=== PATIENT | female | born 1955 | race Caucasian/White ===

== ENCOUNTER → 2017-12-10 11:51 | Outpatient (CLI) | payer MEDICARE, MEDICAID, SELFPAY ==
--- NOTE | 2017-12-10 11:55 | DI.RAD.S_ITS ---
PROCEDURE: XR CHEST 2V INDICATIONS: COUGH TECHNIQUE: 2 views of the chest were acquired. COMPARISON: [facility], CHEST 2 VIEW, 08/28/2010, 9:58. [facility], CHEST 2 VIEW, 06/12/2008, 13:43. FINDINGS: Surgical changes and devices: Prior lower cervical spine fusion plate. Lungs and pleura: No pleural effusions or pneumothorax. Lungs are clear except for large lung volumes with flattening of the diaphragms on the lateral view. Mediastinum: Mediastinal contours are normal. Heart size is normal. Bones and chest wall: No suspicious bony abnormalities. Soft tissues appear unremarkable. IMPRESSION: Normal for age except for large lung volumes, source of cough is not seen. Dictated by: Aquiles Lopez M.D. on 12/10/2017 at 13:13 Approved by: Aquiles Lopez M.D. on 12/10/2017 at 13:14
== END ==
PROVIDERS: Visit Provider Physician Assistant
DX: R05 Cough (principal)
CPT/HCPCS: 71046

== ENCOUNTER → 2018-02-05 14:17 | Outpatient (CLI) | payer MEDICARE, MEDICAID, SELFPAY ==
--- NOTE | 2018-02-05 | DI.MG.S_ITS ---
BILATERAL DIGITAL SCREENING MAMMOGRAM 3D/2D WITH CAD: 02/05/2018 CLINICAL: Routine screening. Comparison is made to exams dated: 01/09/2017 mammogram, 11/09/2015 mammogram, 03/17/2014 mammogram, and 03/04/2013 mammogram - [facility]. There are scattered fibroglandular elements in both breasts. Current study was also evaluated with a Computer Aided Detection (CAD) system. No significant masses, calcifications, or other findings are seen in either breast. There has been no significant interval change. IMPRESSION: NEGATIVE There is no mammographic evidence of malignancy. A 1 year screening mammogram is recommended. This exam was interpreted at Station ID: [id number]. NOTE: For mammograms, a report in lay terms will be sent to the patient. Approximately 15% of breast malignancies will not be visualized mammographically. In the management of a palpable breast mass, a negative mammogram must not discourage biopsy of a clinically suspicious lesion. Electronically Signed By: Jhoana fall/brendan:02/05/2018 14:57:25 letter sent: Normal Exam ACR BI-RADS Category 1: Negative [id number]
== END ==
PROVIDERS: PCP Family Medicine; Visit Provider Family Medicine
DX: Z12.31 Encounter for screening mammogram for malignant neoplasm of breast (principal)
CPT/HCPCS: 77063; 77067

== ENCOUNTER → 2018-03-22 12:38 | Outpatient (CLI) | payer MEDICARE, MEDICAID, SELFPAY ==
--- NOTE | 2018-03-22 12:43 | DI.RAD.S_ITS ---
PROCEDURE: XR LUMBAR SPINE MIN 4V INDICATIONS: lower back pain TECHNIQUE: 5 views of the lumbar spine acquired. COMPARISON: [facility], , L-SPINE MINIMUM 4 VIEWS, 01/04/2015, 13:36. FINDINGS: Bones: Upon review of prior exams, there appears to be 13 ribs with the 13th set being vestigial. For purposes of this report and to keep continuity with prior exams, the vertebral body with the 13th rib is designated at L1. There is grade 1 anteriolisthesis of L4 on L5, measuring 9 mm.. There is moderate foraminal narrowing at L5-S1. Prominent disc space narrowing is present at L5-S1. Soft tissues: Overlying bowel gas pattern is normal. No suspicious soft tissue calcifications. Flexion/extension: There is normal range of motion, with preserved normal alignment. IMPRESSION: 1. Degenerative changes most prominent at L5-S1. 2. Transitional anatomy as above. 3. Grade 1 anteriolisthesis of L4 on L5, unchanged. Dictated by: Juli Chappell M.D. on 03/22/2018 at 15:41 Approved by: Juli Chappell M.D. on 03/22/2018 at 15:47
--- NOTE | 2018-03-22 12:43 | DI.MRI.S_ITS ---
PROCEDURE: MR LUMBAR SPINE WO CON INDICATIONS: low back pain TECHNIQUE: Noncontrast sagittal T1 spin echo and T2 fast echo, sagittal STIR, axial T1 and T2 fast spin echo through the lumbar spine. In cases with scoliosis, additional coronal T2 fast spin echo may be performed. COMPARISON: [facility], MR, L-SPINE W&WO CONTRAST, 12/13/2014, 12:47. [facility], CT, L-SPINE WITH CONTRAST, 09/29/2016, 14:36. [facility], CR, XR CHEST 2V, 12/10/2017, 11:30. [facility], CR, XR LUMBAR SPINE MIN 4V, 03/22/2018, 12:46. FINDINGS: Image quality: Excellent. Alignment and Curvature: There is grade 1 L4-L5 degenerative anterolisthesis. Bones: Transitional anatomy with 13 ribs and non-rudimentary S1-2 disc. For purposes of this dictation and continuity with prior examinations, the vertebral body with the 13th rib is designated L1. Reactive endplate changes noted adjacent to the L4-L5 and L5-S1 discs. No acute vertebral body compression fractures. Spinal Cord: Conus medullaris terminates at the L2 level. Visualized cord demonstrates normal signal and size. Paraspinous Soft Tissues: No paravertebral masses. L1-L2: Normal appearance. L2-L3: Loss of disc signal. Mild, diffuse disc bulge. Mild bilateral facet hypertrophy. Mild narrowing of the central canal. Mild bilateral neural foraminal narrowing. No neural impingement. L3-L4: Loss of disc signal. Mild bilateral facet hypertrophy. Mild to moderate facet and mild ligamentum flavum hypertrophy. Moderate narrowing of the central canal. Mild bilateral neural foraminal narrowing. No neural impingement. L4-L5: Loss of disc signal and slight loss of disc height. Mild, diffuse disc bulge. Severe facet and mild ligamentum flavum hypertrophy. Moderate to severe narrowing of the central canal. Moderate to severe bilateral neural foraminal narrowing with slight flattening deformity of the exiting L4 nerve roots. L5-S1: Loss of disc signal and height. Mild, diffuse disc bulge and mild bilateral facet hypertrophy. No central stenosis. Moderate bilateral neural foraminal narrowing. No neural impingement. IMPRESSION: 1. Transitional anatomy which be noted prior to any future surgical intervention. 2. Grade I L4-L5 degenerative spondylolisthesis. 3. Multilevel degenerative disease. 4. Multilevel facet arthropathy. 5. Moderate to severe L4-L5 central canal narrowing. Moderate L3-L4 central canal narrowing. Mild L2-L3 central canal narrowing. 6. Moderate to severe bilateral L4-L5 neural foraminal narrowing. Moderate bilateral L5-S1 and neural foraminal narrowing. Mild bilateral L2-L3 and L3-L4 neural foraminal narrowing. Dictated by: Deanna Conner MD, PhD on 03/22/2018 at 16:08 Approved by: Deanna Conner MD, PhD on 03/22/2018 at 16:28
== END ==
PROVIDERS: Family Provider Family Medicine; PCP Family Medicine; Visit Provider Physical Medicine & Rehabilitation
DX: M54.5 Low back pain (principal); M43.16 Spondylolisthesis, lumbar region; M96.1 Postlaminectomy syndrome, not elsewhere classified; M51.36 Other intervertebral disc degeneration, lumbar region; M51.37 Other intervertebral disc degeneration, lumbosacral region; M48.061 Spinal stenosis, lumbar region without neurogenic claudication; M48.07 Spinal stenosis, lumbosacral region; M47.816 Spondylosis without myelopathy or radiculopathy, lumbar region; M47.817 Spondylosis without myelopathy or radiculopathy, lumbosacral region
CPT/HCPCS: 72110; 72148

== ENCOUNTER 2018-04-28 13:47 | Outpatient (CLI) | payer MEDICARE, MEDICAID, SELFPAY ==
[2018-04-28] VITALS (8 sets, daily range): BP systolic 108–162; BP diastolic 78–99; PULSE 73–86; RESP 16–18; TEMP 36.3; O2SAT 95–100
--- NOTE | 2018-04-28 13:49 | DI.RAD.S_ITS ---
PROCEDURE: PAIN L INTERLAMINAR/CAUDAL INJ INDICATIONS: Spinal Stenosis FINDINGS: Fluoroscopic spot filming was performed to verify placement of spinal needles at the dorsal L4-L5 level, at the midline, as labeled on the films. Appropriate location(s) of the needle tip(s) was confirmed by injection of iodinated contrast. IMPRESSION: Successful L4-L5 translaminar dorsal midline needle tip localization for epidural steroid injection. Dictated by: Aquiles Lopez M.D. on 04/28/2018 at 15:10 Approved by: Aquiles Lopez M.D. on 04/28/2018 at 15:11
[2018-04-28] MEDS: fentaNYL 100 MCG/2 ML INJ 50 MCG IV (14:30)
[2018-04-28] MEDS: MIDAZOLAM 5 MG/5 ML VIAL IV (14:30)
--- NOTE | 2018-04-28 14:43 | PC.NURSE ---
pt tolerated procedure, she remained awake and alert through procedure. She was able to get off table with minimal assist. transferred pt to pre procedure room via wheelchair for resumed monitoring with Radha TAMEZ.
--- NOTE | 2018-04-28 14:53 | P.PCN_ITS ---
Procedures Date/Time Date of procedure: 04/28/18 Time of procedure: 14:52 General Procedure description: PROVIDER: Aman Ojeda DO Operative Note PREOP DIAGNOSIS 1. HNP WITH RADICULAR FEATURES, 2. MULTILEVEL CENTRAL STENOSIS, POST OP DIAGNOSIS 1. HNP WITH RADICULAR FEATURES, 2. MULTILEVEL CENTRAL STENOSIS PROCEDURES 1. FLUORSCOPICALLY GUIDED CONTRAST CONTROLLED INTERLAMINAR EPIDURAL STEROID INJECTION -L4/5 PHYSICIAN: Aman Ojeda DO INDICATIONs: Josey is referred by Dr. Espinoza for treatment of Bilateral Foraminal Stenosis R>L LE symptoms. FINDINGS Multilevel Central Spinal Stenosis with Nerve Root Compression DESCRIPTION OF PROCEDURE Fluoroscopically guided, contrast-controlled L4/5 translaminar epidural steroid injection. Following denial of allergy and review of potential side effects and complications, including, but not necessarily limited to, infection, allergic reaction, local tissue breakdown, temporary as well as permanent nerve injury, paralysis, stroke and possible , the patient indicated that the patient understood and agreed to proceed. An informed consent document was signed by the patient, witnessed by a nurse, and placed in the patient's chart. Additionally, other treatment options including modalities, medications, and physical therapy were reviewed with the patient. After review of previous anaesthesic history and IV conscious sedation the patient was deemed safe to proceed with todays procedure with IV conscious sedation as ASA class II designation. Safety time-out was performed to confirm patient ID, procedure to be performed and site of procedure. IV sedation was accomplished with a combination of 3mg of Versed and 50mcg of Fentanyl was administered by the RN after DO order, titrated to patient comfort during the course of the procedure while the patient remained responsive to all verbal commands In the prone position, following sterile prep and drape of the lumbar region, the L4/5 translaminar space was identified fluoroscopically. The skin was anesthetized via a 25-gauge, 1.5-inch needle with 1% lidocaine solution. At this point, a 22-gauge short bevel spinal needle was atraumatically introduced and advanced under fluoroscopic guidance into the region of the L4/5 translaminar space. Depth was confirmed on lateral view. Radiological data, including multiple fluoroscopic views of the lumbar spine, reveal a spinal needle at the L4/5 translaminar space. Lateral views then show placement of the needle in the epidural space. Subsequent views show contrast material flowing superiorly and inferiorly in the epidural space. No vascular or intrathecal uptake is observed. At this point, using loss of resistance technique with saline and air, the epidural space was entered. This was confirmed following negative aspiration with injection of approximately 1.5 cc of Isovue 200, showing excellent epidural flow without vascular or intrathecal uptake. At this point, 1 cc of 1% lidocaine solution combined with 2cc or 20mg of dexamethasone was injected without incident. The patient tolerated the procedure well without signs or symptoms of complications prior to transfer to the recovery area continued monitoring without incident. The patient was then transferred to the recovery area where they were observed for an appropriate period of time after the injection. The patient reported a VAS score of 6 prior to the procedure and a post- procedure VAS of 0. Total Fluoroscopy Time: 11.8 seconds, 8.99 mGy Total Conscious Sedation Time: 24min POST OP INSTRUCTIONS The patient was provided a Pain Log to continue to record their response to the target-specific procedure prior to follow-up visit with their referring physician. Additionally, specific post-injection care instructions and a contact number to our office were provided if concerns arise regarding possible complications associated with the procedure are suspected. Aman Ojeda, Complications: none
[2018-04-28] MEDS: IOPAMIDOL 15 ML VIAL 3 ML INJ (14:54)
[2018-04-28] MEDS: DEXAMETHASONE 10 MG/ML VIAL 20 MG INJ (14:54)
[2018-04-28] MEDS: BUPIVACAINE 0.25% (PF) VIAL 2 ML INJ (14:54)
== END 2018-04-28 15:26 | disposition home or self-care (01) ==
LOC: RAD 13:48
PROVIDERS: Family Provider Family Medicine; PCP Family Medicine; Visit Provider Physical Medicine & Rehabilitation
DX: M51.16 Intervertebral disc disorders with radiculopathy, lumbar region (principal); M48.061 Spinal stenosis, lumbar region without neurogenic claudication; M96.1 Postlaminectomy syndrome, not elsewhere classified
CPT/HCPCS: 62323; 99152; J1100; J2250; J3010

== ENCOUNTER → 2018-12-09 15:32 | Outpatient (CLI) | payer MEDICARE, MEDICAID, SELFPAY ==
[2018-12-09 16:00] LABS: Add Manual Diff / Slide Review NO; Basophils Absolute Auto 100 /uL (0-100); Eosinophils Absolute Auto 500 /uL (0-450); Eosinophils Percent Auto 5.4 % (2-4); Hematocrit 40.9 % (36-46); Hemoglobin 13.3 g/dL (12.0-16.0); Lymphocytes Absolute Auto 2000 /uL (1100-4500); Lymphocytes Percent Auto 22.9 % (25-40); Mean Corpuscular HGB Conc 32.6 % (30-36); Mean Corpuscular Hemoglobin 26.9 PG (26-34); Mean Corpuscular Volume 82.6 fL (80-100); Monocytes Absolute Auto 600 /uL (0-900); Monocytes Percent Auto 6.5 % (3-14); Neutrophils Absolute Auto 5600 /uL (1500-7000); Neutrophils Percent Auto 64.2 % (50-75); Platelet Count 328 X10^3/uL (150-400); Red Blood Cell Count 4.95 X10^6/uL (4.0-5.2); White Blood Cell Count 8.8 X10^3/uL (4.5-11.0)
[2018-12-09 16:51] LABS: BUN Creatinine Ratio 18.3 (6-22); Blood Urea Nitrogen 11 mg/dL (7-17); Calcium 9.6 mg/dL (8.4-10.2); Carbon Dioxide 28 mmol/L (22-32); Chloride 102 mmol/L (98-107); Estimated Glomerular Filt Rate > 60.0 mL/min (>60); Glucose 95 mg/dL (80-110); HEMOLYSIS < 15 (0-50); Potassium 4.2 mmol/L (3.4-5.1); Sodium 136 mmol/L (137-145)
== END ==
PROVIDERS: Family Provider Family Medicine; PCP Family Medicine; Visit Provider Physician Assistant Surgical
DX: Z01.818 Encounter for other preprocedural examination (principal); Z01.812 Encounter for preprocedural laboratory examination
CPT/HCPCS: 36415; 80048; 85025; 93005

== ENCOUNTER 2018-12-13 06:42 | Inpatient (IN) | payer MEDICARE, MEDICAID, SELFPAY ==
[2018-10-14 12:32] VITALS: BMI 25.9
[2018-12-13] VITALS (24 sets, daily range): BP systolic 109–152; BP diastolic 68–93; PULSE 76–97; RESP 8–16; TEMP 35.6–36.4; O2SAT 91–100; BMI 25.9
--- NOTE | 2018-12-13 | DI.RAD.S_ITS ---
PROCEDURE: XR LUMBAR SPINE 2-3V INDICATIONS: L4-5 L5-S1 TLIF TECHNIQUE: 2 views of the lumbar spine were acquired. COMPARISON: [facility], CR, XR LUMBAR SPINE MIN 4V, 03/22/2018, 12:46. [facility], MR, MR LUMBAR SPINE WO CON, 03/22/2018, 13:17. FINDINGS: Two intraoperative fluoroscopy images demonstrate discectomy, laminectomy and posterior fusion at L4-L5 and L5-S1. Pedicular screws and fusion rods are in the expected position. Intervertebral disc prostheses are noted. IMPRESSION: Discectomy and posterior fusion at L4-L5 and L5-S1. Dictated by: Umm Rocha M.D. on 12/13/2018 at 12:04 Approved by: Umm Rocha M.D. on 12/13/2018 at 12:07
[2018-12-13] MEDS: LACTATED RINGERS 1,000 ML 100 ML IV ×3 (07:28→10:26)
[2018-12-13] MEDS: CEFAZOLIN 2 GM/100 ML FROZ.PIGGY IV ×2 (07:55→16:25)
--- NOTE | 2018-12-13 08:30 | SUR.OPER ---
Prone on spine table, head in foam head support, padded chest and pelvic supports, gel pad at knees, lower legs supported by pillows; nipples, genitalia and toes free of pressure, arms secured on foam padded arm boards at <90 degrees abduction. Tape over blanket at thigh secured to table.
[2018-12-13] MEDS: BUPIVACAINE 0.25% W/ EPI 30 ML VIAL INJ (08:43)
[2018-12-13] MEDS: BUPIVACAINE LIPOSOME 266 MG/20 ML VIAL INJ (08:43)
--- NOTE | 2018-12-13 11:28 | PM.PREOP ---
Pre-operative Note Interval Note History & Physical reviewed/Exam performed by Physician: Yes Changes to H&P: No
--- NOTE | 2018-12-13 11:28 | PM.OP.1 ---
Operative Date/Time/Diagnoses Date of procedure: 12/13/18 Time of procedure: 08:13 Pre-op diagnosis: 1. L4-5, L5-S1 spondylolisthesis 2. L4-5, L5-S1 post laminectomy syndrome 3. L4-5, L5-S1 spinal stenosis. Post-op diagnosis: same Procedure & Clinicians Procedure: 1. L4-5, L5-S1 Postero-lateral and posterior interbody fusion 2. L4-5, L5-S1 interbody cage placement. 3. L4-5, L5-S1 decompressive laminectomy with bilateral facetecomies 4. L4-5, L5-S1 Posterior segmental instrumentation 5. [place] of bone marrow from iliac crest 6. Utilization of microsurgical technique and operating microscope Same procedure as scheduled: Yes Indications: Patient has been having chronic back pain and worsening lumbar radiculopathy. Patient failed multiple conservative management with worsening pain weakness and numbness in her lower extremity. Patient has been having difficulty performing activity of daily living. After discussing risks benefits of treatment options, patient elected proceed with surgery. Surgeon: Daniel [facility] [employer] As[employer]er: Meredith Mccurdy Click Yes if Unassisted: No Anesthesia Type: General Operative Notes Closure Type: primary Specimen(s): none sent Prosthetic devices, grafts, tissues, transplants, or devices: Globus revolve, Rise cages Applied: catheter Estimated Blood Loss (mL): 100 Blood products transfused: none Procedure in detail: Patient was seen in the preoperative area. Risks and benefits of the surgery was discussed with the patient. Informed consent was obtained from the patient and placed in the chart. Surgical site was marked. Patient was taken to the operative room. General anesthesia was administered. Prophylactic antibiotic was given to the patient less than 30 min before the incision was made. Patient was placed into a prone position on the Jordan table. Patient's back was then prepped and draped in the sterile fashion. Time-out was performed at this time. Using AP and lateral C-arm imaging the interval between L4-S1 was identified and marked on patient's back. A 2 inch incision 2 in from midline was made on the right side first. The fascia was incised in line with skin incision. Globus MARS retractors was placed inside the incision and docked onto the L4 and L5 lamina. Using microsurgical technique and operating microscope, a L4 and L5 laminectomy and L4-5 L5-S1 facetectomy was performed using a Kerrison rongeur. During the process of decompression more than 75% of bilateral L4-5 L5-S1 facets were removed in order to decompress the spinal canal and the lateral recess. Patient was found have significant amount of epidural scarring from previous laminectomy which was carefully resected during the process of decompression. The L4-5 L5-S1 level was grossly unstable after the decompression was completed and requiring the fusion procedure. The disc space at L4-5, L5-S1 was identified. And a total diskectomy was performed at L4-5, L5-S1 level. The endplates were decorticated using a rasp and shaver. The total diskectomy and decortication was performed at L4-5, L5-S1 level in order to to accomplish a L4-5, L5-S1 fusion. The local bone from the laminectomy and facetectomy was saved for local bone grafting. After the total diskectomy and decortication was completed, Bio4 bone graft material was combined with local bone that was harvested earlier. At this time, a separate skin is incision was made over the iliac crest. A Jamshidi needle was inserted into the iliac crest through a separate skin incision. 5 cc of bone marrow aspiration was obtained through the separate skin incision using a Jamshidi needle from the iliac crest. The bone marrow aspiration was combined with local bone and the Bio4 bone grafting material. The bone grafting material was placed into the L4-5, L5-S1 interbody space along with two cages, one expandable cage at each level. The cages were expanded to their maximum height using the torque limiting screwdriver. At this time a mirror image incision was made on the left side. The fascia was incised in line with the skin incision. Globus MARS retractor was inserted and docked onto the L4-5, L5-S1 posterolateral gutter. Using the power drill, posterior-lateral decortication was performed at L4-5, L5-S1 level until bleeding cortical bone was identified. The remaining bone grafting material was placed into the L4-5 L5-S1 posterior lateral gutter he order to accomplish posterolateral fusion at the L4-5 L5-S1 levels. Using the double C-arm technique, pedicle screws were placed into the L4, L5, S1 pedicles bilaterally. This was done by placing the Jamshidi needle into the pedicles, then placing the guidewires over the Jamshidi needle, and finally placing the cannulated screws over the guidewires bilaterally. After the pedicle screws were placed, 2 titanium rods was locked into the heads of the pedicle screws using locking caps and torque limiting screwdriver. Total 6 pedicles screws were placed. After all the hardware was placed, and confirmed with AP and lateral C-arm imaging, the wound was then irrigated with sterile normal saline and packed with Ray-Lazaro gauze for 3 min to accomplish hemostasis. After the gauze was removed the deep fascia was closed with #1 Vicryl suture. The subcutaneous layer was closed with 2-0 Vicryl. The skin was closed with skin stacey. Patient tolerated the procedure well. There were no complications. Complications: none Post-operative Condition: stable Disposition: PACU Plan for aftercare: Admit to inpatient hospital
--- NOTE | 2018-12-13 12:06 | SUR.PHASEI ---
1145 to PACU, sleeping, need jaw thrust for airway management, resp even and regular. Sigrid Nielsen RN assisting with airway. Skin warm and dry. 1150 Reported off to Sigrid Nielsen Rn.
[2018-12-13] MEDS: hydrOXYzine 50 MG/ML INJ IM (12:11)
[2018-12-13] MEDS: fentaNYL 100 MCG/2 ML INJ 50 MCG IV (12:17)
[2018-12-13] MEDS: SODIUM CHLORIDE 0.9% 1,000 ML 100 ML IV (14:11)
[2018-12-13] MEDS: HYDROMORPHONE 1 MG INJ 0.5 MG IV ×4 (14:18→20:23)
--- NOTE | 2018-12-13 14:50 | PC.NURSE ---
Addendum entered by Kings Naylor R.N. 12/13/18 15:24: Patient medicated with IV dilaudid as ordered at 1418, her grandson now at bedside, patient declined to eat or drink at this time, patient then able to fall asleep and resting comfortably at this time. Almazan in place, draining clear yellow urine. Moving all extremitites. Denies numbness. Call light within reach. Bed alarm on. Original Note: Patient brought up to floor by INTERRELATED SPECIAL EDUCATION TEACHER to room 213. VSS on 2-3L NC. Patient crying, irritable, with clenched hands, restless in bed. When attempting to complete physical assessment and evaluate pain patient continues to cry, only selectively answering questions, stating what is that pounding, it feels like a nail gun on my feet (in reference to the foot SCD's), don't keep pulling on me, and continues to attempt to pull on bed rails to reposition. Re oriented patient to room and call light, lifting/bending/twisting restrictions, and pain management. Bed alarm activated for safety. Unable to complete admission assessment further at this time as patient is not answering questions consistently. IV fluids started as ordered, patient assisted to reposition, ice packs placed and incision checked on back, dressing remains CDI. Patient removed O2, but maintaining on RA at 92-94% at this time. Continue to monitor.
[2018-12-13] MEDS: OXYCODONE IR 5 MG TABLET 10 MG PO ×2 (15:46→18:40)
[2018-12-13] MEDS: diazePAM 5 MG TABLET 10 MG PO (15:46)
[2018-12-13] MEDS: GABAPENTIN 300 MG CAPSULE 900 MG PO ×2 (15:47→19:56)
[2018-12-13] MEDS: ACYCLOVIR 400 MG TABLET PO ×2 (15:47→19:56)
[2018-12-13] MEDS: DOCUSATE 100 MG CAPSULE PO (19:56)
[2018-12-13] MEDS: SENNOSIDES 8.6 MG TABLET 17.2 MG PO (19:57)
[2018-12-13] MEDS: PANTOPRAZOLE 40 MG TABLET PO (19:57)
[2018-12-13] MEDS: TIZANIDINE 4 MG TABLET 8 MG PO (19:58)
[2018-12-13] MEDS: TRAZODONE 100 MG TABLET PO (19:58)
--- NOTE | 2018-12-13 20:51 | PC.NURSE ---
Addendum entered by Jacquie Mccormack R.N. 12/13/18 22:01: Patient refusing to log roll or follow any back precautions. Patient in bed twisting and turning and bending. attempted to educate patient multiple times but patient cut me off and refused to listen. Original Note: Evening Shift Note- Patient alert and oriented and able to make needs known to staff. patient refused to turn to have surgical dressing inspected. Patient refused to answer admission questions, information obtained from sister and grandson. attempted multiple times to show patient how to use bed controls and tv remote/call bhatti. Patient rolled her eyes and refused to listen, later complained she was not showed how to work anything. Safety measures in place. call bhatti and phone within reach. will continue to monitor.
[2018-12-14] VITALS (10 sets, daily range): BP systolic 98–140; BP diastolic 58–83; PULSE 81–97; RESP 12–18; TEMP 36.6–38.2; O2SAT 89–97
[2018-12-14] MEDS: CEFAZOLIN 2 GM/100 ML FROZ.PIGGY IV (00:17)
[2018-12-14] MEDS: SODIUM CHLORIDE 0.9% 1,000 ML 100 ML IV (00:17)
--- NOTE | 2018-12-14 05:51 | PC.NURSE ---
Pt alert and oriented. Refusing to turn to see post op dressing site. Pt refusing to follow post op instructions and education. Pt refused AM labs, laboratory reports that they will come back and try again later in the AM. Pt has no complaints of pain at this time. Almazan draining yellow urine. Patent and intact. CDI dressing on lower back post op clean dry and intact. Pedal pulses bilaterally intact.
[2018-12-14] MEDS: OXYCODONE IR 5 MG TABLET 10 MG PO ×3 (06:02→20:34)
[2018-12-14] MEDS: SODIUM CHLORIDE 0.9% FLUSH 10 ML IV ×2 (09:21→21:39)
[2018-12-14] MEDS: hydrOXYzine pamoate 25 MG CAPSULE PO (09:24)
[2018-12-14] MEDS: HYDROMORPHONE 1 MG INJ 0.5 MG IV (09:25)
[2018-12-14] MEDS: DOCUSATE 100 MG CAPSULE PO ×2 (09:28→20:29)
[2018-12-14] MEDS: GABAPENTIN 300 MG CAPSULE 900 MG PO ×3 (09:28→20:29)
[2018-12-14] MEDS: ACYCLOVIR 400 MG TABLET PO ×2 (09:30→20:29)
[2018-12-14] MEDS: ALBUTEROL HFA 60 PUFF/8 GM INH INH (10:13)
--- NOTE | 2018-12-14 10:26 | RT ---
Patient did not want smoking cessation materials. She states she is trying to quit smoking. She was taking Chantix but had to stop it due to side effects. She has a patch on now.
--- NOTE | 2018-12-14 10:43 | PT-IP ANOTE ---
Checked on pt and pt refused PT. stated that the PA just saw her and she is in a lot of pain and does not want to do any therapy at this time. stated that she can try later.
--- NOTE | 2018-12-14 10:53 | OT.IP.TRT ---
Current Diagnoses Spondylolisthesis, lumbar region (12/13/18) Spinal stenosis, lumbar region without neurogenic claudication (12/13/18) Postlaminectomy syndrome, not elsewhere classified (12/13/18) Surgery Performed Operation Date: 12/13/18 07:45 Actual Procedures p L4-5,L5-S1 TLIF w/Posterior Instru. - Dainel Poole MD Occupational Therapy Treatment Note M3 OT- IP Subjective and Pain Start: 12/14/18 10:45 Freq: Status: Active Protocol: Document 12/14/18 10:49 [facility] (Rec: 12/14/18 10:53 [facility] [id number]) OT- Subjective Occupational Therapy Visit Type Type Administrative Note Notes Pt initially not wanting to get up as eating breakfast and did not want to wake up her grandson who was sleeping in the room, 2nd attempt nursing in the room and giving her pain medications, and 3rd attempt respiratory therapy in the room with pt, and 4th attempt pt refusing as in too much pain. Per pt just finished seeing the PA and not wanting to get up or felt she was in too much pain to answer questions from the therapist at this time. Pt requesting to be seen in the afternoon for OT /PT evals. To try again the in afternoon.
--- NOTE | 2018-12-14 10:54 | PM.PNPO.1 ---
Subjective Subjective Date Patient Seen: 12/14/18 Time Patient Seen: 07:30 Interval history: Post op day 1 s/p L4-L5, L5-S1 TLIP with . Overnight patient refused dressing checks secondary to pain and refused morning labs. This AM patient refused answering questions, physical exam secondary to pain/desire to sleep. Patient refused to have urinary catheter removed until physical therapy. Otherwise no acute events. Patient describes pain in incision area and muscle spasms. Patient has not ambulated. Patient denies fever, chills, nausea, vomiting, chest pain, shortness of breath, numbness, tingling. Exam Vital Signs (past 8 hours): - 12/14/18 05:00 12/14/18 10:23 Temperature 97.8 F Pulse Rate 84 Respiratory Rate 18 Blood Pressure 98/64 Pulse Oximetry 97 94 Oxygen Delivery Method Room Air Oxygen Flow Rate 2 Narrative Exam Narrative: 63 year old female is laying in bed uncomfortably in mild distress. A&Ox3. Dressing is CDI. Lumbar back is ttp. No erythema, swelling, rashes, lesions noted on lower back. Patient able to actively dorsiflex/plantar flex. Sensory function grossly intact to light touch in lower extremities b/l. Pedal pulses 2+ b/l. SCDs in place. Assessment & Plan Post-op Postoperative Procedures: Procedures Operation Date: 12/13/18 07:45 Actual Procedures Side Surgeon p L4-5,L5-S1 TLIF w/Posterior Instru. Daniel Poole MD Postoperative status: marginal pain control Postoperative plan narrative: Per nurse, patient agreed to have labs taken in PM Pain management - continue current pain management (oxycodone 10, dilaudid 0.5 IV, tylenol) Muscle spasms - increased vistaril to 50mg, continue zanaflex and valium Urinary catheter - anticipate removal today before physical therapy, patient educated on infection risk and need for removal Physical therapy - attempt ambulation today VTE prophylaxis - continue SCDs, asa 81mg bid Discharge unlikely today Time Spent With Patient Time with patient: 15-24 minutes Quality VTE Deep Vein Thrombosis/Pulmonary Embolism Present on Admission: No
--- NOTE | 2018-12-14 11:31 | PC.NURSE ---
Addendum entered by Shaniqua Lara R.N. 12/14/18 15:16: Earlier in the shift, reminded pt to not twist, log roll, pt had kept putting her right arm behind her lower back, reinforced not to over extend back to prevent injury. Update given to Cole around 1525. Lab called around 1520 to draw H&H pending from this AM. Addendum entered by Shaniqua Lara R.N. 12/14/18 14:44: Pt had refused Morning vital signs to be taken from staff. At 1440, again when asked for at least the 3rd time, pt refused Lab draw, wanted to wait until her family/friend left. Explained to pt that her 13 year old Grandson Alexandre is not permitted to stay the night or be at the hospital without an adult besides the pt for safety reasons and per hospital policy. As well as during the day hours due to pt being a minor. Explained that last night might have been a mis- communication allowing Alexandre to spend the night. RN Coordinator Lex aware. Around 1440, pt's neighbor/friend Cedric present in room as well as pt's grandson during conversation. pt stated the purpose of her grandson staying with her was to help her when staff not available. Explained that pt needs to use her call light to ask for help. Asked pt if she wanted her scheduled Nicotine patch, pt stated she already had one on, EMAR documentation stated none was given. Pt stated she had put her own on. Explained to pt that medications need to be delivered by the hospital unless Dr ordered and medication verified by pharmacy. Pt explained she didn't know this. A few nicotine patches handed over to her neighbor Cedric. Pt stated she had no other medications in the room. RN Coordinator aware. Addendum entered by Shaniqua Lara R.N. 12/14/18 12:03: At 1200, when asking pt's pain level, pt was fixated on finding her CD player, did not answer this RN when asked twice. Pt delayed then responded with 6/10 when lying down, increases with elevated movement. Original Note: Day Shift- Pt refusing AM H&H lab work, spoke with pt, would like to have labs drawn around 1000, pt stated not until 1200, lab aware. Explained importance of lab draw after surgery. Spoke with SHAYY Galvan around 0740 regarding pt's pain management. Not effective pain management this AM. Plan discussed. Okay to given prn Vistaril and prn Zanaflex staggered. Change PRN Tylenol to scheduled Tylenol. PRN Dialudid 0.5 IV, Oxycodone 10mg, and Vistaril given at 0925. Pain plan discussed with pt at this time. Will keep on track with prn pain medications. Talking about bowel meds, pt took her scheduled Docusate, wanted another stool softener as she said she was prone to constipation. Update regarding pt given to SHAYY Galvan around 1025, will order Miralax, aware pt refused AM lab and agreeable to 1200 draw. Also aware that pt refused removal of urinary catheter until mobilized OOB with PT. Around 0930, pt moved upwards in bed with 2PA as pt had slid down in bed. Explained she is on a DOMINICK bed which can help reposition by turning side to side. Support with pillows behind back and between legs. Pt declined side turning at that time. CMS+. pt states has chronic numbness to left 3rd toe and has intermittent nerve pain to bilateral legs.
[2018-12-14] MEDS: TIZANIDINE 4 MG TABLET 8 MG PO (12:00)
[2018-12-14] MEDS: POLYETHYLENE GLYCOL 3350 17 GM POWD.PACK PO (12:00)
[2018-12-14] MEDS: ACETAMINOPHEN 325 MG TABLET 650 MG PO ×2 (12:01→17:08)
--- NOTE | 2018-12-14 12:58 | OT.IP.TRT ---
Current Diagnoses Spondylolisthesis, lumbar region (12/13/18) Spinal stenosis, lumbar region without neurogenic claudication (12/13/18) Postlaminectomy syndrome, not elsewhere classified (12/13/18) Surgery Performed Operation Date: 12/13/18 07:45 Actual Procedures p L4-5,L5-S1 TLIF w/Posterior Instru. - Daniel Poole MD Occupational Therapy Treatment Note M3 OT- IP Subjective and Pain Start: 12/14/18 10:45 Freq: Status: Active Protocol: Document 12/14/18 12:58 [facility] (Rec: 12/14/18 13:41 [facility] [id number]) OT- Subjective Occupational Therapy Visit Type Type Patient Refusal Notes Attempted to see pt to set up time for OT eval as pt just receiving pain medications. Pt adamant that she is hurting too much and states, I am hurting too much and the PA told me that I do not have to get up today. Offered to help raise the bed up so pt able to eat lunch, pt refused. Notified nursing. and case manegment of pt's refusals. To attempt to see pt tomorrow for OT eval.
--- NOTE | 2018-12-14 14:19 | CM.DANOTE ---
DCP/Assessment: Reviewed chart. Patient is a 63yr old female admitted [facility] spine surgery performed on 12-13-[address] Poole. PCP listed is Dr. Espinoza. Primary payor is 1)Medicare 2)Medicaid. Met with patient explained CM/SW role. Patient alert and oriented at time of visit. Notes report patient refusing therapy secondary to pain. Patient admits to a lot of discomfort today and indicates that she plans to get up with therapy tomorrow 12-15-18. Notified patient that CM team would be coordinating d/c needs. Patient resides in apartment in [facility]. Patient's grandson visiting to help care for her upon d/c from [facility]. Grandson/Alexandre age unknown but appears to be teenager. Patient reports that grandson's father approved of him missing school to help assist with grandma/patient. Patient reports that she drives and uses walker at baseline. Patient has 1 step to enter residence. Patient prefers to d/c home with HH if possible. Notified patient that recommendation will depend on her progress. Encourage patient to follow through with plan to work with therapy tomorrow. Patient made aware that if she is unable to safely manage at home that SNF might be recommend. SNF/HH list provided to patient. Patient prefers home with HH. P: CM team to follow closely. Will follow after therapy evaluates for recommendation. Will need to confirm to Orthopedic team if they would like HH. Order/F2F will need to be obtained. TARYN Nathan Discharge Planning/Care Management CM Discharge Assessment Start: 12/14/18 13:49 Freq: Status: Active Protocol: Document 12/14/18 13:50 [facility] (Rec: 12/14/18 14:19 [facility] [id number]) Discharge Planning Assessment Assigned Refinisher TARYN Nathan Advance Directives? No Advance Directives on File No History Provided By Patient,Family Member,Medical Record Prior Living Arrangements Apartment/Condo Household Members other Type of transporation used prior to Drives own vehicle admit Independent with ADL's Yes: Uses walker at baseline Is patient alert and oriented? Yes Caregiver for Another No DME Already Rented / Owned FWW / Walker,Cane Comment Awaiting therapy evaluations. Discharge Plan Home Transportation Arrangement Family to provide transport. Whiteboard Updated in Patient Room with Yes name and ext. # of Refinisher Review Status In Process Next Review Type Continued Stay Review Pre-Anesthesia Assessment Start: 10/14/18 12:32 Freq: Status: Complete Protocol: Document 10/14/18 12:32 [facility] (Rec: 10/14/18 13:05 [facility] [id number]) Pre-Anesthesia Assessment PAC Comment Unable to reach pt for PAC phone assessment x 3 scheduled appointments. Chart review only Patient Information Reviewed Via Chart Review Assessment Completed With Patient Primary Care Provider Sherley Espinoza Seen Specialist in Last 12 Months Yes Specialist Seen Orthopedist,Other Comment Pain Management Primary Language Spanish Promotions Team Leader Required No Height 167.64 cm Weight 73.028 kg Body Mass Index (BMI) 25.9 Other Aids No Anesthesia Review Requested No alcohol intake never Smoking Status Current some day smoker Pain Present Pain Reported Musculoskeletal Symptoms Abnormal Gait,Back Pain, Difficulty Walking,Numbness, Radiating Pain into Limb, Tingling Patient is completely paralyzed or No completely immobile Mental Status Oriented to own ability Is patient on oxygen? No Does patient have LAM/SOB Yes: Chronic cough, wheezing Hx Sleep Apnea No Comment Former smoker x 45 years Currently Taking a Beta Harper No Hx SOB Yes: Chronic cough, wheezing Anti-Coagulant Therapy No Has a Manufacturing Technology Analyst No Cardiac Testing No Hx Pacemaker/ICD No Pacemaker Rep Required? No Cardiac Clearance Received Not Applicable dysphagia No Urinary Catheter Present No Hx Urinary Self Catheterization No Diabetes No Patient No Lactating No
[2018-12-14] MEDS: hydrOXYzine pamoate 25 MG CAPSULE 50 MG PO (14:28)
--- NOTE | 2018-12-14 14:47 | PT-IP ANOTE ---
Pt contacted again this afternoon to initiate PT evaluation. She adamantly stated that the PA told her she didn't have to do therapy today if she did not feel able. She clarified that she continues to feel unable to participate. Asked pt if PT could return in the morning. She was agreeable.
--- NOTE | 2018-12-14 15:30 | PC.NURSE ---
Spoke with Sandra John and Le [place] regarding Pt's 13yr old grandson. Spoke with grandson and with Pt's neighbour after speaking with Pt's RN. Grandson is allowed to visit but is not allowed as a minor to stay the night. When they come back they will also be told that he is not to help with her care.
[2018-12-14 15:36] LABS: Hematocrit 28.7 % (36-46); Hemoglobin 9.4 g/dL (12.0-16.0)
--- NOTE | 2018-12-14 18:30 | PC.NURSE ---
Pt upset that she was reminded of the importance of movement post operatively. She complained about her dinner and requested an entire new entree, then requested other items. She eventually ate approx 50% and drank some milk. Pt had refused to work with PT today, to get out of bed and to wear her SCDs and her non skid fall socks; I dont need the fall socks, I am not getting out of bed today. Her SCDs were placed on her feet while she was arguing with PA.
[2018-12-14] MEDS: PANTOPRAZOLE 40 MG TABLET PO (20:29)
[2018-12-14] MEDS: TRAZODONE 100 MG TABLET PO (20:30)
[2018-12-14] MEDS: SENNOSIDES 8.6 MG TABLET 17.2 MG PO (20:30)
[2018-12-14] MEDS: diazePAM 5 MG TABLET 10 MG PO (20:32)
--- NOTE | 2018-12-14 21:43 | PC.NURSE ---
Oxygen P: Patient's oxygen saturation was at 86% while pain medications were being administered. I: The student nurse with the nurse applied 2 liters humidified oxygen via nasal cannula. Patient was encouraged to deep breath and cough during pain medication administration. Patient was educated on the use of a pillow as a splint while coughing. E: Patient's oxygen saturation climbed to 93%. Student nurse will continue to reassess and monitor patient's breathing patterns and oxygen saturation level. S: Call light in hand. Bed is low and locked. Fall risk precautions are in place.
--- NOTE | 2018-12-15 02:53 | PC.NURSE ---
Addendum entered by Zoe Hua R.N. 12/15/18 05:58: Pt was given PRN dilaudid 0.5 mg as 0557, now at 0600 pt is quietly resting. Addendum entered by Zoe Hua R.N. 12/15/18 05:43: At 0515, pt requested to roll to her back again, only 35-40 minute spent on her side with ice pack. Pt moaning out and yelling out help me and not using the call light. Pt repositioned again at 0540, and continuing to call out help me, even after repositioned and staff is in the room. Addendum entered by Zoe Hua R.N. 12/15/18 04:55: Pt woke and was moaning, PERINATAL INSTRUCTOR did check, pt did not use call light. Pt reported pain at 10/10, PRN Oxycodoen and PRN Vistaril given. Pt agreed to reposition to her left side, ice pack placed to back. Garrett is CDI. Original Note: NOC note: Pt mostly sleeping this shift, briefly woke for assessment, pt was medicated by the evening shift nurse.
[2018-12-15] MEDS: hydrOXYzine pamoate 25 MG CAPSULE 50 MG PO (04:43)
[2018-12-15] MEDS: OXYCODONE IR 5 MG TABLET 10 MG PO ×3 (04:43→16:54)
[2018-12-15 04:50] VITALS: BP 129/67; PULSE 103; RESP 20; TEMP 37.3
[2018-12-15] MEDS: ACETAMINOPHEN 325 MG TABLET 650 MG PO ×3 (05:47→18:25)
[2018-12-15] MEDS: HYDROMORPHONE 1 MG INJ 0.5 MG IV (05:55)
[2018-12-15 07:30] VITALS: BP 110/63; PULSE 93; RESP 18; TEMP 37.3; O2SAT 91
--- NOTE | 2018-12-15 09:35 | PC.NURSE ---
Pt has been sleeping this morning but rousable to voice. She was found to have an O2 sat of 81% at 0730. Pt was placed on 2L O2 and was recovered to 92-94% O2 sat within 3 mins. She continues to sleep through the morning and is rounded on approx. every 30 mins.
[2018-12-15 10:04] VITALS: O2SAT 91; O2SAT 94
[2018-12-15 10:05] VITALS: O2SAT 94
[2018-12-15] MEDS: GABAPENTIN 300 MG CAPSULE 900 MG PO ×3 (10:28→21:35)
[2018-12-15] MEDS: ACYCLOVIR 400 MG TABLET PO ×3 (10:28→21:35)
[2018-12-15] MEDS: PANTOPRAZOLE 40 MG TABLET PO ×2 (10:29→18:28)
[2018-12-15] MEDS: DOCUSATE 100 MG CAPSULE PO ×2 (10:29→21:35)
[2018-12-15] MEDS: POLYETHYLENE GLYCOL 3350 17 GM POWD.PACK PO (10:29)
--- NOTE | 2018-12-15 10:35 | OT.IP.EVAL ---
Current Diagnoses Spondylolisthesis, lumbar region (12/13/18) Spinal stenosis, lumbar region without neurogenic claudication (12/13/18) Postlaminectomy syndrome, not elsewhere classified (12/13/18) Surgery Performed Operation Date: 12/13/18 07:45 Actual Procedures p L4-5,L5-S1 TLIF w/Posterior Instru. - Daniel Poole MD Past Medical History (Last Reviewed 11/12/18 @ 16:34 by Sherley Espinoza DO) Ankle pain (Chronic 2016) Anxiety (Chronic) Cervical spine disease (Chronic 2007) Chronic back pain (Chronic 1981) Chronic cough (Chronic) Chronic headaches (Chronic) Foot pain (Chronic) GERD (gastroesophageal reflux disease) (Resolved) Lumbar spinal stenosis (Chronic) Lumbar spine pain (Chronic) Osteopenia (Chronic) Osteoporosis (Chronic) Peripheral neuropathy (Chronic 2012) Scoliosis (Chronic) Skin spots-aging (Chronic) Surgical History (Last Reviewed 11/12/18 @ 16:34 by Sherley Espinoza DO) Anesthesia (Resolved) History of cervical spinal surgery (Resolved 2007) History of hysterectomy (Resolved 1992) History of lumbar laminectomy (Resolved 2013) History of lumbar laminectomy (Resolved ~1989) Status post epidural steroid injection (Acute 04/28/18) Occupational Therapy Inpatient Evaluation/Re-Eval M1 PT/OT-IP Prior Functional Status Start: 12/14/18 10:45 Freq: NEEDED Status: Active Protocol: Document 12/15/18 10:35 [facility] (Rec: 12/15/18 13:27 [facility] [id number]) Medical Review Prior Functional Status Medical History Reviewed Yes Diet/Fluid Consistency Regular Communication able to make needs known Mobility and Gait Pt crying and sobbing upon assessment. Unable to obtain PLOF. Per EMR, Pt amb with a walker. Activities of Daily Living and IADL's unable to obtain. (pt lives alone.) Pt does drive. Prior Functional Level (Other details) Pt lives alone and had a fall this year. Pt amb with a walker. Has tried CBA, back brace, gabapentin, tizanidine, valium, acitvity modification , ice/heat and physical therapy. hx of L4-5 disectomy and laminectomy over 30 years ago and recently [place] [address] Real. Social History Household Members none,other Living Arrangements Apartment/Condo Number of Stairs To Enter/Railing? 1 COURTNEY Home Environment Standard Height Toilet Employment Status Unknown Additional Social History Comment Unable to obtain full sx history due to pt's tearful, sobbing and not wanting to answer questions at this time. Per , pt lives in [place] alone. Grandson who is 13yo will visit upon d/c. Pt prefers to d/c home with HH if possible. M2 OT-IP Current Condition Start: 12/14/18 10:45 Freq: Status: Active Protocol: Document 12/15/18 10:35 [facility] (Rec: 12/15/18 13:27 [facility] [id number]) Occupational Therapy Current Condition Current Condition Evaluation Date 12/15/18 Treatment Diagnosis S/p L4-5, L5-S1 TLIF with posterior instr., jan. mobility and self-care Diagnosis Onset Date 12/13/18 Post Operative Precautions Lumbar Precautions Log Roll,No Twisting,Limit Bending,Lifting Restriction of 10 lbs,Gait Belt above Incisional Area Weight Bearing Status Weight Bearing Status Weight Bear as Tolerated M3 OT- IP Subjective and Pain Start: 12/14/18 10:45 Freq: Status: Active Protocol: Document 12/15/18 10:35 [facility] (Rec: 12/15/18 13:27 [facility] [id number]) OT- Subjective Occupational Therapy Visit Type Type Initial Evaluation Visit Start Time 10:35 Visit Stop Time 11:37 Total Visit Minutes 62 Occupational Therapy Visit Comments Patient Comments Pt needing lots of encouragement from nursing, PA , and case management to try to get up today. Pt very tearful and stated that she could not get up. Patient/Caregiver Goals Pt wanting to go home with home health. OT Pain Assessment Pain When Pain Assessed At Rest Pain Present Pain Present Pain Reported Location back Intensity 10 Scale Used Numeric (1 - 10) Pain Behaviors Calling Out,Facial Grimacing, Guarding,Holding Area,Moaning, Wincing M4 OT- IP ADL's Start: 12/14/18 10:45 Freq: Status: Active Protocol: Document 12/15/18 10:35 [facility] (Rec: 12/15/18 13:27 [facility] [id number]) OT ADL-Grooming Comments OT Grooming Comments Pt not wanting to do grooming at this time. OT ADL-Dressing Comments OT Dressing Comments Dependent for LB dressing of socks at this time. OT ADL-Toileting Comments OT Toileting Comments Pt has gonzalez in. OT ADL-Bathing Comments OT Bathing Comments No appropriate at this time. M5 OT- IP IADL's Start: 12/14/18 10:45 Freq: Status: Active Protocol: Document 12/15/18 10:35 [facility] (Rec: 12/15/18 13:27 [facility] [id number]) OT-Instrumental Activities of Daily Living Home Safety Awareness Home Safety Comments Unable to answer questions are very tearful and very distracted by her pain. M6 OT- IP Functional Cognition Start: 12/14/18 10:45 Freq: Status: Active Protocol: Document 12/15/18 10:35 [facility] (Rec: 12/15/18 13:27 [facility] [id number]) Cognitive Factors Limiting Selfcare Function Cognitive Ability Level of Alertness Alert,Drowsy Patient Orientation Name Attention Span Ability Capable of Focused Attention, Unable to Sustain Attention Ability to Follow Commands Able to Follow One Step Commands with Increased Time, Able to Follow One Step Commands with Repetition Cognitive Comments Cognitive Assessment Comments Pt very tearful, groogy, and having difficulty to follow commands. At this time pt unable to answer all questions as very distracted from her pain and focused on wanting to talk to her surgeon. Educated pt on the importance on trying to get up for benefit of better breathing, positioning, and easier to eat if upright. Pt able to listen but did not comments to therapists education and suggestions. OT- Vision and Hearing OT- Hearing Assessment OT- Hearing Assessment WFL M7 OT- IP Mobility and Balance Start: 12/14/18 10:45 Freq: Status: Active Protocol: Document 12/15/18 10:35 [facility] (Rec: 12/15/18 13:27 [facility] [id number]) OT- Bed Mobility Assessment Rolling Type of Rolling Roll to Right Level of Assistance Maximum Assistance,2 Person Assistance Supine to Sit Supine to Sit Assist Total Assistance,2 Person Assistance Scooting Scooting to Edge of Bed Maximum Assistance,2 Person Assistance OT-Transfer Assessment Technique Transfer Technique Mechanical Lift Devices Transfer Assistive Devices Mechanical Lift Comments Mobility Comments Pt needing assist MAX A to help bend her right knee, pt appears not to be able to physically assist at this time . Pt able to reach over with right arm to bed rail and needing MAX A x 2 to roll to the right and Total assist to get upright . MAX A x 2 to help lean side to side and then assist to get hip forward one side at a time. Trial to stand MAX A x 2 to stand with FWW and bed raised unable to stand all the way and wanting to sit down. When asked pt able to state unable to stand due to pain and leg weakness. Therefore use of naima lift to get to the recliner. OT- Balance Assessment Sitting Balance and Reactions Static Sitting Balance Ability Fair Dynamic Sitting Balance Ability Poor Standing Balance and Reactions Static Standing Balance Ability Poor Dynamic Standing Balance Ability Poor Comments Other Balance Tests/Deviations/Treatment Pt needing from RYAN to SBA to : sit at edge of bed. Once feet stable on the floor, SBA. M8 OT- IP Objective Assessments Start: 12/14/18 10:45 Freq: Status: Active Protocol: Document 12/15/18 10:35 [facility] (Rec: 12/15/18 13:27 [facility] [id number]) OT Strength Comments Strength Comments Unable to fully assess at this time. M9 OT- IP Assessment and Plan Start: 12/14/18 10:45 Freq: Status: Active Protocol: Document 12/15/18 10:35 [facility] (Rec: 12/15/18 13:27 [facility] [email or web address]) OT Summary Assessment and Plan Potential Rehabilitation Potential Fair Analytic Complexity at Evaluation Moderate Summary OT Impairments Pain,Balance,Functional Cognition,Functional Mobility, Grooming,Dressing,Toileting, Bathing,Toilet Transfers, Shower Transfers Progress Towards Goals Slow Progress due to Pain,Slow Progress due to Medical Issues,Slow Progress due to Activity Tolerance Assessment Summary Pt MOD complexity with main barriers of pain, step to get into the house, and now only able to tolerate getting up to the edge of the bed with Total assist x2. At this time pt will need extensive assist for all Adl and functional mobility needs. Pt will benefit from skilled rehab prior to going home. Goals Grooming Goal Minimal Assistance Dressing Goal Moderate Assistance Toileting Goal Moderate Assistance Bathing Goal Moderate Assistance Toilet Transfer Goal Moderate Assistance Shower Transfer Goal Moderate Assistance Patient/Caregiver Education Goal Demonstrate Post-Op Precautions Days to Meet Goals 15 Frequency of Treatment Frequency Of Treatment Once a Day Treatment Plan OT Treatment Plan ADL Training,Functional Cognition Training,Functional Mobility,Patient/Family Education,Discharge Planning Other Treatment Recommendations and Next Attempt to stand to FWW, back Treatment Focus precaution education for ADl's Discharge Recommendations OT Discharge Recommendations SNF Rehab Home Equipment Needs Defer SNF
--- NOTE | 2018-12-15 10:35 | PT.IIE ---
Current Diagnoses Spondylolisthesis, lumbar region (12/13/18) Spinal stenosis, lumbar region without neurogenic claudication (12/13/18) Postlaminectomy syndrome, not elsewhere classified (12/13/18) Surgery Performed Operation Date: 12/13/18 07:45 Actual Procedures p L4-5,L5-S1 TLIF w/Posterior Instru. - Daniel Poole MD Surgical History (Last Reviewed 11/12/18 @ 16:34 by Sherley Espinoza DO) Anesthesia (Resolved) History of cervical spinal surgery (Resolved 2007) History of hysterectomy (Resolved 1992) History of lumbar laminectomy (Resolved 2013) History of lumbar laminectomy (Resolved ~1989) Status post epidural steroid injection (Acute 04/28/18) Medical History (Last Reviewed 11/12/18 @ 16:34 by Sherley Espinoza DO) Ankle pain (Chronic 2016) Anxiety (Chronic) Cervical spine disease (Chronic 2007) Chronic back pain (Chronic 1981) Chronic cough (Chronic) Chronic headaches (Chronic) Foot pain (Chronic) GERD (gastroesophageal reflux disease) (Resolved) Lumbar spinal stenosis (Chronic) Lumbar spine pain (Chronic) Osteopenia (Chronic) Osteoporosis (Chronic) Peripheral neuropathy (Chronic 2012) Scoliosis (Chronic) Skin spots-aging (Chronic) Physical Therapy Inpatient Evaluation/Re-Eval M1 PT/OT-IP Prior Functional Status Start: 12/14/18 10:45 Freq: NEEDED Status: Active Protocol: Document 12/15/18 19:46 (Rec: 12/15/18 12:13 [email or web address]) Medical Review Prior Functional Status Medical History Reviewed Yes Diet/Fluid Consistency Regular Communication able to make needs known Mobility and Gait Pt is very frustrated and sobbing upon assessment. Unable to obtain PLOF. Per EMR , Pt amb with a walker. Activities of Daily Living and IADL's unable to obtain. (pt lives alone.) Pt does drive. Prior Functional Level (Other details) Pt lives alone and had a fall this year. Pt amb with a walker. Has tried CBA, back brace, gabapentin, tizanidine, valium, acitvity modification , ice/heat and physical therapy. hx of L4-5 disectomy and laminectomy over 30 years ago and recently [place] [address] Real. Social History Household Members none,other Living Arrangements Apartment/Condo Number of Stairs To Enter/Railing? 1 COURTNEY Home Environment Standard Height Toilet Employment Status Unknown Additional Social History Comment Unable to obtain full sx history due to pt's depressed stage. Per SW, pt lives in [place] alone. Grandson who is 13yo will visit upon d/c. Pt prefers to d/c home with HH if possible. M2 PT-IP Current Condition Start: 12/13/18 14:06 Freq: NEEDED Status: Active Protocol: Document 12/15/18 19:46 (Rec: 12/15/18 12:13 [email or web address]) Physical Therapy Current Condition Current Condition Evaluation Date 12/15/18 Treatment Diagnosis L4-S1 TLIF with post instrumentation, difficulty in walking, weakness Onset Date 12/13/18 Precautions Lumbar Precautions Log Roll,No Twisting,Limit Bending,Lifting Restriction of 10 lbs,Gait Belt above Incisional Area Weight Bearing Status Weight Bearing Status Weight Bear as Tolerated M3 PT-IP Subjective Start: 12/13/18 14:06 Freq: NEEDED Status: Active Protocol: Document 12/15/18 19:46 (Rec: 12/15/18 12:13 [email or web address]) Subjective Physical Therapy Visit Type Type Initial Evaluation Visit Start Time 10:30 Visit Stop Time 10:42 Total Visit Minutes 72 Notes Per PA and nursing, pt has refused thearpy multiple times since sx due to unbearable pain. Stated that PA said i dont have to do therapy if she did not feel good. PA reclarifed with therapy team regarding that false statement and encourage to mobilize pt as soon as possible. Co-tx with OT and SPT Jason. Number of WOOD FINISHER APPRENTICE Visits 0 Physical Therapy Visit Comments Patient Comments I dont want to move and it hurts. Patient Goals To return home. Therapy Pain Assessment Pain When Pain Assessed At Rest Pain Present Pain Present Pain Reported Location back Intensity 10 Scale Used Jamison-Plata (Faces) Description Acute Pain Behaviors Calling Out,Crying,Facial Grimacing Pain Management Techniques Apply Cold,Timing of Activity with Medications M4 PT-IP Mobility and Gait Start: 12/13/18 14:06 Freq: NEEDED Status: Active Protocol: Document 12/15/18 19:46 (Rec: 12/15/18 12:13 [email or web address]) PT-Bed Mobility Assessment Rolling Type of Rolling Roll to Left Level of Assist Maximal Assistance,2 Person Assistance Supine to Sit Supine to Sit Maximum Assistance,2 Person Assistance,Bedrails Scooting Scooting to Edge of Bed Maximum Assistance PT-Transfer Assessment Equipment Transfer Assistive Device Mechanical Lift Orthotic/Prosthetic Devices or Brace: No Transfers Transfer Destination Bed,Chair Transfer Technique Mechanical Lift Transfer Ability Level of Assist Total Assistance,2 Person Assistance,Use of Upper Extremities Comments Mobility Comments Pt's BP maintained stable at 110-120/ 60s HR 80s during session. SpO2 ranged from 85%- 92% during mobility but able to maintain >90% without O2 therapy. Pt was in bed upon assessment. Needed extensive cues and encouragement to participate therapy. Pt agreed to attempt bed mobility and possibly transfer to bedside chair. Pt needed max A for 2 for log roll to L , supine to sit at EOB. She was able pivot her LEs but c/o increased pain. Pt was crying and calling out for pain the entire session. She resisted therapists' assistance during supine to sit at mid range. Pt then sat at EOB for approx 20 mins and required max A x 2 with bed pad to scoot towards EOB with lateral weight shift. Attempt to stand up twice from EOB (from elevated bed surface) but unable to get to midstance. Pt appears that she did not engagement LEs push off. She was then transferred to chair with pamela lift. She was placed in reclined position, leg elevated and call light within reach. Chair alarm activated. Gait Assessment Comments Gait Comments unable to perform Stair Climbing Assessment Comments Stair Climbing Comments unable to perform PT-Balance Assessment Sitting Balance and Reactions Static Sitting Balance Ability Good Dynamic Sitting Balance Ability Fair Comments Other Balance Tests/Deviations/Treatment unable to stand : M5 PT-IP Objective Assessments Start: 12/13/18 14:06 Freq: NEEDED Status: Active Protocol: Document 12/15/18 19:46 (Rec: 12/15/18 12:13 [email or web address]) Orientation Orientation/Cognition Level of Alertness Alert Orientation Name,Age,Birthday,Month,Date, Year,Day of Week,Place, Situation Language Function Ability No Deficits Noted Safety Awareness Decreased Safety Awareness Memory Description No Deficits Noted Comments Pt is very incoorperative with medical team. Need extensive encouragement for mobility. Pt gets frustrated and upset easily, along with crying when she feels increased pain. Gross Range of Motion Upper Extremity ROM Assessment Within Functional Limits Lower Extremity ROM Assessment Bilaterally Impaired Impairments Pt states she is unable to mobilize her LEs. Strength Upper Extremity Strength Assessment Within Functional Limits Lower Extremity Strength Assessment Bilaterally Impaired Comments Strength Comments Pt states she is unable to mobilize her LEs. M6 PT-IP Treatment Start: 12/13/18 14:06 Freq: NEEDED Status: Active Protocol: Document 12/15/18 19:46 HH (Rec: 12/15/18 12:13 [email or web address]) Physical Therapy Treatment Education Education Provided Precautions,Weight Bearing Status,Post-Op Packet,Safety M7 PT-IP Assessment and Plan Start: 12/13/18 14:06 Freq: NEEDED Status: Active Protocol: Document 12/15/18 19:46 HH (Rec: 12/15/18 12:13 [email or web address]) PT Summary Assessment and Plan Potential Rehabilitation Potential Good Status of Condition at Evaluation Evolving Summary Impairments Pain,ROM,Strength,Balance, Sensation,Tone,Cognition,Bed Mobility,Transfers,Gait, Activity Tolerance Assessment Summary Pt is a high complexity who is post op day 2 L4-S1 TLIF. Pt had multiple back surgeries prior to sx, along with pain management issues as PA stated . Per EMR, pt has been having difficulties following instructions and refusing to be mobilized due to her severe pain. Upon assessment, pt appears frustrated who constanly cried during mobility. She kept calling out for pain with minimal movements as well. She overall needed max A for bed mobility and she somewhat resisted our assistance during supine to sit. Pt was able to mobilize her LEs during bed mob but stated unable to do so while attempting sit to stand and seated leg press. Pt was unable to stand up from EOB and used Pamela lift for chair transfer. Discussed with nursing and PA regarding pt's uncooperative behavior and requested to notify regarding pt's status. Pt also lives alone which creates high fall risk/ injury risk. Pt will need rehab and custodial care to improve her mobility and strength prior to d/c home. Goals Bed Mobility Goal Minimal Assistance Transfer Goal Minimal Assistance,Front Wheeled Walker Gait Goal Minimal Assistance,Front Wheel Walker Gait Distance 50 Other Goals 1 COURTNEY Days to Meet Goals 10 Frequency of Treatment Frequency Of Treatment Twice a Day Treatment Plan Physical Therapy Treatment Plan Bed Mobility Training,Transfer Training,Gait Training, Therapeutic Exercise,Balance Retraining,Post Op Education, Discharge Planning,Hot or Cold Pack,Neuromuscular Re-ed Other Recommendations and Next Treatment mobility as maite Focus with FWW if possible Recommendations To Nursing Amount of Assist Needed Mechanical Lift Discharge Recommendations PT Discharge Recommendations SNF Rehab
--- NOTE | 2018-12-15 10:40 | PC.NURSE ---
Addendum entered by Rosmery Pierce R.N. 12/15/18 13:47: Gonzalez catheter remains at this time POD #2 for inability to ambulate. SHAYY Bond is aware. Addendum entered by Rosmery Pierce R.N. 12/15/18 13:13: Pt continues to rest with eyes closed and mouth open in bedside chair. She has been allowed to sleep. Addendum entered by Rosmery Pierce R.N. 12/15/18 11:37: Pt has worked with PT and was able to sit on the bedside. She did not stand. PT used the naima lift to move her from bed to chair where she rests. Original Note: Pt has been wakened at 1010 by this nurse, BELLPERSON and nursing specialist. A discussion regarding goals for care took place. Pt was informed of need to attain goals for moving out of the bed today, tolerable pain control and gonzalez catheter removal. Risks and benefits of all care has been discussed. Physical therapy staff has entered patient's room at 1040 to work with patient.
--- NOTE | 2018-12-15 10:41 | P.PN_ITS ---
Subjective Subjective Date Patient Seen: 12/15/18 Time Patient Seen: 10:42 Interval history: Post op day 2 s/p TLIF with Dr. Poole. Patient complains of pain overnight. Patient received 0.5 dilaudid IV this AM and slept. The nurse, naval surface fire support planner and I had a discussion with the patient. We emphasized attempting to progress with ambulating, working with PT, and discontinuing the urinary catheter. Patient requested more time before seeing PT this AM. Patient expressed frustration that we didn't understand her pain. I educated the patient on pain control, mobilizing and risk of DVT/PE. Patient's pain is in her incision site, describes muscle spasms, denies burning sensation, numbness, tingling. Patient denies fever, chills, nausea, vomiting, chest pain, shortness of breath, calf pain. Exam Vital Signs (past 8 hours): - 12/15/18 04:50 12/15/18 07:30 12/15/18 10:04 Temperature 99.1 F 99.1 F Pulse Rate 103 H 93 H Respiratory Rate 20 18 Blood Pressure 129/67 110/63 Pulse Oximetry 91 91 12/15/18 10:05 Temperature Pulse Rate Respiratory Rate Blood Pressure Pulse Oximetry 94 Oxygen Delivery Method Nasal Cannula Oxygen Flow Rate 2 Narrative Exam Narrative: 63 year old female is lying uncomfortably in bed, mild distress. A&Ox3. Dressing is CDI. Patient able to actively dorsiflex/plantar flex b/l. Sensory function grossly intact to light touch in LE b/l. Dorsalis pedis 2+ b/l. Capillary refill <2sec. Calves warm, compressible, soft, nttp. SCDs in place. Urinary catheter in place. Peripheral IV in right forearm. Objective Labs Result Diagrams: 12/14/18 15:29 Labs: Laboratory Results - last 24 hr 12/14/18 15:29 Hgb 9.4 L Hct 28.7 L Assessment & Plan Post-op Postoperative Procedures: Procedures Operation Date: 12/13/18 07:45 Actual Procedures Side Surgeon p L4-5,L5-S1 TLIF w/Posterior Instru. Daniel Poole MD Postoperative status: marginal pain control Postoperative plan narrative: Pain control - continue current pain management Muscle spasms - continue current management Discontinue urinary catheter Ambulate with PTx2 today, SCDs, leg exercises in bed Continue meeting patient as a team Discussion with naval surface fire support planner and patient about SNF transfer vs. home Time Spent With Patient Time with patient: 15-24 minutes Quality VTE Deep Vein Thrombosis/Pulmonary Embolism Present on Admission: No
[2018-12-15 11:25] VITALS: BP 111/70; PULSE 94; RESP 20; O2SAT 90
[2018-12-15] MEDS: SODIUM CHLORIDE 0.9% FLUSH 10 ML IV ×2 (12:00→21:34)
--- NOTE | 2018-12-15 12:13 | PT.IIE ---
Current Diagnoses Spondylolisthesis, lumbar region (12/13/18) Spinal stenosis, lumbar region without neurogenic claudication (12/13/18) Postlaminectomy syndrome, not elsewhere classified (12/13/18) Surgery Performed Operation Date: 12/13/18 07:45 Actual Procedures p L4-5,L5-S1 TLIF w/Posterior Instru. - Daniel Poole MD Surgical History (Last Reviewed 11/12/18 @ 16:34 by Sherley Espinoza DO) Anesthesia (Resolved) History of cervical spinal surgery (Resolved 2007) History of hysterectomy (Resolved 1992) History of lumbar laminectomy (Resolved 2013) History of lumbar laminectomy (Resolved ~1989) Status post epidural steroid injection (Acute 04/28/18) Medical History (Last Reviewed 11/12/18 @ 16:34 by Sherley Espinoza DO) Ankle pain (Chronic 2016) Anxiety (Chronic) Cervical spine disease (Chronic 2007) Chronic back pain (Chronic 1981) Chronic cough (Chronic) Chronic headaches (Chronic) Foot pain (Chronic) GERD (gastroesophageal reflux disease) (Resolved) Lumbar spinal stenosis (Chronic) Lumbar spine pain (Chronic) Osteopenia (Chronic) Osteoporosis (Chronic) Peripheral neuropathy (Chronic 2012) Scoliosis (Chronic) Skin spots-aging (Chronic) Physical Therapy Inpatient Evaluation/Re-Eval M1 PT/OT-IP Prior Functional Status Start: 12/14/18 10:45 Freq: NEEDED Status: Active Protocol: Document 12/15/18 10:30 (Rec: 12/15/18 12:13 [email or web address]) Medical Review Prior Functional Status Medical History Reviewed Yes Diet/Fluid Consistency Regular Communication able to make needs known Mobility and Gait Pt is very depressed and sobbing upon assessment. Unable to obtain PLOF. Per EMR , Pt amb with a walker. Activities of Daily Living and IADL's unable to obtain. (pt lives alone.) Pt does drive. Prior Functional Level (Other details) Pt lives alone and had a fall this year. Pt amb with a walker. Has tried CBA, back brace, gabapentin, tizanidine, valium, acitvity modification , ice/heat and physical therapy. hx of L4-5 disectomy and laminectomy over 30 years ago and recently [place] [address] Real. Social History Household Members none,other Living Arrangements Apartment/Condo Number of Stairs To Enter/Railing? 1 COURTNEY Home Environment Standard Height Toilet Employment Status Unknown Additional Social History Comment Unable to obtain full sx history due to pt's depressed stage. Per SW, pt lives in [place] alone. Grandson who is 13yo will visit upon d/c. Pt prefers to d/c home with HH if possible. M2 PT-IP Current Condition Start: 12/13/18 14:06 Freq: NEEDED Status: Active Protocol: Document 12/15/18 10:30 HH (Rec: 12/15/18 12:13 [email or web address]) Physical Therapy Current Condition Current Condition Evaluation Date 12/15/18 Treatment Diagnosis L4-S1 TLIF with post instrumentation, difficulty in walking, weakness Onset Date 12/13/18 Precautions Lumbar Precautions Log Roll,No Twisting,Limit Bending,Lifting Restriction of 10 lbs,Gait Belt above Incisional Area Weight Bearing Status Weight Bearing Status Weight Bear as Tolerated M3 PT-IP Subjective Start: 12/13/18 14:06 Freq: NEEDED Status: Active Protocol: Document 12/15/18 10:30 HH (Rec: 12/15/18 12:13 [email or web address]) Subjective Physical Therapy Visit Type Type Initial Evaluation Visit Start Time 10:30 Visit Stop Time 10:42 Total Visit Minutes 72 Notes Per PA and nursing, pt has refused thearpy multiple times since sx due to unbearable pain. Stated that PA said i dont have to do therapy if she did not feel good. PA reclarifed with therapy team regarding that false statement and encourage to mobilize pt as soon as possible. Co-tx with OT and SPT Jason. Number of CLINICAL LAW PROFESSOR Visits 0 Physical Therapy Visit Comments Patient Comments I dont want to move and it hurts. Patient Goals To return home. Therapy Pain Assessment Pain When Pain Assessed At Rest Pain Present Pain Present Pain Reported Location back Intensity 10 Scale Used Jamison-Plata (Faces) Description Acute Pain Behaviors Calling Out,Crying,Facial Grimacing Pain Management Techniques Apply Cold,Timing of Activity with Medications M4 PT-IP Mobility and Gait Start: 12/13/18 14:06 Freq: NEEDED Status: Active Protocol: Document 12/15/18 10:30 HH (Rec: 12/15/18 12:13 HH [email or web address]) PT-Bed Mobility Assessment Rolling Type of Rolling Roll to Left Level of Assist Maximal Assistance,2 Person Assistance Supine to Sit Supine to Sit Maximum Assistance,2 Person Assistance,Bedrails Scooting Scooting to Edge of Bed Maximum Assistance PT-Transfer Assessment Equipment Transfer Assistive Device Mechanical Lift Orthotic/Prosthetic Devices or Brace: No Transfers Transfer Destination Bed,Chair Transfer Technique Mechanical Lift Transfer Ability Level of Assist Total Assistance,2 Person Assistance,Use of Upper Extremities Comments Mobility Comments Pt's BP maintained stable at 110-120/ 60s HR 80s during session. SpO2 ranged from 85%- 92% during mobility but able to maintain >90% without O2 therapy. Pt was in bed upon assessment. Needed extensive cues and encouragement to participate therapy. Pt agreed to attempt bed mobility and possibly transfer to bedside chair. Pt needed max A for 2 for log roll to L , supine to sit at EOB. She was able pivot her LEs but c/o increased pain. Pt was crying and calling out for pain the entire session. She resisted therapists' assistance during supine to sit at mid range. Pt then sat at EOB for approx 20 mins and required max A x 2 with bed pad to scoot towards EOB with lateral weight shift. Attempt to stand up twice from EOB (from elevated bed surface) but unable to get to midstance. Pt appears that she did not engagement LEs push off. She was then transferred to chair with pamela lift. She was placed in reclined position, leg elevated and call light within reach. Chair alarm activated. Gait Assessment Comments Gait Comments unable to perform Stair Climbing Assessment Comments Stair Climbing Comments unable to perform PT-Balance Assessment Sitting Balance and Reactions Static Sitting Balance Ability Good Dynamic Sitting Balance Ability Fair Comments Other Balance Tests/Deviations/Treatment unable to stand : M5 PT-IP Objective Assessments Start: 12/13/18 14:06 Freq: NEEDED Status: Active Protocol: Document 12/15/18 10:30 (Rec: 12/15/18 12:13 [email or web address]) Orientation Orientation/Cognition Level of Alertness Alert Orientation Name,Age,Birthday,Month,Date, Year,Day of Week,Place, Situation Language Function Ability No Deficits Noted Safety Awareness Decreased Safety Awareness Memory Description No Deficits Noted Comments Pt is very incoorperative with medical team. Need extensive encouragement for mobility. Pt gets frustrated and upset easily, along with crying when she feels increased pain. Gross Range of Motion Upper Extremity ROM Assessment Within Functional Limits Lower Extremity ROM Assessment Bilaterally Impaired Impairments Pt states she is unable to mobilize her LEs. Strength Upper Extremity Strength Assessment Within Functional Limits Lower Extremity Strength Assessment Bilaterally Impaired Comments Strength Comments Pt states she is unable to mobilize her LEs. M6 PT-IP Treatment Start: 12/13/18 14:06 Freq: NEEDED Status: Active Protocol: Document 12/15/18 10:30 HH (Rec: 12/15/18 12:13 HH [email or web address]) Physical Therapy Treatment Education Education Provided Precautions,Weight Bearing Status,Post-Op Packet,Safety M7 PT-IP Assessment and Plan Start: 12/13/18 14:06 Freq: NEEDED Status: Active Protocol: Document 12/15/18 10:30 HH (Rec: 12/15/18 12:13 [email or web address]) PT Summary Assessment and Plan Potential Rehabilitation Potential Good Status of Condition at Evaluation Evolving Summary Impairments Pain,ROM,Strength,Balance, Sensation,Tone,Cognition,Bed Mobility,Transfers,Gait, Activity Tolerance Assessment Summary Pt is a high complexity who is post op day 2 L4-S1 TLIF. Pt had multiple back surgeries prior to sx, along with pain management issues as PA stated . Per EMR, pt has been having difficulties following instructions and refusing to be mobilized due to her severe pain. Upon assessment, pt appears frustrated and depressed who constantly cried during mobility. She kept calling out for pain with minimal movements as well. She overall needed max A for bed mobility and she somewhat resisted our assistance during supine to sit. Pt was able to mobilize her LEs during bed mob but stated unable to do so while attempting sit to stand and seated leg press. Pt was unable to stand up from EOB and used Pamela lift for chair transfer. Discussed with nursing and PA regarding pt's uncooperative behavior and requested to notify regarding pt's status. Pt also lives alone which creates high fall risk/ injury risk. Pt will need rehab and senior living care to improve her mobility and strength prior to d/c home. Goals Bed Mobility Goal Minimal Assistance Transfer Goal Minimal Assistance,Front Wheeled Walker Gait Goal Minimal Assistance,Front Wheel Walker Gait Distance 50 Other Goals 1 COURTENY Days to Meet Goals 10 Frequency of Treatment Frequency Of Treatment Twice a Day Treatment Plan Physical Therapy Treatment Plan Bed Mobility Training,Transfer Training,Gait Training, Therapeutic Exercise,Balance Retraining,Post Op Education, Discharge Planning,Hot or Cold Pack,Neuromuscular Re-ed Other Recommendations and Next Treatment mobility as maite Focus with FWW if possible Recommendations To Nursing Amount of Assist Needed Mechanical Lift Discharge Recommendations PT Discharge Recommendations SNF Rehab
--- NOTE | 2018-12-15 15:59 | CM.DPC ---
DCP/continued: Patient evaluated by therapy today. Current recommendation is SNF when medically stable. SLEEPING CAR SERVICE ATTENDANT, PA, and RN all met with patient this AM to discuss d/c planning. Patient sleepy at time of visit and somewhat resistant to conversation. Encouraged patient to work with therapy today. PA explained to patient that not moving will put her further back in her recovery. Patient then agreeable to work with therapy. Met again with patient this afternoon to discuss plan. Patient in recliner and upset over discussion of d/c planning and upset that Dr. Poole has not rounded on her since surgery. RN notified. Patient provided with SNF list on 12-14-18. Patient reports if SNF absolutely needed she would like [facility]. Patient not too interested in having conversation about d/c planning. Patient appears focused on why Dr. Poole has not rounded? Patient easily distracted from topic. Unclear if this is her baseline or narcotics having effect. Patient with complaints of pain during every SLEEPING CAR SERVICE ATTENDANT visit thus far. However, patient did provide SLEEPING CAR SERVICE ATTENDANT with permission to give referral to [facility]. SLEEPING CAR SERVICE ATTENDANT placed call to [facility] and left vm with referral on admit line. P: Pending. Anticipate SNF vs. home with HH. At this time SNF most appropriate. [facility] evaluating. TARYN Nathan
--- NOTE | 2018-12-15 16:29 | PC.NURSE ---
Addendum entered by Jennifer Rodríguez R.N. 12/15/18 23:52: Rouses easily for hs meds. Able to reposition pt onto left side placing pillow behind pt's back. Pt does c/o pain with this activity. Oxycontin administered with explanation for action/use. BL foot pumps in place. Held trazodone d/t sedation. Pt has been cooperative and polite to staff this evening. Addendum entered by Jennifer Rodríguez R.N. 12/15/18 18:46: Approached pt to assess for pain management and needs. Pt in bed and able to move self independently in bed. Desires for side rail up on bed so I can move my head up. This scenario writer attempts to aid pt in moving head of bed upright and pt comments another person that doesn't know what they are doing. Informed pt this scenario writer is a competent nurse to provide care and operate the bed and requests pt does not speak to this scenario writer in such a manner again. Assessed pt's needs and desires and provided coffee, aided with evening dinner order and pt's cell phone availability, and placed nicotine patch. Pt cooperative and calm at this time. BL foot pumps replaced with explanation for use and purpose. Offered ice to pt's back and pt declined. Reports full sensation to BL LE's. Dr. Poole arrives and in to speak with pt with door shut. This scenario writer did not observe interaction with MD. Pt remains calm and cooperative taking evening meal. Pain meds as per emar for back pain 09/25. Pt does report improvement in pain following being medicated. Will continue to monitor. Original Note: Pt up in recliner @ beginning of shift. Impatient with staff. Wants time to wake up before being approached by staff. P.T. and care management in to see patient. P.T. reports pt required naima lift to return to bed from chair.
--- NOTE | 2018-12-15 16:37 | PT.IPTN ---
Current Diagnoses Spondylolisthesis, lumbar region (12/13/18) Spinal stenosis, lumbar region without neurogenic claudication (12/13/18) Postlaminectomy syndrome, not elsewhere classified (12/13/18) Surgery Performed Operation Date: 12/13/18 07:45 Actual Procedures p L4-5,L5-S1 TLIF w/Posterior Instru. - Daniel Diaz MD Physical Therapy Treatment Note M2 PT-IP Current Condition Start: 12/13/18 14:06 Freq: NEEDED Status: Active Protocol: Document 12/15/18 10:30 (Rec: 12/15/18 12:13 [email or web address]) Physical Therapy Current Condition Current Condition Evaluation Date 12/15/18 Treatment Diagnosis L4-S1 TLIF with post instrumentation, difficulty in walking, weakness Onset Date 12/13/18 Precautions Lumbar Precautions Log Roll,No Twisting,Limit Bending,Lifting Restriction of 10 lbs,Gait Belt above Incisional Area Weight Bearing Status Weight Bearing Status Weight Bear as Tolerated M3 PT-IP Subjective Start: 12/13/18 14:06 Freq: NEEDED Status: Active Protocol: Document 12/15/18 16:27 GGD (Rec: 12/15/18 16:37 GGD [email or web address]) Subjective Physical Therapy Visit Type Type Treatment Note Visit Start Time 15:40 Visit Stop Time 16:25 Total Visit Minutes 55 Physical Therapy Visit Comments Patient Comments Pt states she can't move, she want's to talk to dr diaz. Therapy Pain Assessment Pain When Pain Assessed At Rest Pain Present Pain Present Pain Reported Location back Pain Management Techniques Modification of Treatment,Re- positioning M4 PT-IP Mobility and Gait Start: 12/13/18 14:06 Freq: NEEDED Status: Active Protocol: Document 12/15/18 16:27 GGD (Rec: 12/15/18 16:37 GGD [email or web address]) PT-Bed Mobility Assessment Rolling Type of Rolling Roll to Right,Roll to Left Level of Assist Moderate Assistance,1 Person Assistance Scooting Scooting to Edge of Bed Minimal Assistance PT-Transfer Assessment Sit to and From Stand Sit to and from Stand Total Assistance,Use of Upper Extremities Equipment Transfer Assistive Device Mechanical Lift Transfers Transfer Destination Bed Transfer Ability Level of Assist Total Assistance,2 Person Assistance,Use of Upper Extremities Comments Mobility Comments Pt able to scoot edge of chair with UE with min A. Pt attempted to stand with FWW, was able to lift up two inchs, but not able to come to full stand. Pt able to maintain sitting balance on edge chair to place sling. Pt transfer to bed with over head lift and left with alarm on and all needs in reach. M5 PT-IP Objective Assessments Start: 12/13/18 14:06 Freq: NEEDED Status: Active Protocol: Document 12/15/18 10:30 [facility] (Rec: 12/15/18 12:13 [email or web address]) Orientation Orientation/Cognition Level of Alertness Alert Orientation Name,Age,Birthday,Month,Date, Year,Day of Week,Place, Situation Language Function Ability No Deficits Noted Safety Awareness Decreased Safety Awareness Memory Description No Deficits Noted Comments Pt is very incoorperative with medical team. Need extensive encouragement for mobility. Pt gets frustrated and upset easily, along with crying when she feels increased pain. Gross Range of Motion Upper Extremity ROM Assessment Within Functional Limits Lower Extremity ROM Assessment Bilaterally Impaired Impairments Pt states she is unable to mobilize her LEs. Strength Upper Extremity Strength Assessment Within Functional Limits Lower Extremity Strength Assessment Bilaterally Impaired Comments Strength Comments Pt states she is unable to mobilize her LEs. M6 PT-IP Treatment Start: 12/13/18 14:06 Freq: NEEDED Status: Active Protocol: Document 12/15/18 16:27 GGD (Rec: 12/15/18 16:37 GGD [email or web address]) Physical Therapy Treatment Education Education Provided Precautions,Safety M7 PT-IP Assessment and Plan Start: 12/13/18 14:06 Freq: NEEDED Status: Active Protocol: Document 12/15/18 16:27 GGD (Rec: 12/15/18 16:37 GGD [email or web address]) PT Summary Assessment and Plan Summary Assessment Summary Pt unable to stand with assist with fWW. Pt needed over head lift to transfer to bed. She needed extra brittni to follow instructions and to allow therapy to assist pt with mobility. Pt refusing mobility due to increase in pain. She was calling out in pain with minimal movement. Pt will need SNF rehab to improve functional mobility. Frequency of Treatment Frequency Of Treatment Twice a Day Treatment Plan Physical Therapy Treatment Plan Bed Mobility Training,Transfer Training,Gait Training, Therapeutic Exercise,Balance Retraining,Post Op Education, Discharge Planning,Hot or Cold Pack,Neuromuscular Re-ed Recommendations To Nursing Amount of Assist Needed Mechanical Lift Discharge Recommendations PT Discharge Recommendations SNF Rehab
[2018-12-15] MEDS: NICOTINE 14 PATCH 14 MG TOP (16:44)
--- NOTE | 2018-12-15 17:40 | P.PN_ITS ---
Exam Vital Signs (past 8 hours): - 12/15/18 10:04 12/15/18 10:05 12/15/18 11:25 Pulse Rate 94 H Respiratory Rate 20 Blood Pressure 111/70 Pulse Oximetry 91 94 90 L Oxygen Delivery Method Nasal Cannula Oxygen Flow Rate 0 Objective Labs Result Diagrams: 12/14/18 15:29 Assessment & Plan Assessment & Plan narrative: POD#2 s/p L4-S1 TLIF. Patient has some difficult time with pain control due to her chronic pain histor y. Limited PT today due to pain control issue. Her dressing is clean and dry, she is neuro intact on exam. Will add sustained release pain meds today and re-assess in AM. COntinue PT for mobility training. Quality VTE Deep Vein Thrombosis/Pulmonary Embolism Present on Admission: No
[2018-12-15 21:32] VITALS: BP 106/61; PULSE 85; RESP 16; TEMP 36.6; O2SAT 97
[2018-12-15] MEDS: OXYCODONE ER 10 MG TAB PO (21:35)
[2018-12-15] MEDS: SENNOSIDES 8.6 MG TABLET 17.2 MG PO (21:35)
--- NOTE | 2018-12-16 03:07 | PC.NURSE ---
Addendum entered by Zoe Hua R.N. 12/16/18 05:02: At 0428, pt had removed O2 and sats was 88-89%, spoke with patient about the importance using the I.S. while awake as well at deep breathing to prevent Pneumonia. Pt then asked for her Albuterol inhaler, call made to RT and inhaler given to patient, with a reminder that the inhaler was not going to prevent pneumonia by itself. Pt asked why the inhaler was not just given to her, the meaning of PRN and as needed was explained to pt and she was reassured that if she makes her needs known, that the staff will do what they can to get her what she needs but that she must communicate her needs. After use of inhaler pt was repositioned and O2 was in place at 2L. Addendum entered by Zoe Hua R.N. 12/16/18 04:28: At 0415 pt woke and reported pain 8/10, PRN oxycodone given peer orders. Original Note: NOC Note: Pt has been sleeping so far this shift. Assessment completed and pt did not wake. Pt on 2L O2 at 94% while sleeping. Flacc score of 0/10.
[2018-12-16 04:00] VITALS: BP 114/70; PULSE 90; RESP 16; TEMP 36.6; O2SAT 89
[2018-12-16] MEDS: OXYCODONE IR 5 MG TABLET 10 MG PO ×5 (04:26→20:48)
[2018-12-16] MEDS: ALBUTEROL HFA 60 PUFF/8 GM INH INH (04:35)
[2018-12-16] MEDS: ACETAMINOPHEN 325 MG TABLET 650 MG PO ×3 (06:12→17:34)
[2018-12-16 07:50] VITALS: BP 124/79; PULSE 89; RESP 14; TEMP 36.3; O2SAT 98
--- NOTE | 2018-12-16 07:58 | DI.US.S_ITS ---
PROCEDURE: US PERIPH VENOUS LOW EXTREM LT INDICATIONS: CALF TENDERNESS, POST OPERATIVE TECHNIQUE: Real-time imaging, as well as color and pulse Doppler interrogation, were performed of the lower extremity deep veins from the inguinal ligament to the popliteal fossa. COMPARISON: None. FINDINGS: The common femoral, femoral and popliteal veins are normally compressible, and free of intraluminal thrombus. Color and pulse Doppler demonstrate normal phasic intraluminal flow. There is normal augmentation response to distal compression maneuver. IMPRESSION: Negative for deep venous thrombosis. Dictated by: Brian Leach M.D. on 12/16/2018 at 8:38 Approved by: Brian Leach M.D. on 12/16/2018 at 8:39
--- NOTE | 2018-12-16 07:59 | PM.PNPO.1 ---
Subjective Subjective Date Patient Seen: 12/16/18 Time Patient Seen: 08:00 Interval history: Patient is POD#3 s/p TLIF by Dr. Poole. She reports some improvement in her pain with addition of Oxycontin yesterday. Still poor mobility requiring Pamela lift. Almazan in place which patient has refused removal of. Exam Vital Signs (past 8 hours): - 12/16/18 04:00 Temperature 97.9 F Pulse Rate 90 Respiratory Rate 16 Blood Pressure 114/70 Pulse Oximetry 89 L Oxygen Delivery Method Nasal Cannula Oxygen Flow Rate 2 Narrative Exam Narrative: 63 year old female resting in bed. Somnolent at time of exam. Would not open eyes. Dressing is CDI. Patient not cooperative with exam, but did flex/extend ankles. Palpable pedal pulse. Significant calf tenderness on the left. SCDs on the foot bilaterally. Objective Labs Result Diagrams: 12/14/18 15:29 Assessment & Plan Post-op Postoperative Procedures: Procedures Operation Date: 12/13/18 07:45 Actual Procedures Side Surgeon p L4-5,L5-S1 TLIF w/Posterior Instru. Daniel Poole MD Patient's recovery has been complicated by poor post operative pain control and mobility. Addition of Oxycontin has provided some improvement in pain control. Patient should continue to mobilize with PT. Patient became combative when discussing discharge planning, both PT and care management recommending SNF at this point, and I am in agreement. US of the left lower extremity ordered today to rule out DVT as she is tender to gentle palpation and has been largely immobile despite attempts to encourage mobilization. Quality VTE Deep Vein Thrombosis/Pulmonary Embolism Present on Admission: No
[2018-12-16] MEDS: GABAPENTIN 300 MG CAPSULE 900 MG PO ×3 (09:18→20:47)
[2018-12-16] MEDS: DOCUSATE 100 MG CAPSULE PO ×2 (09:18→20:50)
[2018-12-16] MEDS: ACYCLOVIR 400 MG TABLET PO ×3 (09:18→20:47)
[2018-12-16] MEDS: POLYETHYLENE GLYCOL 3350 17 GM POWD.PACK PO (09:20)
[2018-12-16] MEDS: OXYCODONE ER 10 MG TAB PO (09:20)
[2018-12-16] MEDS: PANTOPRAZOLE 40 MG TABLET PO ×2 (09:20→20:50)
[2018-12-16] MEDS: SODIUM CHLORIDE 0.9% FLUSH 10 ML IV ×2 (09:21→21:17)
--- NOTE | 2018-12-16 09:49 | PC.NURSE ---
0800 Pt laying in bed and states she is having pain to her back. Pt denies calf pain. Pt states she also has a plate and 9 screws to her neck and that causes her discomfort so she is resistant to being repositioned in bed from supine. Provided neck support and encouraged Pt to tuck her chin as able and slid Pt up in bed. Pt was also resistant to logrolling in bed for inspection of her back dsg and lung auscultation but finally agreed. Back dsg was inspected and found to be dry and intact with 2 small areas of shadow drainage and slightly rolled on the perimeter. Advised Pt that we planned to change dsg when Pt gets up with P.T. at 1030. Pt was medicated as ordered. SCD's are on and running. Fetched fresh coffee for Pt and Pt denied further needs at this time but agrees to call for assistance as needed.
--- NOTE | 2018-12-16 10:32 | PT.IPTN ---
Current Diagnoses Spondylolisthesis, lumbar region (12/13/18) Spinal stenosis, lumbar region without neurogenic claudication (12/13/18) Postlaminectomy syndrome, not elsewhere classified (12/13/18) Surgery Performed Operation Date: 12/13/18 07:45 Actual Procedures p L4-5,L5-S1 TLIF w/Posterior Instru. - Daniel Poole MD Physical Therapy Treatment Note M3 PT-IP Subjective Start: 12/13/18 14:06 Freq: NEEDED Status: Active Protocol: Document 12/16/18 10:32 AB (Rec: 12/16/18 11:59 AB [email or web address]) Subjective Physical Therapy Visit Type Type Treatment Note Visit Start Time 10:32 Visit Stop Time 10:57 Total Visit Minutes 25 Number of LAST INSERTER Visits 0 M4 PT-IP Mobility and Gait Start: 12/13/18 14:06 Freq: NEEDED Status: Active Protocol: Document 12/16/18 10:32 AB (Rec: 12/16/18 11:59 AB [email or web address]) PT-Bed Mobility Assessment Rolling Type of Rolling Log Rolling Level of Assist Maximal Assistance,1 Person Assistance Supine to Sit Supine to Sit Maximum Assistance,1 Person Assistance,2 Person Assistance PT-Transfer Assessment Sit to and From Stand Sit to and from Stand Maximum Assistance,2 Person Assistance,Use of Upper Extremities Equipment Transfer Assistive Device Gait Belt,Front Wheeled Walker Orthotic/Prosthetic Devices or Brace: No Transfers Transfer Destination Chair Transfer Technique Stand Step Pivot Transfer Ability Level of Assist Moderate Assistance,2 Person Assistance,Use of Upper Extremities Comments Mobility Comments pt requires motivation and increase time to complete task . tends to direct her own care. pt asked for assistance but when assisted stated don 't shove me. completed log rolling supine to sit max A x 1-2 with max cues. pt was able to sit on EOB CGA. completed sit to stand x 2 attempts. pt unable to fully stand upright on first attempt despite max A x 2 provided. c/o increase pain. instructed and educated pt on techniques and attempted sit to stand again from EOB max A x 2 and max cues. pt maintained standing mod A x 2 using FWW for support. completed stand step pivot transfer using FWW mod A x 2 and max cues. postioned pt on the chair. Left pt with OT. Gait Assessment Comments Gait Comments refused to do ambulation M6 PT-IP Treatment Start: 12/13/18 14:06 Freq: NEEDED Status: Active Protocol: Document 12/16/18 10:32 AB (Rec: 12/16/18 11:59 AB [email or web address]) Physical Therapy Treatment Education Education Provided Precautions,Safety M7 PT-IP Assessment and Plan Start: 12/13/18 14:06 Freq: NEEDED Status: Active Protocol: Document 12/16/18 10:32 AB (Rec: 12/16/18 11:59 AB [email or web address]) PT Summary Assessment and Plan Potential Rehabilitation Potential Fair Summary Impairments Pain,ROM,Strength,Balance, Coordination,Sensation,Tone, Cognition,Bed Mobility, Transfers,Gait,Activity Tolerance Progress Towards Goals Slow Progress due to Pain,Slow Progress due to Medical Issues Assessment Summary pt requiring 2 person A with bed mobility and transfers. pt directs her own care and requires increase motivation to participate. pt will require SNF rehab to improve strength and mobility. Goals Bed Mobility Goal Minimal Assistance Transfer Goal Minimal Assistance,Front Wheeled Walker Gait Goal Minimal Assistance,Front Wheel Walker Gait Distance 50 Other Goals 1 COURTNEY Days to Meet Goals 10 Frequency of Treatment Frequency Of Treatment Twice a Day Treatment Plan Physical Therapy Treatment Plan Bed Mobility Training,Transfer Training,Gait Training, Therapeutic Exercise,Balance Retraining,Post Op Education, Discharge Planning,Hot or Cold Pack,Neuromuscular Re-ed Recommendations To Nursing Amount of Assist Needed Mechanical Lift Discharge Recommendations PT Discharge Recommendations SNF Rehab
--- NOTE | 2018-12-16 11:18 | OT.IP.TRT ---
Current Diagnoses Spondylolisthesis, lumbar region (12/13/18) Spinal stenosis, lumbar region without neurogenic claudication (12/13/18) Postlaminectomy syndrome, not elsewhere classified (12/13/18) Surgery Performed Operation Date: 12/13/18 07:45 Actual Procedures p L4-5,L5-S1 TLIF w/Posterior Instru. - Daniel Poole MD Occupational Therapy Treatment Note M2 OT-IP Current Condition Start: 12/14/18 10:45 Freq: Status: Active Protocol: Document 12/15/18 10:35 [facility] (Rec: 12/15/18 13:27 [facility] [email or web address]) Occupational Therapy Current Condition Current Condition Evaluation Date 12/15/18 Treatment Diagnosis S/p L4-5, L5-S1 TLIF with posterior instr., dec. mobility and self-care Diagnosis Onset Date 12/13/18 Post Operative Precautions Lumbar Precautions Log Roll,No Twisting,Limit Bending,Lifting Restriction of 10 lbs,Gait Belt above Incisional Area Weight Bearing Status Weight Bearing Status Weight Bear as Tolerated M3 OT- IP Subjective and Pain Start: 12/14/18 10:45 Freq: Status: Active Protocol: Document 12/16/18 11:53 [facility]GR (Rec: 12/16/18 12:03 CGR [id number]) OT- Subjective Occupational Therapy Visit Type Type Treatment Note Visit Start Time 10:31 Visit Stop Time 11:18 Total Visit Minutes 47 Occupational Therapy Visit Comments Patient Comments Pt states no one ever tells me what is happening, You need to pull me over, Stop shoving me. OT Pain Assessment Pain When Pain Assessed At Rest Pain Present Pain Present Pain Reported Location back Scale Used Pt states pain but did not rate Management Techniques Distraction,Modification of Treatment,Timing of Activity with Medications M4 OT- IP ADL's Start: 12/14/18 10:45 Freq: Status: Active Protocol: Document 12/16/18 11:53 CGR (Rec: 12/16/18 12:03 CGR [id number]) OT [id number] Comments OT Self-Feeding Comments Not meal time OT ADL-Grooming General Evaluation Grooming Ability Standby Assistance Areas Needing Assistance Retrieving/Set-up of Grooming Items,Combing/Brushing Hair, Face Washing,Glasses Comments OT Grooming Comments seated in chair with extra time OT ADL-Oral Care General Eval Oral Care Ability Standby Assistance Areas of Assistance Brushing Teeth,Retrieving/Set- Up of Items Comments Oral Care Comments seated in chair with extra time. OT ADL-Dressing Comments OT Dressing Comments Not performed OT ADL-Toileting Comments OT Toileting Comments Pt with gonzalez OT ADL-Bathing Comments OT Bathing Comments Not performed on this date M5 OT- IP IADL's Start: 12/14/18 10:45 Freq: Status: Active Protocol: Document 12/15/18 10:35 [facility] (Rec: 12/15/18 13:27 [facility] [email or web address]) OT-Instrumental Activities of Daily Living Home Safety Awareness Home Safety Comments Unable to answer questions are very tearful and very distracted by her pain. M6 OT- IP Functional Cognition Start: 12/14/18 10:45 Freq: Status: Active Protocol: Document 12/15/18 10:35 [facility] (Rec: 12/15/18 13:27 [facility] [email or web address]) Cognitive Factors Limiting Selfcare Function Cognitive Ability Level of Alertness Alert,Drowsy Patient Orientation Name Attention Span Ability Capable of Focused Attention, Unable to Sustain Attention Ability to Follow Commands Able to Follow One Step Commands with Increased Time, Able to Follow One Step Commands with Repetition Cognitive Comments Cognitive Assessment Comments Pt very tearful, groogy, and having difficulty to follow commands. At this time pt unable to answer all questions as very distracted from her pain and focues on wanting the surgeon to talk to her. Edcuated pt on the importance on trying to get up for benefit of better breathing, positioning, and easier to eat if upright. Pt able to listen but did not comments to therapists education and suggestions. OT- Vision and Hearing OT- Hearing Assessment OT- Hearing Assessment WFL M7 OT- IP Mobility and Balance Start: 12/14/18 10:45 Freq: Status: Active Protocol: Document 12/16/18 11:53 [facility] (Rec: 12/16/18 12:03 CGR [id number]) OT- Bed Mobility Assessment Rolling Type of Rolling Log Rolling,Roll to Right Level of Assistance Maximum Assistance,1 Person Assistance,2 Person Assistance Supine to Sit Supine to Sit Assist Maximum Assistance,1 Person Assistance,2 Person Assistance Scooting Scooting to Edge of Bed Contact Guard Assistance OT-Transfer Assessment Sit to and From Stand Sit to and from Stand Maximum Assistance,2 Person Assistance Transfers Transfer Ability Moderate Assistance,2 Person Assistance Technique Transfer Destination Bed,Chair Transfer Technique Stand Step Pivot Devices Transfer Assistive Devices Gait Belt,Front Wheeled Walker Comments Mobility Comments Pt tolerated transfer to chair on this date. Shaky with activity and states you need to help me and then stop shoving me. Pt with multiple complaints. OT- Balance Assessment Sitting Balance and Reactions Static Sitting Balance Ability Fair Dynamic Sitting Balance Ability Poor M8 OT- IP Objective Assessments Start: 12/14/18 10:45 Freq: Status: Active Protocol: Document 12/15/18 10:35 [facility] (Rec: 12/15/18 13:27 [facility] [email or web address]) OT Strength Comments Strength Comments Unable to fully assess at this time. M9 OT- IP Assessment and Plan Start: 12/14/18 10:45 Freq: Status: Active Protocol: Document 12/16/18 11:53 [facility] (Rec: 12/16/18 12:03 [facility] [id number]) OT Summary Assessment and Plan Potential Rehabilitation Potential Fair Analytic Complexity at Evaluation Moderate Summary OT Impairments Pain,Balance,Functional Cognition,Functional Mobility, Grooming,Dressing,Toileting, Bathing,Toilet Transfers, Shower Transfers Progress Towards Goals Slow Progress due to Pain,Slow Progress due to Medical Issues,Slow Progress due to Activity Tolerance Assessment Summary Pt presents on this day with improved mobility. Pt needs extra time and assurances to participate. Pt appreciated explination of planned activity prior to performing. Goals Grooming Goal Minimal Assistance Dressing Goal Moderate Assistance Toileting Goal Moderate Assistance Bathing Goal Moderate Assistance Toilet Transfer Goal Moderate Assistance Shower Transfer Goal Moderate Assistance Patient/Caregiver Education Goal Demonstrate Post-Op Precautions Days to Meet Goals 14 Frequency of Treatment Frequency Of Treatment Once a Day Treatment Plan OT Treatment Plan ADL Training,Functional Cognition Training,Functional Mobility,Patient/Family Education,Discharge Planning Other Treatment Recommendations and Next Attempt to stand to FWW, back Treatment Focus precaution education for ADl's Discharge Recommendations OT Discharge Recommendations SNF Rehab Home Equipment Needs Defer SNF
[2018-12-16] MEDS: NICOTINE 14 PATCH 14 MG TOP (13:50)
--- NOTE | 2018-12-16 15:00 | PT.IPTN ---
Current Diagnoses Spondylolisthesis, lumbar region (12/13/18) Spinal stenosis, lumbar region without neurogenic claudication (12/13/18) Postlaminectomy syndrome, not elsewhere classified (12/13/18) Surgery Performed Operation Date: 12/13/18 07:45 Actual Procedures p L4-5,L5-S1 TLIF w/Posterior Instru. - Daniel Poole MD Physical Therapy Treatment Note M3 PT-IP Subjective Start: 12/13/18 14:06 Freq: NEEDED Status: Active Protocol: Document 12/16/18 15:00 AB (Rec: 12/16/18 15:56 AB [email or web address]) Subjective Physical Therapy Visit Type Type Treatment Note Visit Start Time 15:00 Visit Stop Time 15:17 Total Visit Minutes 17 Number of CERTIFIED PHYSICIAN ASSISTANT Visits 0 Physical Therapy Visit Comments Patient Comments pt requesting to go back to bed earlier than scheduled time. M4 PT-IP Mobility and Gait Start: 12/13/18 14:06 Freq: NEEDED Status: Active Protocol: Document 12/16/18 15:00 AB (Rec: 12/16/18 15:56 AB [email or web address]) PT-Bed Mobility Assessment Sit to Supine Sit to Supine Maximum Assistance,1 Person Assistance,Bedrails PT-Transfer Assessment Sit to and From Stand Sit to and from Stand Minimal Assistance,1 Person Assistance,Use of Upper Extremities Equipment Transfer Assistive Device Gait Belt Comments Mobility Comments pt just transferred with nurses to the bed. c/o fuzzy stuffs on her low back. Nurse clean back of pt. pt agreed to stand up to change bed pad. completed sit to stand from EOB min A and was able to maintain stand using FWW ~ 2 min. pt sat back down min A for descent. completed bed mobility sit to supine log roll mod to max A for LE elevation. pt used bed rail to assist with bed mobility. required min A to log roll to her back. positioned pt in bed. call light and table placed within reach. M6 PT-IP Treatment Start: 12/13/18 14:06 Freq: NEEDED Status: Active Protocol: Document 12/16/18 15:00 AB (Rec: 12/16/18 15:56 AB [email or web address]) Physical Therapy Treatment Education Education Provided Precautions,Safety M7 PT-IP Assessment and Plan Start: 12/13/18 14:06 Freq: NEEDED Status: Active Protocol: Document 12/16/18 15:00 AB (Rec: 12/16/18 15:56 AB [email or web address]) PT Summary Assessment and Plan Potential Rehabilitation Potential Fair Summary Impairments Pain,ROM,Strength,Balance, Coordination,Sensation,Tone, Cognition,Bed Mobility, Transfers,Gait,Activity Tolerance Progress Towards Goals Slow Progress due to Pain,Slow Progress due to Medical Issues Assessment Summary pt progressing slowly with mobility and has decrease activity tolerance due to c/o pain. pt requiring min A for sit to stand from EOB and bed mobility max A. pt lives alone and will not have much assist at home. pt will require SNF rehab to improve mobility and function. Goals Bed Mobility Goal Minimal Assistance Transfer Goal Minimal Assistance,Front Wheeled Walker Gait Goal Minimal Assistance,Front Wheel Walker Gait Distance 50 Other Goals 1 COURTNEY Days to Meet Goals 10 Frequency of Treatment Frequency Of Treatment Twice a Day Treatment Plan Physical Therapy Treatment Plan Bed Mobility Training,Transfer Training,Gait Training, Therapeutic Exercise,Balance Retraining,Post Op Education, Discharge Planning,Hot or Cold Pack,Neuromuscular Re-ed Recommendations To Nursing Amount of Assist Needed 2 Person Assist Discharge Recommendations PT Discharge Recommendations SNF Rehab
[2018-12-16 15:30] VITALS: BP 109/69; PULSE 83; RESP 16; TEMP 36.3; O2SAT 95
--- NOTE | 2018-12-16 16:05 | CM.DPC ---
DCP Cont: Per PA, pt continues to be challenging to work with and aware that pt will likely refuse SNF and Ortho MD to see pt later today. Per PT/OT, pt did not need the lift today but was hard to work with and recommending SNF at d/c. Nita from [facility] attempted bedside assessment and pt became upset and adamant that she will not d/c to SNF. Nita states that if pt ends up being agreeable to SNF then she would need to discuss pt with administrators before determining if they could accept pt. SW and RN spoke with Dr. Poole regarding pt situation and he is agreeable with plan for discharge of pt tomorrow with recommendation of SNF level of care and aware that pt can then choose to contest discharge through Medicare if so desired and if pt continues to refuse SNF then he is agreeable with HH at d/c and signed F2F. No HH referral made at this time. SW discussed that no other SNF referral made besides [facility] as pt has not been agreeable with any other SNF's getting her medical information for referral. Plan: SW to follow closely in the morning to determine if pt continues to decline going to recommended SNF and therefore setting up HH as a back up. TARYN Beltran
--- NOTE | 2018-12-16 16:45 | PM.PN.1 ---
Exam Vital Signs (past 8 hours): - 12/16/18 15:30 Temperature 97.4 F L Pulse Rate 83 Respiratory Rate 16 Blood Pressure 109/69 Pulse Oximetry 95 Oxygen Delivery Method Room Air Oxygen Flow Rate 0 Objective Labs Result Diagrams: 12/14/18 15:29 Assessment & Plan Assessment & Plan narrative: Ms. Moncada is POD#3 s/p lumbar fusion. She has been slow to mobilize. Today she says her pain is better controlled and she is able to move more than before. On exam, her lumbar dressing is clean and dry. She is neuro intact on exam. I discussed her current status with PT, case management and her nurse regarding her status. Patient would like to go home with home health if possible. She lives alone but has arrange her neighbors to care for her once she is home. I also will have her discharge planning to be rehab/SNF. If she is discharged to home but cannot perform self care, the alternative is to go to SNF/rehab. I encouraged her to comply with PT request and continue to work on mobility training. Will continue medical management and pain control today. Plan for discharge planning to be home with home health with alternative plan of SNF/rehab. Quality VTE Deep Vein Thrombosis/Pulmonary Embolism Present on Admission: No
[2018-12-16] MEDS: hydrOXYzine pamoate 25 MG CAPSULE 50 MG PO (17:35)
--- NOTE | 2018-12-16 19:21 | PC.NURSE ---
Pt is agreeable to SCDs this shift and did a strong stand and pivot to BSC. UO is qs, clear yellow with Almazan catheter removed at 1330 today. When asked for her for med verification patient stated: write it down, I have already told you hundreds of time. And stop moving my shit around. She is eating 50 %, no N/V and has not had a BM since 12/13/18. Have offered her prune juice and bowel meds. + BTs and flatus. VSS.
[2018-12-16] MEDS: TRAZODONE 100 MG TABLET PO (20:48)
[2018-12-16] MEDS: SENNOSIDES 8.6 MG TABLET 17.2 MG PO (20:50)
[2018-12-16 20:59] VITALS: BP 129/86; PULSE 90; RESP 16; TEMP 36.5; O2SAT 92
[2018-12-16 23:00] VITALS: PULSE 89; RESP 16; O2SAT 93
[2018-12-17] MEDS: ACETAMINOPHEN 325 MG TABLET 650 MG PO ×2 (00:10→05:04)
[2018-12-17 00:20] VITALS: BP 99/56
[2018-12-17] MEDS: SODIUM CHLORIDE 0.9% FLUSH 10 ML IV ×2 (00:22→10:13)
--- NOTE | 2018-12-17 00:22 | PC.NURSE ---
Addendum entered by Mira Shea R.N. 12/17/18 01:41: Reassessed pt at 0045. Pt resting in bed with eyes closes, no grimace noted. Resp rate 16, o2 sat 92% on room air. Original Note: Pt in bed, arousable but not answering questions or following directions due to sedation. Nods head affirmatively when asked to move in bed, change positions, and RN check low back dressing. DSG CDI. Reasssed for pain as 2100 oxycontin ER not given, pt did not provided pain scale number. Scheduled tylenol given, Oxycontin not given at this time due to sedation, will reassess sedation and pain level. CMS intact, pedal pulses + bilat, brisk blood return to great toes bilat. Able to obtain BP as pt declined at~2330. BP 99/56 right arm, HOB at 37degrees. RR 16, sat 93% room air. Replaced CPOX to right hand finger.
--- NOTE | 2018-12-17 00:35 | PC.NURSE ---
behavioral health therapist note: patient refused vitals. I used the pulse oximeter to get the vitals I got.
[2018-12-17 05:00] VITALS: RESP 18
[2018-12-17] MEDS: TIZANIDINE 4 MG TABLET 8 MG PO (05:05)
[2018-12-17] MEDS: OXYCODONE IR 5 MG TABLET 10 MG PO ×2 (05:05→10:19)
--- NOTE | 2018-12-17 09:25 | P.DS_ITS ---
History of Present Illness History of Present Illness Date Patient Seen: 12/17/18 Time Patient Seen: 09:26 Chief complaint: [id number] Narrative: Post op day 4 s/p TLIF w Dr. Poole. Met patient with strategic planner and nurse. No acute events overnight. Patient complains of pain in incision site. Pain is managed with oxycodone ER, oxycodone q3h, tylenol. Muscle spaspms with zanaflex, vistaril and valium. PT is poorly progressing with PT secondary to pain and is a 2-assist. Gonzalez removed yesterday and voiding without difficulty or assistance. Patient agreed to discharge home today with home health. Patient denies fever, chills, nausea, vomiting, chest pain, shortness of breath. Discharge Providers Provider Date of admission: 12/13/18 06:42 Discharge Date: 12/17/18 Primary care physician: Sherley Espinoza DO Consults: 12/13/18 13:44 Consult to Occupational Therapy Evaluate & Treat Comment: Physician Instructions: Evaluate and treat Consult to Physical Therapy Evaluate & Treat Comment: Physician Instructions: Evaluate and Treat Discharge provider: Zuleyka Santos PA-C Summary Hospital Course Discharge Diagnosis: s/p L4-5, L5-S1 Postero-lateral and posterior interbody fusion, L4-5, L5-S1 interbody cage placement, L4-5, L5-S1 decompressive laminectomy with bilateral facetecomies, L4-5, L5-S1 Posterior segmental instrumentation, [place] of bone marrow from iliac crest, Utilization of microsurgical technique and operating microscope Herpes simplex virus anogenital infection contusion of right foot chronic lower back pain lumbar post-laminectomy syndrome status post cervical spinal fusion depression psychosocial factors contributing to chronic pain Hospital Course: Patient admitted to hospital s/p TLIF with Dr. Poole. Hospital course notable for poor progress with PT secondary to pain. Notable for multiple refusals of physical therapy, nursing care, removal of urinary gonzalez, labs, and mobilization. Post op day 4 patient was medically stable and ready for discharge home with health assistance. Pain was controlled with oxycodone 10, oxycodone ER, tylenol. Patient discharged home with oxycodone 10 and tylenol. Patient has zanaflex and valium prescription at home for muscle spasms. Patient ambulating poorly with PT prior to discharge. Patient voiding and eating without difficulty or assistance prior to discharge. Patient has no support at home. Patient denies fever, chills, nausea, vomiting, chest pain, shortness of breath. Status at Discharge Cognitive/behavioral status at discharge: oriented Functional status at discharge: bed bound Overall status at discharge: patient is progressing back to baseline Time Spent with Patient Time spent: Less than 30 minutes Exam Vital Signs (past 8 hours): - 12/17/18 05:00 Respiratory Rate 18 Oxygen Delivery Method Room Air Oxygen Flow Rate 0 Narrative Exam Narrative: 63 y/o female is sitting comfortably in bed, drowsy with poor attention span, in no apparent distress. A&Ox3. Dressing is in intact, in place, with shadow drainage. Patient able to actively dorsiflex/plantar flex. SCDs in place. Sensory function grossly intact to light touch in LE bl. Dorsalis pedis 2+ bl. Calves warm, compressible, soft, nttp. Objective Labs Result Diagrams: 12/14/18 15:29 Discharge Plan Discharge Plan Patient Disposition: Home Health Service Discharge comment: change site dressing before discharge Discharge Med Rec/Prescriptions Prescriptions: New oxycodone 10 mg tablet 10 mg PO Q4-6H PRN (Reason: pain) Qty: 40 RF: 0 acetaminophen [Tylenol Extra Strength] 500 mg tablet 500 mg PO Q4H PRN (Reason: pain) Qty: 60 RF: 0 Continued Ventolin HFA 90 mcg/actuation HFA aerosol inhaler 2 puff INHALATION Q4-6H PRN (Reason: shortness of breath or wheezing) Qty: 18 RF: 3 diazepam 10 mg tablet 10 mg PO ONCE Qty: 30 RF: 0 acyclovir [Zovirax] 400 mg tablet 400 mg PO TID Qty: 30 RF: 0 tizanidine 4 mg tablet 8 mg PO TID PRN (Reason: muscle spasticity) Qty: 180 RF: 0 gabapentin 300 mg capsule 900 mg PO TID Qty: 270 RF: 0 trazodone 100 mg tablet 100 mg PO DAILY Qty: 90 RF: 0 pantoprazole 40 mg tablet,delayed release (DR/EC) 40 mg PO BID Qty: 180 RF: 0 nicotine 14 mg/24 hr Patch 24 Hour 1 patch TRANSDERMAL Q24H RF: 0 Follow up/Referrals: Daniel Poole MD [Physician] - Sherley Espinoza DO [Primary Care Provider] - Provider Discharge Instructions Diet: Regular Activity: ambulate as tolerated. no excessive bending, twisting, lifting Cold/Heat Therapy: continue cold/heat therapy as needed Skin/Wound/Dressing Care Report to your healthcare provider any signs of infection, such as:: chills, fever, increased pain, unusual drainage and unusual redness Dressing: keep dressing dry. if dressing saturated, please contact the office. Visit Report/Discharge Packet Instructions: DI for Transforaminal Lumbar Interbody Fusion Stand Alone Forms: Surgery Discharge Discharge Data Primary Care Provider: Sherley Espinoza VTE Deep Vein Thrombosis/Pulmonary Embolism Present on Admission: No
[2018-12-17 09:35] VITALS: BP 114/90; PULSE 85; RESP 16; TEMP 36.8; O2SAT 94
[2018-12-17] MEDS: DOCUSATE 100 MG CAPSULE PO (10:12)
[2018-12-17] MEDS: POLYETHYLENE GLYCOL 3350 17 GM POWD.PACK PO (10:12)
[2018-12-17] MEDS: PANTOPRAZOLE 40 MG TABLET PO (10:12)
--- NOTE | 2018-12-17 10:15 | PT.IPTN ---
Current Diagnoses Spondylolisthesis, lumbar region (12/13/18) Spinal stenosis, lumbar region without neurogenic claudication (12/13/18) Postlaminectomy syndrome, not elsewhere classified (12/13/18) Surgery Performed Operation Date: 12/13/18 07:45 Actual Procedures p L4-5,L5-S1 TLIF w/Posterior Instru. - Daniel Poole MD Physical Therapy Treatment Note M3 PT-IP Subjective Start: 12/13/18 14:06 Freq: NEEDED Status: Active Protocol: Document 12/17/18 10:15 AB (Rec: 12/17/18 12:57 AB [id number]) Subjective Physical Therapy Visit Type Type Treatment Note Visit Start Time 10:15 Visit Stop Time 12:01 Total Visit Minutes 74 Notes pt seen for split sessions: 1015 to 1023 and 1055 to 1201 Number of PANEL MACHINE OPERATOR Visits 0 Therapy Pain Assessment Pain When Pain Assessed At Rest Pain Present Pain Present Pain Reported Location back Scale Used pain scale not stated Pain Management Techniques Modification of Treatment, Timing of Activity with Medications M4 PT-IP Mobility and Gait Start: 12/13/18 14:06 Freq: NEEDED Status: Active Protocol: Document 12/17/18 10:15 AB (Rec: 12/17/18 12:57 AB [id number]) PT-Bed Mobility Assessment Supine to Sit Supine to Sit Minimal Assistance,1 Person Assistance,Head of Bed Elevated,Bedrails PT-Transfer Assessment Sit to and From Stand Sit to and from Stand Minimal Assistance,1 Person Assistance Equipment Transfer Assistive Device Gait Belt,Front Wheeled Walker Orthotic/Prosthetic Devices or Brace: No Transfers Transfer Destination Chair Transfer Technique Stand Step Pivot Transfer Ability Level of Assist Contact Guard Assistance Comments Mobility Comments pt easily agitated/irritated and directs her own care. pt wants to go home today and refused to go to SNF. stated that she has friends that can check on her. informed pt regarding mobility plans for pt to be able to go home. pt completed log roll to the R side of the bed but on was able to roll long-term and stated that she needs assist. informed pt that she stated that she does not have anybody to assist her but can only check on her. but pt stated that she usually goes in/out of the bed on the L side. offered pt to do bed mobility on the L side but pt refused. pt completed supine to sit with HOB elevated min A and cues coming out on the R side of the bed. pt was able to sit on EOB SBA. informed pt regarding the PT tx plan of ambulation and stair climbing for pt to be able to go home. Pt stated that it is not possible for somebody to go from not doing anyting to walking and doing steps. informed pt regarding SNF option and refused. stated that it is worse that the hospital. pt required increase motivation. pt asked PT to stabilize FWW. attempted to teach pt sit to stand pushing from the bed but pt refused. stated that she had previous back surgeries and knows what to do. completed sit to stand from EOB with min A to stabilize FWW. Attempted ambulation and pt was ablet o take 2-3 using FWW CGA but was more of marching in place as pt did not move forward much. pt stated again that it is not possible for her , from not doing much before to just being able to walk again. offered SNF rehab again to pt and pt stated that she plans on going home at 2 pm today. redirected pt back on task and encouraged to take more steps , but pt argues and becomes irritated. instructed to sit on the chair and completed side steps using FWW CGA to the chair. transported platform step to pt's room as pt refused to go out of the room. PT educated pt and demonstrated on how to do stairs. pt completed sit to stand min A with PT stabilziing FWW. pt completed up/down plaform step CGA. pt was able to take steps back to the chair ~ 4 ft SBA to CGA . positioned pt on the chair . Left pt with OT. Gait Assessment Gait Gait Assistance Required: Standby Assistance,Contact Guard Assist Distance (Feet) 4 Able to Maintain Weight Bearing Status Yes During Gait Assistive Devices Assistive Device Gait Belt,Front Wheeled Walker Orthotic/Prosthetic Devices or Brace: No Gait Deviations General Gait Pattern Decreased Stride Length, Decreased Feet Clearance Factors Limiting Gait Function Factors Limiting Gait Function Decreased Activity Tolerance, Decreased Strength,Difficulty Following Directions,Limited Range of Motion,Pain,Poor Balance,Poor Safety Awareness Stair Climbing Assessment Evaluation Level of Assist On Stairs Contact Guard Assistance,1 Person Assistance Devices Stair Climbing Assistive Devices Front Wheel Walker Technique/Endurance Stair Climbing Direction Ascend and Descend Stair Climbing Technique Step to Step Number of Steps Climbed 1 Stair Climbing Set # Repetitions (reps) 1 M6 PT-IP Treatment Start: 12/13/18 14:06 Freq: NEEDED Status: Active Protocol: Document 12/17/18 10:15 AB (Rec: 12/17/18 12:57 AB [id number]) Physical Therapy Treatment Education Education Provided Precautions,Safety M7 PT-IP Assessment and Plan Start: 12/13/18 14:06 Freq: NEEDED Status: Active Protocol: Document 12/17/18 10:15 AB (Rec: 12/17/18 12:57 AB [id number]) PT Summary Assessment and Plan Potential Rehabilitation Potential Fair Summary Impairments Pain,ROM,Strength,Balance, Coordination,Sensation,Tone, Cognition,Bed Mobility, Transfers,Gait,Activity Tolerance Progress Towards Goals Slow Progress due to Pain,Slow Progress due to Medical Issues,Slow Progress due to Activity Tolerance Assessment Summary pt requires motivation to participate and tends to direct her own care. pt plans to go home today but does not have any consistent assist at home. pt still very limited with her ambulation and was not able demonstrate ability to ambulate by herself. pt also needs assist to stabilize her FWW for sit to stand and CGA for stair climbing. pt is not safe to d/c home at this time but is refusing to go to SNF. Goals Bed Mobility Goal Minimal Assistance Transfer Goal Minimal Assistance,Front Wheeled Walker Gait Goal Minimal Assistance,Front Wheel Walker Gait Distance 50 Other Goals 1 COURTNEY Days to Meet Goals 10 Frequency of Treatment Frequency Of Treatment Twice a Day Treatment Plan Physical Therapy Treatment Plan Bed Mobility Training,Transfer Training,Gait Training, Therapeutic Exercise,Balance Retraining,Post Op Education, Discharge Planning,Hot or Cold Pack,Neuromuscular Re-ed Recommendations To Nursing Amount of Assist Needed 2 Person Assist Discharge Recommendations PT Discharge Recommendations SNF Rehab
[2018-12-17] MEDS: ACYCLOVIR 400 MG TABLET PO (10:16)
--- NOTE | 2018-12-17 11:10 | OT.IP.TRT ---
Current Diagnoses Spondylolisthesis, lumbar region (12/13/18) Spinal stenosis, lumbar region without neurogenic claudication (12/13/18) Postlaminectomy syndrome, not elsewhere classified (12/13/18) Surgery Performed Operation Date: 12/13/18 07:45 Actual Procedures p L4-5,L5-S1 TLIF w/Posterior Instru. - Daniel Poole MD Occupational Therapy Treatment Note M3 OT- IP Subjective and Pain Start: 12/14/18 10:45 Freq: Status: Active Protocol: Document 12/17/18 15:45 [facility] (Rec: 12/17/18 16:07 [facility] [email or web address]) OT- Subjective Occupational Therapy Visit Type Type Treatment Note Visit Start Time 11:10 Visit Stop Time 12:14 Total Visit Minutes 64 Occupational Therapy Visit Comments Patient Comments Pt states upset that nobody does what they say they are going to do. Pt states her friend told her that she would help her, but now not sure if her friend will get her the BSC. Patient/Caregiver Goals Pt insisting on going home and refusing to go to skilled rehab. OT Pain Assessment Pain When Pain Assessed At Rest Pain Present Pain Present Pain Reported M4 OT- IP ADL's Start: 12/14/18 10:45 Freq: Status: Active Protocol: Document 12/17/18 15:45 [facility] (Rec: 12/17/18 16:07 [facility] [email or web address]) OT ADL-Dressing General Eval Lower Body Dressing Ability Standby Assistance Comments OT Dressing Comments Pt not wanting to get dressed and able to educated her on use of LB dressing equipment needs of junior marketing associate, socks aid and long handle shoe horn. Pt with increased time able to show good safety. OT ADL-Toileting Comments OT Toileting Comments Pt not having to use the toilet. Educated would be easier to stand to wipe at this time and use of BSC as pt heavily relies on her arms to stand. Pt use of therapist's phone to call her friend to go to [employer] to vegetable picker BSC. OT ADL-Bathing Comments OT Bathing Comments Pt not wanting to shower at this time. M6 OT- IP Functional Cognition Start: 12/14/18 10:45 Freq: Status: Active Protocol: Document 12/17/18 15:45 [facility] (Rec: 12/17/18 16:07 [facility] [id number]) Cognitive Factors Limiting Selfcare Function Cognitive Ability Level of Alertness Alert Patient Orientation Name,Place,Situation Attention Span Ability Capable of Focused Attention, Capable of Sustained Attention Ability to Follow Commands Able to Follow One Step Commands Memory Description Short Term Impaired Safety Awareness Decreased Ability to Apply Precautions,Underestimates Need for Assistance Cognitive Comments Cognitive Assessment Comments Pt initially stating for therapist not to touch the FWW before getting up and then insisting therapist to hold the center of the FWW in order for her to stand. SPoke to pt as will be needing assist for ADL's, IADl's, and functional mobility would be best to go to skilled rehab prior to going home. Pt states , No way, the [facility] is even worse than this place. M7 OT- IP Mobility and Balance Start: 12/14/18 10:45 Freq: Status: Active Protocol: Document 12/17/18 15:45 [facility] (Rec: 12/17/18 16:07 [facility] [email or web address]) OT-Transfer Assessment Sit to and From Stand Sit to and from Stand Minimal Assistance,1 Person Assistance Transfers Transfer Ability Standby Assistance,Contact Guard Assistance,1 Person Assistance Technique Transfer Destination Bed,Chair Transfer Technique Stand Step Pivot Devices Transfer Assistive Devices Gait Belt,Front Wheeled Walker Comments Mobility Comments Pt needing increased time, encouragement to transfer and taking small step initially and then able to take bigger steps at the end of the session. Pt educated for single step by PT. OT- Balance Assessment Sitting Balance and Reactions Static Sitting Balance Ability Good Dynamic Sitting Balance Ability Fair Standing Balance and Reactions Static Standing Balance Ability Fair M9 OT- IP Assessment and Plan Start: 12/14/18 10:45 Freq: Status: Active Protocol: Document 12/17/18 15:45 [facility] (Rec: 12/17/18 16:07 [facility] [email or web address]) OT Summary Assessment and Plan Potential Rehabilitation Potential Fair Analytic Complexity at Evaluation Moderate Summary OT Impairments Pain,Balance,Functional Cognition,Functional Mobility, Grooming,Dressing,Toileting, Bathing,Toilet Transfers, Shower Transfers Progress Towards Goals Progressing Toward Goals,Slow Progress due to Cognition Assessment Summary Pt improved mobility today however still needing increased time and reassurance to participate in needs. Pt adamantly refusing to go to skilled rehab. Goals Grooming Goal Standby Assistance Dressing Goal Standby Assistance Toileting Goal Standby Assistance Bathing Goal Minimal Assistance Toilet Transfer Goal Standby Assistance Shower Transfer Goal Contact Guard Assistance Days to Meet Goals 5 Frequency of Treatment Frequency Of Treatment Once a Day Discharge Recommendations OT Discharge Recommendations SNF Rehab
--- NOTE | 2018-12-17 14:03 | PC.NURSE ---
Pt very agitated and defiant. States the lid to her metal cup and straw have been taken and she wants them back. Pt yelling at the top of her voice about you all back each other up and cover for each other, the doctors all lie, P.T. said I could twist (when advised by me to not twist behind her to empty her drawer while packing up), the evening RN was terrible, the kitchen lied and never brought me anything I wanted, you guys stole the only thing that really matters to me-the lid to my cup and now I won't be able to drink water while I'm home so I will get sick, the PA promised I would be discharged on Oxycontin and took it away because you told him you had to beat on my chest to wake me up (Oxycontin was discontinued this am due to Pt being very groggy and unable to respond when spoken too-a fairly gentle sternal rub was required to rouse Pt who had fallen asleep holding her milk glass in her lap-Pt states she wasn't opening her eyes due to light sensitivity and we were ignoring that even though she had told us (light shade was fully in the down position with no lights on during evaluation). Pt stated she did not want to sign her discharge without her central supply manager-reminded Pt that the signature was simply stating that Pt has read or understands the discharge information. Offered to have the Coordinator come to speak to her and address her needs but when she found out the coordinator was a man-she refused. Pt did sign the discharge paperwork and then sent me out of the room. She had already ordered the aid out of the room and refused to allow her to assist with packing up her belongings or dressing her. Pt states she will not ever come back here and will be suing everyone here and especially the Dr. - reminded Pt that she was welcome to call [facility] and discuss things with her Doctor regarding medication. Reviewed stroke education, encouraged fluid intake to prevent constipation or dehydration, reminded Pt to limit bending, lifting, or twisting, and to logroll in/out of bed. Dsg to be kept intact until follow up but if there was significant drainage she was to call [facility]. Discussed s/s of infection and when to call MD and follow up appointment. Pt denied further questions and snatched discharge paperwork out of my hands. Pt was taken out to POV via w/c by FAMILY PRESERVATION OFFICER with Friend and all belongings.
--- NOTE | 2018-12-17 15:12 | CM.DPNOTE ---
DC Note: Pt medically stable for DC today and therapy team continue to recommend SNF. Met w/pt this morning w/ SHAYY Galvan. Reviewed DCP: Pt does not want to DC to SNF she is agreeable to home today w/HH, no agency preference. Requested [employer] Lita augustine referral, HH approved by Dr Poole. Placed call to [facility], spoke w/ Amilcar. Referral received but f/u may not be until Thursday, kendall will f/u sooner if able. P:DC today, home w/kendall POWELL via pov. TARYN Isaac
--- NOTE | 2018-12-19 08:37 | CM.DPNOTE ---
NATHALIE yesterday from Amilcar at [facility]. Pt is scheduled to be seen Thursday12.20.18. LOUISE
== END 2018-12-17 14:57 | disposition home health service (06) | DRG 455 ==
PROVIDERS: Admitting Provider Orthopaedic Surgery Orthopaedic Surgery of the Spine; Family Provider Family Medicine; PCP Family Medicine; Visit Provider Orthopaedic Surgery Orthopaedic Surgery of the Spine
PROC: 0SG00AJ Fusion of Lumbar Vertebral Joint with Interbody Fusion Device, Posterior Approach, Anterior Column, Open Approach (ICD-10-PCS; principal; 2018-12-13 07:45)
DX: M48.061 Spinal stenosis, lumbar region without neurogenic claudication (principal); M43.16 Spondylolisthesis, lumbar region; J44.9 Chronic obstructive pulmonary disease, unspecified; M96.1 Postlaminectomy syndrome, not elsewhere classified; M48.07 Spinal stenosis, lumbosacral region; W10.9XXA Fall (on) (from) unspecified stairs and steps, initial encounter; M43.17 Spondylolisthesis, lumbosacral region; F17.210 Nicotine dependence, cigarettes, uncomplicated; F41.9 Anxiety disorder, unspecified; K21.9 Gastro-esophageal reflux disease without esophagitis; G62.9 Polyneuropathy, unspecified; M62.838 Other muscle spasm; G89.29 Other chronic pain
CPT/HCPCS: 36415; 72100; 76000; 85014; 85018; 93971; 94760; 97163; 97166; 97530; 97535; C1776; C9290; J0330; J0690; J1100; J1170; J2250; J2405; J2704; J3010; J3410

== ENCOUNTER 2019-05-21 17:06 | Emergency (ER) | payer MEDICARE, MEDICAID, SELFPAY ==
[2018-12-13 06:48] VITALS: BMI 25.9
[2019-05-21] VITALS (8 sets, daily range): BP systolic 144–190; BP diastolic 82–107; PULSE 67–93; RESP 16–24; TEMP 36.6–36.9; O2SAT 95–100; BMI 27.4
--- NOTE | 2019-05-21 17:14 | ED_ITS ---
HPI - General Adult <Lele Moise DO - Last Filed: 05/26/19 18:07> General Chief complaint: Abdominal Pain Stated complaint: states pain right abdomen Time Seen by Provider: 05/21/19 17:12 Source: patient Mode of arrival: Ambulatory Limitations: no limitations History of Present Illness HPI narrative: 63-year-old female here for evaluation of right flank pain that has been going on for the past week. It does radiate around to the front. Worsening over the past 4 days. Has not taken anything for the symptoms prior to arrival. No urinary symptoms. No prior history of kidney stones. No gallbladder problems. Has had back surgery but no other abdominal surgeries. Related Data Previous Rx's Medication Instructions Recorded albuterol sulfate 90 mcg/actuation 2 puff INHALATION Q4-6H PRN #18 04/22/18 aerosol inhaler gram pantoprazole 40 mg tablet,delayed 40 mg PO BID #180 tab 11/12/18 release trazodone 100 mg tablet 100 mg PO DAILY #90 tab 11/12/18 tizanidine 4 mg tablet 8 mg PO TID PRN #180 tab 12/02/18 acetaminophen [Tylenol Extra 500 mg PO Q4H PRN #60 tab 12/17/18 Strength] oxycodone 10 mg PO Q4-6H PRN #40 tab 12/17/18 diphenhydramine HCl 25 mg capsule 25 mg PO BEDTIME PRN #30 cap 01/12/19 docusate sodium 50 mg capsule 100 mg PO DAILY PRN #60 cap 01/12/19 gabapentin 300 mg capsule 300 mg PO TID PRN #270 cap 01/17/19 oxycodone 10 mg PO Q6H PRN #14 tab 05/22/19 albuterol sulfate [Ventolin HFA] 1 inhalation INHALATION QID PRN 05/23/19 #18 gram omeprazole 20 mg PO DAILY #30 cap 05/23/19 Allergies Allergy/AdvReac Type Severity Reaction Status Date / Time duloxetine [From Cymbalta] Allergy Mild insomnia, Verified 12/22/18 13:55 teeth clenching adhesive tape [ADHESIVE TAPE] Allergy Unknown Verified 12/22/18 13:55 hydrocodone [From VICODIN] Allergy Unknown STOMACH Verified 12/22/18 13:55 UPSET venlafaxine AdvReac Intermediate sweating, Verified 12/22/18 13:55 insomnia Review of Systems <Lele Moise DO - Last Filed: 05/26/19 18:07> Constitutional Constitutional: Denies fatigue and Denies fever(s) Cardiovascular Cardiovascular: Denies chest pain and Denies dyspnea Respiratory Respiratory: Denies dyspnea Gastrointestinal Gastrointestinal: Denies change in stool character, Reports nausea and Denies vomiting Comments: Right flank pain Genitourinary Genitourinary: Denies dysuria and Denies vaginal discharge Musculoskeletal Musculoskeletal: Denies myalgias and Denies arthralgias Integumentary/Breasts Skin/Breast: Denies lesions and Denies rash Neurologic Neurologic: Denies behavioral changes Psychiatric Psychiatric: Denies behavioral changes Endocrine Endocrine: Denies fatigue Hematologic/Lymphatic Hematologic/Lymphatic: Denies easy bleeding and Denies easy bruising Patient History <Lele Moise DO - Last Filed: 05/26/19 18:07> Medical History Ankle pain (Chronic 2016) Anxiety (Chronic) Cervical spine disease (Chronic 2007) Chronic back pain (Chronic 1981) Chronic cough (Chronic) Chronic headaches (Chronic) Foot pain (Chronic) GERD (gastroesophageal reflux disease) (Resolved) Lumbar spinal stenosis (Chronic) Lumbar spine pain (Chronic) Osteopenia (Chronic) Osteoporosis (Chronic) Peripheral neuropathy (Chronic 2012) Scoliosis (Chronic) Skin spots-aging (Chronic) Social History (Reviewed 05/22/19 @ 13:55 by PRUDENCIO [facility]) household members: none and other Smoking Status: Current every day smoker alcohol intake: current Smoking Status: Current every day smoker alcohol intake frequency: a few times a month Substance Use Type: marijuana Exam <Lele Moise DO - Last Filed: 05/26/19 18:07> Initial Vital Signs Initial Vital Signs: Vital Signs Temperature 98.4 F 05/21/19 17:17 Pulse Rate 93 H 05/21/19 17:17 Respiratory Rate 16 05/21/19 17:17 Blood Pressure 153/104 H 05/21/19 17:17 Pulse Oximetry 99 05/21/19 17:17 Const General: cooperative, healthy appearing and comfortable HENMT Head: normal to inspection and normocephalic Resp Effort & Inspection: normal respiratory effort Back/Spine/Pelvis Back: CVA tenderness right Skin Lesions: no lesions Rashes: no rashes Neuro General: alert and awake Cognition: normal cognition Speech: speech normal Extrem General: normal to inspection and capillary refill normal Psych Appearance: grossly normal and well kempt <Everton Angel DO - Last Filed: 05/22/19 01:17> Initial Vital Signs Initial Vital Signs: Vital Signs Temperature 98.4 F 05/21/19 17:17 Pulse Rate 93 H 05/21/19 17:17 Respiratory Rate 16 05/21/19 17:17 Blood Pressure 153/104 H 05/21/19 17:17 Pulse Oximetry 99 05/21/19 17:17 Course <Lele Moise DO - Last Filed: 05/26/19 18:07> Orders Ordered: Discontinued Medications Sodium Chloride (Normal Saline 0.9%) 1,000 mls @ 1,000 mls/hr IV BOLUS ONE Stop: 05/21/19 18:18 Last Infusion: 05/21/19 18:49 Dose: 0 mls/hr Documented by: [email or web address] Admin: 05/21/19 17:41 Dose: 1,000 mls/hr Documented by: [email or web address] Ketorolac Tromethamine (Toradol) 30 mg IV NOW ONE Stop: 05/21/19 17:20 Last Admin: 05/21/19 17:41 Dose: 30 mg Documented by: CTR.[email or web address] Morphine Sulfate (Morphine) 4 mg IV NOW ONE Stop: 05/21/19 18:20 Last Admin: 05/21/19 18:23 Dose: 4 mg Documented by: CTR.[email or web address] Morphine Sulfate (Morphine) 4 mg IV NOW ONE Stop: 05/21/19 19:53 Last Admin: 05/21/19 20:13 Dose: 4 mg Documented by: CTR.[email or web address] Vital Signs Vital signs: Vital Signs - 8 hr 05/21/19 17:17 05/21/19 17:30 05/21/19 18:15 Temperature 98.4 F Pulse Rate 93 H 80 Respiratory Rate 16 24 Blood Pressure 153/104 H Blood Pressure [Left Arm] 144/92 H 167/85 H Pulse Oximetry 99 99 05/21/19 18:54 05/21/19 19:43 05/21/19 20:14 Temperature Pulse Rate 79 75 81 Respiratory Rate 16 16 16 Blood Pressure Blood Pressure [Left Arm] 145/82 H 145/85 H 147/107 H Pulse Oximetry 99 100 99 05/21/19 20:54 05/21/19 21:52 Temperature 97.8 F Pulse Rate 67 85 Respiratory Rate 20 Blood Pressure Blood Pressure [Left Arm] 168/91 H 190/85 H Pulse Oximetry 99 95 <Everton Angel, DO - Last Filed: 05/22/19 01:17> Course Course Narrative: Received patient in sign out from Dr. Moise and I have performed an independent history and physical. CT suggests possibly a passed stone given hydroureter and hydronephrosis, patient does have significant pain o n palp of RUQ, will give another dose of pain meds and order ultrasound. US notes stones but no evidence of choleycystitis. Patient has some evidence of hydroureter which could certainly explain flank pain and hematuria in the setting of a passed stone, however given RUQ pain, elevated WBCs and stones on US I placed a call to Dr. Ross whom was quick to suggest admission, ABX, NPO status for likely choley tomorrow. Patient became very anxious and wanted to leave, she did not want to stay. I spent a significant amount of time discussing risks and benefits of admission vs. leaving against advice. I told her she could develop worsening pain, vomiting, and severe infection which could lead to sepsis, permanent disability or even . I offered to call family or friends and she refused. I strongly recommended she call her son to discuss things, and offered to talk with him myself. He apparently suggested she leave and go somewhere to get a second opinion. Again we discussed risks and benefits and she demanded to leave. I electronically transmitted prescriptions for antibiotics and zofran to her pharmacy of choice and she became upset that I was not comfortable sending her with percocet. I told her I'd be happy to discuss with her son if he'd like to talk and that she could return immediately for any change in her thinking. She was upset, but said she understood that she could co me back. Orders Ordered: Discontinued Medications Sodium Chloride (Normal Saline 0.9%) 1,000 mls @ 1,000 mls/hr IV BOLUS ONE Stop: 05/21/19 18:18 Last Infusion: 05/21/19 18:49 Dose: 0 mls/hr Documented by: [email or web address] Admin: 05/21/19 17:41 Dose: 1,000 mls/hr Documented by: CTR.[email or web address] Ketorolac Tromethamine (Toradol) 30 mg IV NOW ONE Stop: 05/21/19 17:20 Last Admin: 05/21/19 17:41 Dose: 30 mg Documented by: CTR.[email or web address] Morphine Sulfate (Morphine) 4 mg IV NOW ONE Stop: 05/21/19 18:20 Last Admin: 05/21/19 18:23 Dose: 4 mg Documented by: CTR.[email or web address] Morphine Sulfate (Morphine) 4 mg IV NOW ONE Stop: 05/21/19 19:53 Last Admin: 05/21/19 20:13 Dose: 4 mg Documented by: [email or web address] Vital Signs Vital signs: Vital Signs - 8 hr 05/21/19 17:17 05/21/19 17:30 05/21/19 18:15 Temperature 98.4 F Pulse Rate 93 H 80 Respiratory Rate 16 24 Blood Pressure 153/104 H Blood Pressure [Left Arm] 144/92 H 167/85 H Pulse Oximetry 99 99 05/21/19 18:54 05/21/19 19:43 05/21/19 20:14 Temperature Pulse Rate 79 75 81 Respiratory Rate 16 16 16 Blood Pressure Blood Pressure [Left Arm] 145/82 H 145/85 H 147/107 H Pulse Oximetry 99 100 99 05/21/19 20:54 05/21/19 21:52 Temperature 97.8 F Pulse Rate 67 85 Respiratory Rate 20 Blood Pressure Blood Pressure [Left Arm] 168/91 H 190/85 H Pulse Oximetry 99 95 Medical Decision Making <Lele Moise DO - Last Filed: 05/26/19 18:07> Lab Data Lab results reviewed: Yes I reviewed the patient's lab results. Result diagrams: 05/21/19 17:30 05/21/19 17:30 Labs: Lab Results 05/21/19 05/21/19 Range/Units 17:30 17:30 WBC 12.1 H (4.5-11.0) X10^3/uL RBC 5.53 H (4.0-5.2) X10^6/uL Hgb 14.4 (12.0-16.0) g/dL Hct 44.3 (36-46) % MCV 80.1 (80-100) fL MCH 26.0 (26-34) PG MCHC 32.4 (30-36) % RDW 14.9 H (11.6-14.8) % Plt Count 363 (150-400) X10^3/uL Total Counted 100 Seg Neutrophils % 71.0 H (38-70) % Lymphocytes % (Manual) 20.0 L (25-45) % Monocytes % (Manual) 5.0 (2-11) % Eosinophils % (Manual) 3.0 (2-4) % Basophils % (Manual) 1.0 (0-1) % Neutrophils # (Manual) 8591 H (6257-4811) /uL RBC Morphology Normal morphology Sodium 139 (137-145) mmol/L Potassium 3.6 (3.4-5.1) mmol/L Chloride 104 (98-107) mmol/L Carbon Dioxide 30 (22-32) mmol/L BUN 10 (7-17) mg/dL Creatinine 0.60 (0.52-1.04) mg/dL Estimated GFR > 60.0 (>60) mL/min BUN/Creatinine Ratio 16.7 (6-22) Glucose 95 (80-110) mg/dL Calcium 9.5 (8.4-10.2) mg/dL Total Bilirubin 0.2 (0.2-1.3) mg/dL AST 20 (14-36) IU/L ALT 11 (<35) IU/L Alkaline Phosphatase 88 (38-126) U/L Total Protein 7.8 (6.3-8.2) g/dL Albumin 4.4 (3.5-5.0) g/dL Globulin 3.4 (1.7-4.1) g/dL Albumin/Globulin Ratio 1.3 (1.0-2.8) Lipase 130 (23-300) U/L Urine Dip Bedside Urine Glucose Negative Bedside Urine Bilirubin - Negative Bedside Urine Ketone - Negative Urine Specific [place] 1.010 Bedside Urine Occult Blood +/- Bedside Urine pH 7.0 Bedside Urine Protein - Negative Bedside Urine Urobilinogen - Negative Bedside Urine Nitrite - Negative Bedside Urine Leukocytes - Negative Esterase Point of care testing: Urine Dip Bedside Urine Glucose Negative Bedside Urine Bilirubin - Negative Bedside Urine Ketone - Negative Urine Specific [place] 1.010 Bedside Urine Occult Blood +/- Bedside Urine pH 7.0 Bedside Urine Protein - Negative Bedside Urine Urobilinogen - Negative Bedside Urine Nitrite - Negative Bedside Urine Leukocytes - Negative Esterase MDM Narrative Medical decision making narrative: Does have right-sided flank pain. Blood in her urine. Has never had kidney stone in the past. Will obtain labs and provide symptom treatment. Care turned over to Dr. Angel at change of shift to follow up. <Everton Agnel DO - Last Filed: 05/22/19 01:17> Lab Data Labs: Lab Results 05/21/19 05/21/19 Range/Units 17:30 17:30 WBC 12.1 H (4.5-11.0) X10^3/uL RBC 5.53 H (4.0-5.2) X10^6/uL Hgb 14.4 (12.0-16.0) g/dL Hct 44.3 (36-46) % MCV 80.1 (80-100) fL MCH 26.0 (26-34) PG MCHC 32.4 (30-36) % RDW 14.9 H (11.6-14.8) % Plt Count 363 (150-400) X10^3/uL Total Counted 100 Seg Neutrophils % 71.0 H (38-70) % Lymphocytes % (Manual) 20.0 L (25-45) % Monocytes % (Manual) 5.0 (2-11) % Eosinophils % (Manual) 3.0 (2-4) % Basophils % (Manual) 1.0 (0-1) % Neutrophils # (Manual) 8591 H (4107-4445) /uL RBC Morphology Normal morphology Sodium 139 (137-145) mmol/L Potassium 3.6 (3.4-5.1) mmol/L Chloride 104 (98-107) mmol/L Carbon Dioxide 30 (22-32) mmol/L BUN 10 (7-17) mg/dL Creatinine 0.60 (0.52-1.04) mg/dL Estimated GFR > 60.0 (>60) mL/min BUN/Creatinine Ratio 16.7 (6-22) Glucose 95 (80-110) mg/dL Calcium 9.5 (8.4-10.2) mg/dL Total Bilirubin 0.2 (0.2-1.3) mg/dL AST 20 (14-36) IU/L ALT 11 (<35) IU/L Alkaline Phosphatase 88 (38-126) U/L Total Protein 7.8 (6.3-8.2) g/dL Albumin 4.4 (3.5-5.0) g/dL Globulin 3.4 (1.7-4.1) g/dL Albumin/Globulin Ratio 1.3 (1.0-2.8) Lipase 130 (23-300) U/L Urine Dip Bedside Urine Glucose Negative Bedside Urine Bilirubin - Negative Bedside Urine Ketone - Negative Urine Specific [place] 1.010 Bedside Urine Occult Blood +/- Bedside Urine pH 7.0 Bedside Urine Protein - Negative Bedside Urine Urobilinogen - Negative Bedside Urine Nitrite - Negative Bedside Urine Leukocytes - Negative Esterase Point of care testing: Urine Dip Bedside Urine Glucose Negative Bedside Urine Bilirubin - Negative Bedside Urine Ketone - Negative Urine Specific [place] 1.010 Bedside Urine Occult Blood +/- Bedside Urine pH 7.0 Bedside Urine Protein - Negative Bedside Urine Urobilinogen - Negative Bedside Urine Nitrite - Negative Bedside Urine Leukocytes - Negative Esterase Discharge Plan Departure Patient Disposition: Left Against Medical Advice Clinical Impression: Disease of gallbladder Discharge Date/Time: 05/21/19 22:35 Instructions: DI for General Gallbladder Conditions Activity Restrictions/Additional Instructions: *You have been diagnosed with [right flank pain with suspected gallbladder disease and possible passed kidney stone] *What to do: *Take medications as directed: [facility] *Follow up with [facility], call for an appointment. Let them know you were seen in the Emergency Department and that we ask that you be seen in follow up *Return to ER if you should have any new, worsening or concerning symptoms Please consume a low fat diet Prescriptions: No Action docusate sodium 50 mg capsule 100 mg PO DAILY PRN (Reason: constipation) Qty: 60 RF: 3 diphenhydramine HCl [Allergy (diphenhydramine)] 25 mg capsule 25 mg PO BEDTIME PRN (Reason: itching) Qty: 30 RF: 0 Ventolin HFA 90 mcg/actuation HFA aerosol inhaler 2 puff INHALATION Q4-6H PRN (Reason: shortness of breath or wheezing) Qty: 18 RF: 3 tizanidine 4 mg tablet 8 mg PO TID PRN (Reason: muscle spasticity) Qty: 180 RF: 0 gabapentin 300 mg capsule 300 mg PO TID PRN (Reason: pain) Qty: 270 RF: 3 trazodone 100 mg tablet 100 mg PO DAILY Qty: 90 RF: 0 pantoprazole 40 mg tablet,delayed release (DR/EC) 40 mg PO BID Qty: 180 RF: 0 oxycodone 10 mg tablet 10 mg PO Q4-6H PRN (Reason: pain) Qty: 40 RF: 0 acetaminophen [Tylenol Extra Strength] 500 mg tablet 500 mg PO Q4H PRN (Reason: pain) Qty: 60 RF: 0 oxycodone 10 mg tablet 10 mg PO Q6H PRN (Reason: painful procedure) Qty: 14 RF: 0 omeprazole 20 mg capsule,delayed release(DR/EC) 20 mg PO DAILY Qty: 30 RF: 0 albuterol sulfate [Ventolin HFA] 90 mcg/actuation HFA aerosol inhaler 1 inhalation INHALATION QID PRN (Reason: shortness of breath or wheezing) Qty: 18 RF: 0 Referrals: Luther Pratt MD [Primary Care Provider] - Mayito Ross MD [Physician] - Stand Alone Forms: Against Medical Advice
--- NOTE | 2019-05-21 17:20 | DI.CT.S_ITS ---
PROCEDURE: CT ABDOMEN PELVIS W CON INDICATIONS: right flank pain TECHNIQUE: After the administration of intravenous contrast, 5 mm thick sections acquired from the diaphragm to the symphysis. 5 mm coronal and sagittal reformats were acquired. For radiation dose reduction, the following was used: automated exposure control, adjustment of mA and/or kV according to patient size. COMPARISON: None. FINDINGS: Image quality: Artifact limiting areas of fine detail evaluation within the posterior abdomen are present secondary to posterior lumbar fusion. ABDOMEN: Lung bases: Lung bases are clear. Heart size is normal. Solid organs: Liver is enlarged with steatosis. Gallbladder is unremarkable. Biliary system is non dilated. Pancreas enhances normally. Spleen is normal in size and enhancement. No adrenal nodules. Kidneys demonstrate normal size and enhancement. There is a very minimal appearance of a prominent right renal and proximal ureteral collecting system. However, no stone is identified. Right renal cyst is present. Peritoneum and bowel: Bowel loops demonstrate normal wall thickness and caliber. No free fluid or air. Moderate stool is present throughout the colon. Appendix is unremarkable. Colonic diverticula are present. No associated inflammatory change. Nodes and vessels: No retroperitoneal or mesenteric adenopathy by size criteria. Aorta and inferior vena cava are normal in size. Miscellaneous: No ventral hernias. PELVIS: Genitourinary: Bladder wall thickness is normal. Miscellaneous: No inguinal hernias or adenopathy. Bones: No suspicious bony lesions. No vertebral body compression fractures. IMPRESSION: 1. Minimal prominence of the right renal and ureteral collecting system. Recently passed stone cannot be definitively excluded. 2. Diverticulosis. Dictated by: Juli Chappell M.D. on 05/21/2019 at 18:58 Approved by: Juli Chappell M.D. on 05/21/2019 at 19:01
[2019-05-21] MEDS: KETOROLAC 60 MG/2 ML VIAL 30 MG IV (17:41)
[2019-05-21] MEDS: SODIUM CHLORIDE 0.9% 1,000 ML 1000 ML IV (17:41)
[2019-05-21 17:51] LABS: Hematocrit 44.3 % (36-46); Hemoglobin 14.4 g/dL (12.0-16.0); Mean Corpuscular HGB Conc 32.4 % (30-36); Mean Corpuscular Volume 80.1 fL (80-100); Platelet Count 363 X10^3/uL (150-400); Red Blood Cell Count 5.53 X10^6/uL (4.0-5.2); Red Cell Distribution Width 14.9 % (11.6-14.8); White Blood Cell Count 12.1 X10^3/uL (4.5-11.0)
[2019-05-21 17:52] LABS: Neutrophils Absolute Manual 8591 /uL (3000-5900); RBC Morphology Normal Morphology; Total Cells Counted 100
[2019-05-21 17:59] LABS: Alanine Aminotransferase 11 IU/L (<35); Albumin 4.4 g/dL (3.5-5.0); Albumin Globulin Ratio 1.3 (1.0-2.8); Alkaline Phosphatase 88 U/L (38-126); Aspartate Aminotransferase 20 IU/L (14-36); BUN Creatinine Ratio 16.7 (6-22); Bilirubin Total 0.2 mg/dL (0.2-1.3); Blood Urea Nitrogen 10 mg/dL (7-17); Calcium 9.5 mg/dL (8.4-10.2); Carbon Dioxide 30 mmol/L (22-32); Chloride 104 mmol/L (98-107); Estimated Glomerular Filt Rate > 60.0 mL/min (>60); Globulin 3.4 g/dL (1.7-4.1); Glucose 95 mg/dL (80-110); HEMOLYSIS < 15 (0-50); Lipase 130 U/L (23-300); Potassium 3.6 mmol/L (3.4-5.1); Sodium 139 mmol/L (137-145); Total Protein 7.8 g/dL (6.3-8.2)
[2019-05-21] MEDS: MORPHINE 4 MG/ML INJ IV ×2 (18:23→20:13)
--- NOTE | 2019-05-21 18:49 | PC.NURSE ---
Pt adamantly refused CT until I get something for this pain! That stuff you gave me didn't do shit! Dr Irvin advised.Med ordered.
--- NOTE | 2019-05-21 19:52 | DI.US.S_ITS ---
PROCEDURE: US ABDOMEN LIMITED INDICATIONS: RUQ PAIN RADIATING TO BACK TECHNIQUE: Real-time scanning was performed of the abdominal and retroperitoneal organs, with image documentation. COMPARISON: [facility], CT, CT ABDOMEN PELVIS W CON, 05/21/2019, 18:33. FINDINGS: Liver: Liver is normal in size and homogeneous in echotexture. Gallbladder: Gallbladder demonstrates mobile focus of increased echogenicity. It is noted that this is not visible on CT exam of 05/21/19. Wall thickness is within normal limits measuring 1 mm. Sonographic Sanchez's sign is present. No pericholecystic fluid. Biliary ducts: Intrahepatic bile ducts are non-dilated. Extrahepatic bile duct caliber measures 2 mm. Normal is 6-7 mm or less in diameter, or 10 mm or less post-cholecystectomy. Pancreas: Visualized portions of the pancreas are sonographically normal. Miscellaneous: No free abdominal fluid. IMPRESSION: 1. Cholelithiasis without imaging evidence of cholecystitis. Dictated by: Juli Chappell M.D. on 05/21/2019 at 20:51 Approved by: Juli Chappell M.D. on 05/21/2019 at 20:52
--- NOTE | 2019-05-21 20:15 | PC.NURSE ---
Waiting for US to arrive. Medicated with Morphine. Si;de rails up.Call bhatti within reach.Stable.
== END 2019-05-21 22:35 | disposition left against medical advice (07) ==
PROVIDERS: Emergency Medicine; Emergency Provider Emergency Medicine; Family Provider Family Medicine; PCP Student in an Organized Health Care Education/Training Program
DX: K82.9 Disease of gallbladder, unspecified (principal)
CPT/HCPCS: 36415; 74177; 76705; 80053; 81003; 83690; 85025; 96361; 96374; 96375; 96376; 99284; J1885; J2270; Q9967

== ENCOUNTER 2019-05-22 13:15 | Observation (INO) | payer MEDICARE, MEDICAID, SELFPAY ==
[2018-12-13 06:48] VITALS: BMI 25.9
[2019-05-22] VITALS (19 sets, daily range): BP systolic 105–139; BP diastolic 5–88; PULSE 5–89; RESP 12–18; TEMP 36.2–36.7; O2SAT 93–98; BMI 24.2
--- NOTE | 2019-05-22 | PATH_ITS ---
[facility] Accession Number: [id number] . 01 Material submitted: . gallbladder - GALLBLADDER AND CONTENTS . 02 Diagnosis: Gallbladder And Contents, Cholecystectomy: Cholelithiasis. One benign cystic duct lymph node. No evidence of neoplasm. [facility] 05/25/2019 1217 Local . 02 Electronically signed: . Erik Kim MD, PhD, Pathologist NPI- [id number] . 01 Gross description: . Received in formalin, labeled gallbladder, is an intact gallbladder (length-8.8 cm, diameter-3.5 cm, with green smooth shiny serosa and a patent cystic duct. A possible 0.2 x 0.2 x 0.1 cm lymph node is identified. The lumen contains dark green watery bile and multiple pale yellow gritty friable calculi (0.4 x 0.2 x 0.2 cm in aggregate). The mucosa is green, smooth and flat. The wall is up to 0.1 cm thick. No nodules, masses or lesions are identified. Section code: (A1) cystic duct resection margin and two serial sections from the body; (A2) two longitudinal sections from the fundus; (A3) one intact possible lymph node. ([id number]) /MRV 05/24/2019 1149 Local . 02 Pathologist provided ICD-10: K80.70 . 02 CPT . 788166 Performed at: 01 [facility] [address] [facility] [place], [place], [place] [id number] MD Nicola Gar MD Phone: [phone] Performed at: 02 [facility] [address] [place], [place] [id number] MD Damaris Mosqueda MD Phone: [phone]
--- NOTE | 2019-05-22 13:42 | DI.US.S_ITS ---
PROCEDURE: US ABDOMEN LIMITED INDICATIONS: RUQ PAIN TECHNIQUE: Real-time focused scanning was performed of the abdomen, with image documentation. COMPARISON: [facility], US, US ABDOMEN LIMITED, 05/21/2019, 20:31. [facility], CT, CT ABDOMEN PELVIS W CON, 05/21/2019, 18:33. FINDINGS: The liver is normal in size and echogenicity. No obvious liver lesions are identified. However, the entire liver does not appear to have been completely imaged. A single mobile gallstone within the region of the neck of the gallbladder is identified. There is no gallbladder wall thickening or pericholecystic fluid. No intrahepatic biliary dilatation is identified. The common bile duct is slightly more pronounced on the current examination, measuring 6 mm in diameter (previously measuring 4 mm). Imaged portions of the pancreas are unremarkable. The right kidney was not evaluated. IMPRESSION: Cholelithiasis without evidence of acute cholecystitis. Dictated by: Corky Harden M.D. on 05/22/2019 at 14:06 Approved by: Corky Harden M.D. on 05/22/2019 at 14:09
--- NOTE | 2019-05-22 13:53 | ED_ITS ---
HPI - Abdominal Pain <Estefanía Paz, INSTRUMENT LENS GENERATOR-BC - Last Filed: 05/22/19 16:57> General Chief Complaint: Abdominal Pain Stated Complaint: gall bladder/ here last night Time Seen by Provider: 05/22/19 13:28 Source: patient Mode of arrival: Ambulatory Limitations: no limitations History of Present Illness HPI narrative: The patient is a 63-year-old current smoker with history of back pain who presents with a chief complaint of continued right upper quadrant pain. She was seen and evaluated at this facility yesterday, had copious lab work, abdominal pelvic CT, right upper quadrant ultrasound. Surgery was contacted who recommended admission, antibiotics, and cholecystectomy today. However the patient left against medical advice because she ?could not get admitted last nightbecause she had ?too much to do.She presents with continued right upper quadrant pain nausea. No vomiting today though drinking coffee at 11:00 a.m. made her feel like she was going to vomit. She presents requesting a morphine shot like the one she had yesterday. She denies any fevers but complains of sweats. Last bowel movement was yesterday. She has not started antibiotics that were prescribed to her last night. However she did take the nausea medication that was sent in. Related Data Home Medications Medication Instructions Recorded Confirmed nicotine 1 patch TRANSDERMAL Q24H 12/13/18 12/22/18 Previous Rx's Medication Instructions Recorded albuterol sulfate 90 mcg/actuation 2 puff INHALATION Q4-6H PRN #18 04/22/18 aerosol inhaler gram pantoprazole 40 mg tablet,delayed 40 mg PO BID #180 tab 11/12/18 release trazodone 100 mg tablet 100 mg PO DAILY #90 tab 11/12/18 tizanidine 4 mg tablet 8 mg PO TID PRN #180 tab 12/02/18 acetaminophen [Tylenol Extra 500 mg PO Q4H PRN #60 tab 12/17/18 Strength] oxycodone 10 mg PO Q4-6H PRN #40 tab 12/17/18 acyclovir 400 mg tablet 400 mg PO TID #30 tab 12/28/18 diphenhydramine HCl 25 mg capsule 25 mg PO BEDTIME PRN #30 cap 01/12/19 docusate sodium 50 mg capsule 100 mg PO DAILY PRN #60 cap 01/12/19 diazepam 10 mg tablet 10 mg PO DAILY #30 tab 01/14/19 gabapentin 300 mg capsule 300 mg PO TID PRN #270 cap 01/17/19 ciprofloxacin HCl 500 mg PO BID #20 tab 05/21/19 ondansetron 4 mg PO Q8H PRN #10 tab 05/21/19 Allergies Allergy/AdvReac Type Severity Reaction Status Date / Time duloxetine [From Cymbalta] Allergy Mild insomnia, Verified 12/22/18 13:55 teeth clenching adhesive tape [ADHESIVE TAPE] Allergy Unknown Verified 12/22/18 13:55 hydrocodone [From VICODIN] Allergy Unknown STOMACH Verified 12/22/18 13:55 UPSET venlafaxine AdvReac Intermediate sweating, Verified 12/22/18 13:55 insomnia Review of Systems <JOYCE Bush - Last Filed: 05/22/19 16:57> Review of Systems Narrative: GENERAL: Denies chills, fatigue, malaise, fever, sweats. HEENT: Denies sinus pain, ear pain, sore throat, difficulty swallowing, dizziness. RESPIRATORY: Denies dyspnea, cough, wheezing, hemoptysis, sputum. CARDIOVASCULAR: Denies chest pain, palpitations, orthopnea, edema, GASTROINTESTINAL: See HPI : Denies dysuria, frequency, incontinence, hematuria, urinary retention. MUSCULOSKELETAL: denies weakness, joint pain, or bony pain SKIN: Denies rash, skin lesions, or other NEUROLOGIC: Denies weakness, headache, numbness, change in speech, confusion, seizures, incoordination. PSYCHIATRIC: No concerning psychosocial issues. 12 point review of systems is negative except for those stated above Patient History <JOYCE Bush - Last Filed: 05/22/19 16:57> Medical History Ankle pain (Chronic 2016) Anxiety (Chronic) Cervical spine disease (Chronic 2007) Chronic back pain (Chronic 1981) Chronic cough (Chronic) Chronic headaches (Chronic) Foot pain (Chronic) GERD (gastroesophageal reflux disease) (Resolved) Lumbar spinal stenosis (Chronic) Lumbar spine pain (Chronic) Osteopenia (Chronic) Osteoporosis (Chronic) Peripheral neuropathy (Chronic 2012) Scoliosis (Chronic) Skin spots-aging (Chronic) Surgical History Anesthesia (Resolved) History of cervical spinal surgery (Resolved 2007) History of hysterectomy (Resolved 1992) History of lumbar laminectomy (Resolved 2013) History of lumbar laminectomy (Resolved ~1989) Status post epidural steroid injection (Acute 04/28/18) Family History Father No problems noted. Mother Colon cancer Liver cancer Heart disease Hypertension Brother Obesity Diabetes mellitus Hypertension Brother No problems noted. Brother No problems noted. Sister No problems noted. Grandfather No problems noted. Grandmother No problems noted. Grandfather No problems noted. Grandmother No problems noted. Family/Other No problems noted. Social History household members: none and other Smoking Status: Current every day smoker alcohol intake: current Smoking Status: Current every day smoker alcohol intake frequency: holidays/special occasions only Substance Use Type: marijuana Exam <VIRAL Bush - Last Filed: 05/22/19 16:57> Narrative Exam Narrative: GENERAL: This is a well-nourished, well-developed patient, wally ears chronically ill and anxious HEAD: Atraumatic. Normocephalic. No temporal or scalp tenderness. EYES: Pupils equal round and reactive. Extraocular motions intact. No scleral icterus. No injection or drainage. ENT: Nose without bleeding, purulent drainage or septal hematoma. Throat without erythema, tonsillar hypertrophy or exudate. Uvula midline. Airway patent. NECK: Trachea midline. No JVD or lymphadenopathy. Supple, nontender, no meningeal signs. CARDIOVASCULAR: Regular rate and rhythm without murmurs, gallops, or rubs. RESPIRATORY: Clear to auscultation. Breath sounds equal bilaterally. No wheezes, rales, or rhonchi. GASTROINTESTINAL: Abdomen soft, nondistended. No hepato-splenomegaly, or palpable masses. Positive Sanchez sign with guarding to right upper quadrant pain palpation EXTREMITIES: No clubbing, cyanosis, or edema. No joint tenderness, effusion, or edema noted. BACK: Nontender without deformity or crepitance. No flank tenderness. NEURO: AOx3. Patient states ?thank you for making me cry during abdominal exam and requests IV morphine. SKIN: No rash or erythema on visible skin Initial Vital Signs Initial Vital Signs: Vital Signs Temperature 97.9 F 05/22/19 13:24 Pulse Rate 89 05/22/19 13:24 Respiratory Rate 18 05/22/19 13:24 Blood Pressure 132/74 05/22/19 13:24 Pulse Oximetry 96 05/22/19 13:24 <Estefanía Light DO - Last Filed: 05/22/19 17:23> Initial Vital Signs Initial Vital Signs: Vital Signs Temperature 97.9 F 05/22/19 13:24 Pulse Rate 89 05/22/19 13:24 Respiratory Rate 18 05/22/19 13:24 Blood Pressure 132/74 05/22/19 13:24 Pulse Oximetry 96 05/22/19 13:24 Scores <VIRAL Bush - Last Filed: 05/22/19 16:57> GCS [place] coma scale eye opening: Spontaneous Brina coma scale verbal response: Orientated [place] coma scale motor response: Obey commands [place] coma scale total score: 15 Course <VIRAL Bush - Last Filed: 05/22/19 16:57> Orders Ordered: ED Orders 05/22/19 13:42 US abdomen limited Stat 05/22/19 13:50 Amylase Stat Complete Blood Count AUTO DIFF Stat Comprehensive Metabolic Panel Stat Lipase Stat 05/22/19 13:55 Lactate (Lactic Acid) Stat Albuterol (Ventolin) 2.5 mg INH NOW PRN PRN Reason: Coughing, Wheezing, Dyspnea Benzocaine (Cepacol Lozenge) 1 each PO PRN PRN PRN Reason: Sore Throat Fentanyl (Sublimaze) 0 mcg IV Q5M PRN PRN Reason: Pain, Moderate (4-6) Hydromorphone HCl (Dilaudid) 0 mg IV Q5M PRN PRN Reason: Pain, Moderate (4-6) Hydroxyzine HCl (Vistaril) 25 mg IM NOW PRN PRN Reason: Pain, Mild (1-3) Sodium Chloride (Normal Saline 0.9%) 1,000 mls @ 150 mls/hr IV CONT ROXANNE Last Infusion: 05/22/19 16:09 Dose: 0 mls/hr Documented by: Admin: 05/22/19 14:05 Dose: 150 mls/hr Documented by: JARED Lactated Ringer's (Lactated Ringers) 1,000 mls @ 125 mls/hr IV CONT ROXANNE Last Infusion: 05/22/19 17:00 Dose: 125 mls/hr Documented by: Admin: 05/22/19 16:09 Dose: 125 mls/hr Documented by: BROOKLYN Lactated Ringer's (Lactated Ringers) 1,000 mls @ 42 mls/hr IV CONT ROXANNE Lactated Ringer's (Lactated Ringers) 1,000 mls @ 120 mls/hr IV CONT ROXANNE Lorazepam (Ativan) 0.25 mg IV NOW PRN PRN Reason: Anxiety Meperidine HCl (Demerol) 25 mg IV PACUNOW PRN PRN Reason: Moderate pain or shivering Metoclopramide HCl (Reglan) 10 mg IV NOW PRN PRN Reason: Nausea And Vomiting Ondansetron HCl (Zofran) 4 mg IV NOW PRN PRN Reason: Nausea And Vomiting Oxycodone HCl (Percolone) 5 mg PO PACUNOW PRN PRN Reason: Mild or moderate pain Discontinued Medications Albuterol (Ventolin Hfa) 2 puff INH NOW ONE Stop: 05/22/19 15:59 Cefotetan Disodium/Dextrose (Cefotan) 2 gm in 50 mls @ 100 mls/hr IV INTRA-OP ONE Stop: 05/22/19 16:15 Famotidine (Pepcid) 20 mg in 50 mls @ 200 mls/hr IV NOW ONE Stop: 05/22/19 16:02 Last Infusion: 05/22/19 16:25 Dose: 0 mls/hr Documented by: Admin: 05/22/19 16:10 Dose: 200 mls/hr Documented by: BROOKLYN Metoclopramide HCl (Reglan) 10 mg IV NOW ONE Stop: 05/22/19 15:57 Morphine Sulfate (Morphine) 4 mg IV NOW ONE Stop: 05/22/19 13:43 Last Admin: 05/22/19 14:05 Dose: 4 mg Documented by: JARED Morphine Sulfate (Morphine) 2 mg IV NOW ONE Stop: 05/22/19 16:17 Last Admin: 05/22/19 16:32 Dose: 2 mg Documented by: MEISENB Vital Signs Vital signs: Vital Signs - 8 hr 05/22/19 13:24 05/22/19 14:48 Temperature 97.9 F Pulse Rate 89 62 Respiratory Rate 18 Blood Pressure 132/74 Blood Pressure [Right Arm] 132/87 Pulse Oximetry 96 95 <Estefanía Light, DO - Last Filed: 05/22/19 17:23> Orders Ordered: ED Orders 05/22/19 13:42 US abdomen limited Stat 05/22/19 13:50 Amylase Stat Complete Blood Count AUTO DIFF Stat Comprehensive Metabolic Panel Stat Lipase Stat 05/22/19 13:55 Lactate (Lactic Acid) Stat Albuterol (Ventolin) 2.5 mg INH NOW PRN PRN Reason: Coughing, Wheezing, Dyspnea Benzocaine (Cepacol Lozenge) 1 each PO PRN PRN PRN Reason: Sore Throat Fentanyl (Sublimaze) 0 mcg IV Q5M PRN PRN Reason: Pain, Moderate (4-6) Hydromorphone HCl (Dilaudid) 0 mg IV Q5M PRN PRN Reason: Pain, Moderate (4-6) Hydroxyzine HCl (Vistaril) 25 mg IM NOW PRN PRN Reason: Pain, Mild (1-3) Sodium Chloride (Normal Saline 0.9%) 1,000 mls @ 150 mls/hr IV CONT ROXANNE Last Infusion: 05/22/19 16:09 Dose: 0 mls/hr Documented by: CALVINSENTara Admin: 05/22/19 14:05 Dose: 150 mls/hr Documented by: JARED Lactated Ringer's (Lactated Ringers) 1,000 mls @ 125 mls/hr IV CONT ROXANNE Last Infusion: 05/22/19 17:00 Dose: 125 mls/hr Documented by: Admin: 05/22/19 16:09 Dose: 125 mls/hr Documented by: BROOKLYN Lactated Ringer's (Lactated Ringers) 1,000 mls @ 42 mls/hr IV CONT ROXANNE Lactated Ringer's (Lactated Ringers) 1,000 mls @ 120 mls/hr IV CONT ROXANNE Lorazepam (Ativan) 0.25 mg IV NOW PRN PRN Reason: Anxiety Meperidine HCl (Demerol) 25 mg IV PACUNOW PRN PRN Reason: Moderate pain or shivering Metoclopramide HCl (Reglan) 10 mg IV NOW PRN PRN Reason: Nausea And Vomiting Ondansetron HCl (Zofran) 4 mg IV NOW PRN PRN Reason: Nausea And Vomiting Oxycodone HCl (Percolone) 5 mg PO PACUNOW PRN PRN Reason: Mild or moderate pain Discontinued Medications Albuterol (Ventolin Hfa) 2 puff INH NOW ONE Stop: 05/22/19 15:59 Cefotetan Disodium/Dextrose (Cefotan) 2 gm in 50 mls @ 100 mls/hr IV INTRA-OP ONE Stop: 05/22/19 16:15 Famotidine (Pepcid) 20 mg in 50 mls @ 200 mls/hr IV NOW ONE Stop: 05/22/19 16:02 Last Infusion: 05/22/19 16:25 Dose: 0 mls/hr Documented by: Admin: 05/22/19 16:10 Dose: 200 mls/hr Documented by: BROOKYLN Metoclopramide HCl (Reglan) 10 mg IV NOW ONE Stop: 05/22/19 15:57 Morphine Sulfate (Morphine) 4 mg IV NOW ONE Stop: 05/22/19 13:43 Last Admin: 05/22/19 14:05 Dose: 4 mg Documented by: JARED Morphine Sulfate (Morphine) 2 mg IV NOW ONE Stop: 05/22/19 16:17 Last Admin: 05/22/19 16:32 Dose: 2 mg Documented by: BROOKLYN Vital Signs Vital signs: Vital Signs - 8 hr 05/22/19 13:24 05/22/19 14:48 Temperature 97.9 F Pulse Rate 89 62 Respiratory Rate 18 Blood Pressure 132/74 Blood Pressure [Right Arm] 132/87 Pulse Oximetry 96 95 MDM - Abdominal Pain <VIRAL Bush - Last Filed: 05/22/19 16:57> Lab Data Result diagrams: 05/22/19 13:50 05/22/19 13:50 Labs: Lab Results 05/22/19 05/22/19 05/22/19 Range/Units 13:50 13:50 13:55 WBC 8.7 (4.5-11.0) X10^3/uL RBC 4.93 (4.0-5.2) X10^6/uL Hgb 12.9 (12.0-16.0) g/dL Hct 39.5 (36-46) % MCV 80.1 (80-100) fL MCH 26.1 (26-34) PG MCHC 32.6 (30-36) % RDW 15.1 H (11.6-14.8) % Plt Count 309 (150-400) X10^3/uL Neut % (Auto) 71.6 (50-75) % Lymph % (Auto) 20.1 L (25-40) % [place] % (Auto) 4.9 (3-14) % Eos % (Auto) 2.3 (2-4) % Baso % (Auto) 1.1 (0-2) % Neut # (Auto) 6300 (9535-4840) /uL Lymph # (Auto) 1800 (9661-8262) /uL [place] # (Auto) 400 (0-900) /uL Eos # (Auto) 200 (0-450) /uL Baso # (Auto) 100 (0-100) /uL Sodium 138 (137-145) mmol/L Potassium 4.1 (3.4-5.1) mmol/L Chloride 105 (98-107) mmol/L Carbon Dioxide 31 (22-32) mmol/L BUN 12 (7-17) mg/dL Creatinine 0.60 (0.52-1.04) mg/dL Estimated GFR > 60.0 (>60) mL/min BUN/Creatinine Ratio 20.0 (6-22) Glucose 109 (80-110) mg/dL Lactate 0.7 (0.7-2.1) mmol/L Calcium 9.1 (8.4-10.2) mg/dL Total Bilirubin 0.4 (0.2-1.3) mg/dL AST 19 (14-36) IU/L ALT 11 (<35) IU/L Alkaline Phosphatase 73 (38-126) U/L Total Protein 6.9 (6.3-8.2) g/dL Albumin 3.9 (3.5-5.0) g/dL Globulin 3.0 (1.7-4.1) g/dL Albumin/Globulin Ratio 1.3 (1.0-2.8) Amylase 76 (30-110) U/L Lipase 50 D (23-300) U/L Point of care testing: Urine Dip Bedside Urine Glucose Negative Bedside Urine Bilirubin - Negative Bedside Urine Ketone - Negative Urine Specific [place] 1.030 Bedside Urine Occult Blood - Negative Bedside Urine pH 6.0 Bedside Urine Protein + 30 Bedside Urine Urobilinogen - Negative Bedside Urine Nitrite - Negative Bedside Urine Leukocytes - Negative Esterase Imaging Data US - abdomen: Radiologist's Impression: [address] [place] [id number] Ultrasound Report Signed Patient: Josey Moncada [facility]#: [id number] : 8Acct:[id number] Age/Sex: 63 / FDate of Service: 05/22/19 Loc: ED Accession Number: [id number] Procedure: US abdomen limited Ordering Provider: Estefanía Paz PROCEDURE: US ABDOMEN LIMITED INDICATIONS: RUQ PAIN TECHNIQUE: Real-time focused scanning was performed of the abdomen, with image documentation. COMPARISON: [facility], US, US ABDOMEN LIMITED, 05/21/2019, 20:31. [facility], CT, CT ABDOMEN PELVIS W CON, 05/21/2019, 18:33. FINDINGS: The liver is normal in size and echogenicity. No obvious liver lesions are identified. However, the entire liver does not appear to have been completely imaged. A single mobile gallstone within the region of the neck of the gallbladder is identified. There is no gallbladder wall thickening or pericholecystic fluid. No intra hepatic biliary dilatation is identified. The common bile duct is slightly more pronounced on the current examination, measuring 6 mm in diameter (previously measuring 4 mm). Imaged portions of the pancreas are unremarkable. The right kidney was not evaluated. IMPRESSION: Cholelithiasis without evidence of acute cholecystitis. Dictated by: Corky Harden M.D. on 05/22/2019 at 14:06 Approved by: Corky Harden M.D. on 05/22/2019 at 14:09 [facility] Narrative Medical decision making narrative: The patient is a 63-year-old female who presents with a chief complaint of continue gallbladder issues. She was seen and evaluated here yesterday, offered admission and cholecystectomy today. However the patient left against medical advice. Given that the patient was having sweats, worsening pain, I did elect to do further imaging and lab work to ensure that she was not in acute cholecystitis. The patient was given IV fluids, kept NPO and given morphine for pain. I spoke with Dr. Ross on-call from surgery, who was offering to admit her last night who came down to evaluate the patient. He elected to bring the patient to the operating room. Patient to OR for 1700. <Estefanía LightDO - Last Filed: 05/22/19 17:23> Lab Data Attestation: I reviewed the patient's lab results. Labs: Lab Results 05/22/19 05/22/19 05/22/19 Range/Units 13:50 13:50 13:55 WBC 8.7 (4.5-11.0) X10^3/uL RBC 4.93 (4.0-5.2) X10^6/uL Hgb 12.9 (12.0-16.0) g/dL Hct 39.5 (36-46) % MCV 80.1 (80-100) fL MCH 26.1 (26-34) PG MCHC 32.6 (30-36) % RDW 15.1 H (11.6-14.8) % Plt Count 309 (150-400) X10^3/uL Neut % (Auto) 71.6 (50-75) % Lymph % (Auto) 20.1 L (25-40) % [place] % (Auto) 4.9 (3-14) % Eos % (Auto) 2.3 (2-4) % Baso % (Auto) 1.1 (0-2) % Neut # (Auto) 6300 (2060-2580) /uL Lymph # (Auto) 1800 (6971-0908) /uL [place] # (Auto) 400 (0-900) /uL Eos # (Auto) 200 (0-450) /uL Baso # (Auto) 100 (0-100) /uL Sodium 138 (137-145) mmol/L Potassium 4.1 (3.4-5.1) mmol/L Chloride 105 (98-107) mmol/L Carbon Dioxide 31 (22-32) mmol/L BUN 12 (7-17) mg/dL Creatinine 0.60 (0.52-1.04) mg/dL Estimated GFR > 60.0 (>60) mL/min BUN/Creatinine Ratio 20.0 (6-22) Glucose 109 (80-110) mg/dL Lactate 0.7 (0.7-2.1) mmol/L Calcium 9.1 (8.4-10.2) mg/dL Total Bilirubin 0.4 (0.2-1.3) mg/dL AST 19 (14-36) IU/L ALT 11 (<35) IU/L Alkaline Phosphatase 73 (38-126) U/L Total Protein 6.9 (6.3-8.2) g/dL Albumin 3.9 (3.5-5.0) g/dL Globulin 3.0 (1.7-4.1) g/dL Albumin/Globulin Ratio 1.3 (1.0-2.8) Amylase 76 (30-110) U/L Lipase 50 D (23-300) U/L Point of care testing: Urine Dip Bedside Urine Glucose Negative Bedside Urine Bilirubin - Negative Bedside Urine Ketone - Negative Urine Specific [place] 1.030 Bedside Urine Occult Blood - Negative Bedside Urine pH 6.0 Bedside Urine Protein + 30 Bedside Urine Urobilinogen - Negative Bedside Urine Nitrite - Negative Bedside Urine Leukocytes - Negative Esterase MDM Narrative Medical decision making narrative: Case discussed, labs obtained and repeat US imaging. Surgery recontacted as patient left AMA yesterday and plan for OR today. Dr. Ross saw patient in the department. Discharge Plan Departure Patient Disposition: Admitted as Observation Clinical Impression: Cholelithiasis Qualifiers: Cholelithiasis location: bile duct Cholangitis presence: without cholangitis Biliary obstruction: without biliary obstruction Qualified Code(s): K80.50 - Calculus of bile duct without cholangitis or cholecystitis without obstruction Discharge Date/Time: 05/22/19 17:01 Admit Date/Time: 05/22/19 15:53 Admit Provider: Mayito Ross
[2019-05-22 13:58] LABS: Add Manual Diff / Slide Review NO; Basophils Absolute Auto 100 /uL (0-100); Basophils Percent Auto 1.1 % (0-2); Eosinophils Absolute Auto 200 /uL (0-450); Eosinophils Percent Auto 2.3 % (2-4); Hematocrit 39.5 % (36-46); Hemoglobin 12.9 g/dL (12.0-16.0); Lymphocytes Absolute Auto 1800 /uL (1100-4500); Lymphocytes Percent Auto 20.1 % (25-40); Mean Corpuscular HGB Conc 32.6 % (30-36); Mean Corpuscular Hemoglobin 26.1 PG (26-34); Mean Corpuscular Volume 80.1 fL (80-100); Monocytes Absolute Auto 400 /uL (0-900); Monocytes Percent Auto 4.9 % (3-14); Neutrophils Absolute Auto 6300 /uL (1500-7000); Neutrophils Percent Auto 71.6 % (50-75); Platelet Count 309 X10^3/uL (150-400); Red Blood Cell Count 4.93 X10^6/uL (4.0-5.2); Red Cell Distribution Width 15.1 % (11.6-14.8); White Blood Cell Count 8.7 X10^3/uL (4.5-11.0)
[2019-05-22] MEDS: SODIUM CHLORIDE 0.9% 1,000 ML 150 ML IV (14:05)
[2019-05-22] MEDS: MORPHINE 4 MG/ML INJ IV (14:05)
[2019-05-22 14:12] LABS: Alanine Aminotransferase 11 IU/L (<35); Albumin 3.9 g/dL (3.5-5.0); Albumin Globulin Ratio 1.3 (1.0-2.8); Alkaline Phosphatase 73 U/L (38-126); Amylase 76 U/L (30-110); Aspartate Aminotransferase 19 IU/L (14-36); Bilirubin Total 0.4 mg/dL (0.2-1.3); Blood Urea Nitrogen 12 mg/dL (7-17); Calcium 9.1 mg/dL (8.4-10.2); Carbon Dioxide 31 mmol/L (22-32); Chloride 105 mmol/L (98-107); Estimated Glomerular Filt Rate > 60.0 mL/min (>60); Glucose 109 mg/dL (80-110); HEMOLYSIS < 15 (0-50); Lipase 50 U/L (23-300); Potassium 4.1 mmol/L (3.4-5.1); Sodium 138 mmol/L (137-145); Total Protein 6.9 g/dL (6.3-8.2)
[2019-05-22 14:21] LABS: Lactate (Lactic Acid) 0.7 mmol/L (0.7-2.1)
--- NOTE | 2019-05-22 15:48 | P.HP_ITS ---
History of Present Illness History of Present Illness Date Patient Seen: 05/22/19 Time Patient Seen: 15:49 Chief complaint: gall bladder/ here last night Narrative: Patient is a woman with 2 week history of right abdominal pain extending into her flank. She has not had anything quite like this before. She has had some anorexia and nausea but has not vomited. Took medicine given to her last night when she was in the emergency room and left against medical advi ce. Pain has persisted and she came back to the emergency room. She had some coffee with milk about 11:00 a.m.. Has had no other p.o. today. The pain is a persistent dull ache which increases with movement. Patient History Medical History Ankle pain (Chronic 2016) Anxiety (Chronic) Cervical spine disease (Chronic 2007) Chronic back pain (Chronic 1981) Chronic cough (Chronic) Chronic headaches (Chronic) Foot pain (Chronic) GERD (gastroesophageal reflux disease) (Resolved) Lumbar spinal stenosis (Chronic) Lumbar spine pain (Chronic) Osteopenia (Chronic) Osteoporosis (Chronic) Peripheral neuropathy (Chronic 2012) Scoliosis (Chronic) Skin spots-aging (Chronic) Surgical History Anesthesia (Resolved) History of cervical spinal surgery (Resolved 2007) History of hysterectomy (Resolved 1992) History of lumbar laminectomy (Resolved 2013) History of lumbar laminectomy (Resolved ~1989) Status post epidural steroid injection (Acute 04/28/18) Family & Social History Family History Father No problems noted. Mother Colon cancer Liver cancer Heart disease Hypertension Brother Obesity Diabetes mellitus Hypertension Brother No problems noted. Brother No problems noted. Sister No problems noted. Grandfather No problems noted. Grandmother No problems noted. Grandfather No problems noted. Grandmother No problems noted. Family/Other No problems noted. Social History: household members none,other Tobacco & Substance use: Tobacco type cigarettes Smoking Status Current every day smoker alcohol intake current alcohol intake frequency holiday/special occasion Substance Use Type marijuana Meds Home Medications and Allergies Home Medications Medication Instructions Recorded Confirmed Type albuterol sulfate 90 mcg/actuation 2 puff INHALATION Q4-6H PRN #18 04/22/18 1 02/21/18 Rx aerosol inhaler gram pantoprazole 40 mg tablet,delayed 40 mg PO BID #180 tab 11/12/18 12/22/18 Rx release trazodone 100 mg tablet 100 mg PO DAILY #90 tab 11/12/18 12/22/18 Rx tizanidine 4 mg tablet 8 mg PO TID PRN #180 tab 12/02/18 12/22/18 Rx nicotine 1 patch TRANSDERMAL Q24H 12/13/18 12/22/18 History acetaminophen [Tylenol Extra 500 mg PO Q4H PRN #60 tab 12/17/18 12/22/18 Rx Strength] oxycodone 10 mg PO Q4-6H PRN #40 tab 12/17/18 12/22/18 Rx acyclovir 400 mg tablet 400 mg PO TID #30 tab 12/28/18 Rx diphenhydramine HCl 25 mg capsule 25 mg PO BEDTIME PRN #30 cap 01/12/19 01/12/19 Rx docusate sodium 50 mg capsule 100 mg PO DAILY PRN #60 cap 01/12/19 01/12/19 Rx diazepam 10 mg tablet 10 mg PO DAILY #30 tab 01/14/19 Rx gabapentin 300 mg capsule 300 mg PO TID PRN #270 cap 01/17/19 Rx ciprofloxacin HCl 500 mg PO BID #20 tab 05/21/19 Rx ondansetron 4 mg PO Q8H PRN #10 tab 05/21/19 Rx Allergies Allergy/AdvReac Type Severity Reaction Status Date / Time duloxetine [From Cymbalta] Allergy Mild insomnia, Verified 12/22/18 13:55 teeth clenching adhesive tape [ADHESIVE TAPE] Allergy Unknown Verified 12/22/18 13:55 hydrocodone [From VICODIN] Allergy Unknown STOMACH Verified 12/22/18 13:55 UPSET venlafaxine AdvReac Intermediate sweating, Verified 12/22/18 13:55 insomnia Review of Systems Review of Systems Narrative: Patient wears glasses. Denies double vision or pain arise. No ea raches or sore throat. She has lost a crown and a filling. No tooth aches however. Patient denies breathing difficulties at this time. She has a long history of smoking and is treated with albuterol for either asthma or COPD. In any event she last used her inhaler last night. She does not use it every day. Patient denies a cough or cold. She says she sneezed a few times a few days ago but that is not persisted. No productive cough. Patient denies heart problems or chest pain. No hypertension. Denies any seizures or blackouts. No unusual bruising or bleeding. Last colonoscopy was 3 years ago. Nothing was found at that time. She denies any blood in her stool or black bowel movements. Exam Vital Signs (past 8 hours): - 05/22/19 13:24 05/22/19 14:48 Temperature 97.9 F Pulse Rate 89 62 Respiratory Rate 18 Blood Pressure 132/74 Blood Pressure [Right Arm] 132/87 Pulse Oximetry 96 95 Oxygen Delivery Method Room Air Narrative Exam Narrative: Cooperative no apparent distress eyes are nonicteric. Pupils equal round reactive to light. Conjunctiva pink. Ears without lesion. Oral mucosa is pink and moist. No open lesions. No nodes neck supraclavicular are as. Trachea is midline mobile. Thyroid is not enlarged. Lungs are clear to auscultation without rales or rhonchi or wheezing. Equal percussion. Heart regular rate and rhythm without murmur gallop. No bruit in the neck. Abdomen is scaphoid soft. Most of it is nontender. It the only tenderness is the right upper quadrant and right flank. There is voluntary guarding. No palpable mass. Liver is not enlarged on percussion. Patient is alert and oriented x3. Speech rate and content are appropriate. Affect is appropriate. Objective Labs Result Diagrams: 05/22/19 13:50 05/22/19 13:50 Labs: Laboratory Results - last 24 hr 05/22/19 05/22/19 05/22/19 13:50 13:50 13:55 WBC 8.7 RBC 4.93 Hgb 12.9 Hct 39.5 MCV 80.1 MCH 26.1 MCHC 32.6 RDW 15.1 H Plt Count 309 Neut % (Auto) 71.6 Lymph % (Auto) 20.1 L [place] % (Auto) 4.9 Eos % (Auto) 2.3 Baso % (Auto) 1.1 Neut # (Auto) 6300 Lymph # (Auto) 1800 [place] # (Auto) 400 Eos # (Auto) 200 Baso # (Auto) 100 Sodium 138 Potassium 4.1 Chloride 105 Carbon Dioxide 31 BUN 12 Creatinine 0.60 Estimated GFR > 60.0 BUN/Creatinine Ratio 20.0 Glucose 109 Lactate 0.7 Calcium 9.1 Total Bilirubin 0.4 AST 19 ALT 11 Alkaline Phosphatase 73 Total Protein 6.9 Albumin 3.9 Globulin 3.0 Albumin/Globulin Ratio 1.3 Amylase 76 Lipase 50 D Assessment & Plan Assessment & Plan narrative: Patient with chronic back pain who has a a a CT and ultrasound performed. She it appears she has gallstones. No wall thickening. Her findings on x-ray do not exactly correlate with her physical findings. She may be quite sensitive to gallbladder pain. In any event she probably warrants urgent laparoscopy as she will repeatedly be coming in and out of the emergency room. I have discussed laparoscopic cholecystectomy and possible cholangiogram with the patient. Risks of bleeding, infection, injury to internal organs or ducts which would require major operation to repair, possible bile leakage which would necessitate an ERCP, possible hernia at the umbilicus and the restrictions postop I would recommend were all discussed with her. I discussed the possibility of an intraoperative cholangiogram with her. All questions were answered. At this time I do not plan a cholangiogram as her labs have been normal. White blood cell count yesterday was elevated but today is normal. Will treat her asthma/lung issues with her inhaler. Will give Reglan and Pepcid to protect her lungs and evacuate her stomach. Unfortunately she has no one to assist her at home and has know when she can go home to therefore I will probably keep her overnight and discharge her tomorrow morning. I would rather not send a fresh postop like this patient home to an empty house.
[2019-05-22] MEDS: LACTATED RINGERS 1,000 ML 125 ML IV ×2 (16:09→19:17)
[2019-05-22] MEDS: FAMOTIDINE 20 MG/50 ML PIGGYBACK 200 MG IV (16:10)
--- NOTE | 2019-05-22 16:13 | PM.PREOP ---
Pre-operative Note Interval Note History & Physical reviewed/Exam performed by Physician: Yes Changes to H&P: No
[2019-05-22] MEDS: MORPHINE 2 MG/ML INJ IV (16:32)
[2019-05-22] MEDS: CEFOTETAN 2 GM/50 ML PIGGYBACK IV (17:25)
[2019-05-22] MEDS: BUPIVACAINE 0.5% (PF) VIAL 30 ML INJ (17:47)
--- NOTE | 2019-05-22 17:49 | SUR.OPER ---
Supine on padded OR bed, head on pillow, arms secured on padded arm boards at <90 degrees abduction, legs uncrossed, safety belt at thigh, tape over blanket over lower legs.
--- NOTE | 2019-05-22 19:08 | PM.OP.1 ---
Operative Date/Time/Diagnoses Date of procedure: 05/22/19 Time of procedure: 19:08 Pre-op diagnosis: Cholelithiasis cholecystitis with chronic pain Post-op diagnosis: same Procedure & Clinicians Procedure: Laparoscopic cholecystectomy Same procedure as scheduled: Yes Indications: Chronic right upper quadrant pain in repeated visits to the emergency room. Surgeon: Mayito Ross Click Yes if Unassisted: Yes Anesthesia Type: General Operative Notes Findings: Chronic gallbladder inflammation. Very small cystic duct. Closure Type: primary Specimen(s): other (Gallbladder and contents) Prosthetic devices, grafts, tissues, transplants, or devices: None Estimated Blood Loss (mL): 5 Blood products transfused: none Procedure in detail: The patient was placed supine on the operating room table and underwent general endotracheal anesthesia. The patient was prepped and draped in the usual fashion. Local anesthetic was infiltrated near the umbilicus and curvilinear incision made and carried down through fascia into the peritoneal cavity. Stay sutures of 0 Vicryl were placed in the fascia. A 12 mm port was placed. The abdomen was insufflated. The patient was repositioned. Local anesthetic was infiltrated in 3 areas under the right costal margin and 3 small incisions made followed by placing 3 5 mm ports under direct laparoscopic camera vision internally. The gallbladder was grasped and elevated. Dissection was begun near its end. A ductal structure within adjacent vascular structure was from the surrounding structures. These were going directly to the gallbladder. The common bile duct was normal in size and clearly visible and was carefully avoided. Four clips were placed across this vascular structure and the cystic duct and it was divided leaving 3 in the patient. There was 1 small area posterior which was also oozing which had clip applied it. Further dissection revealed another small vascular structure that was from the surrounding ones. Three clips were placed across it and it was divided leaving 2 in the patient.. The gallbladder was then dissected from its bed in the liver using cautery. There was no spillage. It was detached and removed through the umbilical port. the port sites were all irrigated. The stay sutures at the umbilicus were elevated. A 2 0 PDS suture was placed between them. The Vicryl and PDS sutures were then tied. The skin in all areas was closed with interrupted 4 0 Vicryl subcuticular stitches. Dermabond was applied due to the patient's history of an allergy to adhesive tape. the patient was awakened, extubated . During the operation the pressure was reduced to 12 mm and all air that was evacuated from the abdomen we went through a filter. No external cautery was used. Recovery took place in the operating room after extubation due to the issues with COVID-19. Complications: none Post-operative Condition: stable Disposition: observation
[2019-05-22] MEDS: HYDROMORPHONE 2 MG INJ IV ×4 (19:34→20:05)
[2019-05-22] MEDS: LORazepam 2 MG/ML INJ 0.25 MG IV (19:44)
--- NOTE | 2019-05-22 19:52 | SUR.PHASEI ---
Pt arrived to PACU moaning and stating she was in alot of pain. Medicated with Dilaudid, then ativan. Much improved after ativan given.
[2019-05-22] MEDS: METOCLOPRAMIDE 10 MG/2 ML INJ IV (19:56)
[2019-05-22] MEDS: ONDANSETRON 4 MG/2 ML INJ IV (20:07)
--- NOTE | 2019-05-22 20:19 | SUR.PHASEI ---
Pt c/o nausea, and wanting to eat, explaned importance of getting nausea under control, meds given, pt wanting more than clear liquids like toast.Dr Ross states pt on clears to start, explained to pt, pt not happy. States nausea resolved, but refusing offers of soda, juice or jello. Taking ice chips well. Repport attemptedat 0820, RN unavailable and to call back.
--- NOTE | 2019-05-22 20:35 | SUR.PHASEI ---
Report given, pt transported up to room 221.
--- NOTE | 2019-05-22 20:49 | SUR.PHASEI ---
Pt left with Indira in room 221, bed down, locked and call bhatti placed w/in reach.
[2019-05-22] MEDS: OXYCODONE IR 10 MG TABLET PO (21:33)
[2019-05-22] MEDS: GABAPENTIN 300 MG CAPSULE PO (21:33)
[2019-05-23] MEDS: KETOROLAC 30 MG/ML VIAL IV ×2 (02:04→08:52)
[2019-05-23] MEDS: OXYCODONE IR 10 MG TABLET PO ×2 (04:43→08:52)
[2019-05-23] MEDS: ACETAMINOPHEN SUSP 650 MG/20.3 ML UDC 500 MG PO (04:44)
[2019-05-23 04:46] VITALS: BP 127/79; PULSE 62; RESP 16; TEMP 36.3; O2SAT 92
[2019-05-23 07:33] VITALS: O2SAT 92
[2019-05-23] MEDS: GABAPENTIN 300 MG CAPSULE PO (08:05)
[2019-05-23] MEDS: HYDROMORPHONE 1 MG INJ IV (08:05)
[2019-05-23 08:10] VITALS: BP 117/79; PULSE 75; RESP 18; TEMP 36.6; O2SAT 93
[2019-05-23] MEDS: ENOXAPARIN 40 MG/0.4 ML SYRINGE SUBCUT (08:52)
[2019-05-23] MEDS: DOCUSATE 100 MG CAPSULE PO (08:52)
[2019-05-23] MEDS: ONDANSETRON 4 MG/2 ML INJ IV (08:57)
--- NOTE | 2019-05-23 09:03 | CM.DANOTE ---
DCP: Case received, EMR reviewed and met with patient. Introduced self and role. Was able to meet with patient briefly to obtain information regarding her baseline activity and living situation. DCP assessment completed with information currently available. Patient is a 63 year old female who admitted yesterday afternoon to the care of the hospitalist/surgical team. PCP: Dr. Pratt. Payer: confirmed: Medicare/Medicaid. Patient came to the hospital via family vehicle secondary to right upper quadrant pain. She was to be admitted for surgery, but had initially left AMA. She then came back, for pain had gotten worse. Patient holds diagnosis of cholethiais. She had a choleystectomy done. Met with patient in room. She noted flat effect, limited engagement in conversation. She is a smoker, and has history of COPD/asthma. She lives alone, is independent. It is noted that she has a brother that resides in [place]. P: DCP to continue to follow. Patient should be able to go home when she is medically stable. Cookie Stacy RN/Electrical Accessories I Assembler
--- NOTE | 2019-05-23 11:07 | PM.DS.1 ---
History of Present Illness History of Present Illness Chief complaint: gall bladder/ here last night Discharge Providers Provider Date of admission: 05/22/19 15:53 Discharge Date: 05/23/19 Primary care physician: Luther Pratt MD Consults: 05/22/19 20:54 Consult to Discharge Planning Routine Comment: Discharge provider: Dusty Perry MD Summary Hospital Course Discharge Diagnosis: acute cholecystitis Hospital Course: Josey is a 63 year old female who presented with acute cholecystitis. She underwent a laparoscopic cholecystectomy for 05/21. Operation was uneventful. Postoperatively she did well. On the date of discharge she is tolerating a diet pain is well controlled she is ambulatory urinating normally in stable for discharge home. Status at Discharge Cognitive/behavioral status at discharge: oriented Functional status at discharge: independent ambulation Exam Vital Signs (past 8 hours): - 05/23/19 04:46 05/23/19 07:33 05/23/19 08:10 Temperature 97.4 F L 97.8 F Pulse Rate 62 75 Respiratory Rate 16 18 Blood Pressure 127/79 117/79 Pulse Oximetry 92 92 93 Oxygen Delivery Method Nasal Cannula Oxygen Flow Rate 0 Narrative Exam Narrative: General adult female alert oriented no acute distress Abdomen soft appropriately tender to palpation incisions clean dry intact Extremities warm well perfused Objective Labs Result Diagrams: 05/22/19 13:50 05/22/19 13:50 Labs: Laboratory Results - last 24 hr 05/22/19 05/22/19 05/22/19 13:50 13:50 13:55 WBC 8.7 RBC 4.93 Hgb 12.9 Hct 39.5 MCV 80.1 MCH 26.1 MCHC 32.6 RDW 15.1 H Plt Count 309 Neut % (Auto) 71.6 Lymph % (Auto) 20.1 L [place] % (Auto) 4.9 Eos % (Auto) 2.3 Baso % (Auto) 1.1 Neut # (Auto) 6300 Lymph # (Auto) 1800 [place] # (Auto) 400 Eos # (Auto) 200 Baso # (Auto) 100 Sodium 138 Potassium 4.1 Chloride 105 Carbon Dioxide 31 BUN 12 Creatinine 0.60 Estimated GFR > 60.0 BUN/Creatinine Ratio 20.0 Glucose 109 Lactate 0.7 Calcium 9.1 Total Bilirubin 0.4 AST 19 ALT 11 Alkaline Phosphatase 73 Total Protein 6.9 Albumin 3.9 Globulin 3.0 Albumin/Globulin Ratio 1.3 Amylase 76 Lipase 50 D Discharge Plan Discharge Plan Patient Disposition: Home Discharge orders & Medications Prescriptions: New oxycodone 10 mg tablet 10 mg PO Q6H PRN (Reason: painful procedure) Qty: 14 RF: 0 omeprazole 20 mg capsule,delayed release(DR/EC) 20 mg PO DAILY Qty: 30 RF: 0 albuterol sulfate [Ventolin HFA] 90 mcg/actuation HFA aerosol inhaler 1 inhalation INHALATION QID PRN (Reason: shortness of breath or wheezing) Qty: 18 RF: 0 Continued docusate sodium 50 mg capsule 100 mg PO DAILY PRN (Reason: constipation) Qty: 60 RF: 3 diphenhydramine HCl [Allergy (diphenhydramine)] 25 mg capsule 25 mg PO BEDTIME PRN (Reason: itching) Qty: 30 RF: 0 Ventolin HFA 90 mcg/actuation HFA aerosol inhaler 2 puff INHALATION Q4-6H PRN (Reason: shortness of breath or wheezing) Qty: 18 RF: 3 tizanidine 4 mg tablet 8 mg PO TID PRN (Reason: muscle spasticity) Qty: 180 RF: 0 gabapentin 300 mg capsule 300 mg PO TID PRN (Reason: pain) Qty: 270 RF: 3 trazodone 100 mg tablet 100 mg PO DAILY Qty: 90 RF: 0 pantoprazole 40 mg tablet,delayed release (DR/EC) 40 mg PO BID Qty: 180 RF: 0 oxycodone 10 mg tablet 10 mg PO Q4-6H PRN (Reason: pain) Qty: 40 RF: 0 acetaminophen [Tylenol Extra Strength] 500 mg tablet 500 mg PO Q4H PRN (Reason: pain) Qty: 60 RF: 0 Discontinued acyclovir [Zovirax] 400 mg tablet 400 mg PO TID Qty: 30 RF: 0 diazepam 10 mg tablet 10 mg PO DAILY Qty: 30 RF: 0 nicotine 14 mg/24 hr Patch 24 Hour 1 patch TRANSDERMAL Q24H RF: 0 ciprofloxacin HCl 500 mg tablet 500 mg PO BID Qty: 20 RF: 0 ondansetron 4 mg tablet,disintegrating 4 mg PO Q8H PRN (Reason: nausea and vomiting) Qty: 10 RF: 0 Follow up/Referrals: Luther Pratt MD [Primary Care Provider] - Mayito Ross MD [Physician] - 2 Weeks (call our office for an appointment in about 10-12 days. If you need to reach a doctor call our office. If our office is closed, listen to the entire message and at the end you will be connected to the page broke beater operator who will call the doctor flight reservations manager) Diet/Activity/Treatments Diet: Diet as Tolerated Activity: Do not lift over 10 lb or strain for the next 4 weeks. You may walk. You may shower in 2 days(Thursday) do not pick at your incisions. Let the material over your incisions fall off on its own. Skin/Wound/Dressing Care Report to your healthcare provider any signs of infection, such as:: increased pain, unusual drainage and unusual redness Visit Report/Discharge Packet Instructions: DI for Cholecystectomy, DI for Laparoscopy, How to Prevent Falls, DI for Prescription Opioid Use, [facility]: Wound Care Discharge Data Primary Care Provider: Luther Pratt Attending Provider: Mayito Ross Admit Date/Time: 05/22/19 15:53
--- NOTE | 2019-05-23 11:27 | PC.NURSE ---
Day shift: Pt left unit via WC at approx 1130. Paperwork signed and all questions answered. Pt has MD zimmer. Taken to her friends car by JOSE in . The 4 lap sites are ISABELA and intact.
--- NOTE | 2019-05-23 11:56 | PC.NURSE ---
Day shift: Pt left unit at approx 1150. Taken to car driven by her spouse in by JOSE. Paperwork signed and all questions answered. Pt did talk with wine pasteurizer prior to leaving today. Pt has all personal belongings and also has MD scrips for insulin.
== END 2019-05-23 11:28 | disposition home or self-care (01) ==
LOC: ED 15:53 → AC 15:54
PROVIDERS: Admitting Provider Specialist; Emergency Provider Nurse Practitioner Family; Family Provider Family Medicine; PCP Student in an Organized Health Care Education/Training Program; Referring Provider Emergency Medicine; Visit Provider Specialist
PROC: 0FT44ZZ Resection of Gallbladder, Percutaneous Endoscopic Approach (ICD-10-PCS; CPT 47562; principal; 2019-05-22 16:15)
DX: K80.10 Calculus of gallbladder with chronic cholecystitis without obstruction (principal); R10.11 Right upper quadrant pain; F17.210 Nicotine dependence, cigarettes, uncomplicated; K21.9 Gastro-esophageal reflux disease without esophagitis; G62.9 Polyneuropathy, unspecified; F41.9 Anxiety disorder, unspecified; J45.909 Unspecified asthma, uncomplicated
CPT/HCPCS: 47562; 36415; 76705; 80053; 81003; 82150; 83605; 83690; 85025; 96361; 96372; 96374; 96375; 96376; 99220; 99284; G0378; J0330; J1100; J1170; J1650; J1885; J2060; J2250; J2270; J2405; J2704; J2765; J3010

== ENCOUNTER 2019-06-01 17:54 | Emergency (ER) | payer MEDICARE, MEDICAID, SELFPAY ==
[2019-05-22 21:34] VITALS: BMI 24.2
[2019-06-01 17:58] VITALS: BP 130/70; PULSE 110; RESP 20; O2SAT 96
[2019-06-01 18:34] LABS: Add Manual Diff / Slide Review NO; Basophils Absolute Auto 200 /uL (0-100); Basophils Percent Auto 1.4 % (0-2); Eosinophils Absolute Auto 900 /uL (0-450); Eosinophils Percent Auto 7.4 % (2-4); Hematocrit 38.8 % (36-46); Hemoglobin 12.7 g/dL (12.0-16.0); Lymphocytes Absolute Auto 2400 /uL (1100-4500); Lymphocytes Percent Auto 19.2 % (25-40); Mean Corpuscular HGB Conc 32.6 % (30-36); Mean Corpuscular Volume 79.8 fL (80-100); Monocytes Absolute Auto 800 /uL (0-900); Monocytes Percent Auto 6.3 % (3-14); Neutrophils Absolute Auto 8100 /uL (1500-7000); Neutrophils Percent Auto 65.7 % (50-75); Platelet Count 372 X10^3/uL (150-400); Red Blood Cell Count 4.87 X10^6/uL (4.0-5.2); Red Cell Distribution Width 15.3 % (11.6-14.8); White Blood Cell Count 12.4 X10^3/uL (4.5-11.0)
--- NOTE | 2019-06-01 18:34 | ED_ITS ---
HPI - Recheck/Abnormal Lab/Rx General Chief Complaint: Recheck/Abnormal Lab/Rx Stated Complaint: sent by Dr Ross Time Seen by Provider: 06/01/19 18:30 Mode of arrival: Wheelchair Limitations: no limitations History of Present Illness HPI narrative: 63-year-old woman with a history of asthma, cholecystectomy 10 days ago and L4-5 and L5-S1 posterolateral interbody fusion in November of 2018 presents with severe back pain. She notes that the pain is been bothering her for at least the last 2 months and was seen in the emergency room for that. Was noticed to have a slightly elevated white blood cell count and found to have mild right hydroureter with a suggestion of the possibility of a recently passed stone (no stone was noted on scans, she was also noted to have of gallstone without evidence of cholecystitis but significant right upper quadrant pain. She underwent unremarkable cholecystectomy on May 21. She has continued to have severe back pain since the surgery not relieved with postoperative oxycodone. Initially had it had been more right paraspinous radiating into the right flank and now is now focused centrally just above her lumbar surgical site with exquisite point tenderness and fullness with a suggestion of some fluctuance at the area. She describes low-grade fevers over the last week, no cough, no lower extremity edema, no new neurologic findings or complaints of numbness tingling or lower extremity weakness. Related Data Previous Rx's Medication Instructions Recorded albuterol sulfate 90 mcg/actuation 2 puff INHALATION Q4-6H PRN #18 04/22/18 aerosol inhaler gram pantoprazole 40 mg tablet,delayed 40 mg PO BID #180 tab 11/12/18 release trazodone 100 mg tablet 100 mg PO DAILY #90 tab 11/12/18 tizanidine 4 mg tablet 8 mg PO TID PRN #180 tab 12/02/18 acetaminophen [Tylenol Extra 500 mg PO Q4H PRN #60 tab 12/17/18 Strength] oxycodone 10 mg PO Q4-6H PRN #40 tab 12/17/18 diphenhydramine HCl 25 mg capsule 25 mg PO BEDTIME PRN #30 cap 01/12/19 docusate sodium 50 mg capsule 100 mg PO DAILY PRN #60 cap 01/12/19 gabapentin 300 mg capsule 300 mg PO TID PRN #270 cap 01/17/19 oxycodone 10 mg PO Q6H PRN #14 tab 05/22/19 albuterol sulfate [Ventolin HFA] 1 inhalation INHALATION QID PRN 05/23/19 #18 gram omeprazole 20 mg PO DAILY #30 cap 05/23/19 docusate sodium 50 mg PO BID #60 cap 06/01/19 oxycodone-acetaminophen 1 tab PO Q6H PRN #20 tab 06/01/19 Allergies Allergy/AdvReac Type Severity Reaction Status Date / Time duloxetine [From Cymbalta] Allergy Mild insomnia, Verified 12/22/18 13:55 teeth clenching adhesive tape [ADHESIVE TAPE] Allergy Unknown Verified 12/22/18 13:55 hydrocodone [From VICODIN] Allergy Unknown STOMACH Verified 12/22/18 13:55 UPSET venlafaxine AdvReac Intermediate sweating, Verified 12/22/18 13:55 insomnia Review of Systems Review of Systems Narrative: All systems reviewed and are unremarkable except as noted in HPI and below. Denies any urinary incontinence, urgency or hesitancy. Similarly some mild constipation but no other difficulties with stooling. Patient History Medical History Ankle pain (Chronic 2016) Anxiety (Chronic) Cervical spine disease (Chronic 2007) Chronic back pain (Chronic 1981) Chronic cough (Chronic) Chronic headaches (Chronic) Foot pain (Chronic) GERD (gastroesophageal reflux disease) (Resolved) Lumbar spinal stenosis (Chronic) Lumbar spine pain (Chronic) Osteopenia (Chronic) Osteoporosis (Chronic) Peripheral neuropathy (Chronic 2012) Scoliosis (Chronic) Skin spots-aging (Chronic) Surgical History Anesthesia (Resolved) History of cervical spinal surgery (Resolved 2007) History of hysterectomy (Resolved 1992) History of lumbar laminectomy (Resolved 2013) History of lumbar laminectomy (Resolved ~1989) Status post epidural steroid injection (Acute 04/28/18) Family History Father No problems noted. Mother Colon cancer Liver cancer Heart disease Hypertension Brother Obesity Diabetes mellitus Hypertension Brother No problems noted. Brother No problems noted. Sister No problems noted. Grandfather No problems noted. Grandmother No problems noted. Grandfather No problems noted. Grandmother No problems noted. Family/Other No problems noted. Social History household members: none and other Smoking Status: Current every day smoker alcohol intake: current Smoking Status: Current every day smoker alcohol intake frequency: holidays/special occasions only Substance Use Type: marijuana Exam Narrative Exam Narrative: General: Healthy appearing, in severe pain with dramatic affect and behavior. Able to give a complete and coherent history. Well-nourished well-developed HEENT: Moist mucous membranes, normal sclera with reactive pupils, Neck: supple Respiratory: Lungs are clear to auscultation, no wheezing no rales no rhonchi. Full and symmetrical air movement Cardiac: Regular rate and rhythm no murmurs no bruits Abdomen: Soft nontender good bowel tones, no flank pain Skin: Warm and dry, no rashes Neurologic: Grossly neurologically intact with no obvious asymmetries or abnormalities Spine: Well-healed lumbar scars bilaterally with exquisite tenderness centrally superior to those scars and significant fullness with a suggestion of fluctuance and significant pain just proximal to the scars as well. There is no warmth or erythema appreciated Extremities: No trauma, well perfused Psych: Cooperative, appropriate insight and affect Initial Vital Signs Initial Vital Signs: Vital Signs Pulse Rate 110 H 06/01/19 17:58 Respiratory Rate 20 06/01/19 17:58 Blood Pressure 130/70 06/01/19 17:58 Pulse Oximetry 96 06/01/19 17:58 Course Orders Ordered: ED Orders 06/01/19 18:27 Amylase Stat BMP [Basic Metabolic Panel] Stat C-Reactive Protein Quant Stat CBC Auto Diff [Complete Blood Count AUTO DIFF] Stat Hepatic (Liver) Panel Stat Lipase Stat 06/01/19 19:21 MR lumbar spine wo/w con Stat 06/01/19 20:11 Urinalysis and Microscopic Stat Sodium Chloride (Normal Saline 0.9%) 1,000 mls @ 150 mls/hr IV CONT ROXANNE Last Admin: 06/01/19 20:48 Dose: 150 mls/hr Documented by: OLI Discontinued Medications Hydromorphone HCl (Dilaudid) 1 mg IV NOW ONE Stop: 06/01/19 19:03 Last Admin: 06/01/19 20:09 Dose: 1 mg Documented by: OLI Hydromorphone HCl (Dilaudid) 2 mg IM NOW ONE Stop: 06/01/19 19:22 Last Admin: 06/01/19 19:36 Dose: 2 mg Documented by: OLI Ketorolac Tromethamine (Toradol) 15 mg IV NOW ONE Stop: 06/01/19 19:03 Last Admin: 06/01/19 20:51 Dose: 15 mg Documented by: OLI Ondansetron HCl (Zofran) 4 mg IV NOW ONE Stop: 06/01/19 19:03 Last Admin: 06/01/19 20:52 Dose: 4 mg Documented by: OLI Oxycodone/Acetaminophen (Endocet 5/325 Prepack) 1 bottle MISC SEEINSTR ONE Stop: 06/01/19 22:05 Vital Signs Vital signs: Vital Signs - 8 hr 06/01/19 17:58 06/01/19 21:22 Pulse Rate 110 H 85 Respiratory Rate 20 12 Blood Pressure 130/70 Blood Pressure [Left Arm] 119/74 Pulse Oximetry 96 94 MDM - Recheck/Abnormal Lab/Rx Medical Records Attestation: I reviewed the patient's medical records. Lab Data Attestation: I reviewed the patient's lab results. Result diagrams: 06/01/19 18:27 06/01/19 18:27 Labs: Lab Results 06/01/19 06/01/19 06/01/19 Range/Units 18:27 18:27 18:27 WBC 12.4 H (4.5-11.0) X10^3/uL RBC 4.87 (4.0-5.2) X10^6/uL Hgb 12.7 (12.0-16.0) g/dL Hct 38.8 (36-46) % MCV 79.8 L (80-100) fL MCH 26.0 (26-34) PG MCHC 32.6 (30-36) % RDW 15.3 H (11.6-14.8) % Plt Count 372 (150-400) X10^3/uL Neut % (Auto) 65.7 (50-75) % Lymph % (Auto) 19.2 L (25-40) % [place] % (Auto) 6.3 (3-14) % Eos % (Auto) 7.4 H (2-4) % Baso % (Auto) 1.4 (0-2) % Neut # (Auto) 8100 H (3915-7182) /uL Lymph # (Auto) 2400 (1059-6305) /uL [place] # (Auto) 800 (0-900) /uL Eos # (Auto) 900 H (0-450) /uL Baso # (Auto) 200 H (0-100) /uL Sodium 137 (137-145) mmol/L Potassium 4.2 (3.4-5.1) mmol/L Chloride 107 (98-107) mmol/L Carbon Dioxide 25 (22-32) mmol/L BUN 13 (7-17) mg/dL Creatinine 0.69 (0.52-1.04) mg/dL Estimated GFR > 60.0 (>60) mL/min BUN/Creatinine Ratio 18.8 (6-22) Glucose 110 (80-110) mg/dL Calcium 9.1 (8.4-10.2) mg/dL Total Bilirubin 0.4 (0.2-1.3) mg/dL Conjugated Bilirubin 0.0 (0.0-0.3) md/dL Unconjugated Bilirubin 0.1 (0.0-1.1) mg/dL AST 21 (14-36) IU/L ALT 16 (<35) IU/L Alkaline Phosphatase 84 (38-126) U/L C-Reactive Protein (<1.0) mg/dL Total Protein 7.0 (6.3-8.2) g/dL Albumin 3.9 (3.5-5.0) g/dL Globulin 3.1 (1.7-4.1) g/dL Albumin/Globulin Ratio 1.3 (1.0-2.8) Amylase 75 (30-110) U/L Lipase 115 (23-300) U/L Urine Color Urine Appearance Urine pH (4.5-8.0) Ur Specific [place] (1.000-1.035) Urine Protein (Negative) Urine Glucose (UA) (Negative) g/dL Urine Ketones (NEGATIVE) Urine Occult Blood (Negative) Urine Nitrate (Negative) Urine Bilirubin (NEGATIVE) Urine Urobilinogen (0.2) E.U./dL Ur Leukocyte Esterase (NEGATIVE) Urine RBC (0-5/HPF) Urine WBC (0-5/HPF) Urine Bacteria (None) Ur Culture Indicated? Micro UA Comment 06/01/19 06/01/19 Range/Units 18:27 20:11 WBC (4.5-11.0) X10^3/uL RBC (4.0-5.2) X10^6/uL Hgb (12.0-16.0) g/dL Hct (36-46) % MCV (80-100) fL MCH (26-34) PG MCHC (30-36) % RDW (11.6-14.8) % Plt Count (150-400) X10^3/uL Neut % (Auto) (50-75) % Lymph % (Auto) (25-40) % [place] % (Auto) (3-14) % Eos % (Auto) (2-4) % Baso % (Auto) (0-2) % Neut # (Auto) (7989-6219) /uL Lymph # (Auto) (2746-7847) /uL [place] # (Auto) (0-900) /uL Eos # (Auto) (0-450) /uL Baso # (Auto) (0-100) /uL Sodium (137-145) mmol/L Potassium (3.4-5.1) mmol/L Chloride (98-107) mmol/L Carbon Dioxide (22-32) mmol/L BUN (7-17) mg/dL Creatinine (0.52-1.04) mg/dL Estimated GFR (>60) mL/min BUN/Creatinine Ratio (6-22) Glucose (80-110) mg/dL Calcium (8.4-10.2) mg/dL Total Bilirubin (0.2-1.3) mg/dL Conjugated Bilirubin (0.0-0.3) md/dL Unconjugated Bilirubin (0.0-1.1) mg/dL AST (14-36) IU/L ALT (<35) IU/L Alkaline Phosphatase (38-126) U/L C-Reactive Protein 1.2 H (<1.0) mg/dL Total Protein (6.3-8.2) g/dL Albumin (3.5-5.0) g/dL Globulin (1.7-4.1) g/dL Albumin/Globulin Ratio (1.0-2.8) Amylase (30-110) U/L Lipase (23-300) U/L Urine Color Yellow Urine Appearance Clear Urine pH 6.5 (4.5-8.0) Ur Specific [place] <=1.005 (1.000-1.035) Urine Protein Negative (Negative) Urine Glucose (UA) Negative (Negative) g/dL Urine Ketones Negative (NEGATIVE) Urine Occult Blood Negative (Negative) Urine Nitrate Negative (Negative) Urine Bilirubin Negative (NEGATIVE) Urine Urobilinogen 0.2 (0.2) E.U./dL Ur Leukocyte Esterase Negative (NEGATIVE) Urine RBC None seen (0-5/HPF) Urine WBC None seen (0-5/HPF) Urine Bacteria None seen (None) Ur Culture Indicated? Cult not indicated Micro UA Comment Microscopic normal ECG Data Interpretation: Paraspinous soft tissues: No paravertebral masses or fluid collections. Postsurgical changes are demonstrated in the posterior paraspinous soft tissues without suspicious fluid collections. There is mild enhancement along the surgical scar. 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 L1-L2: Within normal limits. L2-L3: Mild disc desiccation with a small broad-based disc broach. There is mild facet arthropathy. There is associated mild spinal canal narrowing with mild bilateral neuroforaminal narrowing. Findings are similar to the prior study. L3-L4: Disc desiccation with a small broad-based disc bulge. There is bilateral mild facet arthropathy with ligamentum flavum hypertrophy. There is associated moderate spinal canal narrowing and mild bilateral neuroforaminal narrowing. Findings are similar to the prior study. L4-L5: Status post partial discectomy posteriorly. No spinal canal narrowing. There is mild bilateral neuroforaminal narrowing. Evaluation limited by adjacent magneti c susceptibly artifact. L5-S1: Status post partial discectomy. No spinal canal narrowing. There is moderate bilateral neuroforaminal narrowing with evaluation limited by magnetic susceptibility artifact. IMPRESSION: 1. No evidence of epidural or paravertebral abscess. 2. No definite evidence of discitis/osteomyelitis with evaluation limited by magnetic susceptibly artifact. 3. Residual moderate spinal canal narrowing at L3-L4. 4. Multilevel neuroforaminal narrowing redemonstrated including moderate narrowing bilaterally at L5-S1. Dictated by: Nicola Christy M.D. on 06/01/2019 at 21:02 MDM Narrative Medical decision making narrative: 63-year-old woman with exquisite midline tenderness just superior to her well-healing lesions from her L4-5 and L5-S1 fusion. She has been complaining of pain in that area for at least 2 months that has been getting progressively worse eventually lead to the possibility of a passed kidney stone or gallbladder pain. Despite having her gallbladder recently removed and taking narcotics post surgery the pain is getting dramatically worse and now is involving midline as well as the left side no longer radiating to the right flank. Possibility of epidural abscess, diskitis or complicating abscess associated with the recent effusion is entertained. Discussed appropriate studies with Dr. Christy, radiology. Will order MRI of the lumbar spine with and without contrast. Patient will need IV and pain medications prior to study. 9:45 pm Pain is better controlled at this point. MRI does not suggest significant pathology. The best explanation for the pain she is experiencing is musculoskeletal. This does not appear to be related to her cholecystectomy surgery or her recent spine surgery 1000pm findings reviewed with patient. She is dramatically upset that there is no answer for the severe pain she is having her back. Recommended additional couple of days of narcotic pain medication to combine with her ibuprofen and because she believes that the pain is entirely back related recommended that she follow-up with Dr. Poole She also is having trouble getting into a primary care physician. Apparently had an appointment scheduled in it has been put off due to Covid19 scheduling. At this point she is safe for home discharge Discharge Plan Departure Patient Disposition: Home Clinical Impression: Back pain Qualifiers: Back pain location: low back pain Chronicity: acute Back pain laterality: midline Sciatica presence: without sciatica Qualified Code(s): M54.5 - Low back pain Instructions: DI for Low Back Pain Activity Restrictions/Additional Instructions: I am so sorry that this has been such a frustrating experience for you You have had an extensive workup and we are still not able to pinpoint an exact reason for your pain. The CT scan that you had done on May 20 was fairly reassuring and shows no intra-abdominal cancers. The MRI that you had done today shows no significant swelling along her spine itself, no infection and it appears that all of the surgical hardware is perfectly positioned. Your gallbladder surgery sites look like they are healing nicely. Your lab work does not suggest significant abnormality. There are no signs of any infection at all anywhere and no reason to use any antibiotics. Please try using an ice pack to the area of inflammation in your mid back. I would encourage you to continue using ibuprofen and it is okay to decrease the dose to 400 mg(2 [id number] pills at a time) I will give you an extra couple of days of oxycodone however, narcotics are not the right answer for long-term pain control. Please call Dr. Poole office tomorrow to schedule an appointment with him to see if he has recommendations on the next step in trying to figure a wire having such pain. Please continue to call your new primary care physician's office to see when they are going to begin scheduling regular appointments again I wish you the best Prescriptions: New oxycodone-acetaminophen 10-325 mg tablet 1 tab PO Q6H PRN (Reason: pain) Qty: 20 RF: 0 docusate sodium 50 mg capsule 50 mg PO BID Qty: 60 RF: 0 No Action docusate sodium 50 mg capsule 100 mg PO DAILY PRN (Reason: constipation) Qty: 60 RF: 3 diphenhydramine HCl [Allergy (diphenhydramine)] 25 mg capsule 25 mg PO BEDTIME PRN (Reason: itching) Qty: 30 RF: 0 Ventolin HFA 90 mcg/actuation HFA aerosol inhaler 2 puff INHALATION Q4-6H PRN (Reason: shortness of breath or wheezing) Qty: 18 RF: 3 tizanidine 4 mg tablet 8 mg PO TID PRN (Reason: muscle spasticity) Qty: 180 RF: 0 gabapentin 300 mg capsule 300 mg PO TID PRN (Reason: pain) Qty: 270 RF: 3 trazodone 100 mg tablet 100 mg PO DAILY Qty: 90 RF: 0 pantoprazole 40 mg tablet,delayed release (DR/EC) 40 mg PO BID Qty: 180 RF: 0 oxycodone 10 mg tablet 10 mg PO Q4-6H PRN (Reason: pain) Qty: 40 RF: 0 acetaminophen [Tylenol Extra Strength] 500 mg tablet 500 mg PO Q4H PRN (Reason: pain) Qty: 60 RF: 0 oxycodone 10 mg tablet 10 mg PO Q6H PRN (Reason: painful procedure) Qty: 14 RF: 0 omeprazole 20 mg capsule,delayed release(DR/EC) 20 mg PO DAILY Qty: 30 RF: 0 albuterol sulfate [Ventolin HFA] 90 mcg/actuation HFA aerosol inhaler 1 inhalation INHALATION QID PRN (Reason: shortness of breath or wheezing) Qty: 18 RF: 0 Referrals: Daniel Poole MD [Physician] -
[2019-06-01 18:50] LABS: Amylase 75 U/L (30-110); BUN Creatinine Ratio 18.8 (6-22); Blood Urea Nitrogen 13 mg/dL (7-17); Calcium 9.1 mg/dL (8.4-10.2); Carbon Dioxide 25 mmol/L (22-32); Chloride 107 mmol/L (98-107); Estimated Glomerular Filt Rate > 60.0 mL/min (>60); Glucose 110 mg/dL (80-110); HEMOLYSIS < 15 (0-50); Lipase 115 U/L (23-300); Potassium 4.2 mmol/L (3.4-5.1); Sodium 137 mmol/L (137-145)
[2019-06-01 19:20] LABS: Alanine Aminotransferase 16 IU/L (<35); Albumin 3.9 g/dL (3.5-5.0); Albumin Globulin Ratio 1.3 (1.0-2.8); Alkaline Phosphatase 84 U/L (38-126); Aspartate Aminotransferase 21 IU/L (14-36); Bilirubin Total 0.4 mg/dL (0.2-1.3); Bilirubin Unconjugated 0.1 mg/dL (0.0-1.1); Globulin 3.1 g/dL (1.7-4.1); HEMOLYSIS < 15 (0-50)
--- NOTE | 2019-06-01 19:21 | DI.MRI.S_ITS ---
PROCEDURE: MR LUMBAR SPINE WO/W CON INDICATIONS: Possible epidural abscess, discitis or post op abscess TECHNIQUE: Noncontrast sagittal T1 spin echo and T2 fast spin echo, sagittal STIR, axial T1 and T2 fast spin echo through the lumbar spine. In cases with scoliosis, additional coronal T2 fast spin echo may be performed. After the administration of contrast, sagittal and axial T1 spin echo with fat saturation through the lumbar spine. COMPARISON: [facility], MR, MR LUMBAR SPINE WO CON, 03/22/2018, 13:17. [facility], MR, L-SPINE W&WO CONTRAST, 12/13/2014, 12:47. FINDINGS: Image quality: There is mild motion artifact. Magnetic susceptibility artifact from patient's surgical hardware is also demonstrated limiting evaluation. Alignment and curvature: There is unchanged bony alignment. Marrow: Transitional anatomy is redemonstrated with 13 ribs and a non-rudimentary disc at S1-S2. To maintain consistency with prior studies, the vertebral level with the 13th rib is again labeled as L1. Marrow is of normal overall signal. There is magnetic susceptibly artifact from patient's surgical hardware limiting evaluation in the lower lumbar spine. No acute vertebral body compression fractures. Post surgical changes are demonstrated status post posterior fixation and fusion at L4-S1 with posterior decompression. There is reactive endplate edema redemonstrated at L5-S1. Spinal cord: Conus medullaris terminates at the L1-L2 level. Visualized spinal cord demonstrates normal signal, without suspicious enhancement. Paraspinous soft tissues: No paravertebral masses or fluid collections. Postsurgical changes are demonstrated in the posterior paraspinous soft tissues without suspicious fluid collections. There is mild enhancement along the surgical scar. 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 L1-L2: Within normal limits. L2-L3: Mild disc desiccation with a small broad-based disc broach. There is mild facet arthropathy. There is associated mild spinal canal narrowing with mild bilateral neuroforaminal narrowing. Findings are similar to the prior study. L3-L4: Disc desiccation with a small broad-based disc bulge. There is bilateral mild facet arthropathy with ligamentum flavum hypertrophy. There is associated moderate spinal canal narrowing and mild bilateral neuroforaminal narrowing. Findings are similar to the prior study. L4-L5: Status post partial discectomy posteriorly. No spinal canal narrowing. There is mild bilateral neuroforaminal narrowing. Evaluation limited by adjacent magnetic susceptibly artifact. L5-S1: Status post partial discectomy. No spinal canal narrowing. There is moderate bilateral neuroforaminal narrowing with evaluation limited by magnetic susceptibility artifact. IMPRESSION: 1. No evidence of epidural or paravertebral abscess. 2. No definite evidence of discitis/osteomyelitis with evaluation limited by magnetic susceptibly artifact. 3. Residual moderate spinal canal narrowing at L3-L4. 4. Multilevel neuroforaminal narrowing redemonstrated including moderate narrowing bilaterally at L5-S1. Dictated by: Nicola Christy M.D. on 06/01/2019 at 21:02 Approved by: Nicola Christy M.D. on 06/01/2019 at 21:24
[2019-06-01 19:24] LABS: C-Reactive Protein Quant 1.2 mg/dL (<1.0)
[2019-06-01] MEDS: HYDROMORPHONE 1 MG INJ 2 MG IM (19:36)
[2019-06-01] MEDS: HYDROMORPHONE 1 MG INJ IV (20:09)
[2019-06-01 20:14] LABS: Bacteria Urine None Seen; RBC Urine None Seen (0-5/HPF); WBC Urine None Seen (0-5/HPF)
[2019-06-01 20:16] LABS: Appearance Urine UA CLEAR; Bilirubin Urine UA NEGATIVE (NEGATIVE); Color Urine UA YELLOW; Glucose Urine UA NEGATIVE (Negative); Ketones Urine UA NEGATIVE (NEGATIVE); Leukocyte Esterase Urine UA NEGATIVE (NEGATIVE); Nitrite Urine UA NEGATIVE (Negative); Occult Blood Urine UA NEGATIVE (Negative); Protein Urine UA NEGATIVE (Negative); Specific Gravity Urine UA <=1.005 (1.000-1.035); Urobilinogen Urine UA 0.2 E.U./dL (0.2)
[2019-06-01 20:41] LABS: pH Urine UA 6.5 (4.5-8.0)
[2019-06-01 20:45] LABS: Culture Indicated Urine Cult Not Indicated; Urine Comments Microscopic Normal
[2019-06-01] MEDS: SODIUM CHLORIDE 0.9% 1,000 ML 150 ML IV (20:48)
[2019-06-01] MEDS: KETOROLAC 60 MG/2 ML VIAL 15 MG IV (20:51)
[2019-06-01] MEDS: ONDANSETRON 4 MG/2 ML INJ IV (20:52)
[2019-06-01 21:22] VITALS: BP 119/74; PULSE 85; RESP 12; O2SAT 94
--- NOTE | 2019-06-01 21:23 | PC.NURSE ---
Pt in room with lights off. Shes states that her pain is much better and she has stopped crying.
--- NOTE | 2019-06-01 21:25 | PC.NURSE ---
Pt was in no acute distress at this time. Bed was left in low position and call light was in reach.
[2019-06-01 22:39] VITALS: BP 119/90; PULSE 80; RESP 12; O2SAT 96
[2019-06-01] MEDS: OXYCODONE/APAP 5/325 PREPACK 1 BOTTLE MISC (22:48)
== END 2019-06-01 22:42 | disposition home or self-care (01) ==
PROVIDERS: Nurse Practitioner Family; Emergency Provider Emergency Medicine; Referring Provider Specialist
DX: M54.5 Low back pain (principal); D72.829 Elevated white blood cell count, unspecified; J45.909 Unspecified asthma, uncomplicated
CPT/HCPCS: 36415; 72158; 80048; 80076; 81001; 82150; 83690; 85025; 86140; 96372; 96374; 96375; 99284; A9579; J1170; J1885; J2405

== ENCOUNTER 2019-11-05 14:22 | Emergency (ER) | payer MEDICARE, MEDICAID, SELFPAY ==
[2019-05-22 21:34] VITALS: BMI 24.2
[2019-11-05] VITALS (7 sets, daily range): BP systolic 139–152; BP diastolic 89–105; PULSE 78–110; RESP 15–23; TEMP 37; O2SAT 95–99; BMI 26.2
--- NOTE | 2019-11-05 14:39 | ED.ABDPAIN ---
HPI - Abdominal Pain <FRANC BushP-BC - Last Filed: 11/05/19 19:36> General Chief Complaint: Abdominal Pain Stated Complaint: Pain in RT side/back Time Seen by Provider: 11/05/19 14:24 Source: patient Mode of arrival: Ambulatory Limitations: no limitations History of Present Illness HPI narrative: The patient is a 63-year-old female current everyday smoker with history of back pain and cholecystectomyThis year who presents with a chief complaint of right upper quadrant pain radiating around her back. She states she has had this pain ongoing for the past 7-8 weeks or so. However the past week it got much worse. She took ibuprofen yesterday but otherwise has not taken anything to feel better. She has not followed up with primary care provider. She denies any fevers, nausea vomiting or diarrhea. She denies any muscle aches or chills. She denies any chest pain or shortness of breath. Related Data Previous Rx's Medication Instructions Recorded albuterol sulfate 90 mcg/actuation 2 puff INHALATION Q4-6H PRN #18 04/22/18 aerosol inhaler gram pantoprazole 40 mg tablet,delayed 40 mg PO BID #180 tab 11/12/18 release trazodone 100 mg tablet 100 mg PO DAILY #90 tab 11/12/18 tizanidine 4 mg tablet 8 mg PO TID PRN #180 tab 12/02/18 acetaminophen [Tylenol Extra 500 mg PO Q4H PRN #60 tab 12/17/18 Strength] oxycodone 10 mg PO Q4-6H PRN #40 tab 12/17/18 diphenhydramine HCl 25 mg capsule 25 mg PO BEDTIME PRN #30 cap 01/12/19 docusate sodium 50 mg capsule 100 mg PO DAILY PRN #60 cap 01/12/19 gabapentin 300 mg capsule 300 mg PO TID PRN #270 cap 01/17/19 oxycodone 10 mg PO Q6H PRN #14 tab 05/22/19 albuterol sulfate [Ventolin HFA] 1 inhalation INHALATION QID PRN 05/23/19 #18 gram omeprazole 20 mg PO DAILY #30 cap 05/23/19 docusate sodium 50 mg PO BID #60 cap 06/01/19 oxycodone-acetaminophen 1 tab PO Q6H PRN #20 tab 06/01/19 pantoprazole 20 mg PO DAILY #30 tab 06/01/19 cyclobenzaprine 10 mg PO TID PRN #14 tab 11/05/19 ketorolac 10 mg PO TID PRN #14 tab 11/05/19 lidocaine 1 patch TOP DAILY PRN #15 each 11/05/19 Allergies Allergy/AdvReac Type Severity Reaction Status Date / Time duloxetine [From Cymbalta] Allergy Mild insomnia, Verified 11/05/19 14:34 teeth clenching adhesive tape [ADHESIVE TAPE] Allergy Unknown Verified 11/05/19 14:34 hydrocodone [From VICODIN] Allergy Unknown STOMACH Verified 11/05/19 14:34 UPSET venlafaxine AdvReac Intermediate sweating, Verified 11/05/19 14:34 insomnia Review of Systems <VIRAL Bush - Last Filed: 11/05/19 19:36> Review of Systems Narrative: GENERAL: Denies chills, fatigue, malaise, fever, sweats. HEENT: Denies sinus pain, ear pain, sore throat, difficulty swallowing, dizziness. RESPIRATORY: Denies dyspnea, cough, wheezing, hemoptysis, sputum. CARDIOVASCULAR: Denies chest pain, palpitations, orthopnea, edema, GASTROINTESTINAL: See HPI : Denies dysuria, frequency, incontinence, hematuria, urinary retention. MUSCULOSKELETAL: denies weakness, joint pain, or bony pain SKIN: Denies rash, skin lesions, or other NEUROLOGIC: Denies weakness, headache, numbness, change in speech, confusion, seizures, incoordination. PSYCHIATRIC: No concerning psychosocial issues. 12 point review of systems is negative except for those stated above Patient History <VIRAL Bush - Last Filed: 11/05/19 19:36> Medical History Ankle pain (Chronic 2016) Anxiety (Chronic) Cervical spine disease (Chronic 2007) Chronic back pain (Chronic 1981) Chronic cough (Chronic) Chronic headaches (Chronic) Foot pain (Chronic) GERD (gastroesophageal reflux disease) (Resolved) Lumbar spinal stenosis (Chronic) Lumbar spine pain (Chronic) Osteopenia (Chronic) Osteoporosis (Chronic) Peripheral neuropathy (Chronic 2012) Scoliosis (Chronic) Skin spots-aging (Chronic) Surgical History Anesthesia (Resolved) History of cervical spinal surgery (Resolved 2007) History of hysterectomy (Resolved 1992) History of lumbar laminectomy (Resolved 2013) History of lumbar laminectomy (Resolved ~1989) Status post epidural steroid injection (Acute 04/28/18) Family History Father No problems noted. Mother Colon cancer Liver cancer Heart disease Hypertension Brother Obesity Diabetes mellitus Hypertension Brother No problems noted. Brother No problems noted. Sister No problems noted. Grandfather No problems noted. Grandmother No problems noted. Grandfather No problems noted. Grandmother No problems noted. Family/Other No problems noted. Social History household members: none and other Smoking Status: Current every day smoker alcohol intake: current Smoking Status: Current every day smoker alcohol intake frequency: holidays/special occasions only Substance Use Type: marijuana Exam <VIRAL Bush - Last Filed: 11/05/19 19:36> Narrative Exam Narrative: GENERAL: This is a well-nourished, well-developed patient, teary HEAD: Atraumatic. Normocephalic. No temporal or scalp tenderness. EYES: Pupils equal round and reactive. Extraocular motions intact. No scleral icterus. No injection or drainage. ENT: Nose without bleeding, purulent drainage or septal hematoma. Throat without erythema, tonsillar hypertrophy or exudate. Uvula midline. Airway patent. NECK: Trachea midline. No JVD or lymphadenopathy. Supple, nontender, no meningeal signs. CARDIOVASCULAR: Regular rate and rhythm RESPIRATORY: Clear to auscultation. Breath sounds equal bilaterally. No wheezes, rales, or rhonchi. No cough. No increased respiratory effort. No accessory muscle use. GASTROINTESTINAL: Abdomen soft, active bowel sounds all 4 quadrants., nondistended. No hepato-splenomegaly, or palpable masses. Pain to palpation right upper quadrant with slight guarding noted. EXTREMITIES: No clubbing, cyanosis, or edema. No joint tenderness, effusion, or edema noted. BACK: Nontender without deformity or crepitance. No flank tenderness. NEURO: AOx3. SKIN: No rash or erythema on visible skin Initial Vital Signs Initial Vital Signs: Vital Signs Temperature 98.6 F 11/05/19 14:28 Pulse Rate 110 H 11/05/19 14:28 Respiratory Rate 15 11/05/19 14:28 Blood Pressure 152/105 H 11/05/19 14:28 Pulse Oximetry 96 11/05/19 14:28 <Everton Angel DO - Last Filed: 11/06/19 07:33> Initial Vital Signs Initial Vital Signs: Vital Signs Temperature 98.6 F 11/05/19 14:28 Pulse Rate 110 H 11/05/19 14:28 Respiratory Rate 15 11/05/19 14:28 Blood Pressure 152/105 H 11/05/19 14:28 Pulse Oximetry 96 11/05/19 14:28 Scores <VIRAL Bush - Last Filed: 11/05/19 19:36> GCS Sherman coma scale eye opening: Spontaneous Brina coma scale verbal response: Orientated Brina coma scale motor response: Obey commands Brina coma scale total score: 15 Wells' Criteria for PE Clinical signs and symptoms of DVT: No PE is #1 Dx or equally likely: No Heart rate > 100: No Immobilization at least 3 days or surg in previous 4 weeks: No History of PE or DVT: No Hemoptysis: No Malignancy w/Treatment within 6 months or palliative: No Wells' PE Score total: 0 Course <VIRAL Bush - Last Filed: 11/05/19 19:36> Orders Ordered: Discontinued Medications Cyclobenzaprine HCl (Flexeril) 10 mg PO NOW ONE Stop: 11/05/19 16:37 Last Admin: 11/05/19 17:10 Dose: 10 mg Documented by: MINA Sodium Chloride (Normal Saline 0.9%) 1,000 mls @ 1,000 mls/hr IV BOLUS ONE Stop: 11/05/19 16:47 Last Infusion: 11/05/19 17:42 Dose: 0 mls/hr Documented by: Admin: 11/05/19 15:55 Dose: 1,000 mls/hr Documented by: MINA Ketorolac Tromethamine (Toradol) 30 mg IV NOW ONE Stop: 11/05/19 15:05 Last Admin: 11/05/19 15:14 Dose: 30 mg Documented by: MINA Lidocaine (Lidoderm) 1 each TOP NOW ONE Stop: 11/05/19 16:37 Last Admin: 11/05/19 17:10 Dose: 1 each Documented by: MINA Morphine Sulfate (Morphine) 4 mg IV NOW ONE Stop: 11/05/19 16:10 Last Admin: 11/05/19 16:25 Dose: 4 mg Documented by: MINA Pantoprazole Sodium (Protonix) 40 mg IV NOW ONE Stop: 11/05/19 15:48 Last Admin: 11/05/19 15:56 Dose: 40 mg Documented by: MINA Vital Signs Vital signs: Vital Signs - 8 hr 11/05/19 14:28 11/05/19 15:01 11/05/19 15:30 Temperature 98.6 F Pulse Rate 110 H 98 H 97 H Respiratory Rate 15 22 23 Blood Pressure 152/105 H Pulse Oximetry 96 95 97 11/05/19 16:00 11/05/19 16:31 11/05/19 17:00 Temperature Pulse Rate 82 81 81 Respiratory Rate 21 21 Blood Pressure 142/91 H Pulse Oximetry 97 99 98 11/05/19 17:30 Temperature Pulse Rate 78 Respiratory Rate Blood Pressure 139/89 Pulse Oximetry 97 <Everton Angel DO - Last Filed: 11/06/19 07:33> Orders Ordered: Discontinued Medications Cyclobenzaprine HCl (Flexeril) 10 mg PO NOW ONE Stop: 11/05/19 16:37 Last Admin: 11/05/19 17:10 Dose: 10 mg Documented by: MINA Sodium Chloride (Normal Saline 0.9%) 1,000 mls @ 1,000 mls/hr IV BOLUS ONE Stop: 11/05/19 16:47 Last Infusion: 11/05/19 17:42 Dose: 0 mls/hr Documented by: Admin: 11/05/19 15:55 Dose: 1,000 mls/hr Documented by: MINA Ketorolac Tromethamine (Toradol) 30 mg IV NOW ONE Stop: 11/05/19 15:05 Last Admin: 11/05/19 15:14 Dose: 30 mg Documented by: MINA Lidocaine (Lidoderm) 1 each TOP NOW ONE Stop: 11/05/19 16:37 Last Admin: 11/05/19 17:10 Dose: 1 each Documented by: MINA Morphine Sulfate (Morphine) 4 mg IV NOW ONE Stop: 11/05/19 16:10 Last Admin: 11/05/19 16:25 Dose: 4 mg Documented by: MINA Pantoprazole Sodium (Protonix) 40 mg IV NOW ONE Stop: 11/05/19 15:48 Last Admin: 11/05/19 15:56 Dose: 40 mg Documented by: MINA Vital Signs Vital signs: Vital Signs - 8 hr 11/05/19 14:28 11/05/19 15:01 11/05/19 15:30 Temperature 98.6 F Pulse Rate 110 H 98 H 97 H Respiratory Rate 15 22 23 Blood Pressure 152/105 H Pulse Oximetry 96 95 97 11/05/19 16:00 11/05/19 16:31 11/05/19 17:00 Temperature Pulse Rate 82 81 81 Respiratory Rate 21 21 Blood Pressure 142/91 H Pulse Oximetry 97 99 98 11/05/19 17:30 Temperature Pulse Rate 78 Respiratory Rate Blood Pressure 139/89 Pulse Oximetry 97 MDM - Abdominal Pain <PRUDENCIO Bush- - Last Filed: 11/05/19 19:36> Differential Diagnosis Differential diagnosis: Likely abdominal pain, acute appendicitis and pancreatitis Lab Data Attestation: I reviewed the patient's lab results. Result diagrams: 11/05/19 14:30 11/05/19 14:30 Labs: Lab Results 11/05/19 11/05/19 11/05/19 Range/Units 14:30 14:30 14:30 WBC 11.6 H (4.5-11.0) X10^3/uL RBC 5.22 H (4.0-5.2) X10^6/uL Hgb 13.7 (12.0-16.0) g/dL Hct 42.7 (36-46) % MCV 81.7 (80-100) fL MCH 26.2 (26-34) PG MCHC 32.0 (30-36) % RDW 14.2 (11.6-14.8) % Plt Count 406 H (150-400) X10^3/uL Neut % (Auto) 77.9 H (50-75) % Lymph % (Auto) 15.6 L (25-40) % [place] % (Auto) 4.2 (3-14) % Eos % (Auto) 1.3 L (2-4) % Baso % (Auto) 1.0 (0-2) % Neut # (Auto) 9000 H (2266-5933) /uL Lymph # (Auto) 1800 (1610-9730) /uL [place] # (Auto) 500 (0-900) /uL Eos # (Auto) 100 (0-450) /uL Baso # (Auto) 100 (0-100) /uL PT 11.0 (10.1-12.7) SECONDS INR 1.0 (0.9-1.3) APTT 31 (26.4-36.2) SECONDS Sodium 136 L (137-145) mmol/L Potassium 4.4 (3.4-5.1) mmol/L Chloride 102 (98-107) mmol/L Carbon Dioxide 27 (22-32) mmol/L BUN 12 (7-17) mg/dL Creatinine 0.60 (0.52-1.04) mg/dL Estimated GFR > 60.0 (>60) mL/min BUN/Creatinine Ratio 20.0 (6-22) Glucose 118 H (80-110) mg/dL Lactate (0.7-2.1) mmol/L Calcium 9.5 (8.4-10.2) mg/dL Total Bilirubin 0.3 (0.2-1.3) mg/dL AST 20 (14-36) IU/L ALT 15 (<35) IU/L Alkaline Phosphatase 87 (38-126) U/L Total Protein 7.4 (6.3-8.2) g/dL Albumin 4.2 (3.5-5.0) g/dL Globulin 3.2 (1.7-4.1) g/dL Albumin/Globulin Ratio 1.3 (1.0-2.8) Lipase 67 (23-300) U/L Procalcitonin (<0.5) ng/mL 11/05/19 11/05/19 Range/Units 14:30 14:30 WBC (4.5-11.0) X10^3/uL RBC (4.0-5.2) X10^6/uL Hgb (12.0-16.0) g/dL Hct (36-46) % MCV (80-100) fL MCH (26-34) PG MCHC (30-36) % RDW (11.6-14.8) % Plt Count (150-400) X10^3/uL Neut % (Auto) (50-75) % Lymph % (Auto) (25-40) % [place] % (Auto) (3-14) % Eos % (Auto) (2-4) % Baso % (Auto) (0-2) % Neut # (Auto) (4646-1277) /uL Lymph # (Auto) (3688-0249) /uL [place] # (Auto) (0-900) /uL Eos # (Auto) (0-450) /uL Baso # (Auto) (0-100) /uL PT (10.1-12.7) SECONDS INR (0.9-1.3) APTT (26.4-36.2) SECONDS Sodium (137-145) mmol/L Potassium (3.4-5.1) mmol/L Chloride (98-107) mmol/L Carbon Dioxide (22-32) mmol/L BUN (7-17) mg/dL Creatinine (0.52-1.04) mg/dL Estimated GFR (>60) mL/min BUN/Creatinine Ratio (6-22) Glucose (80-110) mg/dL Lactate 1.0 (0.7-2.1) mmol/L Calcium (8.4-10.2) mg/dL Total Bilirubin (0.2-1.3) mg/dL AST (14-36) IU/L ALT (<35) IU/L Alkaline Phosphatase (38-126) U/L Total Protein (6.3-8.2) g/dL Albumin (3.5-5.0) g/dL Globulin (1.7-4.1) g/dL Albumin/Globulin Ratio (1.0-2.8) Lipase (23-300) U/L Procalcitonin < 0.05 (<0.5) ng/mL Point of care testing: Urine Dip Bedside Urine Glucose Negative Bedside Urine Bilirubin - Negative Bedside Urine Ketone - Negative Urine Specific [place] 1.015 Bedside Urine Occult Blood +/- Bedside Urine pH 6.5 Bedside Urine Protein - Negative Bedside Urine Urobilinogen - Negative Bedside Urine Nitrite - Negative Bedside Urine Leukocytes - Negative Esterase Imaging Data CT scan - abdomen/pelvis: Radiologist's Impression: [address] [place] [id number] Scan Report Signed Patient: Josey Moncada AMR#: [id number] : [id number]:[id number] Age/Sex: 63 / FDate of Service: 11/05/19 Loc: ED Accession Number: [id number] Procedure: CT abdomen pelvis w con Ordering Provider: Estefanía Paz- PROCEDURE: CT ABDOMEN PELVIS W CON INDICATIONS: epigastric abd pain TECHNIQUE: After the administration of intravenous contrast, 5 mm thick sections acquired from the diaphragm to the symphysis. 5 mm coronal and sagittal reformats were acquired. For radiation dose reduction, the following was used: automated exposure control, adjustment of mA and/or kV according to patient size. COMPARISON: None. FINDINGS: Image quality: Excellent. ABDOMEN: Lung bases: Lung bases are clear. Heart size is normal. Solid organs: Liver is normal in size and enhancement. Gallbladder has been removed. Biliary system is non dilated. Pancreas enhances normally. Spleen is normal in size and enhancement. No adrenal nodules. Kidneys demonstrate normal size and enhancement, without hydronephrosis. Peritoneum and bowel: Bowel loops demonstrate normal wall thickness and caliber. No free fluid or air. Nodes and vessels: No retroperitoneal or mesenteric adenopathy by size criteria. Aorta and inferior vena cava are normal in size. Miscellaneous: No ventral hernias. PELVIS: Genitourinary: Bladder wall thickness is normal. Miscellaneous: No inguinal hernias or adenopathy. Bones: No suspicious bony lesions. No vertebral body compression fractures. IMPRESSION: No acute finding to explain symptoms. Dictated by: Evangelista Aldridge M.D. on 11/05/2019 at 16:27 Approved by: Evangelista Aldridge M.D. on 11/05/2019 at 16:29 Abdominal x-ray: Radiologist's Impression: [address] [place] [id number] XRay Report Signed Patient: Josey Moncada AMR#: [id number] : [id number]:[id number] Age/Sex: 63 / FDate of Service: 11/05/19 Loc: ED Accession Number: [id number] Procedure: XR acute abdomen series Ordering Provider: Estefanía PazBC PROCEDURE: XR ACUTE ABDOMEN SERIES INDICATIONS: abd pain TECHNIQUE: One view chest and two views of the abdomen were acquired. COMPARISON: None. FINDINGS: Surgical changes and devices: None. Chest: Lungs are clear. Heart size is normal. No pleural effusions. No pneumoperitoneum. Abdomen: Bowel gas pattern is normal. No suspicious calcifications. Visualized solid organ contours appear normal. Bones: No suspicious bony lesions. IMPRESSION: No acute cardiopulmonary process demonstrated radiographically. Dictated by: Evangelista Aldridge M.D. on 11/05/2019 at 15:42 Approved by: Evangelista Aldridge M.D. on 11/05/2019 at 15:42 [facility] Narrative Medical decision making narrative: The patient is a 63-year-old female current smoker who presents with a chief complaint of right upper quadrant pain for the past 7 weeks. She has a history of cholecystectomy, does have a burning on exam, so CT was obtained. This had no acute findings. Retained stone was consider, but the patient has no elevated LFTs, no elevated bilirubin, no significant leukocytosis. Her urine has no signs of infection. She is hemodynamically stable throughout her stay in the emergency department. She feels improved after the above-stated therapies and is requesting to leave. She has an appointment with primary care physician on Thursday, I discussed at length coming back to the emergency department for any acute concerns such as abdominal pain with fever, inability keep down fluids, concern of heart attack or stroke. Discussed not combining ibuprofen or Aleve with ketorolac, that Flexeril can be sedating to not take it with anything else sedating. Patient has no questions or concerns upon discharge and states understanding of return precautions as well as follow-up care. <Everton Angel, DO - Last Filed: 11/06/19 07:33> Lab Data Labs: Lab Results 11/05/19 11/05/19 11/05/19 Range/Units 14:30 14:30 14:30 WBC 11.6 H (4.5-11.0) X10^3/uL RBC 5.22 H (4.0-5.2) X10^6/uL Hgb 13.7 (12.0-16.0) g/dL Hct 42.7 (36-46) % MCV 81.7 (80-100) fL MCH 26.2 (26-34) PG MCHC 32.0 (30-36) % RDW 14.2 (11.6-14.8) % Plt Count 406 H (150-400) X10^3/uL Neut % (Auto) 77.9 H (50-75) % Lymph % (Auto) 15.6 L (25-40) % [place] % (Auto) 4.2 (3-14) % Eos % (Auto) 1.3 L (2-4) % Baso % (Auto) 1.0 (0-2) % Neut # (Auto) 9000 H (0477-8123) /uL Lymph # (Auto) 1800 (7022-0262) /uL [place] # (Auto) 500 (0-900) /uL Eos # (Auto) 100 (0-450) /uL Baso # (Auto) 100 (0-100) /uL PT 11.0 (10.1-12.7) SECONDS INR 1.0 (0.9-1.3) APTT 31 (26.4-36.2) SECONDS Sodium 136 L (137-145) mmol/L Potassium 4.4 (3.4-5.1) mmol/L Chloride 102 (98-107) mmol/L Carbon Dioxide 27 (22-32) mmol/L BUN 12 (7-17) mg/dL Creatinine 0.60 (0.52-1.04) mg/dL Estimated GFR > 60.0 (>60) mL/min BUN/Creatinine Ratio 20.0 (6-22) Glucose 118 H (80-110) mg/dL Lactate (0.7-2.1) mmol/L Calcium 9.5 (8.4-10.2) mg/dL Total Bilirubin 0.3 (0.2-1.3) mg/dL AST 20 (14-36) IU/L ALT 15 (<35) IU/L Alkaline Phosphatase 87 (38-126) U/L Total Protein 7.4 (6.3-8.2) g/dL Albumin 4.2 (3.5-5.0) g/dL Globulin 3.2 (1.7-4.1) g/dL Albumin/Globulin Ratio 1.3 (1.0-2.8) Lipase 67 (23-300) U/L Procalcitonin (<0.5) ng/mL 11/05/19 11/05/19 Range/Units 14:30 14:30 WBC (4.5-11.0) X10^3/uL RBC (4.0-5.2) X10^6/uL Hgb (12.0-16.0) g/dL Hct (36-46) % MCV (80-100) fL MCH (26-34) PG MCHC (30-36) % RDW (11.6-14.8) % Plt Count (150-400) X10^3/uL Neut % (Auto) (50-75) % Lymph % (Auto) (25-40) % [place] % (Auto) (3-14) % Eos % (Auto) (2-4) % Baso % (Auto) (0-2) % Neut # (Auto) (3088-7298) /uL Lymph # (Auto) (2244-7525) /uL [place] # (Auto) (0-900) /uL Eos # (Auto) (0-450) /uL Baso # (Auto) (0-100) /uL PT (10.1-12.7) SECONDS INR (0.9-1.3) APTT (26.4-36.2) SECONDS Sodium (137-145) mmol/L Potassium (3.4-5.1) mmol/L Chloride (98-107) mmol/L Carbon Dioxide (22-32) mmol/L BUN (7-17) mg/dL Creatinine (0.52-1.04) mg/dL Estimated GFR (>60) mL/min BUN/Creatinine Ratio (6-22) Glucose (80-110) mg/dL Lactate 1.0 (0.7-2.1) mmol/L Calcium (8.4-10.2) mg/dL Total Bilirubin (0.2-1.3) mg/dL AST (14-36) IU/L ALT (<35) IU/L Alkaline Phosphatase (38-126) U/L Total Protein (6.3-8.2) g/dL Albumin (3.5-5.0) g/dL Globulin (1.7-4.1) g/dL Albumin/Globulin Ratio (1.0-2.8) Lipase (23-300) U/L Procalcitonin < 0.05 (<0.5) ng/mL Point of care testing: Urine Dip Bedside Urine Glucose Negative Bedside Urine Bilirubin - Negative Bedside Urine Ketone - Negative Urine Specific [place] 1.015 Bedside Urine Occult Blood +/- Bedside Urine pH 6.5 Bedside Urine Protein - Negative Bedside Urine Urobilinogen - Negative Bedside Urine Nitrite - Negative Bedside Urine Leukocytes - Negative Esterase Discharge Plan Departure Patient Disposition: Home Clinical Impression: Abdominal pain Qualifiers: Abdominal location: right upper quadrant Qualified Code(s): R10.11 - Right upper quadrant pain Discharge Date/Time: 11/05/19 17:45 Instructions: DI for Abdominal Pain-Adult, Chronic Pelvic Pain-Female Activity Restrictions/Additional Instructions: Thank you for trusting us with your care today. As discussed, your lab work, CT and x-ray came back with no acute findings. I sent 3 prescriptions to [facility]. This includes lidocaine patches, ketorolac or Toradol, and cyclobenzaprine which is a muscle relaxer I have given you a prescription of Toradol. This is an NSAID. Do not combine it with other NSAIDs such as Aleve or ibuprofen. I suggest taking it with some food, as it can irritate your stomach. The muscle relaxer can be sedating. Please do not take this and drive or combine with any alcohol. Please come back to emergency department for any acute concerns such as chest pain, shortness of breath etcetera. Please follow-up with primary care provider on Thursday as scheduled Prescriptions: New cyclobenzaprine 10 mg tablet 10 mg PO TID PRN (Reason: muscle spasm) Qty: 14 RF: 0 lidocaine 5 % adhesive patch,medicated 1 patch TOP DAILY PRN (Reason: pain) Qty: 15 RF: 0 ketorolac 10 mg tablet 10 mg PO TID PRN (Reason: pain) Qty: 14 RF: 0 No Action docusate sodium 50 mg capsule 100 mg PO DAILY PRN (Reason: constipation) Qty: 60 RF: 3 diphenhydramine HCl [Allergy (diphenhydramine)] 25 mg capsule 25 mg PO BEDTIME PRN (Reason: itching) Qty: 30 RF: 0 Ventolin HFA 90 mcg/actuation HFA aerosol inhaler 2 puff INHALATION Q4-6H PRN (Reason: shortness of breath or wheezing) Qty: 18 RF: 3 tizanidine 4 mg tablet 8 mg PO TID PRN (Reason: muscle spasticity) Qty: 180 RF: 0 gabapentin 300 mg capsule 300 mg PO TID PRN (Reason: pain) Qty: 270 RF: 3 trazodone 100 mg tablet 100 mg PO DAILY Qty: 90 RF: 0 pantoprazole 40 mg tablet,delayed release (DR/EC) 40 mg PO BID Qty: 180 RF: 0 oxycodone 10 mg tablet 10 mg PO Q4-6H PRN (Reason: pain) Qty: 40 RF: 0 acetaminophen [Tylenol Extra Strength] 500 mg tablet 500 mg PO Q4H PRN (Reason: pain) Qty: 60 RF: 0 oxycodone-acetaminophen 10-325 mg tablet 1 tab PO Q6H PRN (Reason: pain) Qty: 20 RF: 0 docusate sodium 50 mg capsule 50 mg PO BID Qty: 60 RF: 0 pantoprazole 20 mg tablet,delayed release (DR/EC) 20 mg PO DAILY Qty: 30 RF: 0 oxycodone 10 mg tablet 10 mg PO Q6H PRN (Reason: painful procedure) Qty: 14 RF: 0 omeprazole 20 mg capsule,delayed release(DR/EC) 20 mg PO DAILY Qty: 30 RF: 0 albuterol sulfate [Ventolin HFA] 90 mcg/actuation HFA aerosol inhaler 1 inhalation INHALATION QID PRN (Reason: shortness of breath or wheezing) Qty: 18 RF: 0 <Everton Angel DO - Last Filed: 11/06/19 07:33> [facility] I was immediately available in the department for consultation. This documentation has been reviewed and I agree with assessment and plan. Supervised by Everton nAgel DO
[2019-11-05 14:51] LABS: Add Manual Diff / Slide Review NO; Basophils Absolute Auto 100 /uL (0-100); Eosinophils Absolute Auto 100 /uL (0-450); Eosinophils Percent Auto 1.3 % (2-4); Hematocrit 42.7 % (36-46); Hemoglobin 13.7 g/dL (12.0-16.0); Lymphocytes Absolute Auto 1800 /uL (1100-4500); Lymphocytes Percent Auto 15.6 % (25-40); Mean Corpuscular Hemoglobin 26.2 PG (26-34); Mean Corpuscular Volume 81.7 fL (80-100); Monocytes Absolute Auto 500 /uL (0-900); Monocytes Percent Auto 4.2 % (3-14); Neutrophils Absolute Auto 9000 /uL (1500-7000); Neutrophils Percent Auto 77.9 % (50-75); Platelet Count 406 X10^3/uL (150-400); Red Blood Cell Count 5.22 X10^6/uL (4.0-5.2); Red Cell Distribution Width 14.2 % (11.6-14.8); White Blood Cell Count 11.6 X10^3/uL (4.5-11.0)
[2019-11-05 14:58] LABS: PTT Partial Thromboplastin Tim 31 SECONDS (26.4-36.2)
[2019-11-05 15:00] LABS: Alanine Aminotransferase 15 IU/L (<35); Albumin 4.2 g/dL (3.5-5.0); Albumin Globulin Ratio 1.3 (1.0-2.8); Alkaline Phosphatase 87 U/L (38-126); Aspartate Aminotransferase 20 IU/L (14-36); Bilirubin Total 0.3 mg/dL (0.2-1.3); Blood Urea Nitrogen 12 mg/dL (7-17); Calcium 9.5 mg/dL (8.4-10.2); Carbon Dioxide 27 mmol/L (22-32); Chloride 102 mmol/L (98-107); Estimated Glomerular Filt Rate > 60.0 mL/min (>60); Globulin 3.2 g/dL (1.7-4.1); Glucose 118 mg/dL (80-110); HEMOLYSIS < 15 (0-50); Lipase 67 U/L (23-300); Potassium 4.4 mmol/L (3.4-5.1); Sodium 136 mmol/L (137-145); Total Protein 7.4 g/dL (6.3-8.2)
--- NOTE | 2019-11-05 15:04 | DI.RAD.S_ITS ---
PROCEDURE: XR ACUTE ABDOMEN SERIES INDICATIONS: abd pain TECHNIQUE: One view chest and two views of the abdomen were acquired. COMPARISON: None. FINDINGS: Surgical changes and devices: None. Chest: Lungs are clear. Heart size is normal. No pleural effusions. No pneumoperitoneum. Abdomen: Bowel gas pattern is normal. No suspicious calcifications. Visualized solid organ contours appear normal. Bones: No suspicious bony lesions. IMPRESSION: No acute cardiopulmonary process demonstrated radiographically. Dictated by: Evangelista Aldridge M.D. on 11/05/2019 at 15:42 Approved by: Evangelista Aldridge M.D. on 11/05/2019 at 15:42
[2019-11-05] MEDS: KETOROLAC 60 MG/2 ML VIAL 30 MG IV (15:14)
[2019-11-05 15:15] LABS: Procalcitonin < 0.05 ng/mL (<0.5)
--- NOTE | 2019-11-05 15:48 | DI.CT.S_ITS ---
PROCEDURE: CT ABDOMEN PELVIS W CON INDICATIONS: epigastric abd pain TECHNIQUE: After the administration of intravenous contrast, 5 mm thick sections acquired from the diaphragm to the symphysis. 5 mm coronal and sagittal reformats were acquired. For radiation dose reduction, the following was used: automated exposure control, adjustment of mA and/or kV according to patient size. COMPARISON: None. FINDINGS: Image quality: Excellent. ABDOMEN: Lung bases: Lung bases are clear. Heart size is normal. Solid organs: Liver is normal in size and enhancement. Gallbladder has been removed. Biliary system is non dilated. Pancreas enhances normally. Spleen is normal in size and enhancement. No adrenal nodules. Kidneys demonstrate normal size and enhancement, without hydronephrosis. Peritoneum and bowel: Bowel loops demonstrate normal wall thickness and caliber. No free fluid or air. Nodes and vessels: No retroperitoneal or mesenteric adenopathy by size criteria. Aorta and inferior vena cava are normal in size. Miscellaneous: No ventral hernias. PELVIS: Genitourinary: Bladder wall thickness is normal. Miscellaneous: No inguinal hernias or adenopathy. Bones: No suspicious bony lesions. No vertebral body compression fractures. IMPRESSION: No acute finding to explain symptoms. Dictated by: Evangelista Aldridge M.D. on 11/05/2019 at 16:27 Approved by: Evangelista Aldridge M.D. on 11/05/2019 at 16:29
[2019-11-05] MEDS: SODIUM CHLORIDE 0.9% 1,000 ML 1000 ML IV (15:55)
[2019-11-05] MEDS: PANTOPRAZOLE 40 MG VIAL IV (15:56)
[2019-11-05] MEDS: MORPHINE 2 MG/ML INJ 4 MG IV (16:25)
[2019-11-05] MEDS: LIDOCAINE PATCH 1 EACH ADH..PATCH TOP (17:10)
[2019-11-05] MEDS: CYCLOBENZAPRINE 10 MG TABLET PO (17:10)
== END 2019-11-05 17:45 | disposition home or self-care (01) ==
PROVIDERS: Emergency Provider Nurse Practitioner Family
DX: R10.11 Right upper quadrant pain (principal)
CPT/HCPCS: 36415; 74022; 74177; 80053; 81003; 83605; 83690; 84145; 85025; 85610; 85730; 93005; 93010; 96361; 96374; 96375; 99284; C9113; J1885; J2270; Q9967

== ENCOUNTER 2019-12-12 13:21 | Emergency (ER) | payer MEDICARE, MEDICAID, SELFPAY ==
[2019-05-22 21:34] VITALS: BMI 24.2
[2019-12-12 13:31] VITALS: BP 171/96; PULSE 97; RESP 16; TEMP 36.5; O2SAT 97; BMI 25.0
--- NOTE | 2019-12-12 13:37 | DI.RAD.S_ITS ---
PROCEDURE: XR CHEST 2V INDICATIONS: cough, sob TECHNIQUE: 2 views of the chest were acquired. COMPARISON: [facility], [place], XR CHEST 2V, 12/10/2017, 11:30. FINDINGS: Surgical changes and devices: Cervical fusion hardware. Lungs and pleura: Lungs are clear. No pleural effusions or pneumothorax. Mediastinum: Mediastinal contours are normal. Heart size is normal. Bones and chest wall: No suspicious bony abnormalities. Soft tissues appear unremarkable. IMPRESSION: No evidence acute pulmonary process. Dictated by: Panfilo Edmond M.D. on 12/12/2019 at 14:06 Approved by: Panfilo Edmond M.D. on 12/12/2019 at 14:06
[2019-12-12 14:06] LABS: COVID19 -Nasal RAPID Negative (Negative)
--- NOTE | 2019-12-13 01:43 | ED.SOB ---
HPI - SOB/Dyspnea <KB Gamez - Last Filed: 12/13/19 02:04> General Chief Complaint: Shortness of Breath/Dyspnea Stated Complaint: lung infection Time Seen by Provider: 12/12/19 13:26 Source: patient Mode of arrival: Ambulatory Limitations: no limitations History of Present Illness HPI Narrative: Patient is 64 year female, smoker, with medical history significant for cholelithiasis and bronchitis presents to ED with chief complain of Lung infection. Patient reports has productive green mucus cough for 1 week and some short of breath. Patient denies fever, chills, nausea or vomiting. Patient denies chest pain, dizziness. Patient denies weight gain or history of heart failures failures. Patient states every year she gets pneumonia and she needs antibiotic medication. She has an appointment with her primary care physician on beginning of December but is here to get some antibiotic medication. Reports she has albuterol nebulizer and uses rescue inhalers as needed. Related Data Previous Rx's Medication Instructions Recorded albuterol sulfate 90 mcg/actuation 2 puff INHALATION Q4-6H PRN #18 04/22/18 aerosol inhaler gram pantoprazole 40 mg tablet,delayed 40 mg PO BID #180 tab 11/12/18 release trazodone 100 mg tablet 100 mg PO DAILY #90 tab 11/12/18 tizanidine 4 mg tablet 8 mg PO TID PRN #180 tab 12/02/18 acetaminophen [Tylenol Extra 500 mg PO Q4H PRN #60 tab 12/17/18 Strength] oxycodone 10 mg PO Q4-6H PRN #40 tab 12/17/18 diphenhydramine HCl 25 mg capsule 25 mg PO BEDTIME PRN #30 cap 01/12/19 docusate sodium 50 mg capsule 100 mg PO DAILY PRN #60 cap 01/12/19 gabapentin 300 mg capsule 300 mg PO TID PRN #270 cap 01/17/19 oxycodone 10 mg PO Q6H PRN #14 tab 05/22/19 albuterol sulfate [Ventolin HFA] 1 inhalation INHALATION QID PRN 05/23/19 #18 gram omeprazole 20 mg PO DAILY #30 cap 05/23/19 docusate sodium 50 mg PO BID #60 cap 06/01/19 oxycodone-acetaminophen 1 tab PO Q6H PRN #20 tab 06/01/19 pantoprazole 20 mg PO DAILY #30 tab 06/01/19 cyclobenzaprine 10 mg PO TID PRN #14 tab 11/05/19 ketorolac 10 mg PO TID PRN #14 tab 11/05/19 lidocaine 1 patch TOP DAILY PRN #15 each 11/05/19 guaifenesin 1,200 mg PO BID PRN #20 tab 12/12/19 prednisone 40 mg PO DAILY 5 Days #10 tab 12/12/19 Allergies Allergy/AdvReac Type Severity Reaction Status Date / Time duloxetine [From Cymbalta] Allergy Mild insomnia, Verified 11/05/19 14:34 teeth clenching adhesive tape [ADHESIVE TAPE] Allergy Unknown Verified 11/05/19 14:34 hydrocodone [From VICODIN] Allergy Unknown STOMACH Verified 11/05/19 14:34 UPSET venlafaxine AdvReac Intermediate sweating, Verified 11/05/19 14:34 insomnia Review of Systems <KB Gamez - Last Filed: 12/13/19 02:04> Review of Systems Narrative: General: Denies fever, chills, fatigue, malaise, sweats. HEENT: Denies sinus pain, ear pain, sore throat, difficulty swallowing, dizziness. Respiratory: See HPI Cardiovascular: Denies chest pain, palpitations, orthopnea, edema. Gastrointestinal: Denies nausea, vomiting, abdominal pain, diarrhea, constipation, melena. : Denies dysuria, frequency, incontinence, hematuria, urinary retention. Musculoskeletal: Denies weakness, joint pain or bony pain. Skin: Denies rash, skin lesions, or other. Neurologic: Denies weakness, headache, numbness, change in speech, confusion, seizures, incoordination. Psychiatric: No concerning psychosocial issues. 12-point review of systems is negative except for those stated above. Patient History <KB Gamez - Last Filed: 12/13/19 02:04> Medical History Ankle pain (Chronic 2017) Anxiety (Chronic) Cervical spine disease (Chronic 2007) Chronic back pain (Chronic 1981) Chronic cough (Chronic) Chronic headaches (Chronic) Foot pain (Chronic) GERD (gastroesophageal reflux disease) (Resolved) Lumbar spinal stenosis (Chronic) Lumbar spine pain (Chronic) Osteopenia (Chronic) Osteoporosis (Chronic) Peripheral neuropathy (Chronic 2012) Scoliosis (Chronic) Skin spots-aging (Chronic) Surgical History Anesthesia (Resolved) History of cervical spinal surgery (Resolved 2007) History of hysterectomy (Resolved 1992) History of lumbar laminectomy (Resolved 2013) History of lumbar laminectomy (Resolved ~1989) Status post epidural steroid injection (Acute 04/28/18) Family History Father No problems noted. Mother Colon cancer Liver cancer Heart disease Hypertension Brother Obesity Diabetes mellitus Hypertension Brother No problems noted. Brother No problems noted. Sister No problems noted. Grandfather No problems noted. Grandmother No problems noted. Grandfather No problems noted. Grandmother No problems noted. Family/Other No problems noted. Social History household members: none and other Smoking Status: Current every day smoker alcohol intake: current Smoking Status: Current every day smoker alcohol intake frequency: holidays/special occasions only Substance Use Type: marijuana Exam <KB Gamez - Last Filed: 12/13/19 02:04> Narrative Exam Narrative: GEN: Alert, oriented x 3, well appearing and nourished, and in no acute distress. Head: Normal cephalic, atraumatic. No scalp or temporal tenderness, palpable mass or rash. EYES: Pupils are equal, round, and reactive to light and accommodation. Extraocular muscles are intact bilaterally. There is no subconjunctival hemorrhage, exudate and sclera non-icteric. ENT: Hearing grossly intact. Nose without bleeding, purulent discharge or deviation. Mucous membrane moist, no mucosal lesion. Throat without erythema, tonsillar hypertrophy or exudate. Uvula in midline, airway patent. Neck: Trachea in midline. No JVD, non-tender without lymphadenopathy. No masses or thyroid megaly. Supple, non-tender and no meningeal signs. CARDIAC: Normal regular rate and rhythm without murmurs, gallops, or rubs. No chest wall tenderness. No peripheral edema, cyanosis or pallor. Capillary refill is less than 2 seconds. RESPIRATORY: Lungs are clear to auscultate bilaterally. Intermittent cough with deep inhalation. No wheezes, rales, or rhonchi. No stridor, respiratory distress, increase work of breathing, or accessary muscle used. ABD: Abdomen soft, nontender and non-distended. No guarding or rebound tenderness to palpate. Bowel sounds are normal in all 4 quadrants. There is no palpable masses or organomegaly. EXT: Full painless ROM of all extremities with no loss of sensation, strength, effusion or edema. SKIN: Warm, dry, normal color for patient. No erythema, lesions or rash over visible areas. BACK: Nontender without deformity or crepitance. No flank tenderness. NEUROLOGICAL: Alert and oriented to place, time and person. Sensation and motor function intact bilaterally. No facial droops, dysphasia. PSYCHIATRIC: Good judgement and reason, without hallucinations, abnormal affect or abnormal behaviors during the examination. Patient is not suicidal. Initial Vital Signs Initial Vital Signs: Vital Signs Temperature 97.7 F 12/12/19 13:31 Pulse Rate 97 H 12/12/19 13:31 Respiratory Rate 16 12/12/19 13:31 Blood Pressure 171/96 H 12/12/19 13:31 Pulse Oximetry 97 12/12/19 13:31 <Everton Angel DO - Last Filed: 12/13/19 07:37> Initial Vital Signs Initial Vital Signs: Vital Signs Temperature 97.7 F 12/12/19 13:31 Pulse Rate 97 H 12/12/19 13:31 Respiratory Rate 16 12/12/19 13:31 Blood Pressure 171/96 H 12/12/19 13:31 Pulse Oximetry 97 12/12/19 13:31 Scores [facility] - Last Filed: 12/13/19 02:04> GCS [place] coma scale eye opening: Spontaneous [place] coma scale verbal response: Orientated [place] coma scale motor response: Obey commands [place] coma scale total score: 15 qSOFA Altered Mental Status (GCS <15): No Respiratory rate greater than/equal to 22: No Systolic blood pressure less than or equal to 100: No qSOFA Total: 0 0-1 Not High Risk 1-3 High risk Course <[facility] MorrellP - Last Filed: 12/13/19 02:04> Orders Ordered: The patient declined blood test and stating I just need antibiotic medication and I always get it every year with cough since I am a smoker and get lung infection easily. She agreed to chest x-ray and Covid swab. MDM - SOB/Dyspnea <KB Gamez - Last Filed: 12/13/19 02:04> Differential Diagnosis Differential diagnosis: Likely community acquired pneumonia and other (Bronchitis, Covid 19) Medical Records Attestation: I reviewed the patient's medical records. Lab Data Attestation: I reviewed the patient's lab results. Labs: Lab Results 12/12/19 Range/Units 13:43 COVID-19 PCR Negative (Negative) Imaging Data Chest x-ray: Radiologist's Impression: [address] [id number] XRay Report Signed Patient: Josey Moncada [facility]#: [id number] : 8Acct:[id number] Age/Sex: 64 / FDate of Service: 12/12/19 Loc: ED Accession Number: [id number] Procedure: XR chest 2V Ordering Provider: Edgar Tariq PROCEDURE: XR CHEST 2V INDICATIONS: cough, sob TECHNIQUE: 2 views of the chest were acquired. [facility] FINDINGS: Surgical changes and devices: Cervical fusion hardware. Lungs and pleura: Lungs are clear. No pleural effusions or pneumothorax. Mediastinum: Mediastinal contours are normal. Heart size is normal. Bones and chest wall: No suspicious bony abnormalities. Soft tissues appear unremarkable. IMPRESSION: No evidence acute pulmonary process. Dictated by: Panfilo Edmond M.D. on 12/12/2019 at 14:06 Approved by: Panfilo Edmond M.D. on 12/12/2019 at 14:06 [facility] Narrative Medical decision making narrative: This is a 64 year female who is current smoker presents to ED and demanding Z pack for lung infection in stating green mucus cough for 1 week with some short of breath. Lung sounds are clear in all lobes. O2 said 97% in room air. Patient has intermittent cough during lung examination and deep inhalation. No increased work of breathing or tachypnea. Patient is afebrile with slight hypertension. Patient declined blood test but agreed to Covid swab and chest xray. Covid swab was negative. CXR test was negative for acute pulmonary process. Discussed with patient in detail that it is likely patient has bronchitis which is mostly viral etiology she does not require antibiotic medication treatment after sharing xray result, physical exam and vital signs a fever and within normal O2 sat and unremarkable physical exam. Patient informed the color of mucus does not indicate pneumonia. Patient advised smoking cessation. Patient advised to hydrate well and supportive care. Spacer for appear inhaler provided with teaching. Advised to use albuterol nebulizer treatment and inhaler as needed for short of breath, chest tightness, or frequent cough. Patient discharged to home with guaifenesin and a short course of steroids and discussed possible side effects of Prednisone use. Return precautions were discussed with patient and patient verbalized understanding and agreement with treatment plan. <Everton Angel, DO - Last Filed: 12/13/19 07:37> Lab Data Labs: Lab Results 12/12/19 Range/Units 13:43 COVID-19 PCR Negative (Negative) Discharge Plan Departure Patient Disposition: Home Clinical Impression: Bronchitis Discharge Date/Time: 12/12/19 14:44 Instructions: DI for Acute Bronchitis Activity Restrictions/Additional Instructions: You have been diagnosed with [bronchitis.]. What to do: *Take your medications as directed. Continue with neb treatments and inhaler as needed for frequent cough, short of breath, and chest tightness. Please start prednisone, steroids, daily. Please take guaifenesin as needed for cough and expectorant. *Follow up with your primary care provider in 2-3 days, call for an appointment. Let them know you were seen in the ED and that we asked you to be seen in follow up. *Return to ED if you have any new, worsening, or concerning symptoms, such as [chest pain, worsening breathing, fever, chills, decreased energy level, unable to tolerate fluids, or any acute concerns]. Prescriptions: New prednisone 20 mg tablet 40 mg PO DAILY 5 Days Qty: 10 RF: 0 guaifenesin 1,200 mg tablet extended release 12hr 1,200 mg PO BID PRN (Reason: cough) Qty: 20 RF: 0 No Action docusate sodium 50 mg capsule 100 mg PO DAILY PRN (Reason: constipation) Qty: 60 RF: 3 diphenhydramine HCl [Allergy (diphenhydramine)] 25 mg capsule 25 mg PO BEDTIME PRN (Reason: itching) Qty: 30 RF: 0 Ventolin HFA 90 mcg/actuation HFA aerosol inhaler 2 puff INHALATION Q4-6H PRN (Reason: shortness of breath or wheezing) Qty: 18 RF: 3 tizanidine 4 mg tablet 8 mg PO TID PRN (Reason: muscle spasticity) Qty: 180 RF: 0 gabapentin 300 mg capsule 300 mg PO TID PRN (Reason: pain) Qty: 270 RF: 3 trazodone 100 mg tablet 100 mg PO DAILY Qty: 90 RF: 0 pantoprazole 40 mg tablet,delayed release (DR/EC) 40 mg PO BID Qty: 180 RF: 0 oxycodone 10 mg tablet 10 mg PO Q4-6H PRN (Reason: pain) Qty: 40 RF: 0 acetaminophen [Tylenol Extra Strength] 500 mg tablet 500 mg PO Q4H PRN (Reason: pain) Qty: 60 RF: 0 oxycodone-acetaminophen 10-325 mg tablet 1 tab PO Q6H PRN (Reason: pain) Qty: 20 RF: 0 docusate sodium 50 mg capsule 50 mg PO BID Qty: 60 RF: 0 pantoprazole 20 mg tablet,delayed release (DR/EC) 20 mg PO DAILY Qty: 30 RF: 0 cyclobenzaprine 10 mg tablet 10 mg PO TID PRN (Reason: muscle spasm) Qty: 14 RF: 0 lidocaine 5 % adhesive patch,medicated 1 patch TOP DAILY PRN (Reason: pain) Qty: 15 RF: 0 ketorolac 10 mg tablet 10 mg PO TID PRN (Reason: pain) Qty: 14 RF: 0 oxycodone 10 mg tablet 10 mg PO Q6H PRN (Reason: painful procedure) Qty: 14 RF: 0 omeprazole 20 mg capsule,delayed release(DR/EC) 20 mg PO DAILY Qty: 30 RF: 0 albuterol sulfate [Ventolin HFA] 90 mcg/actuation HFA aerosol inhaler 1 inhalation INHALATION QID PRN (Reason: shortness of breath or wheezing) Qty: 18 RF: 0 <Everton Angel, DO - Last Filed: 12/13/19 07:37> Cosign ED Attending Cosignature Attestation: I was immediately available in the department for consultation. This documentation has been reviewed and I agree with assessment and plan. Supervised by Everton Angel,
== END 2019-12-12 14:44 | disposition home or self-care (01) ==
PROVIDERS: Emergency Provider Nurse Practitioner Family
DX: J40 Bronchitis, not specified as acute or chronic (principal); R06.02 Shortness of breath; R05 Cough
CPT/HCPCS: 71046; 87635; 99281; 99283

== ENCOUNTER 2019-12-20 18:20 | Emergency (ER) | payer MEDICARE, MEDICAID, SELFPAY ==
[2019-05-22 21:34] VITALS: BMI 24.2
[2019-12-20] VITALS (10 sets, daily range): BP systolic 117–155; BP diastolic 79–87; PULSE 81–112; RESP 18; TEMP 35.8; O2SAT 94–100; BMI 27.4
[2019-12-20 18:49] LABS: INR 0.9 (0.9-1.3); Prothrombin Time 10.3 SECONDS (10.1-12.7)
[2019-12-20 18:51] LABS: Add Manual Diff / Slide Review NO; Basophils Absolute Auto 100 /uL (0-100); Basophils Percent Auto 1.5 % (0-2); Eosinophils Absolute Auto 400 /uL (0-450); Eosinophils Percent Auto 4.7 % (2-4); Hematocrit 38.6 % (36-46); Hemoglobin 12.7 g/dL (12.0-16.0); Lymphocytes Absolute Auto 2500 /uL (1100-4500); Lymphocytes Percent Auto 25.7 % (25-40); Mean Corpuscular HGB Conc 32.8 % (30-36); Mean Corpuscular Hemoglobin 26.9 PG (26-34); Monocytes Absolute Auto 600 /uL (0-900); Monocytes Percent Auto 5.9 % (3-14); Neutrophils Absolute Auto 6000 /uL (1500-7000); Neutrophils Percent Auto 62.2 % (50-75); Platelet Count 364 X10^3/uL (150-400); Red Blood Cell Count 4.71 X10^6/uL (4.0-5.2); Red Cell Distribution Width 14.2 % (11.6-14.8); White Blood Cell Count 9.6 X10^3/uL (4.5-11.0)
[2019-12-20 18:52] LABS: PTT Partial Thromboplastin Tim 32 SECONDS (26.4-36.2)
[2019-12-20 18:54] LABS: Alanine Aminotransferase 14 IU/L (<35); Albumin 4.2 g/dL (3.5-5.0); Albumin Globulin Ratio 1.4 (1.0-2.8); Alkaline Phosphatase 79 U/L (38-126); Aspartate Aminotransferase 21 IU/L (14-36); BUN Creatinine Ratio 15.5 (6-22); Bilirubin Total 0.3 mg/dL (0.2-1.3); Blood Urea Nitrogen 11 mg/dL (7-17); Calcium 9.1 mg/dL (8.4-10.2); Carbon Dioxide 30 mmol/L (22-32); Chloride 104 mmol/L (98-107); Estimated Glomerular Filt Rate > 60.0 mL/min (>60); Globulin 2.9 g/dL (1.7-4.1); Glucose 105 mg/dL (80-110); HEMOLYSIS < 15 (0-50); Lipase 53 U/L (23-300); Potassium 3.7 mmol/L (3.4-5.1); Sodium 138 mmol/L (137-145); Total Protein 7.1 g/dL (6.3-8.2)
--- NOTE | 2019-12-20 19:26 | ED.ABDPAIN ---
HPI - Abdominal Pain General Chief Complaint: Abdominal Pain Stated Complaint: abd pain Time Seen by Provider: 12/20/19 19:26 Source: patient Mode of arrival: Wheelchair Limitations: no limitations History of Present Illness HPI narrative: The patient presents with right upper quadrant pain, pain radiates to her back. She is status post cholecystectomy May 2019. Pain started 5 days ago and persists. She has nausea without emesis. She is tolerating small amounts of oral intake. She has no associated dysuria or hematuria. She has intermittent diarrhea, she has had bowel movements today. There is no blood in the diarrhea. Additionally, she takes Protonix for GERD. She has no pain radiating to her chest. She has no associated headache, fever, or cough. She denies dyspnea. She has been around no one with similar symptoms. She was seen here approximately 6 weeks ago with similar symptoms, CT of the abdomen revealed no acute process at that time. Related Data Previous Rx's Medication Instructions Recorded albuterol sulfate 90 mcg/actuation 2 puff INHALATION Q4-6H PRN #18 04/22/18 aerosol inhaler gram pantoprazole 40 mg tablet,delayed 40 mg PO BID #180 tab 11/12/18 release trazodone 100 mg tablet 100 mg PO DAILY #90 tab 11/12/18 tizanidine 4 mg tablet 8 mg PO TID PRN #180 tab 12/02/18 acetaminophen [Tylenol Extra 500 mg PO Q4H PRN #60 tab 12/17/18 Strength] oxycodone 10 mg PO Q4-6H PRN #40 tab 12/17/18 diphenhydramine HCl 25 mg capsule 25 mg PO BEDTIME PRN #30 cap 01/12/19 docusate sodium 50 mg capsule 100 mg PO DAILY PRN #60 cap 01/12/19 gabapentin 300 mg capsule 300 mg PO TID PRN #270 cap 01/17/19 oxycodone 10 mg PO Q6H PRN #14 tab 05/22/19 albuterol sulfate [Ventolin HFA] 1 inhalation INHALATION QID PRN 05/23/19 #18 gram omeprazole 20 mg PO DAILY #30 cap 05/23/19 docusate sodium 50 mg PO BID #60 cap 06/01/19 oxycodone-acetaminophen 1 tab PO Q6H PRN #20 tab 04/15/20 pantoprazole 20 mg PO DAILY #30 tab 06/01/19 cyclobenzaprine 10 mg PO TID PRN #14 tab 11/05/19 ketorolac 10 mg PO TID PRN #14 tab 11/05/19 lidocaine 1 patch TOP DAILY PRN #15 each 11/05/19 guaifenesin 1,200 mg PO BID PRN #20 tab 12/12/19 oxycodone-acetaminophen [Percocet] 1 tab PO Q4-6H PRN #14 tab 12/21/19 Allergies Allergy/AdvReac Type Severity Reaction Status Date / Time duloxetine [From Cymbalta] Allergy Mild insomnia, Verified 11/05/19 14:34 teeth clenching adhesive tape [ADHESIVE TAPE] Allergy Unknown Verified 11/05/19 14:34 hydrocodone [From VICODIN] Allergy Unknown STOMACH Verified 11/05/19 14:34 UPSET venlafaxine AdvReac Intermediate sweating, Verified 11/05/19 14:34 insomnia Review of Systems Review of Systems ROS Unobtainable: All systems reviewed & are unremarkable except as noted in HPI and below Constitutional Constitutional: Denies chills, Denies fever(s), Denies headache(s), Denies lethargy and Denies weakness ENT Ears, Nose, Mouth, and Throat: Reports dizziness, Denies headache(s) and Denies sore throat Cardiovascular Cardiovascular: Denies chest pain, Denies irregular heart rhythm, Denies lightheadedness and Denies dyspnea Respiratory Respiratory: Denies cough, Denies dyspnea and Denies wheezing Gastrointestinal Gastrointestinal: Denies abdominal pain, Denies change in bowel habits and Denies nausea Musculoskeletal Musculoskeletal: Denies back pain, Denies myalgias and Denies numbness Integumentary/Breasts Skin/Breast: Denies pruritus, Denies erythema and Denies rash Neurologic Neurologic: Denies confusion, Reports dizziness, Denies headache(s), Denies numbness and Denies weakness Psychiatric Psychiatric: Denies anxiety, Denies confusion and Denies depression Allergic/Immunologic Allergic/Immunologic: Denies wheezing Patient History Medical History Ankle pain (Chronic 2016) Anxiety (Chronic) Cervical spine disease (Chronic 2007) Chronic back pain (Chronic 1981) Chronic cough (Chronic) Chronic headaches (Chronic) Foot pain (Chronic) GERD (gastroesophageal reflux disease) (Resolved) Lumbar spinal stenosis (Chronic) Lumbar spine pain (Chronic) Osteopenia (Chronic) Osteoporosis (Chronic) Peripheral neuropathy (Chronic 2012) Scoliosis (Chronic) Skin spots-aging (Chronic) Surgical History Anesthesia (Resolved) History of cervical spinal surgery (Resolved 2007) History of hysterectomy (Resolved 1992) History of lumbar laminectomy (Resolved 2013) History of lumbar laminectomy (Resolved ~1989) Status post epidural steroid injection (Acute 04/28/18) Family History Father No problems noted. Mother Colon cancer Liver cancer Heart disease Hypertension Brother Obesity Diabetes mellitus Hypertension Brother No problems noted. Brother No problems noted. Sister No problems noted. Grandfather No problems noted. Grandmother No problems noted. Grandfather No problems noted. Grandmother No problems noted. Family/Other No problems noted. Social History household members: none and other Smoking Status: Current every day smoker alcohol intake: current Smoking Status: Current every day smoker alcohol intake frequency: holidays/special occasions only Substance Use Type: marijuana Exam Initial Vital Signs Initial Vital Signs: Vital Signs Temperature 96.5 F L 12/20/19 18:25 Pulse Rate 103 H 12/20/19 18:25 Respiratory Rate 18 12/20/19 18:25 Blood Pressure 117/87 12/20/19 18:25 Pulse Oximetry 94 12/20/19 18:25 Const General: cooperative and well developed Nutritional Appearance: well nourished [facility] Mouth: oral mucosae normal Eyes General: appearance normal, both eyes and all related structures Eyelids: eyelids normal Conjunctivae: conjunctivae normal Sclera: sclerae normal Pupils: PERRL EOM: EOM intact bilaterally Neck Neck: No JVD Resp Effort & Inspection: normal respiratory effort and able to speak in complete sentences Auscultation: clear to auscultation bilaterally, no rales, no rhonchi and no wheezes Cardio Rate: regular rate Rhythm: regular rhythm Pulses: normal peripheral pulses GI Other: Right upper quadrant pain with guarding but no distension. Abdominal distention. Tinkling bowel sounds. No palpable masses. Back/Spine/Pelvis Back: No CVA tenderness Skin General: no rashes or lesions noted, No jaundice and No petechiae Neuro General: patient alert, patient oriented x3, gait normal and no focal motor deficits Motor: muscle tone normal throughout Sensory Exam: no sensory deficits noted Extrem General: full ROM, no clubbing, cyanosis or edema, no pedal edema and no calf tenderness Course Course Course Narrative: The patient was initially given morphine for pain. She continued to complain of pain, Toradol was given. She is on Protonix, IV Protonix was given. The initial ultrasound was nonrevealing, CT was repeated, she recently had a CT. CT shows no acute findings. Her pain is not resolved. She continues to complain of bloating. She is on a reasonably bland diet. I am advising her to continue to Protonix. She will have a small prescription of Percocet for pain. She is advised follow-up her doctor, I would suggest Gastroenterology consult. Orders Ordered: ED Orders 12/20/19 18:28 EKG-12 Lead Stat 12/20/19 18:36 Complete Blood Count AUTO DIFF Stat Comprehensive Metabolic Panel Stat Lipase Stat Partial Thromboplastin Time Stat Prothrombin Time INR Stat 12/20/19 19:40 US abdomen limited Stat 12/20/19 22:38 CT abdomen pelvis w con Stat Sodium Chloride (Normal Saline 0.9%) 1,000 mls @ 150 mls/hr IV CONT ROXANNE Last Infusion: 12/20/19 23:06 Dose: 0 mls/hr Documented by: Admin: 12/20/19 22:50 Dose: 150 mls/hr Documented by: TOMASA Discontinued Medications Al Hydrox/Mg Hydrox/Simethicone 20 ml/ Lidocaine HCl 15 ml 0 ml PO NOW ONE Stop: 12/20/19 21:40 Last Admin: 12/20/19 21:49 Dose: 15 ml Documented by: TOMASA Sodium Chloride (Normal Saline 0.9%) 500 mls @ 1,000 mls/hr IV BOLUS ONE Stop: 12/20/19 20:08 Last Infusion: 12/20/19 21:08 Dose: 0 mls/hr Documented by: Admin: 12/20/19 19:51 Dose: 1,000 mls/hr Documented by: TOMASA Ketorolac Tromethamine (Toradol) 30 mg IV NOW ONE Stop: 12/20/19 21:40 Last Admin: 12/20/19 21:48 Dose: 30 mg Documented by: TOMASA Morphine Sulfate (Morphine) 4 mg IV NOW ONE Stop: 12/20/19 19:40 Last Admin: 12/20/19 19:51 Dose: 4 mg Documented by: TOMASA Morphine Sulfate (Morphine) 4 mg IV NOW ONE Stop: 12/20/19 22:39 Last Admin: 12/20/19 22:49 Dose: 4 mg Documented by: TOMASA Pantoprazole Sodium (Protonix) 40 mg IV NOW ONE Stop: 12/20/19 19:40 Last Admin: 12/20/19 19:51 Dose: 40 mg Documented by: TOMASA Vital Signs Vital signs: Vital Signs - 8 hr 12/20/19 18:25 12/20/19 19:36 12/20/19 19:37 Temperature 96.5 F L Pulse Rate 103 H 97 H Respiratory Rate 18 Blood Pressure 117/87 123/79 Pulse Oximetry 94 99 99 12/20/19 20:00 12/20/19 20:30 12/20/19 21:00 Temperature Pulse Rate 94 H 85 81 Respiratory Rate Blood Pressure Pulse Oximetry 99 100 98 12/20/19 21:46 12/20/19 22:00 12/20/19 22:17 Temperature Pulse Rate 112 H 103 H 102 H Respiratory Rate Blood Pressure Pulse Oximetry 97 97 95 12/20/19 22:54 12/21/19 00:13 Temperature Pulse Rate 102 H 90 Respiratory Rate 18 Blood Pressure 155/83 H 127/64 Pulse Oximetry 95 98 MDM - Abdominal Pain Lab Data Result diagrams: 12/20/19 18:36 12/20/19 18:36 Labs: Lab Results 12/20/19 12/20/19 12/20/19 Range/Units 18:36 18:36 18:36 WBC 9.6 (4.5-11.0) X10^3/uL RBC 4.71 (4.0-5.2) X10^6/uL Hgb 12.7 (12.0-16.0) g/dL Hct 38.6 (36-46) % MCV 82.0 (80-100) fL MCH 26.9 (26-34) PG MCHC 32.8 (30-36) % RDW 14.2 (11.6-14.8) % Plt Count 364 (150-400) X10^3/uL Neut % (Auto) 62.2 (50-75) % Lymph % (Auto) 25.7 (25-40) % Hale % (Auto) 5.9 (3-14) % Eos % (Auto) 4.7 H (2-4) % Baso % (Auto) 1.5 (0-2) % Neut # (Auto) 6000 (9973-9098) /uL Lymph # (Auto) 2500 (4257-1064) /uL Hale # (Auto) 600 (0-900) /uL Eos # (Auto) 400 (0-450) /uL Baso # (Auto) 100 (0-100) /uL PT 10.3 (10.1-12.7) SECONDS INR 0.9 (0.9-1.3) APTT 32 (26.4-36.2) SECONDS Sodium 138 (137-145) mmol/L Potassium 3.7 (3.4-5.1) mmol/L Chloride 104 (98-107) mmol/L Carbon Dioxide 30 (22-32) mmol/L BUN 11 (7-17) mg/dL Creatinine 0.71 (0.52-1.04) mg/dL Estimated GFR > 60.0 (>60) mL/min BUN/Creatinine Ratio 15.5 (6-22) Glucose 105 (80-110) mg/dL Calcium 9.1 (8.4-10.2) mg/dL Total Bilirubin 0.3 (0.2-1.3) mg/dL AST 21 (14-36) IU/L ALT 14 (<35) IU/L Alkaline Phosphatase 79 (38-126) U/L Total Protein 7.1 (6.3-8.2) g/dL Albumin 4.2 (3.5-5.0) g/dL Globulin 2.9 (1.7-4.1) g/dL Albumin/Globulin Ratio 1.4 (1.0-2.8) Lipase 53 (23-300) U/L Point of care testing: Urine Dip Bedside Urine Glucose Negative Bedside Urine Bilirubin - Negative Bedside Urine Ketone - Negative Urine Specific [place] 1.010 Bedside Urine Occult Blood - Negative Bedside Urine pH 6 Bedside Urine Protein - Negative Bedside Urine Urobilinogen - Negative Bedside Urine Nitrite - Negative Bedside Urine Leukocytes - Negative Esterase Imaging Data US - abdomen: My Impression: Mild CBD dilatation, consistent with post cholecystectomy changes. No significant findings. CT scan - abdomen/pelvis: Radiologist's Impression: No acute findings. Discharge Plan Departure Patient Disposition: Home Clinical Impression: Abdominal pain, acute, right upper quadrant Instructions: DI for Abdominal Pain-Adult Activity Restrictions/Additional Instructions: Continue her current medications. I recommend a bland diet. Percocet every 4 hours as needed for pain. Follow-up with your clinic doctor, I would suggest Gastroenterology consultation. Return to the ER for fever or increased pain. Prescriptions: New oxycodone-acetaminophen [Percocet] 5-325 mg tablet 1 tab PO Q4-6H PRN (Reason: pain) Qty: 14 RF: 0 No Action docusate sodium 50 mg capsule 100 mg PO DAILY PRN (Reason: constipation) Qty: 60 RF: 3 diphenhydramine HCl [Allergy (diphenhydramine)] 25 mg capsule 25 mg PO BEDTIME PRN (Reason: itching) Qty: 30 RF: 0 Ventolin HFA 90 mcg/actuation HFA aerosol inhaler 2 puff INHALATION Q4-6H PRN (Reason: shortness of breath or wheezing) Qty: 18 RF: 3 tizanidine 4 mg tablet 8 mg PO TID PRN (Reason: muscle spasticity) Qty: 180 RF: 0 gabapentin 300 mg capsule 300 mg PO TID PRN (Reason: pain) Qty: 270 RF: 3 trazodone 100 mg tablet 100 mg PO DAILY Qty: 90 RF: 0 pantoprazole 40 mg tablet,delayed release (DR/EC) 40 mg PO BID Qty: 180 RF: 0 oxycodone 10 mg tablet 10 mg PO Q4-6H PRN (Reason: pain) Qty: 40 RF: 0 acetaminophen [Tylenol Extra Strength] 500 mg tablet 500 mg PO Q4H PRN (Reason: pain) Qty: 60 RF: 0 oxycodone-acetaminophen 10-325 mg tablet 1 tab PO Q6H PRN (Reason: pain) Qty: 20 RF: 0 docusate sodium 50 mg capsule 50 mg PO BID Qty: 60 RF: 0 pantoprazole 20 mg tablet,delayed release (DR/EC) 20 mg PO DAILY Qty: 30 RF: 0 cyclobenzaprine 10 mg tablet 10 mg PO TID PRN (Reason: muscle spasm) Qty: 14 RF: 0 lidocaine 5 % adhesive patch,medicated 1 patch TOP DAILY PRN (Reason: pain) Qty: 15 RF: 0 ketorolac 10 mg tablet 10 mg PO TID PRN (Reason: pain) Qty: 14 RF: 0 oxycodone 10 mg tablet 10 mg PO Q6H PRN (Reason: painful procedure) Qty: 14 RF: 0 omeprazole 20 mg capsule,delayed release(DR/EC) 20 mg PO DAILY Qty: 30 RF: 0 albuterol sulfate [Ventolin HFA] 90 mcg/actuation HFA aerosol inhaler 1 inhalation INHALATION QID PRN (Reason: shortness of breath or wheezing) Qty: 18 RF: 0 guaifenesin 1,200 mg tablet extended release 12hr 1,200 mg PO BID PRN (Reason: cough) Qty: 20 RF: 0
--- NOTE | 2019-12-20 19:40 | DI.US.S_ITS ---
PROCEDURE: US ABDOMEN LIMITED INDICATIONS: RUQ PAIN TECHNIQUE: Real-time focused scanning was performed of the abdomen, with image documentation. COMPARISON: None. FINDINGS: Liver is normal in size and homogeneous in echotexture. Gallbladder is surgically absent. Biliary tree is nondilated. Common bile duct measures 7.9 millimeters. Pancreas is obscured by bowel gas and cannot be evaluated. IMPRESSION: 1. Status post cholecystectomy. 2. No sonographic evidence of biliary obstruction. Dictated by: Deanna Conner MD, PhD on 12/21/2019 at 8:00 Approved by: Deanna Conner MD, PhD on 12/21/2019 at 8:00
[2019-12-20] MEDS: MORPHINE 4 MG/ML INJ IV ×2 (19:51→22:49)
[2019-12-20] MEDS: SODIUM CHLORIDE 0.9% 500 ML 1000 ML IV (19:51)
[2019-12-20] MEDS: PANTOPRAZOLE 40 MG VIAL IV (19:51)
[2019-12-20] MEDS: KETOROLAC 60 MG/2 ML VIAL 30 MG IV (21:48)
[2019-12-20] MEDS: MAG HYDROX/ALUMINUM/SIMETH SUS 20 ML, LIDOCAINE VISCOUS 2% 15 ML PO (21:49)
--- NOTE | 2019-12-20 21:51 | PC.NURSE ---
Pt pressed the call bhatti again around 2134 requesting more pain medication. MD had become extremely busy from when I first requested pain medication for abd pain and an antacid approximately 30 min ago. I went to him and again asked for meds at 2134, he put in the orders for Torodol and a GI cocktail at this time. In this 10 min window US had arrived to the room and is setting up at bedside. I arrived to the room with Torodol and she started to yell I don't want no fucking Torodol. That stuff is shit and never god guerlinen works. I informed her that the MD does not wish to order more morphine at this time. And she was very verbally unhappy with this. I then handed her the GI cocktail and she yelled at both Jeanne with US and I to back the fuck up I'm not a fucking child. At that time I told her that being verbally abusive towards staff will not be tolerated. She asked me to leave the room at that time and I needed to reconnect her to the vital sign machine d/t her receiving Morphine earlier. She jerked her arm away and said that she was going to rip it right back off when I left the room. I educated her the importance of monitoring vitals especially after receiving a strong narcotic. She allowed me to place the BP cuff back on her arm and I left the room. care worker has been notified of pt's behavior.
--- NOTE | 2019-12-20 22:20 | PC.NURSE ---
Pt requesting to speak with MD. notified of pt's request.
--- NOTE | 2019-12-20 22:22 | PC.NURSE ---
Pt has again taken off her bp cuff and O2 probe
--- NOTE | 2019-12-20 22:38 | DI.CT.S_ITS ---
PROCEDURE: CT ABDOMEN PELVIS W CON INDICATIONS: Right upper quadrant pain TECHNIQUE: After the administration of intravenous contrast, 5 mm thick sections acquired from the diaphragm to the symphysis. 5 mm coronal and sagittal reformats were acquired. For radiation dose reduction, the following was used: automated exposure control, adjustment of mA and/or kV according to patient size. COMPARISON: [facility], CT, ABDOMEN/PELVIS WITH CONTRAST, 05/21/2009, 21:50. [facility], CT, CT ABDOMEN PELVIS W CON, 05/21/2019, 18:33. [facility], CT, CT ABDOMEN PELVIS W CON, 11/05/2019, 16:07. FINDINGS: Image quality: Excellent. ABDOMEN: Lung bases: Left lower lobe and lingula atelectasis. Heart size is normal. Tiny hiatal hernia. Solid organs: Liver is normal in size and enhancement. Gallbladder is surgically absent. Biliary system is non dilated. Pancreas enhances normally. Spleen is normal in size and enhancement. No adrenal nodules. Kidneys demonstrate normal size and enhancement, without hydronephrosis. Peritoneum and bowel: Mild distention of the stomach. There is an air-fluid level. Bowel loops demonstrate normal wall thickness and caliber. There are scattered colonic diverticula. No free fluid or air. Nodes and vessels: No retroperitoneal or mesenteric adenopathy by size criteria. Aorta and inferior vena cava are normal in size. Miscellaneous: No ventral hernias. PELVIS: Genitourinary: Uterus and ovaries are not visualized, likely surgically removed. Bladder wall thickness is normal. Miscellaneous: No inguinal hernias or adenopathy. Bones: No suspicious bony lesions. No vertebral body compression fractures. Degenerative and postsurgical changes in lumbar spine. IMPRESSION: 1. Mild gastric distention with an air-fluid level. This finding is nonspecific. 2. Diverticulosis without acute diverticulitis. 3. Cholecystectomy. No significant discrepancy with the [facility] radiology preliminary report. Dictated by: Umm Rocha M.D. on 12/21/2019 at 7:20 Approved by: Umm Rocha M.D. on 12/21/2019 at 7:27
[2019-12-20] MEDS: SODIUM CHLORIDE 0.9% 1,000 ML 150 ML IV (22:50)
--- NOTE | 2019-12-20 23:05 | PC.NURSE ---
Pt back from CT. Pt refused to be reconnected to vitals or IVF
[2019-12-21 00:13] VITALS: BP 127/64; PULSE 90; O2SAT 98
[2019-12-21] MEDS: OXYCODONE/ACETAMINOPHEN 5/325 TABLET 1 TAB PO (00:40)
== END 2019-12-21 00:42 | disposition home or self-care (01) ==
PROVIDERS: Emergency Provider Emergency Medicine
DX: R10.11 Right upper quadrant pain (principal); R11.0 Nausea
CPT/HCPCS: 36415; 74177; 76705; 80053; 81003; 83690; 85025; 85610; 85730; 93005; 96361; 96374; 96375; 96376; 99284; C9113; J1885; J2270; Q9967

== ENCOUNTER 2019-12-31 13:48 | Emergency (ER) | payer MEDICARE, MEDICAID, SELFPAY ==
[2019-05-22 21:34] VITALS: BMI 24.2
[2019-12-31] VITALS (10 sets, daily range): BP systolic 134–191; BP diastolic 91–113; PULSE 97–121; RESP 24–46; TEMP 36.5; O2SAT 97–99
--- NOTE | 2019-12-31 14:11 | PC.NURSE ---
Addendum entered by Eli Spears R.N. 12/31/19 14:13: Pain radiates to R flank Original Note: Reports constant pressure/pain /10 mostly in RUQ, radiates all over. Intermittent diarrhea. Denies nausea/vomiting.
[2019-12-31] MEDS: SODIUM CHLORIDE 0.9% 1,000 ML 150 ML IV (14:24)
[2019-12-31] MEDS: KETOROLAC 60 MG/2 ML VIAL 30 MG IV (14:24)
[2019-12-31 14:25] LABS: Add Manual Diff / Slide Review NO; Basophils Absolute Auto 100 /uL (0-100); Basophils Percent Auto 1.2 % (0-2); Eosinophils Absolute Auto 200 /uL (0-450); Eosinophils Percent Auto 2.4 % (2-4); Hemoglobin 14.6 g/dL (12.0-16.0); Lymphocytes Absolute Auto 2200 /uL (1100-4500); Lymphocytes Percent Auto 22.5 % (25-40); Mean Corpuscular HGB Conc 32.3 % (30-36); Mean Corpuscular Hemoglobin 26.4 PG (26-34); Mean Corpuscular Volume 81.6 fL (80-100); Monocytes Absolute Auto 500 /uL (0-900); Neutrophils Absolute Auto 6800 /uL (1500-7000); Neutrophils Percent Auto 68.9 % (50-75); Platelet Count 423 X10^3/uL (150-400); Red Blood Cell Count 5.52 X10^6/uL (4.0-5.2); Red Cell Distribution Width 13.9 % (11.6-14.8); White Blood Cell Count 9.8 X10^3/uL (4.5-11.0)
[2019-12-31] MEDS: ONDANSETRON 4 MG/2 ML INJ IV (14:25)
[2019-12-31] MEDS: PANTOPRAZOLE 40 MG VIAL IV (14:25)
[2019-12-31 14:31] LABS: Alanine Aminotransferase 17 IU/L (<35); Albumin 4.6 g/dL (3.5-5.0); Albumin Globulin Ratio 1.3 (1.0-2.8); Alkaline Phosphatase 113 U/L (38-126); Aspartate Aminotransferase 23 IU/L (14-36); BUN Creatinine Ratio 15.9 (6-22); Bilirubin Total 0.7 mg/dL (0.2-1.3); Blood Urea Nitrogen 10 mg/dL (7-17); Calcium 9.5 mg/dL (8.4-10.2); Carbon Dioxide 29 mmol/L (22-32); Chloride 102 mmol/L (98-107); Estimated Glomerular Filt Rate > 60.0 mL/min (>60); Globulin 3.5 g/dL (1.7-4.1); Glucose 101 mg/dL (80-110); HEMOLYSIS < 15 (0-50); Lipase 46 U/L (23-300); Potassium 3.8 mmol/L (3.4-5.1); Sodium 136 mmol/L (137-145); Total Protein 8.1 g/dL (6.3-8.2)
--- NOTE | 2019-12-31 14:37 | ED.ABDPAIN ---
HPI - Abdominal Pain General Chief Complaint: Abdominal Pain Stated Complaint: abd pain Time Seen by Provider: 12/31/19 13:59 Source: patient Mode of arrival: Ambulatory Limitations: no limitations History of Present Illness HPI narrative: The patient is a 64 year old female who presents with right upper quadrant pain. She has been evaluated in the ED the last 2 and half weeks. She is status post cholecystectomy and May of 2019. Was seen here last on December 20 2019 were she had full workup including abdominal CT and abdominal ultrasound blood work. All which were negative. She states that she has had ongoing pain she is demanding an MRI. She saw someone for an EGD yesterday but it is not yet scheduled. She continues to have pain in her right flank and right upper quadrant. She is writhing around. She was previously given pain medication but she says she is out. She denies fever chills nausea or vomiting. She received pain medication on the for 14 tablets. She was evaluated on December 12 for short of breath, bronchitis MD complaint: abdominal pain Onset (ago): week(s) Related Data Previous Rx's Medication Instructions Recorded albuterol sulfate 90 mcg/actuation 2 puff INHALATION Q4-6H PRN #18 04/22/18 aerosol inhaler gram pantoprazole 40 mg tablet,delayed 40 mg PO BID #180 tab 11/12/18 release trazodone 100 mg tablet 100 mg PO DAILY #90 tab 11/12/18 tizanidine 4 mg tablet 8 mg PO TID PRN #180 tab 12/02/18 acetaminophen [Tylenol Extra 500 mg PO Q4H PRN #60 tab 12/17/18 Strength] oxycodone 10 mg PO Q4-6H PRN #40 tab 12/17/18 diphenhydramine HCl 25 mg capsule 25 mg PO BEDTIME PRN #30 cap 01/12/19 docusate sodium 50 mg capsule 100 mg PO DAILY PRN #60 cap 01/12/19 gabapentin 300 mg capsule 300 mg PO TID PRN #270 cap 01/17/19 oxycodone 10 mg PO Q6H PRN #14 tab 05/22/19 albuterol sulfate [Ventolin HFA] 1 inhalation INHALATION QID PRN 05/23/19 #18 gram omeprazole 20 mg PO DAILY #30 cap 05/23/19 docusate sodium 50 mg PO BID #60 cap 06/01/19 oxycodone-acetaminophen 1 tab PO Q6H PRN #20 tab 06/01/19 pantoprazole 20 mg PO DAILY #30 tab 06/01/19 cyclobenzaprine 10 mg PO TID PRN #14 tab 11/05/19 ketorolac 10 mg PO TID PRN #14 tab 11/05/19 lidocaine 1 patch TOP DAILY PRN #15 each 11/05/19 guaifenesin 1,200 mg PO BID PRN #20 tab 12/12/19 oxycodone-acetaminophen [Percocet] 1 tab PO Q4-6H PRN #14 tab 12/21/19 Allergies Allergy/AdvReac Type Severity Reaction Status Date / Time duloxetine [From Cymbalta] Allergy Mild insomnia, Verified 12/31/19 13:59 teeth clenching adhesive tape [ADHESIVE TAPE] Allergy Unknown Verified 12/31/19 13:59 hydrocodone [From VICODIN] Allergy Unknown STOMACH Verified 12/31/19 13:59 UPSET venlafaxine AdvReac Intermediate sweating, Verified 12/31/19 13:59 insomnia Review of Systems Review of Systems Narrative: GENERAL: Denies chills, fatigue, malaise, fever, sweats, travel HEENT: Denies sinus pain, ear pain, sore throat, difficulty swallowing, neck pain RESPIRATORY: Denies dyspnea, cough, wheezing, hemoptysis, sputum. CARDIOVASCULAR: Denies chest pain, palpitations, orthopnea, edema GASTROINTESTINAL: See HPI : Denies dysuria, frequency, incontinence, hematuria, urinary retention, flank pain. MUSCULOSKELETAL: Denies weakness, joint pain, or bony pain SKIN: No rash, no erythema, no pruritus NEUROLOGIC: Denies weakness, dizziness, headache, numbness, change in speech, confusion PSYCHIATRIC: No concerning psychosocial issues. 12 point review of systems is negative except for those stated above and HPI Patient History Medical History Ankle pain (Chronic 2016) Anxiety (Chronic) Cervical spine disease (Chronic 2007) Chronic back pain (Chronic 1981) Chronic cough (Chronic) Chronic headaches (Chronic) Foot pain (Chronic) GERD (gastroesophageal reflux disease) (Resolved) Lumbar spinal stenosis (Chronic) Lumbar spine pain (Chronic) Osteopenia (Chronic) Osteoporosis (Chronic) Peripheral neuropathy (Chronic 2012) Scoliosis (Chronic) Skin spots-aging (Chronic) Surgical History Anesthesia (Resolved) History of cervical spinal surgery (Resolved 2007) History of hysterectomy (Resolved 1992) History of lumbar laminectomy (Resolved 2013) History of lumbar laminectomy (Resolved ~1989) Status post epidural steroid injection (Acute 04/28/18) Family History Father No problems noted. Mother Colon cancer Liver cancer Heart disease Hypertension Brother Obesity Diabetes mellitus Hypertension Brother No problems noted. Brother No problems noted. Sister No problems noted. Grandfather No problems noted. Grandmother No problems noted. Grandfather No problems noted. Grandmother No problems noted. Family/Other No problems noted. Social History household members: none and other Smoking Status: Current every day smoker alcohol intake: current Smoking Status: Current every day smoker alcohol intake frequency: holidays/special occasions only Substance Use Type: marijuana Exam Initial Vital Signs Initial Vital Signs: Vital Signs Temperature 97.7 F 12/31/19 13:59 Pulse Rate 112 H 12/31/19 13:59 Respiratory Rate 24 12/31/19 13:59 Blood Pressure 171/113 H 12/31/19 13:59 Pulse Oximetry 99 12/31/19 13:59 GENERAL: Tearful crying cannot find comfortable position and in no acute distress. HEENT: Head atraumatic,EOMI, pupils reactive, face symmetric, moist mucous membranes CARDIOVASCULAR: Regular rate and rhythm without murmurs, rubs or gallops. RESPIRATORY: Breath sounds equal bilaterally, no wheezes rales or rhonchi. ABDOMEN: Soft, tender right upper quadrant no guarding no rebound mild right CVA tenderness EXTREMITIES: Normal range of motion, no clubbing or edema. Neurovascularly intact NEUROLOGICAL: Alert and oriented x4.Normal gait and speech. SKIN: Warm, dry, no laceration, no petechiae, no rashes or lesions. Course Orders Ordered: ED Orders 12/31/19 14:00 Complete Blood Count AUTO DIFF Stat Comprehensive Metabolic Panel Stat Lipase Stat 12/31/19 15:01 US abdomen complete Stat Discontinued Medications Sodium Chloride (Normal Saline 0.9%) 1,000 mls @ 150 mls/hr IV CONT ROXANNE Last Infusion: 12/31/19 16:54 Dose: 150 mls/hr Documented by: Admin: 12/31/19 14:24 Dose: 150 mls/hr Documented by: MINA Lidocaine HCl 6 ml/ Sodium (Chloride) 56 mls @ 336 mls/hr IV NOW ONE Stop: 12/31/19 15:02 Last Infusion: 12/31/19 15:48 Dose: 0 mls/hr Documented by: Admin: 12/31/19 15:26 Dose: 336 mls/hr Documented by: MINA Ketorolac Tromethamine (Toradol) 30 mg IV NOW ONE Stop: 12/31/19 14:16 Last Admin: 12/31/19 14:24 Dose: 30 mg Documented by: MINA Ondansetron HCl (Zofran) 4 mg IV NOW ONE Stop: 12/31/19 14:16 Last Admin: 12/31/19 16:33 Dose: Not Given Documented by: MINA Pantoprazole Sodium (Protonix) 40 mg IV NOW ONE Stop: 12/31/19 14:16 Last Admin: 12/31/19 14:25 Dose: 40 mg Documented by: MINA Vital Signs Vital signs: Vital Signs - 8 hr 12/31/19 13:59 12/31/19 14:13 12/31/19 14:30 Temperature 97.7 F Pulse Rate 112 H 101 H 110 H Respiratory Rate 24 Blood Pressure 171/113 H Pulse Oximetry 99 99 98 12/31/19 14:31 12/31/19 14:51 12/31/19 15:00 Temperature Pulse Rate 103 H 99 H 97 H Respiratory Rate 25 H 27 H Blood Pressure 169/107 H 153/96 H Pulse Oximetry 98 98 98 12/31/19 15:01 12/31/19 15:30 12/31/19 15:31 Temperature Pulse Rate 98 H 107 H 105 H Respiratory Rate 46 H 37 H Blood Pressure 163/102 H 191/91 H Pulse Oximetry 99 12/31/19 16:54 Temperature Pulse Rate 121 H Respiratory Rate Blood Pressure 134/105 H Pulse Oximetry 97 MDM - Abdominal Pain Lab Data Attestation: I reviewed the patient's lab results. Result diagrams: 12/31/19 14:00 12/31/19 14:00 Labs: Lab Results 12/31/19 12/31/19 Range/Units 14:00 14:00 WBC 9.8 (4.5-11.0) X10^3/uL RBC 5.52 H (4.0-5.2) X10^6/uL Hgb 14.6 (12.0-16.0) g/dL Hct 45.0 (36-46) % MCV 81.6 (80-100) fL MCH 26.4 (26-34) PG MCHC 32.3 (30-36) % RDW 13.9 (11.6-14.8) % Plt Count 423 H (150-400) X10^3/uL Neut % (Auto) 68.9 (50-75) % Lymph % (Auto) 22.5 L (25-40) % [place] % (Auto) 5.0 (3-14) % Eos % (Auto) 2.4 (2-4) % Baso % (Auto) 1.2 (0-2) % Neut # (Auto) 6800 (5475-8793) /uL Lymph # (Auto) 2200 (0520-1528) /uL [place] # (Auto) 500 (0-900) /uL Eos # (Auto) 200 (0-450) /uL Baso # (Auto) 100 (0-100) /uL Sodium 136 L (137-145) mmol/L Potassium 3.8 (3.4-5.1) mmol/L Chloride 102 (98-107) mmol/L Carbon Dioxide 29 (22-32) mmol/L BUN 10 (7-17) mg/dL Creatinine 0.63 (0.52-1.04) mg/dL Estimated GFR > 60.0 (>60) mL/min BUN/Creatinine Ratio 15.9 (6-22) Glucose 101 (80-110) mg/dL Calcium 9.5 (8.4-10.2) mg/dL Total Bilirubin 0.7 (0.2-1.3) mg/dL AST 23 (14-36) IU/L ALT 17 (<35) IU/L Alkaline Phosphatase 113 (38-126) U/L Total Protein 8.1 (6.3-8.2) g/dL Albumin 4.6 (3.5-5.0) g/dL Globulin 3.5 (1.7-4.1) g/dL Albumin/Globulin Ratio 1.3 (1.0-2.8) Lipase 46 (23-300) U/L Point of care testing: Urine Dip Bedside Urine Glucose Negative Bedside Urine Bilirubin - Negative Bedside Urine Ketone - Negative Urine Specific [place] 1.010 Bedside Urine Occult Blood - Negative Bedside Urine pH 7 Bedside Urine Protein - Negative Bedside Urine Urobilinogen - Negative Bedside Urine Nitrite - Negative Bedside Urine Leukocytes - Negative Esterase Imaging Data US - abdomen: Radiologist's Impression: PROCEDURE: US ABDOMEN COMPLETE INDICATIONS: RIGHT UPPER QUADRANT AND RIGHT FLANK PAIN TECHNIQUE: Real-time scanning was performed of the abdominal and retroperitoneal organs, with image documentation. COMPARISON: [facility], CT, CT ABDOMEN PELVIS W CON, 12/20/2019, 22:47. FINDINGS: Liver: Liver is normal in size and homogeneous in echotexture. Gallbladder: Surgically absent Biliary ducts: Intrahepatic bile ducts are non-dilated. Extrahepatic bile duct caliber measures 6.7 mm. Normal is 6-7 mm or less in diameter, or 10 mm or less post-cholecystectomy. Pancreas: Visualized portions of the pancreas are sonographically normal. Spleen: Spleen is normal in size and homogeneous in echotexture. Kidneys: Kidneys are normal in size and echotexture. Right kidney measures 11.4 cm long; left kidney measures 10.5 cm long. No hydronephrosis or nephrolithiasis. No solid masses. Aorta: Not well seen Iliacs: Not well seen IVC: Not well seen Miscellaneous: No free abdominal fluid. IMPRESSION: Limited evaluation demonstrating no acute process. Dictated by: Gretchen Eastman M.D. on 12/31/2019 at 16:20 Approved by: Gretchen Eastman M.D. on 12/31/2019 at 16:21 MDM Narrative Medical decision making narrative: Patient received Toradol and lidocaine drip for pain. It has not controlled her pain she previously received narcotic medications. She has seen specialists, she had a CT 10 days ago which did not show any significant abnormality. Blood work today is overall reassuring she has no leukocytosis no elevated bilirubin or lipase. Ultrasound is limited but does not detect gallstone or kidney stone. She has been having ongoing pain for months. In seen in the ED multiple times for this. I have discussed with her that she has been given pain medications in the ED and fortunately they did not relieve her pain. However she has chronic ongoing pain in this case to be addressed by primary care provider. Discharge Plan Departure Patient Disposition: Home Clinical Impression: Abdominal pain Qualifiers: Abdominal location: right upper quadrant Qualified Code(s): R10.11 - Right upper quadrant pain Discharge Date/Time: 12/31/19 16:57 Instructions: DI for Abdominal Pain-Adult Activity Restrictions/Additional Instructions: *You have been diagnosed with abdominal pain *What to do: At this time blood work ultrasound are overall reassuring. I recommend that you have further outpatient workup. If you continue to have pain you do need to see her primary care physician in regards to pain management *Continue to take medications as directed The Tylenol 650 mg every 4-6 hours if needed for [id number] pain Motrin 600 mg every 6-8 hours if needed for [id number] pain *Follow up with your primary care provider in 2-3 days *Return to ER if you should have worsening pain nausea vomiting, fever or any new, worsening or concerning symptoms Prescriptions: No Action docusate sodium 50 mg capsule 100 mg PO DAILY PRN (Reason: constipation) Qty: 60 RF: 3 diphenhydramine HCl [Allergy (diphenhydramine)] 25 mg capsule 25 mg PO BEDTIME PRN (Reason: itching) Qty: 30 RF: 0 Ventolin HFA 90 mcg/actuation HFA aerosol inhaler 2 puff INHALATION Q4-6H PRN (Reason: shortness of breath or wheezing) Qty: 18 RF: 3 tizanidine 4 mg tablet 8 mg PO TID PRN (Reason: muscle spasticity) Qty: 180 RF: 0 gabapentin 300 mg capsule 300 mg PO TID PRN (Reason: pain) Qty: 270 RF: 3 trazodone 100 mg tablet 100 mg PO DAILY Qty: 90 RF: 0 pantoprazole 40 mg tablet,delayed release (DR/EC) 40 mg PO BID Qty: 180 RF: 0 oxycodone 10 mg tablet 10 mg PO Q4-6H PRN (Reason: pain) Qty: 40 RF: 0 acetaminophen [Tylenol Extra Strength] 500 mg tablet 500 mg PO Q4H PRN (Reason: pain) Qty: 60 RF: 0 oxycodone-acetaminophen 10-325 mg tablet 1 tab PO Q6H PRN (Reason: pain) Qty: 20 RF: 0 docusate sodium 50 mg capsule 50 mg PO BID Qty: 60 RF: 0 pantoprazole 20 mg tablet,delayed release (DR/EC) 20 mg PO DAILY Qty: 30 RF: 0 cyclobenzaprine 10 mg tablet 10 mg PO TID PRN (Reason: muscle spasm) Qty: 14 RF: 0 lidocaine 5 % adhesive patch,medicated 1 patch TOP DAILY PRN (Reason: pain) Qty: 15 RF: 0 ketorolac 10 mg tablet 10 mg PO TID PRN (Reason: pain) Qty: 14 RF: 0 oxycodone 10 mg tablet 10 mg PO Q6H PRN (Reason: painful procedure) Qty: 14 RF: 0 omeprazole 20 mg capsule,delayed release(DR/EC) 20 mg PO DAILY Qty: 30 RF: 0 albuterol sulfate [Ventolin HFA] 90 mcg/actuation HFA aerosol inhaler 1 inhalation INHALATION QID PRN (Reason: shortness of breath or wheezing) Qty: 18 RF: 0 guaifenesin 1,200 mg tablet extended release 12hr 1,200 mg PO BID PRN (Reason: cough) Qty: 20 RF: 0 oxycodone-acetaminophen [Percocet] 5-325 mg tablet 1 tab PO Q4-6H PRN (Reason: pain) Qty: 14 RF: 0
--- NOTE | 2019-12-31 15:01 | DI.US.S_ITS ---
PROCEDURE: US ABDOMEN COMPLETE INDICATIONS: RIGHT UPPER QUADRANT AND RIGHT FLANK PAIN TECHNIQUE: Real-time scanning was performed of the abdominal and retroperitoneal organs, with image documentation. COMPARISON: [facility], CT, CT ABDOMEN PELVIS W CON, 12/20/2019, 22:47. FINDINGS: Liver: Liver is normal in size and homogeneous in echotexture. Gallbladder: Surgically absent Biliary ducts: Intrahepatic bile ducts are non-dilated. Extrahepatic bile duct caliber measures 6.7 mm. Normal is 6-7 mm or less in diameter, or 10 mm or less post-cholecystectomy. Pancreas: Visualized portions of the pancreas are sonographically normal. Spleen: Spleen is normal in size and homogeneous in echotexture. Kidneys: Kidneys are normal in size and echotexture. Right kidney measures 11.4 cm long; left kidney measures 10.5 cm long. No hydronephrosis or nephrolithiasis. No solid masses. Aorta: Not well seen Iliacs: Not well seen IVC: Not well seen Miscellaneous: No free abdominal fluid. IMPRESSION: Limited evaluation demonstrating no acute process. Dictated by: Gretchen Eastman M.D. on 12/31/2019 at 16:20 Approved by: Gretchen Eastman M.D. on 12/31/2019 at 16:21
[2019-12-31] MEDS: LIDOCAINE 2% 6 ML in SODIUM CHLORIDE 0.9% 50 ML 336 ML IV (15:26)
--- NOTE | 2019-12-31 16:06 | PC.NURSE ---
Patient in 11/25 pain [address] pain meds. Dr. Garay Aware. Patient can be heard moaning, yelling, cussing because of pain.
--- NOTE | 2019-12-31 16:24 | PC.NURSE ---
Pt reports no change in pain level after toradol and lidocaine drip. MD notified. Warm blankets provided. Head of bed lowered as pt says that is the most comfortable position for her.
== END 2019-12-31 16:57 | disposition home or self-care (01) ==
PROVIDERS: Emergency Provider Emergency Medicine
DX: R10.11 Right upper quadrant pain (principal)
CPT/HCPCS: 36415; 76700; 80053; 81003; 83690; 85025; 96361; 96365; 96375; 99284; C9113; J1885; J2405

== ENCOUNTER 2020-08-15 16:26 | Emergency (ER) | payer MEDICARE, MEDICAID, SELFPAY ==
[2019-05-22 21:34] VITALS: BMI 24.2
[2020-08-15 16:28] VITALS: PULSE 100; RESP 16; TEMP 36.7; O2SAT 100; BMI 27.3
--- NOTE | 2020-08-15 16:30 | DI.RAD.S_ITS ---
PROCEDURE: XR HIP W PEL IF DONE RT 2V INDICATIONS: pain fall 2 days ago TECHNIQUE: AP pelvis with lateral view(s) of the right hip(s). COMPARISON: None. FINDINGS: Bones: No fractures or dislocations. Pelvic ring appears intact. No suspicious bony lesions. Lower lumbar fixation. Hardware appears intact. Soft tissues: The visualized bowel gas pattern is normal. No suspicious soft tissue calcifications. IMPRESSION: No visualized acute fracture or dislocation. However, if clinical concern and/or pain persist, short interval imaging followup in 7-10 days is recommended, as occult injury cannot be definitively excluded. Dictated by: Juli Chappell M.D. on 08/15/2020 at 16:55 Approved by: Juli Chappell M.D. on 08/15/2020 at 16:56
[2020-08-15 16:34] VITALS: BP 142/87
[2020-08-15] MEDS: MORPHINE 2 MG/ML INJ IV (17:05)
--- NOTE | 2020-08-15 17:05 | ED_ITS ---
HPI - Extremity Injury (Lower) General Chief Complaint: Extremity Injury, Lower Stated Complaint: fall , hip pain Time Seen by Provider: 08/15/20 16:28 Source: EMS Mode of arrival: EMS History of Present Illness HPI Narrative: Patient is a 64 year old female who presents with right hip pain. She says she fell 2 days ago she is trying to sit on her walker when she missed and only landed on her head. She says that is quite painful for her to get to the restroom she has been lying in bed after last 2 days. Also complaining of left ear pain for 2 days no fever or chills. Related Data Previous Rx's Medication Instructions Recorded albuterol sulfate 90 mcg/actuation 2 puff INHALATION Q4-6H PRN #18 04/22/18 aerosol inhaler (Ventolin HFA) gram pantoprazole 40 mg tablet,delayed 40 mg PO BID #180 tab 11/12/18 release trazodone 100 mg tablet 100 mg PO DAILY #90 tab 11/12/18 tizanidine 4 mg tablet 8 mg PO TID PRN #180 tab 12/02/18 acetaminophen 500 mg tablet 500 mg PO Q4H PRN #60 tab 12/17/18 (Tylenol Extra Strength) oxycodone 10 mg tablet 10 mg PO Q4-6H PRN #40 tab 12/17/18 diphenhydramine HCl 25 mg capsule 25 mg PO BEDTIME PRN #30 cap 01/12/19 (Allergy (diphenhydramine)) docusate sodium 50 mg capsule 100 mg PO DAILY PRN #60 cap 01/12/19 gabapentin 300 mg capsule 300 mg PO TID PRN #270 cap 01/17/19 oxycodone 10 mg tablet 10 mg PO Q6H PRN #14 tab 05/22/19 albuterol sulfate 90 mcg/actuation 1 inhalation INHALATION QID PRN 05/23/19 aerosol inhaler (Ventolin HFA) #18 gram omeprazole 20 mg capsule,delayed 20 mg PO DAILY #30 cap 05/23/19 release docusate sodium 50 mg capsule 50 mg PO BID #60 cap 06/01/19 oxycodone-acetaminophen 10 mg-325 1 tab PO Q6H PRN #20 tab 06/01/19 mg tablet pantoprazole 20 mg tablet,delayed 20 mg PO DAILY #30 tab 06/01/19 release cyclobenzaprine 10 mg tablet 10 mg PO TID PRN #14 tab 11/05/19 ketorolac 10 mg tablet 10 mg PO TID PRN #14 tab 11/05/19 lidocaine 5 % topical patch 1 patch TOP DAILY PRN #15 each 11/05/19 guaifenesin 1,200 mg tablet, 1,200 mg PO BID PRN #20 tab 12/12/19 extended release 12 hr oxycodone-acetaminophen 5 mg-325 1 tab PO Q4-6H PRN #14 tab 12/21/19 mg tablet (Percocet) ketorolac 10 mg tablet 10 mg PO TID PRN #10 tab 08/15/20 Allergies Allergy/AdvReac Type Severity Reaction Status Date / Time duloxetine [From Cymbalta] Allergy Mild insomnia, Verified 08/15/20 16:29 teeth clenching adhesive tape [ADHESIVE TAPE] Allergy Unknown Verified 08/15/20 16:29 hydrocodone [From VICODIN] Allergy Unknown STOMACH Verified 08/15/20 16:29 UPSET venlafaxine AdvReac Intermediate sweating, Verified 08/15/20 16:29 insomnia Review of Systems Review of Systems Narrative: GENERAL: Denies chills,fever HEENT: See HPI RESPIRATORY: Denies dyspnea, cough, wheezing CARDIOVASCULAR: Denies chest pain, palpitations GASTROINTESTINAL: Denies nausea, vomiting MUSCULOSKELETAL: He HPI SKIN: No rash, no laceration, no pruritus NEUROLOGIC: Denies weakness, dizziness, headache, numbness 8 point review of systems is negative except for those stated above and HPI Patient History Medical History (Updated 08/15/20 @ 18:57 by Veronica Garay DO) Ankle pain (2016) Anxiety Cervical spine disease (2007) Chronic back pain (1981) Chronic cough Chronic headaches Foot pain GERD (gastroesophageal reflux disease) Lumbar spinal stenosis Lumbar spine pain Osteopenia Osteoporosis Peripheral neuropathy (2012) Scoliosis Skin spots-aging Surgical History Anesthesia History of cervical spinal surgery (2007) History of hysterectomy (1992) History of lumbar laminectomy (2013) History of lumbar laminectomy (~1989) Status post epidural steroid injection (04/28/18) Family History Father No problems noted. Mother Colon cancer Liver cancer Heart disease Hypertension Brother Obesity Diabetes mellitus Hypertension Brother No problems noted. Brother No problems noted. Sister No problems noted. Grandfather No problems noted. Grandmother No problems noted. Grandfather No problems noted. Grandmother No problems noted. Family/Other No problems noted. Social History household members: none and other Smoking Status: Current every day smoker alcohol intake: current Smoking Status: Current every day smoker alcohol intake frequency: holidays/special occasions only Substance Use Type: marijuana Exam Initial Vital Signs Initial Vital Signs: Vital Signs Temperature 98.0 F 08/15/20 16:28 Pulse Rate 100 H 08/15/20 16:28 Respiratory Rate 16 08/15/20 16:28 Pulse Oximetry 100 08/15/20 16:28 GENERAL: Alert 64-year-old female appears uncomfortable HEENT: Head atraumatic,EOMI, pupils reactive, face symmetric, moist mucous membranes EARS: Tympanic membranes visualized, no erythema or bulging, no hemotympanum CARDIOVASCULAR: Regular rate and rhythm without murmurs, rubs or gallops. RESPIRATORY: Breath sounds equal bilaterally, no wheezes rales or rhonchi. ABDOMEN: Soft, nontender. Normoactive bowel sounds all 4 quadrants. No guarding or rebound. EXTREMITIES: Normal range of motion, no clubbing or edema. Neurovascularly intact Right hip no contusion she is able to flex and extend hip pain with internal and external rotation, legs at length distal pedal pulse intact NEUROLOGICAL: Alert and oriented x4. SKIN: Warm, dry, no laceration, no petechiae, no rashes or lesions. Course Orders Ordered: ED Orders 08/15/20 16:30 XR hip w pel if done RT 2V Stat Complete Blood Count AUTO DIFF Stat Comprehensive Metabolic Panel Stat 08/15/20 17:05 CT pelvis wo con Stat Discontinued Medications Ibuprofen (Ibuprofen 400 Mg Tablet) 800 mg PO NOW ONE Stop: 08/15/20 18:46 Last Admin: 08/15/20 19:00 Dose: 800 mg Documented by: MINA Morphine Sulfate (Morphine 2 Mg/Ml Inj) 2 mg IV NOW ONE Stop: 08/15/20 16:31 Last Admin: 08/15/20 17:05 Dose: 2 mg Documented by: AUPDIKE Vital Signs Vital signs: Vital Signs - 8 hr 08/15/20 16:28 08/15/20 16:34 08/15/20 18:52 Temperature 98.0 F Pulse Rate 100 H 94 H Respiratory Rate 16 20 Blood Pressure 142/87 H 156/93 H Pulse Oximetry 100 97 MDM - Extremity Injury (Lower) Imaging Data Extremity x-ray #1: Radiologist's Impression: PROCEDURE: XR HIP W PEL IF DONE RT 2V INDICATIONS: pain fall 2 days ago TECHNIQUE: AP pelvis with lateral view(s) of the right hip(s). COMPARISON: None. FINDINGS: Bones: No fractures or dislocations. Pelvic ring appears intact. No suspicious bony lesions. Lower lumbar fixation. Hardware appears intact. Soft tissues: The visualized bowel gas pattern is normal. No suspicious soft tissue calcifications. IMPRESSION: No visualized acute fracture or dislocation. However, if clinical c oncern and/or pain persist, short interval imaging followup in 7-10 days is recommended, as occult injury cannot be definitively excluded. Dictated by: Juli Chappell M.D. on 08/15/2020 at 16:55 Approved by: Juli Chappell M.D. on 08/15/2020 at 16:56 CT scan - abdomen/pelvis: Radiologist's Impression: PROCEDURE: CT PEL WO CON INDICATIONS: pain right hip fall TECHNIQUE: Noncontrast 3 mm axial sections acquired through the bony pelvis, with coronal and sagittal reformatting. COMPARISON: [facility], XR HIP W PEL IF DONE RT 2V, 08/15/2020, 16:31. FINDINGS: Image quality: Excellent. Bones: Normal bone mineralization without evidence of fracture or dislocation. Mild joint space narrowing noted involving both hips. Both femoral heads have and appropriate contour. Degenerative changes noted in the lower lumbar spine with interbody fusion and posterior instrumentation in place. Soft tissues: There is soft tissue calcification noted adjacent to the right trochanteric bursa. The bursa itself is fluid distended , and there is minimal calcification in the bursal wall noted as well. IMPRESSION: 1. No evidence of hip fracture. 2. Probable chronic right trochanteric bursitis with fluid distention of the bursa and adjacent soft tissue calcification Dictated by: David High M.D. on 08/15/2020 at 17:05 Approved by: David High M.D. on 08/15/2020 at 17:11 [facility] Narrative Medical decision making narrative: Initially labs in IV were ordered however patient declined. Patient's CT does show a bursitis. She is given ibuprofen she says she only had 6 tablets and her os is night and she use the off. She is afebrile there is no erythema do not think septic joint. She is also complaining of left ear pain and at this time I see no infection in her left ear. Discharge Plan Departure Patient Disposition: Home Clinical Impression: Bursitis of hip, right Qualifiers: Hip bursitis location: unspecified Qualified Code(s): M70.71 - Other bursitis of hip, right hip Instructions: Bursitis Activity Restrictions/Additional Instructions: *You have been diagnosed with bursitis right hip *What to do: At this time you have inflammation of your right hip. Recommend ice 20-30 minutes at a time and anti-inflammatories *Continue to take medications as directed--> SENT TO [facility] [place] Ketorolac 10 mg every 8 hours if needed for pain--do not take with ibuprofen, Aleve, Motrin, Advil, naproxen or other NSAIDs *Follow up with your primary care provider in 2-3 days *Return to ER if you should have increasing pain fever weakness numbness or tingling or any new, worsening or concerning symptoms Prescriptions: New ketorolac 10 mg tablet 10 mg PO TID PRN (Reason: pain) Qty: 10 RF: 0 No Action docusate sodium 50 mg capsule 100 mg PO DAILY PRN (Reason: constipation) Qty: 60 RF: 3 diphenhydramine HCl [Allergy (diphenhydramine)] 25 mg capsule 25 mg PO BEDTIME PRN (Reason: itching) Qty: 30 RF: 0 Ventolin HFA 90 mcg/actuation HFA aerosol inhaler 2 puff INHALATION Q4-6H PRN (Reason: shortness of breath or wheezing) Qty: 18 RF: 3 tizanidine 4 mg tablet 8 mg PO TID PRN (Reason: muscle spasticity) Qty: 180 RF: 0 gabapentin 300 mg capsule 300 mg PO TID PRN (Reason: pain) Qty: 270 RF: 3 trazodone 100 mg tablet 100 mg PO DAILY Qty: 90 RF: 0 pantoprazole 40 mg tablet,delayed release (DR/EC) 40 mg PO BID Qty: 180 RF: 0 oxycodone 10 mg tablet 10 mg PO Q4-6H PRN (Reason: pain) Qty: 40 RF: 0 acetaminophen [Tylenol Extra Strength] 500 mg tablet 500 mg PO Q4H PRN (Reason: pain) Qty: 60 RF: 0 oxycodone-acetaminophen 10-325 mg tablet 1 tab PO Q6H PRN (Reason: pain) Qty: 20 RF: 0 docusate sodium 50 mg capsule 50 mg PO BID Qty: 60 RF: 0 pantoprazole 20 mg tablet,delayed release (DR/EC) 20 mg PO DAILY Qty: 30 RF: 0 cyclobenzaprine 10 mg tablet 10 mg PO TID PRN (Reason: muscle spasm) Qty: 14 RF: 0 lidocaine 5 % adhesive patch,medicated 1 patch TOP DAILY PRN (Reason: pain) Qty: 15 RF: 0 ketorolac 10 mg tablet 10 mg PO TID PRN (Reason: pain) Qty: 14 RF: 0 oxycodone 10 mg tablet 10 mg PO Q6H PRN (Reason: painful procedure) Qty: 14 RF: 0 omeprazole 20 mg capsule,delayed release(DR/EC) 20 mg PO DAILY Qty: 30 RF: 0 albuterol sulfate [Ventolin HFA] 90 mcg/actuation HFA aerosol inhaler 1 inhalation INHALATION QID PRN (Reason: shortness of breath or wheezing) Qty: 18 RF: 0 guaifenesin 1,200 mg tablet extended release 12hr 1,200 mg PO BID PRN (Reason: cough) Qty: 20 RF: 0 oxycodone-acetaminophen [Percocet] 5-325 mg tablet 1 tab PO Q4-6H PRN (Reason: pain) Qty: 14 RF: 0
--- NOTE | 2020-08-15 18:14 | PC.NURSE ---
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
[2020-08-15 18:52] VITALS: BP 156/93; PULSE 94; RESP 20; O2SAT 97
[2020-08-15] MEDS: IBUPROFEN 400 MG TABLET 800 MG PO (19:00)
== END 2020-08-15 19:09 | disposition home or self-care (01) ==
PROVIDERS: Emergency Provider Emergency Medicine
DX: M70.71 Other bursitis of hip, right hip (principal); W19.XXXA Unspecified fall, initial encounter
CPT/HCPCS: 72192; 73502; 96374; 99284; J2270

== ENCOUNTER 2020-10-26 21:16 | Emergency (ER) | payer MEDICARE, MEDICAID, SELFPAY ==
[2019-05-22 21:34] VITALS: BMI 24.2
[2020-10-26 21:22] VITALS: BP 116/87; PULSE 104; RESP 18; TEMP 36.6; O2SAT 97
--- NOTE | 2020-10-26 22:57 | PC.NURSE ---
When she arrived,she had a campbell duck tape dressing to her right 2nd finger,I removed the dressing because she thought it was too tight and it hurt.I noticed a well approximated linear lac on palmar side of her 2nd finger near the pip joint that was not bleeding. A 2 by 2 dressing with coban covering was applied and she said than you,it feels better,no bleeding at site.
== END 2020-10-26 22:35 | disposition left against medical advice (07) ==
PROVIDERS: Emergency Provider Emergency Medicine
CPT/HCPCS: 99281

== ENCOUNTER 2021-05-27 15:46 | Emergency (ER) | payer MEDICARE, MEDICAID, SELFPAY ==
[2019-05-22 21:34] VITALS: BMI 24.2
[2021-05-27] VITALS (22 sets, daily range): BP systolic 107–131; BP diastolic 68–80; PULSE 81–100; RESP 16–42; TEMP 36.6; O2SAT 92–99
--- NOTE | 2021-05-27 15:57 | DI.CT.S_ITS ---
PROCEDURE: CT CHEST ABD PEL W CON INDICATIONS: Trauma TECHNIQUE: After the administration of intravenous contrast, axial sections acquired from the supraclavicular neck to the pubic symphysis. Coronal and sagittal reformats were performed. For radiation dose reduction, the following was used: automated exposure control, adjustment of mA and/or kV according to patient size. COMPARISON:[facility], CT, CT ABDOMEN PELVIS W CON, 11/05/2019, 16:07. [facility], CT, CT CERVICAL SPINE WO CON, 05/27/2021, 16:03. [facility], CT, CT HEAD/BRAIN WO CON, 05/27/2021, 16:03. [facility], CT, CT ABDOMEN PELVIS W CON, 12/20/2019, 22:47. [facility], CT, CT PEL WO CON, 08/15/2020, 17:33. FINDINGS: Image quality: Excellent. CHEST: Lower Neck: No enlarged lymph nodes. Thyroid: Small low-density nodules are seen in thyroid gland bilaterally. Axillae: No enlarged lymph nodes. Chest Wall: Unremarkable. Lungs and Airways: Mild subpleural scars and atelectasis in right middle lobe, lingula and both lower lobes. No consolidation or suspicious nodules. Pleura: No pneumothorax or pleural effusions. Heart: Heart size is normal. No pericardial effusion. Mild coronary artery calcification. Thoracic Vessels: The aorta and pulmonary arteries demonstrate normal size. Mediastinum and Maria Ines: No enlarged lymph nodes. Esophagus: No wall thickening. No hiatal hernia. ABDOMEN: Liver: Unremarkable. Mild hepatic steatosis. Gallbladder: Surgically removed. Biliary ducts: Unremarkable. Pancreas: Unremarkable. Spleen: Unremarkable. Adrenal Glands: Unremarkable. Kidneys and Ureters: Unremarkable. Stomach and Bowel: Stomach, small bowel loops, and colon are normal in caliber. Mild colonic wall thickening involving ascending colon may be due to inadequate distention or mild colitis. A few colonic diverticula. No diverticulitis. Peritoneum: No abnormal intraperitoneal fluid. No free air. Ventral Wall: No hernia. Abdominal Nodes: No retroperitoneal or mesenteric adenopathy by size criteria. Vessels: Aorta and inferior vena cava are normal in size. PELVIS: Pelvic Organs: Unremarkable. Bladder: Unremarkable. Pelvic Nodes: No enlarged lymph nodes. Miscellaneous: No inguinal hernias are seen. Bones: Mild compression fracture of the superior endplate of L1. Degenerative changes in lower thoracic spine and lumbar spine. Discectomy and posterior fusion at L3-L4 and L4-L5. IMPRESSION: 1. Mild acute compression fracture of L1. 2. No acute visceral injuries in thorax, abdomen or pelvis. 3. Mild diverticulosis without diverticulitis. 4. Mild colonic wall thickening involving the ascending colon. The finding may be secondary to inadequate distention or mild colitis. Recommend clinical correlation. Dictated by: Umm Rocha M.D. on 05/27/2021 at 17:14 Approved by: Umm Rocha M.D. on 05/27/2021 at 17:28
--- NOTE | 2021-05-27 15:57 | DI.CT.S_ITS ---
PROCEDURE: CT HEAD/BRAIN WO CON INDICATIONS: Trauma TECHNIQUE: Noncontrast 4.5 mm thick angled axial sections acquired from the foramen magnum to the vertex, with coronal and sagittal reformats. For radiation dose reduction, the following was used: automated exposure control, adjustment of mA and/or kV according to patient size. COMPARISON: None. FINDINGS: Image quality: Excellent. CSF spaces: Basal cisterns are patent. No extra-axial fluid collections. Ventricles are normal in size and shape. Brain: No midline shift. No intracranial masses or hemorrhage. Paige-white matter interface is normal. Skull and face: Calvarium and visualized facial bones are intact, without suspicious lesions. Sinuses: Visualized sinuses and mastoids are clear. IMPRESSION: No acute intracranial findings. Dictated by: Jhoana Sierra M.D. on 05/27/2021 at 16:32 Approved by: Jhoana Sierra M.D. on 05/27/2021 at 16:36
--- NOTE | 2021-05-27 15:57 | DI.CT.S_ITS ---
PROCEDURE: CT CERVICAL SPINE WO CON INDICATIONS: Trauma TECHNIQUE: Noncontrast 3 mm thick sections acquired from the skull base to the T4 level. Sagittal and coronal reformats were then constructed. For radiation dose reduction, the following was used: automated exposure control, adjustment of mA and/or kV according to patient size. COMPARISON: [facility], CT, C-SPINE W/CONTRAST, 12/17/2012, 10:46. FINDINGS: Image quality: Patient motion artifact limits evaluation. Bones: No fractures or dislocations. Visualized superior ribs are intact. Patient is status post anterior fusion and discectomy from C3-C6. Mass no hardware fracture. Soft tissues: Prevertebral soft tissues are normal in thickness. No paravertebral hematomas. No apical pneumothoraces. IMPRESSION: No acute cervical spine injury. Dictated by: Jhoana Sierra M.D. on 05/27/2021 at 16:28 Approved by: Jhoana Sierra M.D. on 05/27/2021 at 16:31
--- NOTE | 2021-05-27 16:13 | PC.NURSE ---
Patient is tearful and states you guys are overwhelming me. Declines c-collar and declines second IV. Asking for pain medicine. Provider aware.
[2021-05-27 16:19] LABS: Add Manual Diff / Slide Review NO; Basophils Absolute Auto 100 /uL (0-100); Eosinophils Absolute Auto 400 /uL (0-450); Eosinophils Percent Auto 3.2 % (2-4); Hematocrit 38.9 % (36-46); Hemoglobin 12.5 g/dL (12.0-16.0); Lymphocytes Absolute Auto 1300 /uL (1100-4500); Lymphocytes Percent Auto 10.7 % (25-40); Mean Corpuscular HGB Conc 32.3 % (30-36); Mean Corpuscular Hemoglobin 26.4 PG (26-34); Mean Corpuscular Volume 81.7 fL (80-100); Monocytes Absolute Auto 900 /uL (0-900); Monocytes Percent Auto 7.6 % (3-14); Neutrophils Absolute Auto 9200 /uL (1500-7000); Neutrophils Percent Auto 77.5 % (50-75); Platelet Count 310 X10^3/uL (150-400); Red Blood Cell Count 4.76 X10^6/uL (4.0-5.2); Red Cell Distribution Width 14.7 % (11.6-14.8); White Blood Cell Count 11.9 X10^3/uL (4.5-11.0)
[2021-05-27 16:29] LABS: Lactate (Lactic Acid) 1.8 mmol/L (0.7-2.1)
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
[2021-05-27 16:52] LABS: INR 1.1 (0.9-1.3); Prothrombin Time 12.5 SECONDS (10.1-12.7)
[2021-05-27] MEDS: HYDROMORPHONE 1 MG INJ IV (16:52)
[2021-05-27 17:00] LABS: Albumin 3.5 g/dL (3.5-5.0); Alkaline Phosphatase 61 U/L (38-126); Aspartate Aminotransferase 19 IU/L (14-36); BUN Creatinine Ratio 20.4 (6-22); Bilirubin Total 0.6 mg/dL (0.2-1.3); Blood Urea Nitrogen 19 mg/dL (7-17); Calcium 8.2 mg/dL (8.4-10.2); Carbon Dioxide 30 mmol/L (22-32); Chloride 99 mmol/L (98-107); Creatine Kinase 38 U/L (30-135); Estimated Glomerular Filt Rate > 60.0 mL/min (>60); Ethanol (ETOH) < 10 mg/dL; Glucose 113 mg/dL (80-110); HEMOLYSIS < 15 (0-50); Lipase 30 U/L (23-300); Sodium 134 mmol/L (137-145)
[2021-05-27 17:10] LABS: Troponin I < 0.012 ng/mL (0.01-0.034)
[2021-05-27 17:19] LABS: Alanine Aminotransferase 14 IU/L (<35); Albumin Globulin Ratio 1.3 (1.0-2.8); Globulin 2.8 g/dL (1.7-4.1); Total Protein 6.3 g/dL (6.3-8.2)
[2021-05-27] MEDS: OXYCODONE/ACETAMINOPHEN 5/325 TABLET 2 TAB PO (17:38)
[2021-05-27] MEDS: POTASSIUM CHLORIDE 20 MEQ/15 ML UDC 40 MEQ PO (17:39)
[2021-05-27] MEDS: KETOROLAC 30 MG/ML VIAL 15 MG IV (17:39)
== END 2021-05-27 18:41 | disposition home or self-care (01) ==
PROVIDERS: Emergency Provider Emergency Medicine
DX: S32.010A Wedge compression fracture of first lumbar vertebra, initial encounter for closed fracture (principal); R10.9 Unspecified abdominal pain; F17.200 Nicotine dependence, unspecified, uncomplicated; Z88.5 Allergy status to narcotic agent; W22.8XXA Striking against or struck by other objects, initial encounter; Y93.9 Activity, unspecified; Y92.814 Boat as the place of occurrence of the external cause
CPT/HCPCS: 70450; 71260; 72125; 74177; 80053; 80320; 82550; 83605; 83690; 84484; 85025; 85610; 86850; 86900; 86901; 93005; 96374; 96375; 99284; 99285; J1170; J1885; Q9967

== ENCOUNTER → 2021-08-27 18:13 | Outpatient (CLI) | payer MEDICARE, MEDICAID, SELFPAY ==
[2019-05-22 21:34] VITALS: BMI 24.2
--- NOTE | 2021-08-27 | DI.MRI.S_ITS ---
PROCEDURE: MR LUMBAR SPINE WO CON INDICATIONS: LUMBAR SPINE PAIN TECHNIQUE: Noncontrast sagittal T1 spin echo and T2 fast echo, sagittal STIR, and T2 fast spin echo through the lumbar spine. In cases with scoliosis, additional coronal T2 fast spin echo may be performed. COMPARISON: [facility], MR, MR LUMBAR SPINE WO/W CON, 06/01/2019, 19:27. [facility], MR, MR LUMBAR SPINE WO CON, 03/22/2018, 13:17. FINDINGS: Image quality: Excellent. Alignment and Curvature: Posterior fusion is present from L5 through S1 Bone Marrow: Marrow is of normal overall signal. There is an approximate 45% superior endplate compression deformity at L1 with increased T2 and hypointense T1 signal. Spinal Cord: Conus medullaris terminates at the L2 level. Visualized cord demonstrates normal signal and size. Paraspinous Soft Tissues: No paravertebral masses. Discs: Multilevel moderate disc desiccation is present. T12-L1: No disc bulge, spinal stenosis or foraminal narrowing. L1-L2: No disc bulge, spinal stenosis or foraminal narrowing. No interval change. L2-L3: Mild disc bulge with superimposed left paracentral protrusion, new compared to prior exam. There is moderate spinal stenosis progressive compared to prior exam. Mild bilateral foraminal narrowing is stable. L3-L4: Mild disc bulge with interval superimposed extrusion extending cephalad. There is severe spinal stenosis with canal compression, progressive. Moderate bilateral foraminal narrowing is present, progressive. Facet and ligamentum flavum hypertrophy are present. L4-L5: Postsurgical changes are present. No spinal stenosis. Mild bilateral foraminal narrowing with facet and ligamentum flavum hypertrophy. No interval change. L5-S1: Postsurgical changes are present. No spinal stenosis. Moderate bilateral foraminal narrowing appears unchanged taking into account susceptibility artifact. Facet hypertrophy is present. IMPRESSION: Interval disc bulge with extrusion at L3-4 causing severe spinal stenosis as well as progressive foraminal narrowing. Interval protrusion at L2-3 with mild progressive spinal stenosis. Dictated by: Juli Chappell M.D. on 08/28/2021 at 11:30 Approved by: Juli Chappell M.D. on 08/28/2021 at 11:41
== END ==
PROVIDERS: Referring Provider Physical Medicine & Rehabilitation Pain Medicine; Visit Provider Physical Medicine & Rehabilitation Pain Medicine
DX: M51.26 Other intervertebral disc displacement, lumbar region (principal); M48.061 Spinal stenosis, lumbar region without neurogenic claudication; Z98.1 Arthrodesis status
CPT/HCPCS: 72148

== ENCOUNTER → 2021-11-07 15:45 | Outpatient (CLI) | payer MEDICARE, MEDICAID, SELFPAY ==
[2019-05-22 21:34] VITALS: BMI 24.2
--- NOTE | 2021-11-07 15:50 | DI.CT.S_ITS ---
PROCEDURE: CT LUMBAR SPINE WO CON INDICATIONS: SPINAL STENOSIS TECHNIQUE: Noncontrast 3 mm thick sections acquired from the T12 level to the sacrum. Sagittal and coronal reformats were constructed. For radiation dose reduction, the following was used: automated exposure control. COMPARISON: [facility], MR, MR LUMBAR SPINE WO CON, 08/27/2021, 18:19. FINDINGS: Image quality: Excellent. Bones: L1 compression fracture with 50% wedge-shaped anterior height loss remains unchanged from the prior exam. No retropulsed fracture fragment. Vertebral body height and alignment is otherwise maintained. Discectomy and fusion at L4-5 and L5-S1 associated with nino and screw instrumentation extending from L4 through S1. T12-L1: Posterior disc bulge results in mild central stenosis. Moderate bilateral foraminal stenosis greater on the right. L1-L2: Disc space narrowing and circumferential disc bulge associated with mild central stenosis. Mild bilateral foraminal stenosis L2-L3: Disc space narrowing with circumferential disc bulge and hypertrophic facet joints results in moderate central stenosis and moderate bilateral foraminal stenosis L3-L4: Disc space narrowing with circumferential disc bulge and hypertrophic facet joints associated with ligamentum flavum laxity results in severe central stenosis. Moderate bilateral foraminal stenosis L4-L5: Discectomy and fusion. No central stenosis. Mild bilateral foraminal stenosis L5-S1: Discectomy and fusion. No central stenosis present. There is severe left and moderate right foraminal stenosis Soft tissues: No retroperitoneal masses or hematomas. Visualized aorta is normal in caliber. Cholecystectomy IMPRESSION: 1. Multilevel degenerative disc disease and arthropathy results in varying degrees of central and foraminal stenosis including severe central stenosis at L3-4. 2. Stable L1 compression fracture with 50% anterior height loss. 3. Discectomy and fusion L4-5 and L5-S1 associated with nino and screw instrumentation in good position. Approved by: David High M.D. on 11/07/2021 at 18:39
== END ==
PROVIDERS: Referring Provider Orthopaedic Surgery Orthopaedic Surgery of the Spine; Visit Provider Orthopaedic Surgery Orthopaedic Surgery of the Spine
DX: M48.061 Spinal stenosis, lumbar region without neurogenic claudication (principal); M51.36 Other intervertebral disc degeneration, lumbar region; M47.816 Spondylosis without myelopathy or radiculopathy, lumbar region; M48.56XA Collapsed vertebra, not elsewhere classified, lumbar region, initial encounter for fracture; Z98.1 Arthrodesis status
CPT/HCPCS: 72131

== ENCOUNTER → 2021-11-14 14:04 | Outpatient (CLI) | payer MEDICARE, OTHER, MEDICAID, SELFPAY ==
[2019-05-22 21:34] VITALS: BMI 24.2
[2021-11-14 15:12] LABS: Add Manual Diff / Slide Review NO; Basophils Absolute Auto 100 /uL (0-100); Eosinophils Absolute Auto 300 /uL (0-450); Eosinophils Percent Auto 2.8 % (2-4); Hemoglobin 13.5 g/dL (12.0-16.0); Lymphocytes Absolute Auto 1600 /uL (1100-4500); Lymphocytes Percent Auto 16.9 % (25-40); Mean Corpuscular HGB Conc 33.7 % (30-36); Mean Corpuscular Hemoglobin 27.2 PG (26-34); Mean Corpuscular Volume 80.7 fL (80-100); Monocytes Absolute Auto 400 /uL (0-900); Neutrophils Absolute Auto 6900 /uL (1500-7000); Neutrophils Percent Auto 75.3 % (50-75); Platelet Count 393 X10^3/uL (150-400); Red Blood Cell Count 4.96 X10^6/uL (4.0-5.2); Red Cell Distribution Width 14.4 % (11.6-14.8); White Blood Cell Count 9.2 X10^3/uL (4.5-11.0)
[2021-11-14 15:24] LABS: BUN Creatinine Ratio 19.2 (6-22); Blood Urea Nitrogen 14 mg/dL (7-17); Calcium 9.5 mg/dL (8.4-10.2); Carbon Dioxide 31 mmol/L (22-32); Chloride 103 mmol/L (98-107); Estimated Glomerular Filt Rate > 60 mL/min (>60); Glucose 94 mg/dL (80-110); HEMOLYSIS < 15 (0-50); Potassium 4.4 mmol/L (3.4-5.1); Sodium 140 mmol/L (137-145)
[2021-11-14 15:26] LABS: Hemoglobin A1C% w Est Avg Glu 5.6 % (4.0-6.0)
== END ==
PROVIDERS: Referring Provider Orthopaedic Surgery Orthopaedic Surgery of the Spine; Visit Provider Orthopaedic Surgery Orthopaedic Surgery of the Spine
DX: Z01.818 Encounter for other preprocedural examination (principal); R73.9 Hyperglycemia, unspecified; Z01.812 Encounter for preprocedural laboratory examination
CPT/HCPCS: 36415; 80048; 83036; 85025; 93005

== ENCOUNTER → 2021-11-22 14:34 | Outpatient (CLI) | payer MEDICARE, OTHER, MEDICAID, SELFPAY ==
[2019-05-22 21:34] VITALS: BMI 24.2
[2021-11-22 15:04] LABS: COVID19 -Nasal RAPID Negative (Negative)
== END ==
PROVIDERS: Referring Provider Orthopaedic Surgery Orthopaedic Surgery of the Spine; Visit Provider Orthopaedic Surgery Orthopaedic Surgery of the Spine
DX: Z20.822 Contact with and (suspected) exposure to COVID-19 (principal)
CPT/HCPCS: 87635; C9803

== ENCOUNTER → 2022-05-14 10:34 | Outpatient (CLI) | payer MEDICARE, OTHER, MEDICAID, SELFPAY ==
[2019-05-22 21:34] VITALS: BMI 24.2
[2022-05-14 12:20] LABS: Cholesterol 222 mg/dL (140-199); HDL Cholesterol 100 mg/dL (40-60); LDL Cholesterol Calculated 103 mg/dL (<100); Triglycerides 95 mg/dL (35-150)
== END ==
PROVIDERS: Referring Provider Internal Medicine Cardiovascular Disease; Visit Provider Internal Medicine Cardiovascular Disease
DX: I70.90 Unspecified atherosclerosis (principal)
CPT/HCPCS: 36415; 80061

== ENCOUNTER 2022-05-14 11:30 | Emergency (ER) | payer MEDICARE, OTHER, MEDICAID, SELFPAY ==
[2019-05-22 21:34] VITALS: BMI 24.2
[2022-05-14] VITALS (7 sets, daily range): BP systolic 134–171; BP diastolic 68–84; PULSE 83–94; RESP 16–24; O2SAT 97–99; BMI 27.9
--- NOTE | 2022-05-14 13:05 | ED_ITS ---
HPI - Abdominal Pain <ELISHA SanchezP - Last Filed: 05/14/22 18:24> General Chief Complaint: Abdominal Pain Stated Complaint: rectal bleeding/ ABD pain T-30 Time Seen by Provider: 05/14/22 12:56 Source: patient Mode of arrival: Family Vehicle History of Present Illness HPI narrative: This is a 66-year-old female presents emergency department complaining of noticing bright red blood in her stool a couple of days ago but endorses right flank and right sided abdominal pain for the last few days, states it has been off and on for about 1 month. Endorses nausea without vomiting, states she has history of cholecystectomy 3 years ago, denies other significant medical history other than chronic low back pain, poor dentition leading to poor diet due to inability to chew. Her crusher feeder is Dr. Benz who has recently ordered an echocardiogram and W knee stress test for patient to undergo spinal surgery in the future, she is not completed yet. She has history of colonoscopy at [facility] but does not remember when. States that her mom from colon cancer and so this is why she is concerned about blood in her stool. She states that it could have come from her urine as well but she is not sure because it was in the toilet. Related Data Home Medications Medication Instructions Recorded Confirmed ibuprofen 200 mg tablet 800 mg PO DAILY PRN Pain 11/13/21 12/18/21 Previous Rx's Medication Instructions Recorded albuterol sulfate 90 mcg/actuation 2 puff inhalation Q4-6H PRN 04/22/18 aerosol inhaler (Ventolin HFA) shortness of breath or wheezing #18 grams pantoprazole 40 mg tablet,delayed 40 mg PO BID #180 tabs 11/12/18 release acetaminophen 500 mg tablet 500 mg PO Q4H PRN pain #60 tabs 12/17/18 (Tylenol Extra Strength) gabapentin 300 mg capsule 300 mg PO TID PRN pain #270 caps 01/17/19 cyclobenzaprine 10 mg tablet 10 mg PO TID PRN muscle spasm #14 11/05/19 tabs polyethylene glycol 3350 17 17 g PO BID For soft stool #238 05/14/22 gram/dose oral powder (Miralax) grams Allergies Allergy/AdvReac Type Severity Reaction Status Date / Time adhesive tape [ADHESIVE TAPE] Allergy Intermediate Rash Verified 12/18/21 12:24 venlafaxine AdvReac Intermediate sweating, Verified 12/18/21 12:24 insomnia duloxetine [From Cymbalta] AdvReac Mild insomnia, Verified 12/18/21 12:24 teeth clenching hydrocodone [From VICODIN] AdvReac Unknown STOMACH Verified 12/18/21 12:24 UPSET Review of Systems <KB Sanchez - Last Filed: 05/14/22 18:24> Review of Systems ROS Unobtainable: All systems reviewed & are unremarkable except as noted in HPI and below Patient History <KB Sanchez - Last Filed: 05/14/22 18:24> Medical History Ankle pain (2016) Anxiety Cervical spine disease (2007) Chronic back pain (1981) Chronic cough Chronic headaches Foot pain GERD (gastroesophageal reflux disease) Lumbar spinal stenosis Lumbar spine pain Osteopenia Osteoporosis Peripheral neuropathy (2012) Scoliosis Skin spots-aging Surgical History Anesthesia History of cervical spinal surgery (2007) History of hysterectomy (1992) History of lumbar laminectomy (2013) History of lumbar laminectomy (~1989) History of lumbar spinal fusion (12/13/18) Hx laparoscopic cholecystectomy (05/22/19) Status post epidural steroid injection (04/28/18) Family History Father No problems noted. Mother Colon cancer Liver cancer Heart disease Hypertension Brother Obesity Diabetes mellitus Hypertension Brother No problems noted. Brother No problems noted. Sister No problems noted. Grandfather No problems noted. Grandmother No problems noted. Grandfather No problems noted. Grandmother No problems noted. Family/Other No problems noted. Social History household members: none and other Smoking Status: Current every day smoker alcohol intake: current Smoking Status: Current every day smoker alcohol intake frequency: holidays/special occasions only Substance Use Type: marijuana Exam <KB Sanchez - Last Filed: 05/14/22 18:24> Narrative Exam Narrative: Reviewed vitals signs and nursing notes. General: cooperative, in no acute distress, well groomed HEENT: symmetrical facial expressions, moist mucous membranes, neck is supple CV: regular rate and rhythm, warm extremities Respiratory: Without abnormal breath sounds, normal work of breathing, without tachypnea, hypoxia. GI: abdomen soft, patient complains of bloating and gas, mildly distended it is soft to palpation, nondistended, without masses, rebound tenderness, without epigastric tenderness to palpation, patient primarily has right CVA tenderness. MSK: moves all extremities, neurovascularly intact, no weakness, normal tone Skin: brisk capillary refill, without rash or wound Neuro: normal speech and cognition, A&O x3, ambulatory with a walker at baseline, clear speech Initial Vital Signs Initial Vital Signs: Vital Signs Pulse Rate 94 H 05/14/22 11:57 Blood Pressure 134/68 05/14/22 11:57 Pulse Oximetry 98 05/14/22 11:57 <Estefanía Light DO - Last Filed: 05/14/22 19:35> Initial Vital Signs Initial Vital Signs: Vital Signs Pulse Rate 94 H 05/14/22 11:57 Blood Pressure 134/68 05/14/22 11:57 Pulse Oximetry 98 05/14/22 11:57 Course <KB Sanchez - Last Filed: 05/14/22 18:24> Orders Ordered: ED Orders 05/14/22 12:27 EKG-12 Lead Stat 05/14/22 13:10 Urine Microscopic Stat 05/14/22 13:26 CRP [C-Reactive Protein Quant] Stat Complete Blood Count AUTO DIFF Stat Comprehensive Metabolic Panel Stat Lactate (Lactic Acid) Stat Lipase Stat 05/14/22 14:22 XR KUB Stat Discontinued Medications Hydrocodone Bitart/Acetaminophen (Hydrocodone/Acet 5/325 Tablet) 1 tab PO NOW ONE Stop: 05/14/22 13:17 Last Admin: 05/14/22 14:06 Dose: 1 tab Documented By: DARREL Ketorolac Tromethamine (Ketorolac 30 Mg/Ml Vial) 30 mg IM NOW ONE Stop: 05/14/22 13:17 Last Admin: 05/14/22 14:06 Dose: 30 mg Documented By: DARREL Ondansetron HCl (Ondansetron 4 Mg Odt) 4 mg PO NOW PRN PRN Reason: Nausea And Vomiting Ondansetron HCl (Ondansetron 4 Mg/2 Ml Inj) 4 mg IV NOW PRN PRN Reason: Nausea And Vomiting Ondansetron HCl (Ondansetron 4 Mg Odt) 4 mg SL NOW ONE Stop: 05/14/22 13:18 Last Admin: 05/14/22 14:06 Dose: 4 mg Documented By: DARREL Pantoprazole Sodium (Pantoprazole Dr 20 Mg Tablet) 40 mg PO NOW ONE Stop: 05/14/22 13:17 Last Admin: 05/14/22 14:06 Dose: 40 mg Documented By: DARREL Vital Signs Vital signs: Vital Signs - 8 hr 05/14/22 12:16 05/14/22 15:12 05/14/22 11:57 Pulse Rate 91 H 84 Respiratory Rate 18 16 Blood Pressure 155/68 H 160/80 H 134/68 Pulse Oximetry 98 99 Oxygen Delivery Method Room Air Room Air 05/14/22 11:57 05/14/22 12:00 05/14/22 12:01 Pulse Rate 94 H 91 H Respiratory Rate 21 Blood Pressure 155/68 H Pulse Oximetry 98 98 Oxygen Delivery Method 05/14/22 12:01 05/14/22 12:30 05/14/22 12:30 Pulse Rate 90 90 Respiratory Rate 24 23 Blood Pressure 158/84 H Pulse Oximetry 99 97 Oxygen Delivery Method 05/14/22 13:00 05/14/22 13:00 Pulse Rate 83 Respiratory Rate 24 Blood Pressure 171/82 H Pulse Oximetry 98 Oxygen Delivery Method <Estefanía Light, - Last Filed: 05/14/22 19:35> Orders Ordered: ED Orders 05/14/22 12:27 EKG-12 Lead Stat 05/14/22 13:10 Urine Microscopic Stat 05/14/22 13:26 CRP [C-Reactive Protein Quant] Stat Complete Blood Count AUTO DIFF Stat Comprehensive Metabolic Panel Stat Lactate (Lactic Acid) Stat Lipase Stat 05/14/22 14:22 XR KUB Stat Discontinued Medications Hydrocodone Bitart/Acetaminophen (Hydrocodone/Acet 5/325 Tablet) 1 tab PO NOW ONE Stop: 05/14/22 13:17 Last Admin: 05/14/22 14:06 Dose: 1 tab Documented By: DARREL Ketorolac Tromethamine (Ketorolac 30 Mg/Ml Vial) 30 mg IM NOW ONE Stop: 05/14/22 13:17 Last Admin: 05/14/22 14:06 Dose: 30 mg Documented By: DARREL Ondansetron HCl (Ondansetron 4 Mg Odt) 4 mg PO NOW PRN PRN Reason: Nausea And Vomiting Ondansetron HCl (Ondansetron 4 Mg/2 Ml Inj) 4 mg IV NOW PRN PRN Reason: Nausea And Vomiting Ondansetron HCl (Ondansetron 4 Mg Odt) 4 mg SL NOW ONE Stop: 05/14/22 13:18 Last Admin: 05/14/22 14:06 Dose: 4 mg Documented By: DARREL Pantoprazole Sodium (Pantoprazole Dr 20 Mg Tablet) 40 mg PO NOW ONE Stop: 05/14/22 13:17 Last Admin: 05/14/22 14:06 Dose: 40 mg Documented By: DARREL Vital Signs Vital signs: Vital Signs - 8 hr 05/14/22 12:16 05/14/22 15:12 05/14/22 11:57 Pulse Rate 91 H 84 Respiratory Rate 18 16 Blood Pressure 155/68 H 160/80 H 134/68 Pulse Oximetry 98 99 Oxygen Delivery Method Room Air Room Air 05/14/22 11:57 05/14/22 12:00 05/14/22 12:01 Pulse Rate 94 H 91 H Respiratory Rate 21 Blood Pressure 155/68 H Pulse Oximetry 98 98 Oxygen Delivery Method 05/14/22 12:01 05/14/22 12:30 05/14/22 12:30 Pulse Rate 90 90 Respiratory Rate 24 23 Blood Pressure 158/84 H Pulse Oximetry 99 97 Oxygen Delivery Method 05/14/22 13:00 05/14/22 13:00 Pulse Rate 83 Respiratory Rate 24 Blood Pressure 171/82 H Pulse Oximetry 98 Oxygen Delivery Method MDM - Abdominal Pain <KB Sanchez - Last Filed: 05/14/22 18:24> Lab Data 05/14/22 13:26 05/14/22 13:26 Labs: Lab Results 05/14/22 05/14/22 05/14/22 Range/Units 13:10 13:26 13:26 WBC 9.3 (4.5-11.0) X10^3/uL RBC 5.12 (4.0-5.2) X10^6/uL Hgb 13.6 (12.0-16.0) g/dL Hct 40.9 (36-46) % MCV 79.8 L (80-100) fL MCH 26.5 (26-34) PG MCHC 33.2 (30-36) % RDW 13.9 (11.6-14.8) % Plt Count 353 (150-400) X10^3/uL Neut % (Auto) 68.5 (50-75) % Lymph % (Auto) 22.1 L (25-40) % [place] % (Auto) 4.6 (3-14) % Eos % (Auto) 3.5 (2-4) % Baso % (Auto) 1.3 (0-2) % Neut # (Auto) 6400 (4400-7880) /uL Lymph # (Auto) 2100 (9519-3863) /uL [place] # (Auto) 400 (0-900) /uL Eos # (Auto) 300 (0-450) /uL Baso # (Auto) 100 (0-100) /uL Sodium 139 (137-145) mmol/L Potassium 4.5 (3.4-5.1) mmol/L Chloride 104 (98-107) mmol/L Carbon Dioxide 32 (22-32) mmol/L BUN 14 (7-17) mg/dL Creatinine 0.63 (0.52-1.04) mg/dL Estimated GFR > 60 (>60) mL/min BUN/Creatinine Ratio 22.2 H (6-22) Glucose 91 (80-110) mg/dL Lactate (0.7-2.1) mmol/L Calcium 9.0 (8.4-10.2) mg/dL Total Bilirubin 0.4 (0.2-1.3) mg/dL AST 27 (14-36) IU/L ALT 18 (<35) IU/L Alkaline Phosphatase 81 (38-126) U/L C-Reactive Protein (<1.0) mg/dL Total Protein 7.4 (6.3-8.2) g/dL Albumin 4.0 (3.5-5.0) g/dL Globulin 3.4 (1.7-4.1) g/dL Albumin/Globulin Ratio 1.2 (1.0-2.8) Lipase 80 (23-300) U/L Urine RBC None seen (0-5/HPF) Urine WBC None seen (0-5/HPF) Ur Squamous Epith Cells None seen (0-5/HPF) Urine Bacteria None seen (None) Ur Culture Indicated? Cult not indicated 05/14/22 05/14/22 Range/Units 13:26 13:26 WBC (4.5-11.0) X10^3/uL RBC (4.0-5.2) X10^6/uL Hgb (12.0-16.0) g/dL Hct (36-46) % MCV (80-100) fL MCH (26-34) PG MCHC (30-36) % RDW (11.6-14.8) % Plt Count (150-400) X10^3/uL Neut % (Auto) (50-75) % Lymph % (Auto) (25-40) % [place] % (Auto) (3-14) % Eos % (Auto) (2-4) % Baso % (Auto) (0-2) % Neut # (Auto) (9853-5006) /uL Lymph # (Auto) (4932-0402) /uL [place] # (Auto) (0-900) /uL Eos # (Auto) (0-450) /uL Baso # (Auto) (0-100) /uL Sodium (137-145) mmol/L Potassium (3.4-5.1) mmol/L Chloride (98-107) mmol/L Carbon Dioxide (22-32) mmol/L BUN (7-17) mg/dL Creatinine (0.52-1.04) mg/dL Estimated GFR (>60) mL/min BUN/Creatinine Ratio (6-22) Glucose (80-110) mg/dL Lactate 0.9 (0.7-2.1) mmol/L Calcium (8.4-10.2) mg/dL Total Bilirubin (0.2-1.3) mg/dL AST (14-36) IU/L ALT (<35) IU/L Alkaline Phosphatase (38-126) U/L C-Reactive Protein 0.9 (<1.0) mg/dL Total Protein (6.3-8.2) g/dL Albumin (3.5-5.0) g/dL Globulin (1.7-4.1) g/dL Albumin/Globulin Ratio (1.0-2.8) Lipase (23-300) U/L Urine RBC (0-5/HPF) Urine WBC (0-5/HPF) Ur Squamous Epith Cells (0-5/HPF) Urine Bacteria (None) Ur Culture Indicated? Point of care testing: Urine Dip Bedside Urine Glucose Negative Bedside Urine Bilirubin - Negative Bedside Urine Ketone - Negative Urine Specific [place] 1.000 Bedside Urine Occult Blood +/- Bedside Urine pH 7.0 Bedside Urine Protein - Negative Bedside Urine Urobilinogen - Negative Bedside Urine Nitrite - Negative Bedside Urine Leukocytes - Negative Esterase Imaging Data Abdominal x-ray: Radiologist's Impression: PROCEDURE:? XR KUB ? INDICATIONS:? upper abdominal pain/bloating ? TECHNIQUE:? One view of the abdomen acquired.? ? COMPARISON:? [facility], CT, CT ABDOMEN PELVIS WITH CONTRAST, 05/18, 17:32.? [facility], CR, XR ACUTE ABDOMEN SERIES, 11/05/2019, 14:57. ? FINDINGS:? ? Surgical changes and devices:? Right upper quadrant cholecystectomy clips.? Postsurgical changes in the lumbar spine. ? Bowel:? Nonobstructive bowel gas pattern.? No pneumoperitoneum. ? Soft tissues:? No suspicious abdominal calcifications.? Visualized solid organ contours appear normal in size.? Lung bases are clear. ? Bones:? No suspicious bony lesions.? ? IMPRESSION:? Nonobstructive bowel gas pattern.? No pneumoperitoneum. ? ? ? Approved by: Pierre Ward M.D. on 05/14/2022 at 15:36? MDM Narrative Medical decision making narrative: Chief Complaint: Right-sided abdominal pain Independent historian: Patient Differential diagnoses include but are not limited to: Ascending cholangitis, nephrolithiasis, pyelonephritis, muscular strain urinary tract infection, obstructive uropathy, colitis, perforated viscus, gastric ulcer gastritis, esophagitis with underlying GERD, viral process, appendicitis, pancreatitis, diverticulitis, gastric/duodenal ulcer, colitis, acute cystitis, acute hepatitis, nephrolithiasis, pyelonephritis, mesenteric ischemia, AAA, ACS/MO, I have independently reviewed the patient's vital signs and nursing notes as well as prior records if available. Pertinent lab findings reviewed:, UA is negative for infection or RBCs Pertinent Imaging reviewed: Abdominal upright KUB obtained to evaluate for constipation, nephrolithiasis, hiatal hernia or perforated viscus. CT machine is down today and patient has history of cholecystectomy so ultrasound was not going to be as helpful for upper abdominal pain evaluation. Abdominal x-ray is negative for pneumoperitoneum, showing nonobstructive bowel gas pattern Course of care: Patient was treated with Zofran, hydrocodone, Protonix, and Toradol, after some discussion, she reports that she is had history of endoscopy and colonoscopy in the past without abnormality, she also endorses history of her mother from colon cancer so she is hopeful for a repeat colonoscopy. [facility] was appended to her paperwork so that she can follow-up. Her lab work was unremarkable, UA is negative for infection, patient's symptoms are consistent with gastritis with history of GERD. She states that she has not been taking her omeprazole as indicated lately but she just started taking it again today. She will continue taking this, avoid smoking, coffee, acidic foods and will follow-up with [facility] for a colonoscopy and endoscopy in the future. Primary care providers at [facility] but she can not remember the name. Social considerations that may affect disposition: none Questions are addressed and there is agreement with the plan and for follow-up. Patient is appropriate for outpatient management. MIPS: This encounter doesn't have any diagnosis' associated with MIPS criteria. <Estefanía Light, DO - Last Filed: 05/14/22 19:35> Lab Data Labs: Lab Results 05/14/22 05/14/22 05/14/22 Range/Units 13:10 13:26 13:26 WBC 9.3 (4.5-11.0) X10^3/uL RBC 5.12 (4.0-5.2) X10^6/uL Hgb 13.6 (12.0-16.0) g/dL Hct 40.9 (36-46) % MCV 79.8 L (80-100) fL MCH 26.5 (26-34) PG MCHC 33.2 (30-36) % RDW 13.9 (11.6-14.8) % Plt Count 353 (150-400) X10^3/uL Neut % (Auto) 68.5 (50-75) % Lymph % (Auto) 22.1 L (25-40) % [place] % (Auto) 4.6 (3-14) % Eos % (Auto) 3.5 (2-4) % Baso % (Auto) 1.3 (0-2) % Neut # (Auto) 6400 (8786-5197) /uL Lymph # (Auto) 2100 (8832-6331) /uL [place] # (Auto) 400 (0-900) /uL Eos # (Auto) 300 (0-450) /uL Baso # (Auto) 100 (0-100) /uL Sodium 139 (137-145) mmol/L Potassium 4.5 (3.4-5.1) mmol/L Chloride 104 (98-107) mmol/L Carbon Dioxide 32 (22-32) mmol/L BUN 14 (7-17) mg/dL Creatinine 0.63 (0.52-1.04) mg/dL Estimated GFR > 60 (>60) mL/min BUN/Creatinine Ratio 22.2 H (6-22) Glucose 91 (80-110) mg/dL Lactate (0.7-2.1) mmol/L Calcium 9.0 (8.4-10.2) mg/dL Total Bilirubin 0.4 (0.2-1.3) mg/dL AST 27 (14-36) IU/L ALT 18 (<35) IU/L Alkaline Phosphatase 81 (38-126) U/L C-Reactive Protein (<1.0) mg/dL Total Protein 7.4 (6.3-8.2) g/dL Albumin 4.0 (3.5-5.0) g/dL Globulin 3.4 (1.7-4.1) g/dL Albumin/Globulin Ratio 1.2 (1.0-2.8) Lipase 80 (23-300) U/L Urine RBC None seen (0-5/HPF) Urine WBC None seen (0-5/HPF) Ur Squamous Epith Cells None seen (0-5/HPF) Urine Bacteria None seen (None) Ur Culture Indicated? Cult not indicated 05/14/22 05/14/22 Range/Units 13:26 13:26 WBC (4.5-11.0) X10^3/uL RBC (4.0-5.2) X10^6/uL Hgb (12.0-16.0) g/dL Hct (36-46) % MCV (80-100) fL MCH (26-34) PG MCHC (30-36) % RDW (11.6-14.8) % Plt Count (150-400) X10^3/uL Neut % (Auto) (50-75) % Lymph % (Auto) (25-40) % [place] % (Auto) (3-14) % Eos % (Auto) (2-4) % Baso % (Auto) (0-2) % Neut # (Auto) (5037-6773) /uL Lymph # (Auto) (7078-8468) /uL [place] # (Auto) (0-900) /uL Eos # (Auto) (0-450) /uL Baso # (Auto) (0-100) /uL Sodium (137-145) mmol/L Potassium (3.4-5.1) mmol/L Chloride (98-107) mmol/L Carbon Dioxide (22-32) mmol/L BUN (7-17) mg/dL Creatinine (0.52-1.04) mg/dL Estimated GFR (>60) mL/min BUN/Creatinine Ratio (6-22) Glucose (80-110) mg/dL Lactate 0.9 (0.7-2.1) mmol/L Calcium (8.4-10.2) mg/dL Total Bilirubin (0.2-1.3) mg/dL AST (14-36) IU/L ALT (<35) IU/L Alkaline Phosphatase (38-126) U/L C-Reactive Protein 0.9 (<1.0) mg/dL Total Protein (6.3-8.2) g/dL Albumin (3.5-5.0) g/dL Globulin (1.7-4.1) g/dL Albumin/Globulin Ratio (1.0-2.8) Lipase (23-300) U/L Urine RBC (0-5/HPF) Urine WBC (0-5/HPF) Ur Squamous Epith Cells (0-5/HPF) Urine Bacteria (None) Ur Culture Indicated? Point of care testing: Urine Dip Bedside Urine Glucose Negative Bedside Urine Bilirubin - Negative Bedside Urine Ketone - Negative Urine Specific [place] 1.000 Bedside Urine Occult Blood +/- Bedside Urine pH 7.0 Bedside Urine Protein - Negative Bedside Urine Urobilinogen - Negative Bedside Urine Nitrite - Negative Bedside Urine Leukocytes - Negative Esterase ECG Data Attestation: I personally reviewed and interpreted this ECG as follows: Prior ECG tracings: available for review Interpretation: Sinus rhythm rate of 78 GA 156 QRS of 90 QTC [address] No acute ST elevation appreciated. Patient has prior from 11/14/2021 appears similar. Discharge Plan Departure Patient Disposition: Home Clinical Impression: Abdominal pain Qualifiers: Abdominal location: right upper quadrant Qualified Code(s): R10.11 - Right upper quadrant pain Instructions: Acute Abdominal Pain, DI for Gastrointestinal Bleeding Activity Restrictions/Additional Instructions: *You have been diagnosed with abdominal pain without a clear cause. Your lab work overall does not show any sign of inflammation, your white blood cell count is normal, your liver enzymes including things around your liver are all perfect and the urine did not have any contaminant signs of infection. I am glad that this is good news however it is not a clear answer to your pain. There is no CT scan today so looking for evidence of colitis or infection related to diverticulitis. I ordered the x-ray to look for evidence of a hiatal hernia because that we can see on x-ray a little better and the ultrasound is likely not going to show me much of your bowel. At least the x-ray would show me normal air-fluid levels. We can wait to see what this looks like, and let you go home no concerning findings or you can come back if you have worsening and hopefully if you do have worsening are CT scan will be working again. I appended [facility] to the referral list there, please call to schedule follow-up colonoscopy. If you develop fever, chills, increased bleeding, please come back. Sometimes a small amount of blood is okay and could be related to a lot of things. Please continue with your Protonix 40 mg daily, avoid ibuprofen and smoking, avoid acidic foods, coffee, and things that can worsen this pain for you. No evidence of pancreatitis, cholangitis, diverticulitis, or infectious colitis based on your lab work. *What to do: *Please continue to take your regular medications as directed. [ ] New medication prescriptions sent to your pharmacy: [ ] [ ] New medication written as a paper prescription [x ] No new medications given *Please follow up with your primary care provider in 2-3 days, call for an appointment. Let them know you were seen in the Emergency Department and that we asked that you be seen for follow-up. We will electronically transmit a record of today's note if your PCP is in our system *If you do not have a primary care provider please contact [phone] to establish care with one of the [facility] primary care providers. *Return to Emergency Department if you should have any new, worsening, or concerning symptoms, such as [fever greater than 101F, chills, worsening pain, persistent vomiting or other bothersome symptoms]. Prescriptions: New polyethylene glycol 3350 [Miralax] 17 gram/dose powder 17 g PO BID Qty: 238 0RF No Action Ventolin HFA 90 mcg/actuation HFA aerosol inhaler 2 puff INHALATION Q4-6H PRN (Reason: shortness of breath or wheezing) Qty: 18 3RF gabapentin 300 mg capsule 300 mg PO TID PRN (Reason: pain) Qty: 270 3RF Rx Instructions: take 1 capsule by mouth three times a day as needed for pain pantoprazole 40 mg tablet,delayed release (DR/EC) 40 mg PO BID Qty: 180 0RF acetaminophen [Tylenol Extra Strength] 500 mg tablet 500 mg PO Q4H PRN (Reason: pain) Qty: 60 0RF Rx Instructions: take 1 tablet by mouth every 4 hours as needed for pain cyclobenzaprine 10 mg tablet 10 mg PO TID PRN (Reason: muscle spasm) Qty: 14 0RF ibuprofen 200 mg Tablet 800 mg PO DAILY PRN (Reason: Pain) Referrals: [facility] [Provider Group] - 10-14 days (For follow-up colonoscopy) Miscellaneous,MD Lucita [Primary Care Provider] - Stand Alone Forms: Patient Portal/API <Estefanía Light DO - Last Filed: 05/14/22 19:35> [facility] Attestation: I was immediately available in the department for consultation. Documentation has been reviewed.
[2022-05-14 13:38] LABS: Bacteria Urine None Seen; Culture Indicated Urine Cult Not Indicated; RBC Urine None Seen (0-5/HPF); Squamous Epithelial Cell Urine None Seen (0-5/HPF); WBC Urine None Seen (0-5/HPF)
[2022-05-14 13:39] LABS: Add Manual Diff / Slide Review NO; Basophils Absolute Auto 100 /uL (0-100); Basophils Percent Auto 1.3 % (0-2); Eosinophils Absolute Auto 300 /uL (0-450); Eosinophils Percent Auto 3.5 % (2-4); Hematocrit 40.9 % (36-46); Hemoglobin 13.6 g/dL (12.0-16.0); Lymphocytes Absolute Auto 2100 /uL (1100-4500); Lymphocytes Percent Auto 22.1 % (25-40); Mean Corpuscular HGB Conc 33.2 % (30-36); Mean Corpuscular Hemoglobin 26.5 PG (26-34); Mean Corpuscular Volume 79.8 fL (80-100); Monocytes Absolute Auto 400 /uL (0-900); Monocytes Percent Auto 4.6 % (3-14); Neutrophils Absolute Auto 6400 /uL (1500-7000); Neutrophils Percent Auto 68.5 % (50-75); Platelet Count 353 X10^3/uL (150-400); Red Blood Cell Count 5.12 X10^6/uL (4.0-5.2); Red Cell Distribution Width 13.9 % (11.6-14.8); White Blood Cell Count 9.3 X10^3/uL (4.5-11.0)
[2022-05-14 13:56] LABS: Lactate (Lactic Acid) 0.9 mmol/L (0.7-2.1)
[2022-05-14 13:57] LABS: Alanine Aminotransferase 18 IU/L (<35); Albumin Globulin Ratio 1.2 (1.0-2.8); Alkaline Phosphatase 81 U/L (38-126); Aspartate Aminotransferase 27 IU/L (14-36); BUN Creatinine Ratio 22.2 (6-22); Bilirubin Total 0.4 mg/dL (0.2-1.3); Blood Urea Nitrogen 14 mg/dL (7-17); Carbon Dioxide 32 mmol/L (22-32); Chloride 104 mmol/L (98-107); Estimated Glomerular Filt Rate > 60 mL/min (>60); Globulin 3.4 g/dL (1.7-4.1); Glucose 91 mg/dL (80-110); HEMOLYSIS 51 (0-50); Lipase 80 U/L (23-300); Potassium 4.5 mmol/L (3.4-5.1); Sodium 139 mmol/L (137-145); Total Protein 7.4 g/dL (6.3-8.2)
[2022-05-14 14:01] LABS: C-Reactive Protein Quant 0.9 mg/dL (<1.0)
[2022-05-14] MEDS: ONDANSETRON 4 MG ODT SL (14:06)
[2022-05-14] MEDS: PANTOPRAZOLE DR 20 MG TABLET 40 MG PO (14:06)
[2022-05-14] MEDS: HYDROCODONE/ACET 5/325 TABLET 1 TAB PO (14:06)
[2022-05-14] MEDS: KETOROLAC 30 MG/ML VIAL IM (14:06)
--- NOTE | 2022-05-14 14:22 | DI.RAD.S_ITS ---
PROCEDURE: XR KUB INDICATIONS: upper abdominal pain/bloating TECHNIQUE: One view of the abdomen acquired. COMPARISON: [facility], CT, CT ABDOMEN PELVIS WITH CONTRAST, 06/07/2021, 17:32. [facility], CR, XR ACUTE ABDOMEN SERIES, 11/05/2019, 14:57. FINDINGS: Surgical changes and devices: Right upper quadrant cholecystectomy clips. Postsurgical changes in the lumbar spine. Bowel: Nonobstructive bowel gas pattern. No pneumoperitoneum. Soft tissues: No suspicious abdominal calcifications. Visualized solid organ contours appear normal in size. Lung bases are clear. Bones: No suspicious bony lesions. IMPRESSION: Nonobstructive bowel gas pattern. No pneumoperitoneum. Approved by: Pierre Ward M.D. on 05/14/2022 at 15:36
== END 2022-05-14 14:58 | disposition home or self-care (01) ==
PROVIDERS: Emergency Medicine; Emergency Provider Nurse Practitioner Critical Care Medicine
DX: R10.11 Right upper quadrant pain (principal); K62.5 Hemorrhage of anus and rectum; I70.90 Unspecified atherosclerosis
CPT/HCPCS: 36415; 74018; 80053; 80061; 81003; 81015; 83605; 83690; 85025; 86140; 93005; 96372; 99283; 99284; J1885

== ENCOUNTER → 2022-07-24 06:53 | Outpatient (CLI) | payer MEDICARE, OTHER, MEDICAID, SELFPAY ==
[2019-05-22 21:34] VITALS: BMI 24.2
--- NOTE | 2022-07-24 | DI.ECHO.S_ITS ---
[facility] +---------+ : : [address] : : : : [id number] : : : : Phone: [phone] Echocardiogram Report + + :Name: BRADY DEVRIES Study Date: 07/24/2022 Height: 65 in : :[facility] ReadingLocation: Weight: 165 lb : : Gender: Female BSA: 1.8 m2 : :: 1955 Age: 66 yrs BP: 148/99 mmHg: :Reason For Study: Other Forms of Dyspnea : :Ordering Physician: Bib, : :Shannan Performed By: Lauren Yadav : :Referring: SHANNAN MCCARTNEY : + + Interpretation Summary 1) Mildly increased left ventricular thickness with normal size, normal wall motion, and normal systolic function (EF 60-65%). 2) Normal right ventricular size and function. 3) No significant valvular abnormalities. 4) No prior Echo available for comparison. Procedure: A two-dimensional transthoracic echocardiogram with color flow and Doppler was performed. The study quality was technically good. There is no prior echocardiogram noted for this patient. The patient was in normal sinus rhythm during the exam. Left Ventricle: The left ventricle is normal in size. There is mild concentric left ventricular hypertrophy. The ejection fraction is estimated to be 60-65%. Left ventricular systolic function appears normal without focal wall motion abnormalities. Diastolic parameters suggest a relaxation abnormality of the left ventricle, consistent with probable normal filling pressures. Right Ventricle: The right ventricle is normal size. The right ventricular systolic function is normal. Atria: The left atrial size is normal. Right atrial size is normal. There is no Doppler evidence for an interatrial shunt. Mitral Valve: The mitral valve leaflets appear mildly thickened, but open well. There is no mitral valve stenosis. There is trace mitral regurgitation. Aortic Valve: The aortic valve is trileaflet. The aortic valve opens well. There is mild aortic valve sclerosis. There is no aortic valve stenosis. No aortic regurgitation is present. Tricuspid Valve: The tricuspid valve is normal. There is no tricuspid stenosis. There is trace tricuspid regurgitation. The right ventricular systolic pressure is estimated to be at least 24 mmHg based on an estimated right atrial pressure of 3 mm Hg. Pulmonic Valve: The pulmonic valve leaflets are thin and pliable; valve motion is normal. There is no pulmonic valvular stenosis. There is no pulmonic valvular regurgitation. Great Vessels: The aortic root is normal size. The ascending aorta is normal in size. The pulmonary artery is normal size. The IVC is of normal diameter and collapses greater than 50% with a sniff. This suggests a low right atrial pressure of 3 mm Hg. Pericardium/ Pleura There is no pericardial effusion. There is no pleural effusion. MMode/2D Measurements & Calculations LVIDd: 4.2 cm LVOT diam: 1.9 cm LVIDs: 3.6 cm Ao root diam: 3.1 cm FS: 14.3 % asc Aorta Diam: 3.3 cm IVSd: 1.3 cm LVPWd: 1.2 cm LV jackson. diameter/BSA (cm/m^2): 2.3 LV sys. diameter/BSA (cm/m^2): 2.0 LA A2 area: 17.1 cm2 RA long axis: 4.7 cm LA A4 area: 15.5 cm2 LA length (vol): 5.1 cm LA vol: 44.2 ml LA vol index: 24.2 ml/m2 LVLs ap4: 6.1 cm LVLd ap2: 6.7 cm LVLs ap2: 5.7 cm TAPSE_phl: 2.2 cm Doppler Measurements & Calculations Ao V2 max: 155.0 cm/sec LVOT Max Juan M: 120.0 cm/sec Ao V2 mean: 117.0 cm/sec LV V1 max P.8 mmHg Ao max P.0 mmHg LV V1 VTI: 26.4 cm Ao mean P.0 mmHg JENNIFER(I,D): 2.1 cm2 Ao V2 VTI: 35.1 cm JENNIFER(V,D): 2.2 cm2 sev ratio: 0.75 JENNIFER indexed to BSA (cm^2/m^2): 1.2 MV E max juan m: 60.8 cm/sec TR max juan m: 232.0 cm/sec MV A max juan m: 66.4 cm/sec TR max P.5 mmHg MV E/A: 0.92 PA V2 max: 94.8 cm/sec Med Peak E' Juan M: 6.0 cm/sec PA V2 mean: 68.4 cm/sec E/E' med: 10.1 PA mean P.0 mmHg Lat Peak E' Juan M: 9.7 cm/sec PA pr(Accel): 20.9 mmHg E/E' lat: 6.3 E/e' average: 8.2 MV dec time: 0.26 sec SV(LVOT): 74.9 ml AV VR_phl: 0.77 JENNIFER(VTI)/BSA_phl: 1.2 Reading Physician:04:18 PM
== END ==
PROVIDERS: Referring Provider Internal Medicine Cardiovascular Disease; Visit Provider Internal Medicine Cardiovascular Disease
DX: R06.09 Other forms of dyspnea (principal); I35.8 Other nonrheumatic aortic valve disorders
CPT/HCPCS: 93306

== ENCOUNTER → 2022-09-15 13:27 | Outpatient (CLI) | payer MEDICARE, OTHER, MEDICAID, SELFPAY ==
[2019-05-22 21:34] VITALS: BMI 24.2
[2022-09-15 15:11] LABS: Cholesterol 209 mg/dL (140-199); Triglycerides 122 mg/dL (35-150)
[2022-09-15 15:20] LABS: HDL Cholesterol 121 mg/dL (40-60); LDL Cholesterol Calculated 64 mg/dL (<100)
== END ==
PROVIDERS: Referring Provider Internal Medicine Cardiovascular Disease; Visit Provider Internal Medicine Cardiovascular Disease
DX: I70.90 Unspecified atherosclerosis (principal)
CPT/HCPCS: 36415; 80061

== ENCOUNTER 2022-09-15 13:54 | Emergency (ER) | payer MEDICARE, OTHER, MEDICAID, SELFPAY ==
[2019-05-22 21:34] VITALS: BMI 24.2
[2022-09-15 14:12] VITALS: BP 186/114; PULSE 67; RESP 17; TEMP 36.6; O2SAT 98
[2022-09-15 14:21] LABS: Add Manual Diff / Slide Review NO; Basophils Absolute Auto 100 /uL (0-100); Basophils Percent Auto 1.4 % (0-2); Eosinophils Absolute Auto 400 /uL (0-450); Eosinophils Percent Auto 4.8 % (2-4); Hematocrit 41.9 % (36-46); Hemoglobin 13.6 g/dL (12.0-16.0); Lymphocytes Absolute Auto 1700 /uL (1100-4500); Lymphocytes Percent Auto 20.6 % (25-40); Mean Corpuscular HGB Conc 32.5 % (30-36); Mean Corpuscular Hemoglobin 26.2 PG (26-34); Mean Corpuscular Volume 80.6 fL (80-100); Monocytes Absolute Auto 500 /uL (0-900); Monocytes Percent Auto 5.5 % (3-14); Neutrophils Absolute Auto 5600 /uL (1500-7000); Neutrophils Percent Auto 67.7 % (50-75); Platelet Count 413 X10^3/uL (150-400); Red Cell Distribution Width 15.6 % (11.6-14.8); White Blood Cell Count 8.3 X10^3/uL (4.5-11.0)
[2022-09-15 14:25] LABS: Appearance Urine UA CLEAR; Bilirubin Urine UA NEGATIVE (NEGATIVE); Color Urine UA YELLOW; Glucose Urine UA NEGATIVE (Negative); Ketones Urine UA NEGATIVE (NEGATIVE); Leukocyte Esterase Urine UA TRACE (NEGATIVE); Nitrite Urine UA NEGATIVE (Negative); Occult Blood Urine UA NEGATIVE (Negative); Protein Urine UA NEGATIVE (Negative); Specific Gravity Urine UA <=1.005 (1.000-1.035); Urobilinogen Urine UA 0.2 E.U./dL (0.2); pH Urine UA 7.5 (4.5-8.0)
[2022-09-15 14:30] LABS: Bacteria Urine None Seen; Culture Indicated Urine Cult Not Indicated; RBC Urine None Seen (0-5/HPF); Squamous Epithelial Cell Urine None Seen (0-5/HPF); WBC Urine 0-1/HPF (0-5/HPF)
[2022-09-15 14:38] LABS: Alanine Aminotransferase 22 IU/L (<35); Albumin 4.1 g/dL (3.5-5.0); Albumin Globulin Ratio 1.3 (1.0-2.8); Alkaline Phosphatase 97 U/L (38-126); Aspartate Aminotransferase 32 IU/L (14-36); BUN Creatinine Ratio 22.9 (6-22); Bilirubin Total 0.3 mg/dL (0.2-1.3); Blood Urea Nitrogen 16 mg/dL (7-17); Calcium 9.2 mg/dL (8.4-10.2); Carbon Dioxide 29 mmol/L (22-32); Chloride 101 mmol/L (98-107); Estimated Glomerular Filt Rate > 60 mL/min (>60); Globulin 3.2 g/dL (1.7-4.1); Glucose 98 mg/dL (80-110); HEMOLYSIS < 15 (0-50); Lipase 93 U/L (23-300); Potassium 4.6 mmol/L (3.4-5.1); Sodium 136 mmol/L (137-145); Total Protein 7.3 g/dL (6.3-8.2)
--- NOTE | 2022-09-15 15:38 | ED.ABDPAIN ---
HPI - Abdominal Pain General Chief Complaint: Abdominal Pain Stated Complaint: came from lab/abd pain Time Seen by Provider: 09/15/22 14:11 Source: patient Mode of arrival: Ambulatory History of Present Illness HPI narrative: 66-year-old female with extensive medical history presents with a chief complaint of abdominal pain. She is been having right-sided abdominal pain for upwards of 2 years. She is had gallbladder surgery and reports colonoscopy and endoscopy done on Thursday at [facility]. Records have been requested. She states that her pain has been significantly worse, particularly any time she is since her scope. She states that they did the colonoscopy and endoscopy because she had been having blood in her stool presumably from all of the Motrin she had been taking for her back pain. She knows about at least 2 herniated discs been treating it with anti-inflammatories. She is been nauseated but denies vomiting. She has been having normal bowel movements without difficulty. She denies dysuria, frequency or urgency. Her pain is worse when she moves and improves with rest. Also, as noted this is worse with eating Related Data Previous Rx's Medication Instructions Recorded pantoprazole 40 mg tablet,delayed 40 mg PO BID #180 tabs 11/12/18 release gabapentin 300 mg capsule 300 mg PO TID PRN pain #270 caps 01/17/19 cyclobenzaprine 10 mg tablet 10 mg PO TID PRN muscle spasm #14 11/05/19 tabs oxycodone 5 mg tablet 5 mg PO Q6H PRN pain #10 tabs 09/15/22 Allergies Allergy/AdvReac Type Severity Reaction Status Date / Time adhesive tape [ADHESIVE TAPE] Allergy Intermediate Rash Verified 09/15/22 14:15 venlafaxine AdvReac Intermediate sweating, Verified 09/15/22 14:15 insomnia duloxetine [From Cymbalta] AdvReac Mild insomnia, Verified 09/15/22 14:15 teeth clenching hydrocodone [From VICODIN] AdvReac Unknown STOMACH Verified 09/15/22 14:15 UPSET Review of Systems Review of Systems Narrative: GENERAL: See HPI HEENT: Denies sinus pain, ear pain, sore throat, difficulty swallowing, dizziness. RESPIRATORY: Denies dyspnea, cough, wheezing, hemoptysis, sputum. CARDIOVASCULAR: Denies chest pain, palpitations, orthopnea, edema, GASTROINTESTINAL: See HPI : Denies dysuria, frequency, incontinence, hematuria, urinary retention. MUSCULOSKELETAL: denies weakness, joint pain, or bony pain SKIN: Denies rash, skin lesions, or other NEUROLOGIC: Denies weakness, headache, numbness, change in speech, confusion, seizures, incoordination. PSYCHIATRIC: No concerning psychosocial issues. 12 point review of systems is negative except for those stated above Patient History Medical History Ankle pain (2016) Anxiety Cervical spine disease (2007) Chronic back pain (1981) Chronic cough Chronic headaches Foot pain GERD (gastroesophageal reflux disease) Lumbar spinal stenosis Lumbar spine pain Osteopenia Osteoporosis Peripheral neuropathy (2012) Scoliosis Skin spots-aging Surgical History Anesthesia History of cervical spinal surgery (2007) History of hysterectomy (1992) History of lumbar laminectomy (2013) History of lumbar laminectomy (~1989) History of lumbar spinal fusion (12/13/18) Hx laparoscopic cholecystectomy (05/22/19) Status post epidural steroid injection (04/28/18) Family History Father No problems noted. Mother Colon cancer Liver cancer Heart disease Hypertension Brother Obesity Diabetes mellitus Hypertension Brother No problems noted. Brother No problems noted. Sister No problems noted. Grandfather No problems noted. Grandmother No problems noted. Grandfather No problems noted. Grandmother No problems noted. Family/Other No problems noted. Social History household members: none and other Smoking Status: Current every day smoker alcohol intake: current Smoking Status: Current every day smoker alcohol intake frequency: holidays/special occasions only Substance Use Type: marijuana Exam Narrative Exam Narrative: GENERAL: [66] year old patient appears stated age. Well-developed patient, in mild distress. HEAD: Atraumatic. Normocephalic. EYES: Pupils equal round and reactive. Extraocular motions intact. No scleral icterus. No injection or drainage. ENT: Nose without bleeding, purulent drainage. Throat without erythema, tonsillar hypertrophy or exudate. Airway patent. NECK: Trachea midline. Non tender CARDIOVASCULAR: Regular rate and rhythm without murmurs, gallops, or rubs. RESPIRATORY: Clear to auscultation. Breath sounds equal bilaterally. No wheezes, rales, or rhonchi. GASTROINTESTINAL: Abdomen soft, tender in the epigastrium and right upper quadrant, nondistended. Bowel sounds present but decreased EXTREMITIES: No edema or joint tenderness. BACK: Nontender without deformity or crepitance. No flank tenderness. NEURO: AOx3. SKIN: No rash or erythema of visible areas Initial Vital Signs Initial Vital Signs: Vital Signs Temperature 98 F 09/15/22 14:12 Pulse Rate 67 09/15/22 14:12 Respiratory Rate 17 09/15/22 14:12 Blood Pressure 186/114 H 09/15/22 14:12 Pulse Oximetry 98 09/15/22 14:12 Oxygen Delivery Method Room Air 09/15/22 14:12 Course Orders Ordered: ED Orders 09/15/22 13:37 Complete Blood Count AUTO DIFF Stat Comprehensive Metabolic Panel Stat Lipase Stat 09/15/22 14:13 EKG-12 Lead Stat 09/15/22 14:22 Urinalysis and Microscopic Stat 09/15/22 15:40 CT abdomen pelvis w con Stat Ondansetron HCl (Ondansetron 4 Mg Odt) 4 mg PO NOW PRN PRN Reason: Nausea And Vomiting Ondansetron HCl (Ondansetron 4 Mg/2 Ml Inj) 4 mg IV NOW PRN PRN Reason: Nausea And Vomiting Last Admin: 09/15/22 15:54 Dose: 4 mg Documented By: ANDRES Discontinued Medications Hydromorphone HCl (Hydromorphone 0.5 Mg Inj) 0.5 mg IV NOW ONE Stop: 09/15/22 15:40 Last Admin: 09/15/22 16:07 Dose: 0.5 mg Documented By: ANDRES Sodium Chloride (Normal Saline 0.9%) 1,000 mls @ 1,000 mls/hr IV BOLUS ONE Stop: 09/15/22 16:38 Last Infusion: 09/15/22 17:20 Dose: 0 mls/hr Documented By: Admin: 09/15/22 15:54 Dose: 1,000 mls/hr Documented By: ANDRES Pantoprazole Sodium (Pantoprazole 40 Mg Vial) 40 mg IV NOW ONE Stop: 09/15/22 15:40 Last Admin: 09/15/22 15:54 Dose: 40 mg Documented By: ANDRES Vital Signs Vital signs: Vital Signs - 8 hr 09/15/22 14:12 09/15/22 16:40 09/15/22 16:41 Temperature 98 F Pulse Rate 67 80 Respiratory Rate 17 Blood Pressure 186/114 H 149/68 H Pulse Oximetry 98 97 Oxygen Delivery Method Room Air 09/15/22 16:41 09/15/22 17:00 09/15/22 17:00 Temperature Pulse Rate 80 80 Respiratory Rate Blood Pressure 140/73 Pulse Oximetry 98 98 Oxygen Delivery Method MDM - Abdominal Pain Lab Data 09/15/22 13:37 09/15/22 13:37 Labs: Lab Results 09/15/22 09/15/22 09/15/22 Range/Units 13:37 13:37 14:22 WBC 8.3 (4.5-11.0) X10^3/uL RBC 5.20 (4.0-5.2) X10^6/uL Hgb 13.6 (12.0-16.0) g/dL Hct 41.9 (36-46) % MCV 80.6 (80-100) fL MCH 26.2 (26-34) PG MCHC 32.5 (30-36) % RDW 15.6 H (11.6-14.8) % Plt Count 413 H (150-400) X10^3/uL Neut % (Auto) 67.7 (50-75) % Lymph % (Auto) 20.6 L (25-40) % Sutter % (Auto) 5.5 (3-14) % Eos % (Auto) 4.8 H (2-4) % Baso % (Auto) 1.4 (0-2) % Neut # (Auto) 5600 (3705-3050) /uL Lymph # (Auto) 1700 (4281-9620) /uL Sutter # (Auto) 500 (0-900) /uL Eos # (Auto) 400 (0-450) /uL Baso # (Auto) 100 (0-100) /uL Sodium 136 L (137-145) mmol/L Potassium 4.6 (3.4-5.1) mmol/L Chloride 101 (98-107) mmol/L Carbon Dioxide 29 (22-32) mmol/L BUN 16 (7-17) mg/dL Creatinine 0.70 (0.52-1.04) mg/dL Estimated GFR > 60 (>60) mL/min BUN/Creatinine Ratio 22.9 H (6-22) Glucose 98 (80-110) mg/dL Calcium 9.2 (8.4-10.2) mg/dL Total Bilirubin 0.3 (0.2-1.3) mg/dL AST 32 (14-36) IU/L ALT 22 (<35) IU/L Alkaline Phosphatase 97 (38-126) U/L Total Protein 7.3 (6.3-8.2) g/dL Albumin 4.1 (3.5-5.0) g/dL Globulin 3.2 (1.7-4.1) g/dL Albumin/Globulin Ratio 1.3 (1.0-2.8) Lipase 93 (23-300) U/L Urine Color Yellow Urine Appearance Clear Urine pH 7.5 (4.5-8.0) Ur Specific [place] <=1.005 (1.000-1.035) Urine Protein Negative (Negative) Urine Glucose (UA) Negative (Negative) g/dL Urine Ketones Negative (NEGATIVE) Urine Occult Blood Negative (Negative) Urine Nitrate Negative (Negative) Urine Bilirubin Negative (NEGATIVE) Urine Urobilinogen 0.2 (0.2) E.U./dL Ur Leukocyte Esterase Trace H (NEGATIVE) Urine RBC None seen (0-5/HPF) Urine WBC 0-1/hpf (0-5/HPF) Ur Squamous Epith Cells None seen (0-5/HPF) Urine Bacteria None seen (None) Ur Culture Indicated? Cult not indicated MDM Narrative Medical decision making narrative: CC: 66-year-old female with severe right upper quadrant pain, notably worse after recent procedures Complicating co-morbidities: Chronic pain, recent endoscopy Data collected from: Patient Medical records reviewed: Prior notes reviewed in our EMR Differential considered, but not limited to: Gallbladder disease versus pancreatitis versus peptic ulcer disease versus perforation versus bowel obstruction versus other Exam documented above, pertinent findings include: Heart rate regular, lungs clear, epigastric and right upper quadrant pain, localized guarding but no rebound, bowel sounds present Lab Test results independently reviewed as above. Pertinent findings: No leukocytosis or left shift, no signs of anemia, electrolytes and renal function without any significant abnormalities Independently reviewed EKG as above Imaging studies independently reviewed: CT of abdomen and pelvis without acute findings Treatments: Dilaudid, saline, Protonix, Zofran Re-evaluations: Patient improved Discussion: Patient with chronic right upper quadrant and abdominal pain for a few years has worsening symptoms after recent endoscopy. Labs are reassuring and imaging demonstrates no significant findings, specifically no per for obstruction. Her symptoms improved after above-stated therapies. Pain is well controlled and she is tolerating orals, no signs of infectious process. Disposition: see below, along with detailed discharge instructions that have been reviewed with patient as well as indications for ED re-evaluation and additional outpatient follow up Discharge Plan Departure Patient Disposition: Home Clinical Impression: Abdominal pain, chronic, generalized Instructions: DI for Abdominal Pain-Adult Activity Restrictions/Additional Instructions: *You have been diagnosed with [abdominal pain] * As we discussed your history and physical exam as well as labs and imaging are very reassuring. There is no evidence of any severe diagnoses that would require a specific or immediate intervention. *What to do: *Please continue to take your regular medications as directed. [x ] New medication prescriptions sent to your pharmacy: [ [facility]] *Please follow up with your primary care provider in 2-3 days, call for an appointment. Let them know you were seen in the Emergency Department and that we ask that you be seen in follow up. We will electronically transmit a record of today's note if your PCP is in our system *Please consider a clear liquid diet for the next 24-48 hours and then slowly advance to regular as tolerated. Also, try to avoid alcohol, nicotine, caffeine, spicy, acidic or fatty foods as this may worsen your symptoms *If you do not have a primary care provider please contact the [facility] Resource line at [phone]. They will ask some questions about your medical history and help get you set up with a doctor in the community. *Return to Emergency Department if you should have any new, worsening or concerning symptoms, such as [fever greater than 101 F, shaking chills, worsening pain, persistent vomiting or other bothersome symptoms] Prescriptions: New oxycodone 5 mg tablet 5 mg PO Q6H PRN (Reason: pain) Qty: 10 0RF No Action gabapentin 300 mg capsule 300 mg PO TID PRN (Reason: pain) Qty: 270 3RF Rx Instructions: take 1 capsule by mouth three times a day as needed for pain pantoprazole 40 mg tablet,delayed release (DR/EC) 40 mg PO BID Qty: 180 0RF cyclobenzaprine 10 mg tablet 10 mg PO TID PRN (Reason: muscle spasm) Qty: 14 0RF Stand Alone Forms: Patient Portal/API
--- NOTE | 2022-09-15 15:40 | DI.CT.S_ITS ---
PROCEDURE: CT ABDOMEN PELVIS W CON INDICATIONS: severe abdominal pain TECHNIQUE: After the administration of intravenous contrast, axial sections acquired from the lung bases to the pubic symphysis. Coronal and sagittal reformats were performed. For radiation dose reduction, the following was used: automated exposure control, adjustment of mA and/or kV according to patient size. COMPARISON: [facility], CT, CT ABDOMEN PELVIS W CON, 12/20/2019, 22:47. FINDINGS: Image quality: Excellent. Lung bases: Unremarkable. Heart: No significant findings. ABDOMEN: Liver: Unremarkable. Gallbladder: Surgically absent. Biliary ducts: Chronic dilatation of the extrahepatic bile duct, with no obstructing mass. Pancreas: Unremarkable. Spleen: Unremarkable. Adrenal Glands: Unremarkable. Kidneys and Ureters: Unremarkable. Stomach and Bowel: Stomach, small bowel loops, and colon are unremarkable. Peritoneum: No abnormal intraperitoneal fluid. No free air. Ventral Wall: No hernias. Abdominal Nodes: No retroperitoneal or mesenteric adenopathy by size criteria. Vessels: Aorta and inferior vena cava are normal in size. PELVIS: Pelvic Organs: Uterus is surgically absent. No adnexal masses.. Bladder: Unremarkable. Pelvic Nodes: No enlarged lymph nodes. Miscellaneous: No hernias are seen. Bones: Remote posterior lateral fusion at L3 through L5. There is a peripherally calcified left paracentral disc protrusion at L2-L3 which results in severe canal stenosis. Old chronic T12 compression. IMPRESSION: 1. No acute abdominal process noted. 2. Remote cholecystectomy and hysterectomy. 3. Old T12 compression. 4. At L2-L3, there is a peripherally calcified left paracentral disc protrusion which results in severe canal stenosis. This is immediately above the highest fusion level. Dictated by: Panfilo Edmond M.D. on 09/15/2022 at 17:03 Approved by: Panfilo Edmond M.D. on 09/15/2022 at 17:05
[2022-09-15] MEDS: SODIUM CHLORIDE 0.9% 1,000 ML 1000 ML IV (15:54)
[2022-09-15] MEDS: PANTOPRAZOLE 40 MG VIAL IV (15:54)
[2022-09-15] MEDS: ONDANSETRON 4 MG/2 ML INJ IV (15:54)
[2022-09-15] MEDS: HYDROMORPHONE 0.5 MG INJ IV (16:07)
[2022-09-15 16:40] VITALS: PULSE 80; O2SAT 97
[2022-09-15 16:41] VITALS: BP 149/68; PULSE 80; O2SAT 98
[2022-09-15 17:00] VITALS: BP 140/73; PULSE 80; O2SAT 98
== END 2022-09-15 17:35 | disposition home or self-care (01) ==
PROVIDERS: Emergency Provider Emergency Medicine
DX: R10.84 Generalized abdominal pain (principal); G89.29 Other chronic pain; I70.90 Unspecified atherosclerosis
CPT/HCPCS: 36415; 74177; 80053; 80061; 81001; 83690; 85025; 93005; 93010; 96374; 96375; 99284; C9113; J1170; J2405; Q9967

== ENCOUNTER 2023-01-21 07:06 | Inpatient (IN) | payer MEDICARE, MEDICAID, SELFPAY ==
[2019-05-22 21:34] VITALS: BMI 24.2
[2023-01-06 08:02] VITALS: BMI 26.4
[2023-01-21] VITALS (24 sets, daily range): BP systolic 88–153; BP diastolic 54–112; PULSE 84–105; RESP 12–25; TEMP 36.1–36.6; O2SAT 2–99; BMI 26.4
--- NOTE | 2023-01-21 | DI.RAD.S_ITS ---
PROCEDURE: XR LUMBAR SPINE 2-3V INDICATIONS: L2-S1 TLIF REVISION TECHNIQUE: 3 fluoroscopic views of the lumbar spine were acquired. COMPARISON: [facility], CT, CT ABDOMEN PELVIS W CON, 09/15/2022, 16:13. [facility], CR, XR LUMBAR SPINE MIN 4V, 03/22/2018, 12:46. FINDINGS: Lumbar spine pedicle screw fixation. Intervertebral body spacers. Prior T12 compression fracture. IMPRESSION: Intraoperative guidance provided. Dictated by: Albert Gonzales M.D. on 01/21/2023 at 12:52 Approved by: Albert Gonzales M.D. on 01/21/2023 at 12:58
[2023-01-21 08:27] LABS: COVID19 -Nasal RAPID Negative (Negative)
[2023-01-21] MEDS: LACTATED RINGERS 1,000 ML 100 ML IV ×2 (08:41→10:13)
--- NOTE | 2023-01-21 08:51 | SUR.PREOP ---
Pt reported new cold like symptoms starting yesterday with runny nose and increased cough (over smoker baseline) with green sputum. Nina SALEH and Dr Poole notified at bedside. Duoneb given per Nina De Guzman. Neuro assessment difficult due to patient crying.
[2023-01-21] MEDS: CEFAZOLIN 2 GM/100 ML PREMIX 100 ML IV ×2 (09:19→16:20)
[2023-01-21] MEDS: BUPIVACAINE LIPOSOME 266 MG/20 ML VIAL INJ (09:55)
[2023-01-21] MEDS: BUPIVACAINE 0.25% (PF) 60 ML, EPINEPHrine 0.15 MG INJ (09:56)
--- NOTE | 2023-01-21 12:09 | PM.PREOP ---
Pre-operative Note Interval Note History & Physical reviewed/Exam performed by Physician: Yes Changes to H&P: No
--- NOTE | 2023-01-21 12:10 | P.OP_ITS ---
Operative Date/Time/Diagnoses Date of procedure: 01/21/23 Time of procedure: 08:40 Pre-op diagnosis: 1. L2-3, L3-4 spinal stenosis with neurogenic claudication 2. History of L4-S1 fusion with retained hardware 3. L3-4 disc herniation Post-op diagnosis: same Procedure & Clinicians Procedure: 1. L2-3, L3-4 Postero-lateral and posterior interbody fusion 2. L2-3, L3-4 interbody cage placement. 3. L2-3, L3-4 decompressive laminectomy with bilateral facetecomies 4. L2-3, L3-4 Posterior segmental instrumentation 5. L4-5 exploration of fusion with repeat laminectomy 6. [place] of bone marrow from iliac crest 7. Utilization of microsurgical technique and operating microscope 8. Utilization of robotic assisted navigation Same procedure as scheduled: Yes Indications: Patient has been having chronic back pain and worsening lumbar radiculopathy and symptoms of neurogenic claudication. Patient has MRI showing severe spinal stenosis at L2-3 L3-4 with a large extruded disc at L3-4 correlating with her current symptoms. Patient failed multiple conservative management with worsening pain weakness and numbness in her lower extremity. Patient has been having difficulty performing activity of daily living. After discussing risks benefits of treatment options, patient elected proceed with surgery. Surgeon: Daniel Poole Recruitment Intern: Sahyy Smiley Click Yes if Unassisted: No Operative Notes Closure Type: primary Specimen(s): none sent Prosthetic devices, grafts, tissues, transplants, or devices: Globus CREO MIS screws, Rise cages, Globus add-on system Applied: catheter Estimated Blood Loss (mL): 100 Blood products transfused: none Procedure in detail: Patient was seen in the preoperative area. Risks and benefits of the surgery was discussed with the patient. Informed consent was obtained from the patient and placed in the chart. Surgical site was marked. Patient was taken to the operative room. General anesthesia was administered. Prophylactic antibiotic was given to the patient less than 30 min before the incision was made. Patient was placed into a prone position on the Jordan table. Patient's back was then prepped and draped in the sterile fashion. Time-out was performed at this time. After patient was prepped and draped, patient's PSIS was palpated and marked bilaterally. Small 1 cm incision was made over the PSIS for placement of the reference probes. Two trocar was placed into the PSIS 1 on each side. The reference probe was attached to the trocar of the reference apparatus. At this time the C-arm imaging was used to confirm AP and lateral of L2, L3, L4 vertebrae and merged the C-arm imaging using the [employer] robotic navigation system with the CT of the lumbar spine. After successful merging was completed and confirmed, skin marker was used to martin out the skin incision using the [employer] robotic arm. Bilateral incision was made at this time. Pre templated trajectory was used and guided using the [employer] robotic navigation system for bilateral L2, L3 pedicle screw placement. This was done by using the robotic arm to guide the high-speed bur to make a cortical entry point. Next a drill was placed also using the robotic arm and guided using the navigation system drilling partially through bilateral L2, L3 pedicles. Next L2, L3 pedicle screws it was pre templated and measured was placed onto the power motor coach driver and inserted into the pedicles bilaterally. After all 4 screws were placed C-arm imaging was taken of both AP and lateral to confirm the placement. Excellent placement of the screws were confirmed and a matched precisely with the pre planned screw placement using the navigation system. MARs retractor was inserted using [place] [employer] guidence. Globus MARS retractors was placed inside the incision and docked onto the L2 and L3 lamina. Using microsurgical technique and operating microscope, a L2, L3 laminectomy and L2-3, L3-4 facetectomy was performed using a Kerrison rongeur. The laminectomy and facetectomy was performed in order to decompress patient's cauda equina as well as the nerve roots exiting at the L2-3, L3-4 level. Patient was found have severe lateral recess, central and neural foramen stenosis which was fully decompressed after the laminectomy facetectomy. Patient also was found to have a large extruded disc at L3-4 level. Extruded disc was also removed using micro curette and pituitary as part of the decompression. More than 75% of the facets were removed during the process of decompression rendering L2-3, L3-4 level grossly unstable and required a fusion procedure at the same time. The disc space at L2-3, L3-4 was identified, and a total diskectomy was performed at L2- 3, L3-4 level. The endplates were decorticated using a rasp and shaver. The total diskectomy and decortication was performed at L2-3, L3-4 level in order to to accomplish a L2-3, L3-4 fusion. The local bone from the laminectomy and facetectomy was saved for local bone grafting. After the total diskectomy and decortication was completed, DBM bone graft material was combined with local bone that was harvested earlier. At this time, a separate skin is incision was made over the iliac crest. A Jamshidi needle was inserted into the iliac crest through a separate skin incision. 5 cc of bone marrow aspiration was obtained through the separate skin incision using a Jamshidi needle from the iliac crest. The bone marrow aspiration was combined with local bone and the DBM bone grafting material. The bone grafting material was placed into the L2-3, L3-4 interbody space along with a expandable cage. The cage was expanded to its maximum height using the torque limiting screwdriver. The disc preparation as well as the cage insertion were also performed under navigation guidance. After the cage was placed, AP and lateral C-arm imaging was taken to confirm placement of the cage and excellent position was confirmed. Globus MARS retractor was inserted and docked onto the L2-3, L3-4 posterolateral gutter on the right side. Using the power drill, posterior-lateral decortication was performed at L2-3, L3-4 level until bleeding cortical bone was identified. The remaining bone grafting material was placed into the L2-3, L3-4 posterior lateral gutter he order to accomplish posterolateral fusion at the L2- 3, L3-4 level. Using patient's previous scar incision was made over the L3-4 interval on the left side. Fascia was incised in line with skin incision. Patient's previously placed hardware over the L3-4 level was identified by dissecting down to the level the hardware using a Bovie and a Lopez. The nino between L3-L4 Tulip was exposed and freed up to get ready for the addition hardware. Globus additional hardware was inserted and locked onto the nino using the torque limiting screwdriver. At this time 3 locking towers were inserted on the left-sided patient's incision onto the L2-L3 and the L 3 4 add on shank.. A nino was inserted and locked into place after measuring using a caliper. The nino was locked into place using locking caps and torque limiting screwdriver 3 locking caps was used on the left side. The incision was extended on the right side in the mirror image fashion as the left side. The hardware on the right side was also exposed at L3-4 level in the same fashion. Extension system was attached to the nino between L3-4 tulips using torque limiting screwdriver. Three locking towers were placed onto the right side of patient's cruciates at L2-L3 and the addition system between the L3-L4 Tulip. A nino was then locked on the right side using 3 locking caps in the same fashion as the left side. L3-4 hemilaminectomy was performed over the previous hardware in order to inspect patient's previous fusion expose the hardware in order to assess patient's fusion status. Solid fusion was identified at L3-4 level with no signs of hardware loosening. After all the hardware was placed, and confirmed with AP and lateral C-arm imaging, the wound was then irrigated with sterile normal saline and packed with Ray-Lazaro gauze for 3 min to accomplish hemostasis. After the gauze was removed the deep fascia was closed with #1 Vicryl suture. The subcutaneous layer was closed with 2-0 Vicryl. The skin was closed with skin stacey. Patient tolerated the procedure well. There were no complications. Neuro monitoring was used throughout the entire case. Signals were stable throughout the entire procedure. Patient had multiple episode of SVT during anesthesia starting 30-45 minutes after incision time. Patient was able to be medically converted to sinus rhythem but had repeated episodes of SVT. The surgery was completed as planned since patient was medically stable with well maintained blood pressure. Please see anesthesia records for detailed information. We will consult medicine service to help manage patient's medical condition during patient's inpatient admission. Complications: none Post-operative Condition: stable Disposition: PACU Plan for aftercare: Admit to inpatient hospital
[2023-01-21] MEDS: ONDANSETRON 4 MG/2 ML INJ IV (12:21)
[2023-01-21] MEDS: fentaNYL 100 MCG/2 ML INJ IV ×3 (12:22→12:59)
[2023-01-21] MEDS: HYDROMORPHONE 1 MG INJ IV ×4 (12:22→13:09)
[2023-01-21] MEDS: hydrOXYzine 50 MG/ML INJ 25 MG IM (12:40)
[2023-01-21] MEDS: diazePAM 10 MG/2 ML SYRINGE 5 MG IV (13:24)
[2023-01-21] MEDS: OXYCODONE IR 5 MG TABLET PO (14:26)
[2023-01-21] MEDS: LACTATED RINGERS 1,000 ML 125 ML IV (15:14)
--- NOTE | 2023-01-21 15:55 | P.CONS_ITS ---
History of Present Illness Consult details Date Patient Seen: 01/21/23 Time Patient Seen: 17:35 Chief complaint: INPT Reason for consult: SVT Requesting provider: Daniel Poole Narrative: This is a 67 year old female with PMH of chronic back pain, GERD, smoking, emphysema, multiple prior back surgeries. She underwent prolonged robotic assisted L2-4 fusion, cage placement and fascectomies with L4-5 exploration of fuision for ongoing spinal stenosis. During her case patient had runs of SVT per the operating surgeon. Anasethesia record were reviewed, from my interpretation there appears to have been 4 episodes of SVT. I cannot find a 12-lead in our system or the patient's paper chart. She currently only complains of severe back pain after her surgery, and wonders where a morphine infusion or S[employer]ARD are that she had after previous surgeries. CMP, blood gas, CBC and troponin were ordered. EKG ordered and reviewed, shows NSR with no acute ischemia. CBC has yet to be collected. CMP is unremarkable. VBG however showed a pH of 7.22 with PCO2 of 71.5. I requested her oxygen be turned off with goal of 88%. Will continue to monitor CO2 levels. She has no current respiratory symptoms and is alert and oriented, though a bit confused after surgery. I did review prior CT imaging, it does appears she has some emphysematous changes at her lung bases by my interpretation. Meds Home Medications and Allergies Home Medications Medication Instructions Recorded Confirmed Type pantoprazole 40 mg tablet,delayed 40 mg PO BID #180 tabs 11/12/18 01/21/23 Rx release gabapentin 300 mg capsule 300 mg PO TID PRN pain #270 caps 01/17/19 01/21/23 Rx cyclobenzaprine 10 mg tablet 10 mg PO TID PRN muscle spasm #14 11/05/19 01/21/23 Rx tabs oxycodone 5 mg tablet 5 mg PO Q6H PRN pain #10 tabs 09/15/22 01/21/23 Rx albuterol sulfate 90 mcg/actuation 2 inh inhalation Q6H PRN shortness 01/21/23 01/21/23 History aerosol inhaler (Ventolin HFA) of breath Allergies Allergy/AdvReac Type Severity Reaction Status Date / Time adhesive tape [ADHESIVE TAPE] Allergy Intermediate Rash Verified 01/21/23 08:15 venlafaxine AdvReac Intermediate sweating, Verified 01/21/23 08:15 insomnia duloxetine [From Cymbalta] AdvReac Mild insomnia, Verified 01/21/23 08:15 teeth clenching hydrocodone [From VICODIN] AdvReac Unknown STOMACH Verified 01/21/23 08:15 UPSET ibuprofen AdvReac Rectal Verified 01/21/23 08:15 bleeding Review of Systems Review of Systems Narrative: All other systems reviewed with the patient and are negative unless otherwise stated. Exam Vital Signs (past 8 hours): - 01/21/23 08:44 01/21/23 12:18 01/21/23 12:23 Temperature 97.6 F 97.1 F L Pulse Rate 92 H 96 H 99 H Respiratory Rate 18 15 15 Blood Pressure 131/84 145/75 H 88/56 L Pulse Oximetry 95 99 94 Oxygen Delivery Method Room Air Room Air Room Air Oxygen Flow Rate 01/21/23 12:27 01/21/23 12:37 01/21/23 12:41 Temperature Pulse Rate 91 H 102 H 98 H Respiratory Rate 16 12 13 Blood Pressure 137/87 138/88 137/84 Pulse Oximetry 98 98 98 Oxygen Delivery Method Nasal Cannula Nasal Cannula Nasal Cannula Oxygen Flow Rate 4 4 4 01/21/23 12:46 01/21/23 13:01 01/21/23 13:11 Temperature Pulse Rate 96 H 105 H 105 H Respiratory Rate 14 12 14 Blood Pressure 132/79 153/112 H 125/91 H Pulse Oximetry 96 95 96 Oxygen Delivery Method Nasal Cannula Nasal Cannula Nasal Cannula Oxygen Flow Rate 4 2 2 01/21/23 13:16 01/21/23 13:27 01/21/23 13:41 Temperature Pulse Rate 102 H 97 H 88 Respiratory Rate 12 12 12 Blood Pressure 136/101 H 111/54 L 109/62 Pulse Oximetry 2 L 95 96 Oxygen Delivery Method Nasal Cannula Simple Mask Simple Mask Oxygen Flow Rate 5 5 01/21/23 13:56 01/21/23 14:11 01/21/23 14:20 Temperature Pulse Rate 86 87 88 Respiratory Rate 12 14 14 Blood Pressure 100/60 109/63 103/64 Pulse Oximetry 95 94 96 Oxygen Delivery Method Simple Mask Simple Mask Nasal Cannula Oxygen Flow Rate 5 4 4 01/21/23 15:19 01/21/23 15:24 Temperature 97 F L Pulse Rate 85 Respiratory Rate 14 Blood Pressure 121/84 Pulse Oximetry 99 Oxygen Delivery Method Nasal Cannula Oxygen Flow Rate 2 Oxygen Delivery Method Nasal Cannula Oxygen Flow Rate 2 Narrative Exam Narrative: General:? Patient is well developed and well nourished, in no distress at this time, though appears uncomfortable due to pain. HEENT:? Normocephalic, atraumatic, extraocular muscles intact, oral pharynx is clear and mucous membranes are moist. Neck: supple and symmetric, trachea is midline, no cervical adenopathy. Negative for JVD Chest:? Normal AP diameter and contour without kyphoscoliosis, no tachypnea, equal chest rise bilaterally. Lungs:? CTA b/l no wheezing rhonchi or rales. Cardio:?RRR no m/r/g. Abdomen: S NT ND. Musculoskeletal:? Muscle strength and tone are equal within normal limits, no deformity. Extremities: No edema or joint effusions. No cyanosis or clubbing. Skin:? Pale,? Warm to touch,dry and intact without rashes, ulcerations or petechiae.? Neuro:? Alert and orientated x3,? sensation to touch intact in all extremities, no gross deficits noted of cranial nerves. Psych:? Patient has a well-kept appearance, appropriate affect, mental status attitude thought context and judgment are appropriate for age. Objective ECG Impression: NSR with no acute ischemia as interpreted by me. Labs 01/21/23 12:54 Labs: Laboratory Results - last 24 hr 01/21/23 08:04 SARS-CoV-2 (PCR) Negative [facility] Medical History History of COVID-19 (~2020) Peripheral neuropathy (2012) Skin spots-aging Chronic cough Anxiety Chronic headaches Chronic back pain (1981) Cervical spine disease (2007) Ankle pain (2017) Lumbar spinal stenosis Scoliosis Osteopenia Osteoporosis Lumbar spine pain Foot pain GERD (gastroesophageal reflux disease) Surgical History History of lumbar spinal fusion (12/13/18) Hx laparoscopic cholecystectomy (05/22/19) Status post epidural steroid injection (04/28/18) Anesthesia History of lumbar laminectomy (~1989) History of hysterectomy (1992) History of lumbar laminectomy (2013) History of cervical spinal surgery (2007) Family History Father No problems noted. Mother Colon cancer Liver cancer Heart disease Hypertension Brother Obesity Diabetes mellitus Hypertension Brother No problems noted. Brother No problems noted. Sister No problems noted. Grandfather No problems noted. Grandmother No problems noted. Grandfather No problems noted. Grandmother No problems noted. Family/Other No problems noted. Social History household members: none Tobacco & Substance Use Smoking Status: Current every day smoker alcohol intake: current Assessment & Plan Assessment & Plan narrative: 1. Paroxysmal supraventricular tachycardia- - low likelihood of ACS. Troponins negative and patient had unremarkable / low risk stress testing prior to surgery. - more likely SVT was reactive to hypercapnea due to underlying COPD during surgery, probably due to overoxygenation. - VBG with pH of 7.22 and PCO2 of 71.5. - see below for additional management - continue telemetry for now. 2. Acute (probably on chronic) respiratory failure with hypercapnea, pulmonary emphysema - With concurrent smoking and prior review of CT images suspect chronic emphysema due to smoking. (In review of [facility] residency note she indeed does have pulmonary emphysema). - With PCO2 of 71.5 on VBG, suspect a chronic component but acutely likely due to overoxygenation, opiates reducing respiratory drive. - asked to shut off supplemental oxygen, with goal O2 88-96%, ideally closer to 88%. - Will continue to repeat VBG to monitor hypercapnea, if worsening may need BiPAP. - do not suspect underlying exacerbation at this time, though consider steroids depending on progress. 3. GERD - continue home PPI BID 4. Chronic pain - - pain management will likely be difficult, patient was previously on S[employer] TRAFF[employer] GUARD during her prior back surgery. - management deferred to primary team. Code: Full, surrogate is patient's son DVT: per primary team I have utilized all available immediate resources to obtain, update, or review the patient's current medications. Medicine will continue to follow this patient. Additional history was obtained via review of anasethesia record, discussion with orthopedic provider, bedside RN and respiratory therapy. PCP: appears to be [facility] residency clinic.
--- NOTE | 2023-01-21 15:55 | PT-IP ANOTE ---
PT eval order received. EMR reviewed. Talked with nurse and stated that pt is not ready for PT. stated that pt is sleeping and not appropriate for PT at this time. will f/u.
[2023-01-21] MEDS: ALBUTEROL 2.5 MG/3 ML NEB (ADULT) INH (15:58)
[2023-01-21 16:39] LABS: Alanine Aminotransferase 46 IU/L (<35); Albumin 3.3 g/dL (3.5-5.0); Albumin Globulin Ratio 1.2 (1.0-2.8); Alkaline Phosphatase 74 U/L (38-126); Aspartate Aminotransferase 94 IU/L (14-36); BUN Creatinine Ratio 20.6 (6-22); Bilirubin Total 0.3 mg/dL (0.2-1.3); Blood Urea Nitrogen 13 mg/dL (7-17); Calcium 8.6 mg/dL (8.4-10.2); Carbon Dioxide 28 mmol/L (22-32); Chloride 106 mmol/L (98-107); Estimated Glomerular Filt Rate > 60 mL/min (>60); Globulin 2.7 g/dL (1.7-4.1); Glucose 128 mg/dL (80-110); HEMOLYSIS 15 (0-50); Potassium 3.9 mmol/L (3.4-5.1); Sodium 138 mmol/L (137-145)
[2023-01-21 16:51] LABS: Troponin I < 0.012 ng/mL (0.01-0.034)
[2023-01-21 17:02] LABS: Fractionated Inspired Oxygen 28; HCO3 VBG 29 mmol/L (24-28); Oxygen Saturation VBG 67 % (70-75); PCO2 VBG 71.5 mmHg (45-50); PO2 VBG 43 mmHg (35-45); Total CO2 VBG 31 mmol/L (24-29); pH VBG 7.22 (7.33-7.43)
[2023-01-21] MEDS: ACETAMINOPHEN 325 MG TABLET 650 MG PO (17:37)
[2023-01-21] MEDS: CYCLOBENZAPRINE 10 MG TABLET PO ×2 (17:37→23:43)
[2023-01-21] MEDS: OXYCODONE IR 10 MG TABLET PO (17:37)
[2023-01-21 19:51] LABS: Add Manual Diff / Slide Review NO; Basophils Absolute Auto 0 /uL (0-100); Basophils Percent Auto 0.3 % (0-2); Eosinophils Absolute Auto 0 /uL (0-450); Eosinophils Percent Auto 0.1 % (2-4); Hemoglobin 11.1 g/dL (12.0-16.0); Lymphocytes Absolute Auto 400 /uL (1100-4500); Lymphocytes Percent Auto 3.2 % (25-40); Mean Corpuscular HGB Conc 31.7 % (30-36); Mean Corpuscular Volume 81.8 fL (80-100); Monocytes Absolute Auto 300 /uL (0-900); Monocytes Percent Auto 1.9 % (3-14); Neutrophils Absolute Auto 12800 /uL (1500-7000); Neutrophils Percent Auto 94.5 % (50-75); Platelet Count 285 X10^3/uL (150-400); Red Blood Cell Count 4.27 X10^6/uL (4.0-5.2); Red Cell Distribution Width 14.4 % (11.6-14.8); White Blood Cell Count 13.6 X10^3/uL (4.5-11.0)
[2023-01-21] MEDS: GABAPENTIN 300 MG CAPSULE PO (19:51)
[2023-01-21] MEDS: DOCUSATE 100 MG CAPSULE PO (20:05)
[2023-01-21] MEDS: SENNOSIDES 8.6 MG TABLET 17.2 MG PO (20:05)
[2023-01-21] MEDS: PANTOPRAZOLE DR 40 MG TABLET PO (20:05)
[2023-01-21] MEDS: HYDROMORPHONE 0.5 MG INJ IV ×2 (20:14→22:22)
[2023-01-22] VITALS (7 sets, daily range): BP systolic 117–146; BP diastolic 74–98; PULSE 88–114; RESP 16–20; TEMP 35.8–37; O2SAT 92–96
[2023-01-22] MEDS: HYDROMORPHONE 0.5 MG INJ IV ×6 (00:34→18:10)
[2023-01-22] MEDS: polyethylene glycoL 3350 17 GM POWD.PACK PO (00:43)
[2023-01-22 00:44] LABS: Fractionated Inspired Oxygen 21; HCO3 VBG 27 mmol/L (24-28); Oxygen Saturation VBG 70 % (70-75); PCO2 VBG 51.4 mmHg (45-50); PO2 VBG 40 mmHg (35-45); Total CO2 VBG 28 mmol/L (24-29); pH VBG 7.32 (7.33-7.43)
[2023-01-22] MEDS: CEFAZOLIN 2 GM/100 ML PREMIX 100 ML IV (00:47)
--- NOTE | 2023-01-22 01:00 | PC.NURSE ---
Crying, rating her pain level 9-10/10. She also C/O left thigh numbness, CMS are intact bilateral dorsalis pedis pulses are strong. Repositioned to her right side & pillow in placed. Encouraged to get some sleep. Will continue plan of care & monitor.
[2023-01-22] MEDS: hydrOXYzine pamoate 25 MG CAPSULE PO ×2 (02:32→08:26)
[2023-01-22] MEDS: ALBUTEROL 2.5 MG/3 ML NEB (ADULT) INH ×5 (02:35→19:39)
[2023-01-22] MEDS: LACTATED RINGERS 1,000 ML 125 ML IV (03:52)
--- NOTE | 2023-01-22 04:26 | PC.NURSE ---
Pt. C/O left thigh numbness, did not resolve when we repositioned her. [facility] rn [facility] doctor. Awaiting call back.
[2023-01-22] MEDS: OXYCODONE IR 10 MG TABLET PO ×3 (05:59→19:46)
--- NOTE | 2023-01-22 07:27 | PC.NURSE ---
NAEEM Smiley, notified with patient C/O left thigh numbness & also reported to Kimberley astudillo shift RN.
--- NOTE | 2023-01-22 07:42 | P.PN_ITS ---
Subjective Subjective Date Patient Seen: 01/22/23 Time Patient Seen: 07:42 Interval history: Pt lying in bed with multiple complaints. Was not able to sleep all night d/t coughing. Coughing exacerbated her low back pain. She also has numbness in her left thigh; prior to surgery, this same area was so painful that she was unable to walk for about 2 weeks leading up to surgery. Exam Vital Signs (past 8 hours): - 01/22/23 03:00 Temperature 97.6 F Pulse Rate 88 Respiratory Rate 20 Blood Pressure 138/74 Pulse Oximetry 96 Oxygen Flow Rate 0 Oxygen Delivery Method Room Air Oxygen Flow Rate 0 Objective Labs 01/22/23 07:52 01/21/23 12:54 Labs: Laboratory Results - last 24 hr 01/21/23 01/21/23 01/21/23 08:04 12:54 15:13 WBC 13.6 H RBC 4.27 Hgb 11.1 L Hct 35.0 L MCV 81.8 MCH 26.0 MCHC 31.7 RDW 14.4 Plt Count 285 Neut % (Auto) 94.5 H Lymph % (Auto) 3.2 L [place] % (Auto) 1.9 L Eos % (Auto) 0.1 L Baso % (Auto) 0.3 Neut # (Auto) 39468 H Lymph # (Auto) 400 L [place] # (Auto) 300 Eos # (Auto) 0 Baso # (Auto) 0 VBG pH VBG pCO2 VBG pO2 VBG HCO3 VBG Total CO2 VBG O2 Saturation VBG Base Excess FiO2 Sodium 138 Potassium 3.9 Chloride 106 Carbon Dioxide 28 BUN 13 Creatinine 0.63 Estimated GFR > 60 BUN/Creatinine Ratio 20.6 Glucose 128 H Calcium 8.6 Total Bilirubin 0.3 AST 94 H ALT 46 H Alkaline Phosphatase 74 Troponin I < 0.012 Total Protein 6.0 L Albumin 3.3 L Globulin 2.7 Albumin/Globulin Ratio 1.2 SARS-CoV-2 (PCR) Negative 01/21/23 01/21/23 16:51 22:00 WBC RBC Hgb Hct MCV MCH MCHC RDW Plt Count Neut % (Auto) Lymph % (Auto) [place] % (Auto) Eos % (Auto) Baso % (Auto) Neut # (Auto) Lymph # (Auto) [place] # (Auto) Eos # (Auto) Baso # (Auto) VBG pH 7.22 L 7.32 L VBG pCO2 71.5 H 51.4 H VBG pO2 43 40 VBG HCO3 29 H 27 VBG Total CO2 31 H 28 VBG O2 Saturation 67 L 70 VBG Base Excess 2.0 1.0 FiO2 28 21 Sodium Potassium Chloride Carbon Dioxide BUN Creatinine Estimated GFR BUN/Creatinine Ratio Glucose Calcium Total Bilirubin AST ALT Alkaline Phosphatase Troponin I Total Protein Albumin Globulin Albumin/Globulin Ratio SARS-CoV-2 (PCR) [facility] Medical History History of COVID-19 (~2020) Peripheral neuropathy (2012) Skin spots-aging Chronic cough Anxiety Chronic headaches Chronic back pain (1981) Cervical spine disease (2007) Ankle pain (2016) Lumbar spinal stenosis Scoliosis Osteopenia Osteoporosis Lumbar spine pain Foot pain GERD (gastroesophageal reflux disease) Surgical History History of lumbar spinal fusion (12/13/18) Hx laparoscopic cholecystectomy (05/22/19) Status post epidural steroid injection (04/28/18) Anesthesia History of lumbar laminectomy (~1989) History of hysterectomy (1992) History of lumbar laminectomy (2013) History of cervical spinal surgery (2007) Family History Father No problems noted. Mother Colon cancer Liver cancer Heart disease Hypertension Brother Obesity Diabetes mellitus Hypertension Brother No problems noted. Brother No problems noted. Sister No problems noted. Grandfather No problems noted. Grandmother No problems noted. Grandfather No problems noted. Grandmother No problems noted. Family/Other No problems noted. Social History household members: none Smoking Status: Current every day smoker alcohol intake: current Assessment & Plan Post-op Assessment and plan (1) S/P lumbar fusion: Assessment and Plan narrative: Wants home health. Hopeful d/c in next 1-2 days pending progress w/ PT. Appreciate hospitalist help with periop cardiac and respiratory issues. (2) Paroxysmal SVT (supraventricular tachycardia): Assessment and Plan narrative: Low likelihood of ACS per hospitalist service. Has been in NSR since after surgery. (3) Acute and chronic respiratory failure ([id number]): Assessment and Plan narrative: Hospitalist recommendation to maintain O2 sats of 88% or greater on RA; currently 92%. H/o pulmonary emphysema. Pt is a current every day smoker, though she says this is not contributing to cough. Postoperative Procedures: Procedures Operation Date: 01/21/23 08:45 Actual Procedure Side Surgeon p L2-3, L3-4 TLIF, L2-S1 PSF with posterior instrumentation-Robot Daniel Poole MD Quality VTE Deep Vein Thrombosis/Pulmonary Embolism Present on Admission: No
--- NOTE | 2023-01-22 07:53 | P.PN_ITS ---
Subjective Subjective Interval history: Patient anxious and in pain. Said she doesn't remember the pain being this bad after her last back surgery in 2019. She feels trapped not being able to roll in bed or lift her bottom or legs. Refused tele to monitor for SVT. Exam Vital Signs (past 8 hours): - 01/22/23 03:00 Temperature 97.6 F Pulse Rate 88 Respiratory Rate 20 Blood Pressure 138/74 Pulse Oximetry 96 Oxygen Flow Rate 0 Oxygen Delivery Method Room Air Oxygen Flow Rate 0 Narrative Exam Narrative: General:? Patient is well developed and well nourished, very anxious, appears uncomfortable due to pain. HEENT:? Normocephalic, atraumatic, extraocular muscles intact, oral pharynx is clear and mucous membranes are moist. Neck: supple and symmetric, trachea is midline, no cervical adenopathy. Negative for JVD Chest:? Normal AP diameter and contour without kyphoscoliosis, no tachypnea, equal chest rise bilaterally. Lungs:? CTA b/l no wheezing rhonchi or rales. Cardio:?RRR no m/r/g. Abdomen: S NT ND. Musculoskeletal:? Muscle strength and tone are equal within normal limits, no deformity. Extremities: No edema or joint effusions. No cyanosis or clubbing. Skin:? Pale,? Warm to touch,dry and intact without rashes, ulcerations or petechiae.? Neuro:? Alert and orientated x3,? sensation to touch intact in all extremities, no gross deficits noted of cranial nerves. Psych:? Anxious Objective Labs 01/22/23 07:52 01/21/23 12:54 Labs: Laboratory Results - last 24 hr 01/21/23 01/21/23 01/21/23 08:04 12:54 15:13 WBC 13.6 H RBC 4.27 Hgb 11.1 L Hct 35.0 L MCV 81.8 MCH 26.0 MCHC 31.7 RDW 14.4 Plt Count 285 Neut % (Auto) 94.5 H Lymph % (Auto) 3.2 L Owen % (Auto) 1.9 L Eos % (Auto) 0.1 L Baso % (Auto) 0.3 Neut # (Auto) 01414 H Lymph # (Auto) 400 L Owen # (Auto) 300 Eos # (Auto) 0 Baso # (Auto) 0 VBG pH VBG pCO2 VBG pO2 VBG HCO3 VBG Total CO2 VBG O2 Saturation VBG Base Excess FiO2 Sodium 138 Potassium 3.9 Chloride 106 Carbon Dioxide 28 BUN 13 Creatinine 0.63 Estimated GFR > 60 BUN/Creatinine Ratio 20.6 Glucose 128 H Calcium 8.6 Total Bilirubin 0.3 AST 94 H ALT 46 H Alkaline Phosphatase 74 Troponin I < 0.012 Total Protein 6.0 L Albumin 3.3 L Globulin 2.7 Albumin/Globulin Ratio 1.2 SARS-CoV-2 (PCR) Negative 01/21/23 01/21/23 16:51 22:00 WBC RBC Hgb Hct MCV MCH MCHC RDW Plt Count Neut % (Auto) Lymph % (Auto) Owen % (Auto) Eos % (Auto) Baso % (Auto) Neut # (Auto) Lymph # (Auto) Owen # (Auto) Eos # (Auto) Baso # (Auto) VBG pH 7.22 L 7.32 L VBG pCO2 71.5 H 51.4 H VBG pO2 43 40 VBG HCO3 29 H 27 VBG Total CO2 31 H 28 VBG O2 Saturation 67 L 70 VBG Base Excess 2.0 1.0 FiO2 28 21 Sodium Potassium Chloride Carbon Dioxide BUN Creatinine Estimated GFR BUN/Creatinine Ratio Glucose Calcium Total Bilirubin AST ALT Alkaline Phosphatase Troponin I Total Protein Albumin Globulin Albumin/Globulin Ratio SARS-CoV-2 (PCR) [facility] Medical History History of COVID-19 (~2020) Peripheral neuropathy (2012) Skin spots-aging Chronic cough Anxiety Chronic headaches Chronic back pain (1981) Cervical spine disease (2007) Ankle pain (2016) Lumbar spinal stenosis Scoliosis Osteopenia Osteoporosis Lumbar spine pain Foot pain GERD (gastroesophageal reflux disease) Surgical History History of lumbar spinal fusion (12/13/18) Hx laparoscopic cholecystectomy (05/22/19) Status post epidural steroid injection (04/28/18) Anesthesia History of lumbar laminectomy (~1989) History of hysterectomy (1992) History of lumbar laminectomy (2013) History of cervical spinal surgery (2007) Family History Father No problems noted. Mother Colon cancer Liver cancer Heart disease Hypertension Brother Obesity Diabetes mellitus Hypertension Brother No problems noted. Brother No problems noted. Sister No problems noted. Grandfather No problems noted. Grandmother No problems noted. Grandfather No problems noted. Grandmother No problems noted. Family/Other No problems noted. Social History household members: none Smoking Status: Current every day smoker alcohol intake: current Assessment & Plan Assessment & Plan narrative: 1. Paroxysmal supraventricular tachycardia- - low likelihood of ACS. Troponins negative and patient had unremarkable / low risk stress testing prior to surgery. - more likely SVT was reactive to hypercapnea due to underlying COPD during surgery, probably due to overoxygenation. - VBG with pH of 7.22 and PCO2 of 71.5. - see below for additional management - patient refused telemetry, EKG shows sinus tach - if recurrence of SVT occurs add metoprolol XL 25mg once daily 2. Acute (probably on chronic) respiratory failure with hypercapnea, pulmonary emphysema, resolved - With concurrent smoking and prior review of CT images suspect chronic emphysema due to smoking. (In review of [facility] residency note she indeed does have pulmonary emphysema). - With PCO2 of 71.5 on VBG, suspect a chronic component but acutely likely due to overoxygenation, opiates reducing respiratory drive. - asked to shut off supplemental oxygen, with goal O2 88-96%, ideally closer to 88%. - Will continue to repeat VBG to monitor hypercapnea, if worsening may need BiPAP. - do not suspect underlying exacerbation at this time, though consider steroids depending on progress. - repeat VBG with improved CO2 of 51.4 - weaned off O2 3. GERD - continue home PPI BID 4. Acute on chronic pain with anxiety - pain management will likely be difficult, patient was previously on [employer] during her prior back surgery. - already on oxy 5 and 10 PRN, dilaudid 0.5mg IV PRN - anxiety seems to be a large factor at the moment - add ativan po 0.5mg q6h for anxiety Code: Full, surrogate is patient's son DVT: per primary team PCP: appears to be [facility] residency [facility]. Medicine will sign off today. Thank you for allowing us to participate in the care of this patient. Should you have any further questions, do not hesitate to speak with us directly or call us. Quality VTE Deep Vein Thrombosis/Pulmonary Embolism Present on Admission: No
[2023-01-22 08:10] LABS: Hematocrit 33.6 % (36-46); Hemoglobin 10.9 g/dL (12.0-16.0)
[2023-01-22] MEDS: PANTOPRAZOLE DR 40 MG TABLET PO ×2 (08:15→19:44)
[2023-01-22] MEDS: DOCUSATE 100 MG CAPSULE PO ×2 (08:15→19:44)
--- NOTE | 2023-01-22 09:55 | PC.NURSE ---
Addendum entered by Kimberley Van R.N. 01/22/23 19:25: Patient yelling out loud at 1925. I am throwing up, I need something for nausea. Explained to patient that we would be right with her as we were giving report on patients. Just given ativan 0.5mg po for complaints of nausea. Patient is sitting up in bed and rocking. She has no evidence of emesis, she has anxiety more than anything and is demanding. She has been anxious, demanding, and rude to staff all shift. We are giving her pain medication, bowel meds, and everything that she has requested and things still do not seem to make her happy. She is not happy about working with physical therapy because she sais it hurts to much, patient has been medicated for discomfort all through the day. PT and OT has been encouraging to patient, she was able to sit at bedside and then refused pt for the rest of the day. Addendum entered by Kimberley Van R.N. 01/22/23 14:40: Patient lying on her r.side. She is anxious and coughing. This RN went into give patient her ativan for anxiety and she states to put up her side rail fast because it hurts her if you go slow. This RN gently put up side rail at regular speed and she starts yelling and saying she wants it put up slowly. So she put her rail down and then dropped her ativan on the floor. A new pill has been taken from the pyxis and this ativan will be given to patient. Addendum entered by Kimberley Van R.N. 01/22/23 10:55: Patients dressing to lower back is cdi, [facility] wnl. Patient has refused to work with physical therapy until after lunch. Original Note: Patient yelling and frantic this morning. She was refusing to wear her tele, saying I am alright, I think I know if my heart is ok or not. Another RN helped patient get situated for breakfast this morning. This RN gave her dilaudid and vistaril which has helpful to patient, she ate 25%of her breakfast and she is now napping.
--- NOTE | 2023-01-22 11:04 | OT.IPNOTE ---
Pt refusing OT eval as in too much pain, to come back in PM to check on the pt. Nursing notified of pt's request for more pain meds.
--- NOTE | 2023-01-22 11:30 | PT-IP ANOTE ---
Therapists check on pt in the a.m. and she refuses therapies d/t high pain. Therapies did try to coordinate with pain medication.
--- NOTE | 2023-01-22 12:37 | PT.IIE ---
Addendum entered and electronically signed by Yaneth Segovia PT 01/22/23 13:02: Will add this goal to the EMR goals: Pt will ascend and descend one step with LRAD and mod I to allow safe home entrance. Original Note: Current Diagnoses Supraventricular tachycardia, unspecified (01/21/23) Acute and chronic respiratory failure, unspecified whether with hypoxia or hypercapnia (01/21/23) Spinal stenosis, lumbar region with neurogenic claudication (01/21/23) Arthrodesis status (01/21/23) Surgery Performed Operation Date: 01/21/23 08:45 Actual Procedures p L2-3, L3-4 TLIF, L2-S1 PSF with posterior instrumentation-Robot - Daniel Poole MD Surgical History (Last Reviewed 01/21/23 @ 17:34 by Ralph Garvey DO) Anesthesia History of cervical spinal surgery (2007) History of hysterectomy (1992) History of lumbar laminectomy (2013) History of lumbar laminectomy (~1989) History of lumbar spinal fusion (12/13/18) Hx laparoscopic cholecystectomy (05/22/19) Status post epidural steroid injection (04/28/18) Medical History (Last Reviewed 01/21/23 @ 17:34 by Ralph Garvey DO) Ankle pain (2016) Anxiety Cervical spine disease (2007) Chronic back pain (1981) Chronic cough Chronic headaches Foot pain GERD (gastroesophageal reflux disease) History of COVID-19 (~2020) Lumbar spinal stenosis Lumbar spine pain Osteopenia Osteoporosis Peripheral neuropathy (2012) Scoliosis Skin spots-aging Physical Therapy Inpatient Evaluation/Re-Eval M1 PT/OT-IP Prior Functional Status Start: 01/22/23 09:24 Freq: NEEDED Status: Active Protocol: Document 01/22/23 12:00 MB (Rec: 01/22/23 12:37 MB [id number]) Medical Review Prior Functional Status Medical History Reviewed Yes Diet/Fluid Consistency Regular Communication No deficits noted Mobility and Gait Pt states she does not want to answer PT's questions Activities of Daily Living and IADL's As above Social History Household Members none Living Arrangements Apartment/Condo Number of Floors (Floors) One Floor Number of Stairs To Enter/Railing? No steps Home Equipment Four Wheel Walker Additional Social History Comment Pt becomes agitated and states that she does not want to answer PT's questions. OT interviewed pt and states that she will put in prior DME and home situation in later. M2 PT-IP Current Condition Start: 01/22/23 09:24 Freq: NEEDED Status: Active Protocol: Document 01/22/23 12:00 MB (Rec: 01/22/23 12:37 MB [id number]) Physical Therapy Current Condition Current Condition Evaluation Date 01/22/23 Treatment Diagnosis L4-5 TLIF Onset Date 01/21/23 M3 PT-IP Subjective Start: 01/22/23 09:24 Freq: NEEDED Status: Active Protocol: Document 01/22/23 12:00 MB (Rec: 01/22/23 12:37 MB [id number]) Subjective Physical Therapy Visit Type Type Initial Evaluation Visit Start Time 12:00 Visit Stop Time 12:20 Total Visit Minutes 20 Number of TIRE REPAIRER Visits 0 Physical Therapy Visit Comments Patient Comments PT checks on pt case several times this morning and offers options to pt: for PT to see her at noon or at 1530 with OT . Pt states that she would like a nap in the afternoon and that she would like therapy now. Therapy Pain Assessment Pain When Pain Assessed During Mobility Pain Present Pain Present Pain Reported Location back Intensity 10 Scale Used Numeric (0 - 10) Description Acute Pain Behaviors Calling Out,Crying,Facial Grimacing,Guarding,Holding Area,Moaning,Restlessness, Wincing Pain Management Techniques Distraction,Modification of Treatment,Re-positioning, Timing of Activity with Medications M4 PT-IP Mobility and Gait Start: 01/22/23 09:24 Freq: NEEDED Status: Active Protocol: Document 01/22/23 12:00 MB (Rec: 01/22/23 12:37 MB [id number]) PT-Bed Mobility Assessment Rolling Type of Rolling Roll to Left Level of Assist Maximal Assistance,2 Person Assistance PT-Transfer Assessment Comments Mobility Comments Pt is agreeable to PT/OT co- eval and so PT speaks with OT and PT gets started. PT explains goal of eval to do as much as she can and she is still agreeable. Upon initiated rolling with assistance from pad and light support at legs, pt begins to cuss, become more and more agitated and start crying. Pt states she needs help and then refuses it and then claims that therapists are increasing her pain. She states that she is 67 y/o and cannot believe that Dr. Poole would have her get up the day after surgery. Therapists check back in and ask if therapy needs to stop and she states, yes. Left in supported sidelying position with pillows and communicated with nsg. M5 PT-IP Objective Assessments Start: 01/22/23 09:24 Freq: NEEDED Status: Active Protocol: Document 01/22/23 12:00 MB (Rec: 01/22/23 12:37 [id number]) Orientation Orientation/Cognition Level of Alertness Alert Comments Pt refused to answer any questions to PT, stating, do you even know anything about me? Do you even know why I am here? I am hurting. I am sick. Pt becomes increasingly irritable with even simple questions, answers and assistance. Gross Range of Motion Upper Extremity ROM Impairments Defer to OT Lower Extremity ROM Impairments Pt does not tolerate and LE skin looks good both legs and she does move her legs spontaneously pretty well in the bed Strength Comments Strength Comments Pt does not tolerate MMT Sensation Assessment Comments Sensation Comments Pt does not follow commands for this. M6 PT-IP Treatment Start: 01/22/23 09:24 Freq: NEEDED Status: Active Protocol: Document 01/22/23 12:00 MB (Rec: 01/22/23 12:37 [id number]) Physical Therapy Treatment Education Education Provided Precautions,Post-Op Packet, Safety M7 PT-IP Assessment and Plan Start: 01/22/23 09:24 Freq: NEEDED Status: Active Protocol: Document 01/22/23 12:00 MB (Rec: 01/22/23 12:37 [id number]) PT Summary Assessment and Plan Potential Rehabilitation Potential Fair Status of Condition at Evaluation Evolving Summary Impairments Pain,ROM,Strength,Balance,Bed Mobility,Transfers,Gait, Activity Tolerance Progress Towards Goals Slow Progress due to Pain,Slow Progress due to Activity Tolerance Assessment Summary Pt is a 67 y/o female presenting with high agitation , reports of high pain, irritability and refusal to communicate with PT as far as answering PLOF questions despite being agreeable for PT and OT checking on her for assessment to see what she can do this date. Pt only tolerates rolling and then back to supine d/t agitation, reports of high pain, reports of being sick, and pt cusses and states that she cannot believe Dr. Poole would order PT POD1 and that she is 67 y/o and she cannot do this. When PT asks her if she knows her back precautions, pt states, yes, but then cannot report any of them. Recommend 2 people nearby for all treatment efforts given pt's psych presentation. Goals Bed Mobility Goal Independent Transfer Goal Independent,Front Wheeled Walker Gait Goal Independent,Front Wheel Walker Gait Distance 75 Other Goals Pt will report 3/3 back precautions. Days to Meet Goals 5 Frequency of Treatment Frequency Of Treatment Twice a Day Treatment Plan Physical Therapy Treatment Plan Bed Mobility Training,Transfer Training,Gait Training, Therapeutic Exercise,Balance Retraining,Post Op Education, Discharge Planning,Hot or Cold Pack,Neuromuscular Re-ed Precautions Lumbar Precautions Log Roll,No Twisting,Limit Bending,Lifting Restriction of 10 lbs,Gait Belt above Incisional Area Weight Bearing Status Weight Bearing Status Weight Bear as Tolerated Recommendations To Nursing Amount of Assist Needed Mechanical Lift Discharge Recommendations PT Discharge Recommendations Home vs SNF Transportation Needs at Discharge Stretcher/Ambulance
--- NOTE | 2023-01-22 12:39 | OT.IP.EVAL ---
Addendum entered and electronically signed by Nisha Ngo OT 01/22/23 13:51: esign Original Note: Current Diagnoses Supraventricular tachycardia, unspecified (01/21/23) Acute and chronic respiratory failure, unspecified whether with hypoxia or hypercapnia (01/21/23) Spinal stenosis, lumbar region with neurogenic claudication (01/21/23) Arthrodesis status (01/21/23) Surgery Performed Operation Date: 01/21/23 08:45 Actual Procedures p L2-3, L3-4 TLIF, L2-S1 PSF with posterior instrumentation-Robot - Daniel Poole MD Past Medical History (Last Reviewed 01/21/23 @ 17:34 by Ralph Garvey DO) Ankle pain (2016) Anxiety Cervical spine disease (2007) Chronic back pain (1981) Chronic cough Chronic headaches Foot pain GERD (gastroesophageal reflux disease) History of COVID-19 (~2020) Lumbar spinal stenosis Lumbar spine pain Osteopenia Osteoporosis Peripheral neuropathy (2012) Scoliosis Skin spots-aging Surgical History (Last Reviewed 01/21/23 @ 17:34 by Ralph Garvey DO) Anesthesia History of cervical spinal surgery (2007) History of hysterectomy (1992) History of lumbar laminectomy (2013) History of lumbar laminectomy (~1989) History of lumbar spinal fusion (12/13/18) Hx laparoscopic cholecystectomy (05/22/19) Status post epidural steroid injection (04/28/18) Occupational Therapy Inpatient Evaluation/Re-Eval M1 PT/OT-IP Prior Functional Status Start: 01/22/23 13:17 Freq: NEEDED Status: Active Protocol: Document 01/22/23 12:39 [facility] (Rec: 01/22/23 13:47 [facility] [id number]) Medical Review Prior Functional Status Medical History Reviewed Yes Diet/Fluid Consistency Regular Communication No deficits noted Mobility and Gait Pt uses the 4ww at all times. Activities of Daily Living and IADL's Pt states had pain with all needs. Social History Household Members none Living Arrangements Apartment/Condo Number of Floors (Floors) One Floor Number of Stairs To Enter/Railing? One step to enter. 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 Pt insistent that she wants to go home as pt refusing to go to skilled rehab.On this admission, pt states can not believe that Dr. Poole would want her to try to get up as well. M2 OT-IP Current Condition Start: 01/22/23 13:17 Freq: Status: Active Protocol: Document 01/22/23 12:39 [facility] (Rec: 01/22/23 13:47 [facility] [id number]) Occupational Therapy Current Condition Current Condition Evaluation Date 01/22/23 Treatment Diagnosis s/p L2-3, L3-4 TLIF, L2-S1 PSF /paroxysmal supraventricle tachycardia Diagnosis Onset Date 01/21/23 Post Operative Precautions Lumbar Precautions Log Roll,No Twisting,Limit Bending,Lifting Restriction of 10 lbs,Gait Belt above Incisional Area M3 OT- IP Subjective and Pain Start: 01/22/23 13:17 Freq: Status: Active Protocol: Document 01/22/23 12:39 [facility] (Rec: 01/22/23 13:47 [facility] [id number]) OT- Subjective Occupational Therapy Visit Type Type Initial Evaluation Visit Start Time 10:45 Visit Stop Time 12:39 Total Visit Minutes 51 Notes Pt seen from [id number] and [id number] Occupational Therapy Visit Comments Patient Comments Pt initially not wanting to get up in AM and agreed to try the PM and then at lunch time wanting to get up per PT when checking on her. Patient/Caregiver Goals TO go home. OT Pain Assessment Pain When Pain Assessed At Rest Pain Present Pain Present Pain Reported Location back Intensity 8 Scale Used Numeric (0 - 10) M4 OT- IP ADL's Start: 01/22/23 13:17 Freq: Status: Active Protocol: Document 01/22/23 12:39 [facility] (Rec: 01/22/23 13:47 [facility] [id number]) OT [id number] Comments OT Self-Feeding Comments Not at meal time. OT ADL-Grooming Comments OT Grooming Comments Pt not wanting to perform. OT ADL-Oral Care Comments Oral Care Comments Pt not wanting to perform. OT ADL-Dressing General Eval Lower Body Dressing Ability Maximum Assistance Areas Needing Assistance Socks Comments OT Dressing Comments Pt states has a disaster recovery manager, sock aid, and long handled shoe horn at home to use. OT ADL-Toileting Comments OT Toileting Comments Not performed. OT ADL-Bathing Comments OT Bathing Comments Pt is too much pain at this time and sponge bath is more appropriate. M5 OT- IP IADL's Start: 01/22/23 13:17 Freq: Status: Active Protocol: Document 01/22/23 12:39 [facility] (Rec: 01/22/23 13:47 [facility] [id number]) OT-Instrumental Activities of Daily Living Deficits IADL Deficits Identified Deficits Home Safety Awareness Home Safety Comments Pt is very focused on her pain at this time and not able to think clearly. M6 OT- IP Functional Cognition Start: 01/22/23 13:17 Freq: Status: Active Protocol: Document 01/22/23 12:39 [facility] (Rec: 01/22/23 13:47 [facility] [id number]) Cognitive Factors Limiting Selfcare Function Cognitive Ability Level of Alertness Alert Patient Orientation Name,Age,Birthday,Month,Date, Year,Day of Week,Place, Situation Attention Span Ability Capable of Focused Attention, Capable of Sustained Attention Ability to Follow Commands Able to Follow One Step Commands Cognitive Comments Cognitive Assessment Comments Pt not able to states any back precautions as very focused on her pain and insistent on her care. Pt needing clear concrete cues to follow. Pt needing step by step instructions to follow. Informed pt of therapy orders to try to get the pt up, pt agreed to try initially and then states in too much pain and feels that it is too early to be getting up and that she does not believe that Dr. Poole would want her to try to move now. Educated to pt that it is very important to try to move for her recovery.Informed nursing that pt wanting pain medications. OT- Vision and Hearing OT- Hearing Assessment OT- Hearing Assessment WFL OT- Vision Assessment Vision Assessment Comments Pt wears glasses. M7 OT- IP Mobility and Balance Start: 01/22/23 13:17 Freq: Status: Active Protocol: Document 01/22/23 12:39 [facility] (Rec: 01/22/23 13:47 [facility] [id number]) OT- Bed Mobility Assessment Rolling Type of Rolling Roll to Left Level of Assistance Moderate Assistance,1 Person Assistance OT-Transfer Assessment Comments Mobility Comments Pt needing assist of green pad to help roll to her side and use of bed rail. PT assist to try to get her legs to the bed while OT assist with her trunk and pt resisting as in too much pain and wanting to stop. Pt not wanting to do anymore therapy. Able to get pillow comfortable with pillows in side lying and call light with her. Ice pack also places on her back. M9 OT- IP Assessment and Plan Start: 01/22/23 13:17 Freq: Status: Active Protocol: Document 01/22/23 12:39 [facility] (Rec: 01/22/23 13:47 [facility] [id number]) OT Summary Assessment and Plan Potential Rehabilitation Potential Fair Analytic Complexity at Evaluation High Summary OT Impairments Pain,Strength,Balance, Functional Mobility,Grooming, Dressing,Toileting,Bathing, Toilet Transfers,Shower Transfers,Activity Tolerance Progress Towards Goals Slow Progress due to Pain,Slow Progress due to Medical Issues,Slow Progress due to Activity Tolerance Assessment Summary Pt high complexity due to recent extensive back surgery and paroxysmal supraventricular tachycardia and now needing extensive assist for all needs. Pt is lots of pain and not able to get up, but did attempt via log rolling. Pt will benefit from skilled rehab but pt refusing at this time. Goals Grooming Goal Independent Dressing Goal Independent,Rag Baler,Sock Aid Toileting Goal Independent Bathing Goal Independent Toilet Transfer Goal Independent Shower Transfer Goal Independent Days to Meet Goals 20 Frequency of Treatment Frequency Of Treatment Once a Day Treatment Plan OT Treatment Plan ADL Training,Functional Cognition Training,Functional Mobility,Patient/Family Education,Discharge Planning Discharge Recommendations OT Discharge Recommendations SNF Rehab Transportation Needs at Discharge Wheelchair/Cabulance
[2023-01-22] MEDS: LORazepam 0.5 MG TABLET PO ×2 (14:38→19:30)
--- NOTE | 2023-01-22 14:46 | CM.DANOTE ---
Initial DCP Assessment Note Pt is a 67 yo female, resident of [place], now POD#1 from spinal surgery by Dr Poole PCP: [facility] residency clinic Payer: MCR/EKTA Reviewed chart, pt discussed in multidisciplinary rounds this morning. Patient is complaining of increased pain however refusing meds and refusing placement of tele for monitoring. Reportedly, patient agitated and difficult to console today. RN suggest this CM team wait until POD #2 for bedside assessment. Review of pre-anesthesia assessment by Tiana Segovia shows contacts as Estefany Moncada (son) Amy (brother)Estefany: [phone] Amy: [phone]. Patient reports working with [employer] ([facility]?) to secure caregivers for assist in her recovery at home. Therapies recommending Home vs SNF at this time. CM team will plan to follow clinical course closely; Bedside assessment to review discharge plan with patient. TARYN Sal Discharge Planning/Care Management CM Discharge Assessment Start: 01/22/23 14:42 Freq: Status: Active Protocol: Document 01/22/23 14:42 [facility] (Rec: 01/22/23 14:46 [facility] [id number]) Discharge Planning Assessment Assigned Light Equipment Operator TARYN Husain DPOA/Assigned Designee Name brother Dao Contact Information [phone] Advance Directives? No Advance Directives on File No History Provided By Medical Record Prior Living Arrangements Apartment/Condo Household Members none Independent with ADL's Yes Is patient alert and oriented? Yes Comment Awaiting therapy evaluations. Discharge Plan Home Transportation Arrangement Family to provide transport.
[2023-01-22] MEDS: MAGNESIUM HYDROXIDE 30 ML UDC PO (15:42)
[2023-01-22] MEDS: ACETAMINOPHEN 325 MG TABLET 650 MG PO (19:42)
[2023-01-22] MEDS: SENNOSIDES 8.6 MG TABLET 17.2 MG PO (19:43)
[2023-01-22] MEDS: ONDANSETRON 4 MG/2 ML INJ IV (19:46)
[2023-01-23] MEDS: LORazepam 0.5 MG TABLET PO ×2 (04:09→10:36)
[2023-01-23] MEDS: OXYCODONE IR 5 MG TABLET PO ×2 (04:09→08:18)
[2023-01-23] MEDS: ALBUTEROL 2.5 MG/3 ML NEB (ADULT) INH ×4 (04:16→20:12)
[2023-01-23 04:17] VITALS: O2SAT 93
[2023-01-23] MEDS: ACETAMINOPHEN 325 MG TABLET 650 MG PO ×2 (08:17→14:42)
[2023-01-23] MEDS: PANTOPRAZOLE DR 40 MG TABLET PO ×2 (08:17→20:09)
[2023-01-23] MEDS: GABAPENTIN 300 MG CAPSULE PO ×3 (08:17→22:53)
[2023-01-23] MEDS: CYCLOBENZAPRINE 10 MG TABLET PO ×3 (08:18→22:53)
[2023-01-23] MEDS: DOCUSATE 100 MG CAPSULE PO ×2 (08:18→20:09)
[2023-01-23] MEDS: SIMETHICONE 80 MG TABLET PO (09:24)
[2023-01-23] MEDS: hydrOXYzine pamoate 25 MG CAPSULE PO ×2 (09:24→20:09)
[2023-01-23 09:35] VITALS: PULSE 95; RESP 18; O2SAT 96
--- NOTE | 2023-01-23 10:45 | OT.IP.TRT ---
Current Diagnoses Supraventricular tachycardia, unspecified (01/21/23) Acute and chronic respiratory failure, unspecified whether with hypoxia or hypercapnia (01/21/23) Spinal stenosis, lumbar region with neurogenic claudication (01/21/23) Arthrodesis status (01/21/23) Surgery Performed Operation Date: 01/21/23 08:45 Actual Procedures p L2-3, L3-4 TLIF, L2-S1 PSF with posterior instrumentation-Robot - Daniel Poole MD Occupational Therapy Treatment Note M2 OT-IP Current Condition Start: 01/22/23 13:17 Freq: Status: Active Protocol: Document 01/22/23 12:39 [facility] (Rec: 01/22/23 13:47 [facility] [id number]) Occupational Therapy Current Condition Current Condition Evaluation Date 01/22/23 Treatment Diagnosis s/p L2-3, L3-4 TLIF, L2-S1 PSF /paroxysmal supraventricle tachycardia Diagnosis Onset Date 01/21/23 Post Operative Precautions Lumbar Precautions Log Roll,No Twisting,Limit Bending,Lifting Restriction of 10 lbs,Gait Belt above Incisional Area M3 OT- IP Subjective and Pain Start: 01/22/23 13:17 Freq: Status: Active Protocol: Document 01/23/23 10:45 [facility] (Rec: 01/23/23 12:03 [facility] [id number]) OT- Subjective Occupational Therapy Visit Type Type Treatment Note Visit Start Time 10:45 Visit Stop Time 11:30 Total Visit Minutes 15 Occupational Therapy Visit Comments Patient Comments Pt agreed to get up, MARKETING OPERATIONS INTERN also present. Patient/Caregiver Goals To go home. OT Pain Assessment Pain When Pain Assessed At Rest Pain Present Pain Present Pain Reported Location back Intensity 6 Scale Used Numeric (0 - 10) M4 OT- IP ADL's Start: 01/22/23 13:17 Freq: Status: Active Protocol: Document 01/23/23 10:45 [facility] (Rec: 01/23/23 12:03 [facility] [id number]) OT [id number] General Evaluation Self-Feeding Ability Independent OT ADL-Grooming Comments OT Grooming Comments Not performed. OT ADL-Oral Care Comments Oral Care Comments Not performed. OT ADL-Dressing General Eval Lower Body Dressing Ability Maximum Assistance Areas Needing Assistance Socks Comments OT Dressing Comments Pt will benefit to use her LB dressing equipment for dressing needs at this time. OT ADL-Toileting Comments OT Toileting Comments Pt feeling not able to go at this time. Pt however wanting to get the catheter removed. Pt has a BSC at home to use. OT ADL-Bathing Comments OT Bathing Comments Sponge bath more appropriate at this time due to pain and decreased activity tolerance. M5 OT- IP IADL's Start: 01/22/23 13:17 Freq: Status: Active Protocol: Document 01/22/23 12:39 [facility] (Rec: 01/22/23 13:47 [facility] [id number]) OT-Instrumental Activities of Daily Living Deficits IADL Deficits Identified Deficits Home Safety Awareness Home Safety Comments Pt is very focused on her pain at this time and not able to think clearly. M6 OT- IP Functional Cognition Start: 01/22/23 13:17 Freq: Status: Active Protocol: Document 01/23/23 10:45 [facility] (Rec: 01/23/23 12:03 [facility] [id number]) Cognitive Factors Limiting Selfcare Function Cognitive Ability Level of Alertness Alert Patient Orientation Name,Age,Birthday,Month,Date, Year,Day of Week,Place, Situation Attention Span Ability Capable of Focused Attention, Capable of Sustained Attention Ability to Follow Commands Able to Follow One Step Commands Safety Awareness Decreased Ability to Apply Precautions,Underestimates Need for Assistance Cognitive Comments Cognitive Assessment Comments Pt doing much better today however a bit groggy and needing reminders to call for help if getting out of bed or needing to use the BSC. Also able to educate her back precautions and that at this time would be best to have someone take care of her dog. Pt is still very insistent of going home, but does not any help. M7 OT- IP Mobility and Balance Start: 01/22/23 13:17 Freq: Status: Active Protocol: Document 01/23/23 10:45 [facility] (Rec: 01/23/23 12:03 [facility] [id number]) OT- Bed Mobility Assessment Rolling Type of Rolling Roll to Left Level of Assistance Standby Assistance,Bedrails Supine to Sit Supine to Sit Assist Standby Assistance Sit to Supine Sit to Supine Assist Minimal Assistance Scooting Scooting to Edge of Bed Standby Assistance OT-Transfer Assessment Sit to and From Stand Sit to and from Stand Moderate Assistance,1 Person Assistance,2 Person Assistance Transfers Transfer Ability Contact Guard Assistance Technique Transfer Destination Bed,Chair Comments Mobility Comments See needing cues to use her hands to push up from the bed versus fww. Pt heavy use of her arms on the FWW when up on her feet. OT- Balance Assessment Sitting Balance and Reactions Static Sitting Balance Ability Good Dynamic Sitting Balance Ability Fair Standing Balance and Reactions Static Standing Balance Ability Fair Dynamic Standing Balance Ability Fair M9 OT- IP Assessment and Plan Start: 01/22/23 13:17 Freq: Status: Active Protocol: Document 01/23/23 10:45 [facility] (Rec: 01/23/23 12:03 [facility] [id number]) OT Summary Assessment and Plan Potential Rehabilitation Potential Good Analytic Complexity at Evaluation High Summary OT Impairments Pain,Strength,Balance, Functional Mobility,Grooming, Dressing,Toileting,Bathing, Toilet Transfers,Shower Transfers,Activity Tolerance Progress Towards Goals Progressing Toward Goals Assessment Summary Pt much improved today and able to get up and walk with the FWW. Pt still having lots of pain and needing 1-2 person assist to stand. Pt will benefit from short acute rehab prior to going home. Pt lives alone. Goals Grooming Goal Independent Dressing Goal Independent,Intercell Connector Placer,Sock Aid Toileting Goal Independent Bathing Goal Independent Toilet Transfer Goal Independent Shower Transfer Goal Independent Days to Meet Goals 19 Frequency of Treatment Frequency Of Treatment Once a Day Treatment Plan OT Treatment Plan ADL Training,Functional Cognition Training,Functional Mobility,Patient/Family Education,Discharge Planning Discharge Recommendations OT Discharge Recommendations Acute Rehab Transportation Needs at Discharge Wheelchair/Cabulance
--- NOTE | 2023-01-23 11:01 | PT.IPTN ---
Current Diagnoses Supraventricular tachycardia, unspecified (01/21/23) Acute and chronic respiratory failure, unspecified whether with hypoxia or hypercapnia (01/21/23) Spinal stenosis, lumbar region with neurogenic claudication (01/21/23) Arthrodesis status (01/21/23) Surgery Performed Operation Date: 01/21/23 08:45 Actual Procedures p L2-3, L3-4 TLIF, L2-S1 PSF with posterior instrumentation-Robot - Daniel Poole MD Physical Therapy Treatment Note M2 PT-IP Current Condition Start: 01/22/23 09:24 Freq: NEEDED Status: Active Protocol: Document 01/22/23 12:00 [facility] (Rec: 01/22/23 12:37 [facility] [id number]) Physical Therapy Current Condition Current Condition Evaluation Date 01/22/23 Treatment Diagnosis L4-5 TLIF Onset Date 01/21/23 M3 PT-IP Subjective Start: 01/22/23 09:24 Freq: NEEDED Status: Active Protocol: Document 01/23/23 11:36 TS (Rec: 01/23/23 12:02 TS [id number]) Subjective Physical Therapy Visit Type Type Treatment Note Visit Start Time 11:01 Visit Stop Time 11:30 Total Visit Minutes 29 Notes BP 117/69 supine, sitting 99/ 61, standing 99/52. Number of EXPEDITER CLERK Visits 1 Physical Therapy Visit Comments Patient Comments Pt found resting in bed, is having less pain this morning and is more agreeable to therapy. She does continue to get emotional during mobility because of pain. Therapy Pain Assessment Pain When Pain Assessed At Rest Pain Present Pain Present Pain Reported Location back Intensity 6 Scale Used Numeric (0 - 10) Description Acute,With Movement Pain Behaviors Crying,Facial Grimacing, Guarding,Holding Area,Moaning, Restlessness,Wincing Pain Management Techniques Distraction,Modification of Treatment,Re-positioning, Timing of Activity with Medications M4 PT-IP Mobility and Gait Start: 01/22/23 09:24 Freq: NEEDED Status: Active Protocol: Document 01/23/23 11:36 TS (Rec: 01/23/23 12:02 TS [id number]) PT-Bed Mobility Assessment Rolling Type of Rolling Roll to Right Level of Assist Standby Assistance Supine to Sit Supine to Sit Standby Assistance Sit to Supine Sit to Supine Minimal Assistance,1 Person Assistance Scooting Scooting to Edge of Bed Standby Assistance PT-Transfer Assessment Sit to and From Stand Sit to and from Stand Moderate Assistance,1 Person Assistance,2 Person Assistance ,Use of Upper Extremities Equipment Transfer Assistive Device Gait Belt,Front Wheeled Walker Orthotic/Prosthetic Devices or Brace: No Comments Mobility Comments Pt found resting in bed, is agreeable to OOB mobility. SHAYY Shayy came by and will check on pt later. She performed logroll and supine to sit SBA with use of handrail, was impulsive to sit up before therapist was ready. She scooted to EOB SBA with use of FWW to pull self forward. She performed sit to stand ModA x2 from bed with use of FWW, pt is slow to stand. She ambulated ~15' in room CGA with FWW with slow rakesh, pt requested to sit in chair, had some slight lightheadedness. Pt was educated on spinal precautions while pt rested. She performed sit to stand with FWW ModA x1 from chair with cues for pushing off of arms of chair. Pt initially agreeable to try commode but requested back to bed. Sit to supine Norma for LEs into bed, pt required max cues for sequencing. Pt was left in bed , all needs met, RN notified. Gait Assessment Gait Gait Assistance Required: Contact Guard Assist,1 Person Assist Distance (Feet) 15 Able to Maintain Weight Bearing Status Yes During Gait Assistive Devices Assistive Device Gait Belt,Front Wheeled Walker Orthotic/Prosthetic Devices or Brace: No Gait Deviations General Gait Pattern Antalgic,Decreased Stride Length,Decreased Feet Clearance,Step-to Gait Factors Limiting Gait Function Factors Limiting Gait Function Decreased Activity Tolerance, Decreased Strength,Pain,Poor Balance,Poor Safety Awareness Comments Gait Comments See mobility comments PT-Balance Assessment Sitting Balance and Reactions Static Sitting Balance Ability Good Dynamic Sitting Balance Ability Fair Standing Balance and Reactions Static Standing Balance Ability Fair Dynamic Standing Balance Ability Fair Device Used FWW M5 PT-IP Objective Assessments Start: 01/22/23 09:24 Freq: NEEDED Status: Active Protocol: Document 01/22/23 12:00 [facility] (Rec: 01/22/23 12:37 [facility] [id number]) Orientation Orientation/Cognition Level of Alertness Alert Comments Pt refused to answer any questions to PT, stating, do you even know anything about me? Do you even know why I am here? I am hurting. I am sick. Pt becomes increasingly irritable with even simple questions, answers and assistance. Gross Range of Motion Upper Extremity ROM Impairments Defer to OT Lower Extremity ROM Impairments Pt does not tolerate and LE skin looks good both legs and she does move her legs spontaneously pretty well in the bed Strength Comments Strength Comments Pt does not tolerate MMT Sensation Assessment Comments Sensation Comments Pt does not follow commands for this. M6 PT-IP Treatment Start: 01/22/23 09:24 Freq: NEEDED Status: Active Protocol: Document 01/23/23 11:36 TS (Rec: 01/23/23 12:02 TS [id number]) Physical Therapy Treatment Education Education Provided Precautions,Post-Op Packet, Safety M7 PT-IP Assessment and Plan Start: 01/22/23 09:24 Freq: NEEDED Status: Active Protocol: Document 01/23/23 11:36 TS (Rec: 01/23/23 12:02 TS [id number]) PT Summary Assessment and Plan Potential Rehabilitation Potential Fair Summary Impairments Pain,ROM,Strength,Balance,Bed Mobility,Transfers,Gait, Activity Tolerance Progress Towards Goals Slow Progress due to Pain,Slow Progress due to Activity Tolerance Assessment Summary Josey is making some progress with her mobility but remains limited by pain and her activity tolerance. She performed logroll/supine to sit SBA with no cues. She performed sit to stand x2 ModA x1-2PA, pt has decreased strength and requires much effort to stand. She ambulated with slow rakesh in room for ~15' with FWW. PT at this time is recommending home vs SNF. Currently pt would need SNF but if her mobility improves while here in hospital she may progress to home. Goals Bed Mobility Goal Independent Transfer Goal Independent,Front Wheeled Walker Gait Goal Independent,Front Wheel Walker Gait Distance 75 Other Goals Pt will report 3/3 back precautions. Pt will ascend and descend one step with LRAD and mod I to allow safe home entry. May update to LRAD for all mobility as needed. Days to Meet Goals 5 Frequency of Treatment Frequency Of Treatment Twice a Day Treatment Plan Physical Therapy Treatment Plan Bed Mobility Training,Transfer Training,Gait Training, Therapeutic Exercise,Balance Retraining,Post Op Education, Discharge Planning,Hot or Cold Pack,Neuromuscular Re-ed Precautions Lumbar Precautions Log Roll,No Twisting,Limit Bending,Lifting Restriction of 10 lbs,Gait Belt above Incisional Area Weight Bearing Status Weight Bearing Status Weight Bear as Tolerated Recommendations To Nursing Amount of Assist Needed 2 Person Assist Discharge Recommendations PT Discharge Recommendations Home with 08/09 Assist Available,Home Health,Home vs SNF,SNF vs Acute Rehab Transportation Needs at Discharge Private Vehicle,Wheelchair/ Cabulance
[2023-01-23 11:38] VITALS: BP 98/54; PULSE 91; RESP 19; TEMP 36.1; O2SAT 92
[2023-01-23] MEDS: OXYCODONE IR 10 MG TABLET PO ×2 (12:26→20:09)
--- NOTE | 2023-01-23 13:43 | PT-IP ANOTE ---
Pt refused to work with PT this afternoon, would like PT to come back in the morning.
--- NOTE | 2023-01-23 13:50 | PM.PNPO.1 ---
Subjective Subjective Date Patient Seen: 01/23/23 Time Patient Seen: 13:50 Interval history: Pt lying in bed, eating lunch. Worked w/ PT this morning, refused PT this afternoon. Better pain control today. She is anxious because she says no one has spoken to her about discharge options. Her hope is to go home w/ HH assistance. Exam Vital Signs (past 8 hours): - 01/23/23 09:35 01/23/23 11:38 Temperature 97 F L Pulse Rate 95 H 91 H Respiratory Rate 18 19 Blood Pressure 98/54 L Pulse Oximetry 96 92 Oxygen Delivery Method Room Air Oxygen Flow Rate 0 Oxygen Delivery Method Room Air Oxygen Flow Rate 0 Narrative Exam Narrative: 5/5 strength in hip flexors, quadriceps, hamstrings, DF, PF, EHL bilaterally. Sensation to light touch intact in BLE, calves soft and compressible. Dressings placed intraoperatively w/ bloody drainage on right. Gonzalez catheter still in place despite orders x 2 to discontinue; urine amt adequate, dark, clear. Objective Labs 01/22/23 07:52 01/21/23 12:54 PFS Medical History History of COVID-19 (~2020) Peripheral neuropathy (2012) Skin spots-aging Chronic cough Anxiety Chronic headaches Chronic back pain (1981) Cervical spine disease (2007) Ankle pain (2016) Lumbar spinal stenosis Scoliosis Osteopenia Osteoporosis Lumbar spine pain Foot pain GERD (gastroesophageal reflux disease) Surgical History History of lumbar spinal fusion (12/13/18) Hx laparoscopic cholecystectomy (05/22/19) Status post epidural steroid injection (04/28/18) Anesthesia History of lumbar laminectomy (~1989) History of hysterectomy (1992) History of lumbar laminectomy (2013) History of cervical spinal surgery (2007) Family History Father No problems noted. Mother Colon cancer Liver cancer Heart disease Hypertension Brother Obesity Diabetes mellitus Hypertension Brother No problems noted. Brother No problems noted. Sister No problems noted. Grandfather No problems noted. Grandmother No problems noted. Grandfather No problems noted. Grandmother No problems noted. Family/Other No problems noted. Social History household members: none Smoking Status: Current every day smoker alcohol intake: current Assessment & Plan Post-op Assessment and plan (1) S/P lumbar fusion: Assessment and Plan narrative: Pain better controlled on oral meds. D/c gonzalez catheter ordered again. Hopeful discharge home after PT w/ HH tomorrow; waiting for CM eval and recommendations. (2) Paroxysmal SVT (supraventricular tachycardia): Assessment and Plan narrative: Pt was monitored after surgery and maintained NSR. No signs of ACS. (3) Acute and chronic respiratory failure ([id number]): Assessment and Plan narrative: Oxygen saturation has been 92% or greater on room air. Postoperative Procedures: Procedures Operation Date: 01/21/23 08:45 Actual Procedure Side Surgeon p L2-3, L3-4 TLIF, L2-S1 PSF with posterior instrumentation-Robot Daniel Poole MD Postoperative day: 2 Quality VTE Deep Vein Thrombosis/Pulmonary Embolism Present on Admission: No
[2023-01-23 14:24] VITALS: PULSE 96; RESP 18
--- NOTE | 2023-01-23 18:00 | CM.DPC ---
DCP Continued RHIC SYSTEMS SAFETY ENGINEER reviewed EMR. Per OT/PT, patient did better today. Rec SNF vs Acute vs home with HH. Pt refused to work with PT in afternoon. PT definitely recommending 24/7 assistance at home. RHIC SYSTEMS SAFETY ENGINEER unable to meet with patient today due to triaging needs. CM team will continue to follow closely. Likely plan will be home with HH when stable/PP caregiver services ([facility]?) CM team will Confirm with pt TARYN Fontana
[2023-01-23] MEDS: SENNOSIDES 8.6 MG TABLET 17.2 MG PO (20:08)
[2023-01-23 20:14] VITALS: BP 108/65; PULSE 91; RESP 18; TEMP 36.6; O2SAT 95
[2023-01-24] MEDS: OXYCODONE IR 10 MG TABLET PO ×6 (02:14→21:31)
[2023-01-24] MEDS: ACETAMINOPHEN 325 MG TABLET 650 MG PO ×3 (02:15→21:32)
[2023-01-24] MEDS: hydrOXYzine pamoate 25 MG CAPSULE PO ×2 (02:28→08:38)
[2023-01-24] MEDS: GABAPENTIN 300 MG CAPSULE PO ×3 (05:44→21:31)
[2023-01-24] MEDS: CYCLOBENZAPRINE 10 MG TABLET PO ×3 (05:44→21:31)
--- NOTE | 2023-01-24 07:00 | PC.NURSE ---
Patient is A & O x 4, anxious at times. Patient was agitated, demanding, and rude to staff. Patient needed much encouragement to get up to BSC to void. Pain adequately controlled with Oxycodone, Tylenol, Gabapentin, Flexeril, and Vistaril. Patient c/o continued left thigh numbness and right leg tingling. Patient was picking at back drsg and putting her hand underneath drsg. Drsg reinforced with paper tape which patient stated she can tolerate. Drsg is clean and dry. Bed alarm on.
[2023-01-24] MEDS: PANTOPRAZOLE DR 40 MG TABLET PO ×2 (08:38→21:31)
[2023-01-24] MEDS: DOCUSATE 100 MG CAPSULE PO ×2 (08:38→21:30)
[2023-01-24] MEDS: NICOTINE 7 MG PATCH TOP (10:12)
--- NOTE | 2023-01-24 10:35 | PM.DS.1 ---
History of Present Illness History of Present Illness Date Patient Seen: 01/24/23 Time Patient Seen: 09:30 Chief complaint: INPT Narrative: Operative Date/Time/Diagnoses Date of procedure: 01/21/23 Time of procedure: 08:40 Pre-op diagnosis: 1. L2-3, L3-4 spinal stenosis with neurogenic claudication 2. History of L4-S1 fusion with retained hardware 3. L3-4 disc herniation Post-op diagnosis: same Procedure & Clinicians Procedure: 1. L2-3, L3-4 Postero-lateral and posterior interbody fusion 2. L2-3, L3-4 interbody cage placement. 3. L2-3, L3-4 decompressive laminectomy with bilateral facetecomies 4. L2-3, L3-4 Posterior segmental instrumentation 5. L4-5 exploration of fusion with repeat laminectomy 6. [place] of bone marrow from iliac crest 7. Utilization of microsurgical technique and operating microscope 8. Utilization of robotic assisted navigation Same procedure as scheduled: Yes Indications: Patient has been having chronic back pain and worsening lumbar radiculopathy and symptoms of neurogenic claudication. Patient has MRI showing severe spinal stenosis at L2-3 L3-4 with a large extruded disc at L3-4 correlating with her current symptoms. Patient failed multiple conservative management with worsening pain weakness and numbness in her lower extremity. Patient has been having difficulty performing activity of daily living. After discussing risks benefits of treatment options, patient elected proceed with surgery. Surgeon: Daniel Poole Mixing Machine Attendant: Shayy Smiley Click Yes if Unassisted: No Operative Notes Closure Type: primary Specimen(s): none sent Prosthetic devices, grafts, tissues, transplants, or devices: Globus CREO MIS screws, Rise cages, Globus add-on system Applied: catheter Estimated Blood Loss (mL): 100 Blood products transfused: none Discharge Providers Provider Date of admission: 01/21/23 07:06 Discharge Date: 01/24/23 Consults: 01/06/23 09:41 Consult to Die Storage Clerk Routine Comment: Would like to speak to re HH vs SNF 01/21/23 14:46 Consult to Hospitalist Service Routine Comment: Consulting Provider: Ralph Garvey Reason for consultation: cardiac management Has provider been notified: Yes Consult to Occupational Therapy Evaluate & Treat Comment: Physician Instructions: Evaluate and treat Consult to Physical Therapy Evaluate & Treat Comment: Physician Instructions: Evaluate and Treat Discharge provider: Shayy Smiley PA-C Summary Hospital Course Discharge Diagnosis: L2-3, L3-4 spinal stenosis with neurogenic claudication, History of L4-S1 fusion with retained hardware, 3-4 disc herniation; s/p TLIF and extension of hardware at L2-3 and L3-4 and exploration of fusion w/ repeat laminectomy at L4-5 Hospital Course: Ms Moncada's hospital course was complicated by acute on chronic respiratory failure, paroxysmal SVT during surgery, and poor pain control. Additionally, she frequently refused to participate in her care with physical therapy staff. Hospitalist service was consulted d/t cardiac changes during surgery, and they signed off on POD# 1 as pt maintained NSR and showed no signs of ACS. She is a current, everyday smoker and has a h/o pulmonary emphysema. She was insistent during her hospital stay that she had a respiratory infection because she was coughing up green-tinged sputum, and became argumentative when it was suggested that her productive cough was related to her many-year history of smoking. She received perioperative antibiotics and was afebrile and maintained O2 sats of 92% or greater on room air throughout her hospital stay; suspicion of respiratory infection is low. On the morning of POD# 3, she was still insistent on going home w/ HH rather than SNF. She was eating and voiding without difficulty and her pain was well-controlled on oral medication. She continued to complain of numbness of the left anterior thigh; prior to surgery, this area was so painful that she was unable to ambulate. PT was recommending 24/7 assistance if she was to d/c home. Exam Vital Signs (past 8 hours): - 01/24/23 07:30 Oxygen Delivery Method Room Air Oxygen Delivery Method Room Air Oxygen Flow Rate 0 Narrative Exam Narrative: 5/5 strength in hip flexors, quadriceps, hamstrings, DF, PF, EHL bilaterally. Sensation to light touch intact throughout BLE. Calves soft, compressible, nontender. Dressing changed since surgery, CDI. Objective Labs 01/22/23 07:52 01/21/23 12:54 [facility] Medical History History of COVID-19 (~2020) Peripheral neuropathy (2012) Skin spots-aging Chronic cough Anxiety Chronic headaches Chronic back pain (1981) Cervical spine disease (2008) Ankle pain (2017) Lumbar spinal stenosis Scoliosis Osteopenia Osteoporosis Lumbar spine pain Foot pain GERD (gastroesophageal reflux disease) Surgical History History of lumbar spinal fusion (12/13/18) Hx laparoscopic cholecystectomy (05/22/19) Status post epidural steroid injection (04/28/18) Anesthesia History of lumbar laminectomy (~1989) History of hysterectomy (1992) History of lumbar laminectomy (2013) History of cervical spinal surgery (2007) Family History Father No problems noted. Mother Colon cancer Liver cancer Heart disease Hypertension Brother Obesity Diabetes mellitus Hypertension Brother No problems noted. Brother No problems noted. Sister No problems noted. Grandfather No problems noted. Grandmother No problems noted. Grandfather No problems noted. Grandmother No problems noted. Family/Other No problems noted. Social History household members: none Smoking Status: Current every day smoker alcohol intake: current Discharge Assessment & Plan Assessment and Plan Assessment: L2-3, L3-4 spinal stenosis with neurogenic claudication, History of L4-S1 fusion with retained hardware, 3-4 disc herniation; s/p TLIF and extension of hardware at L2-3 and L3-4 and exploration of fusion w/ repeat laminectomy at L4-5 Plan of Treatment: Discharge home w/ HH assistance per CM. Multimodal pain control, nicotine patches to discourage smoking, f/u w/ PCP re exacerbation of emphysematous symptoms, f/u in office in 2 weeks as scheduled. Discharge Plan Discharge Plan Patient Disposition: Home Health Service Discharge orders & Medications Prescriptions: New acetaminophen 325 mg Tablet 650 mg PO Q6H PRN (Reason: Fever/Mild Pain (1-3)) Qty: 240 0RF docusate sodium 100 mg Capsule 100 mg PO BID PRN (Reason: constipation) Qty: 60 1RF hydroxyzine pamoate 25 mg Capsule 25 mg PO Q4HR PRN (Reason: muscle spasm) Qty: 60 0RF nicotine 7 mg/24 hr Patch 24 Hour 7 mg topical DAILY Qty: 14 3RF cyclobenzaprine 10 mg Tablet 10 mg PO TID PRN (Reason: muscle spasm) Qty: 90 0RF oxycodone 5 mg Tablet 5 mg PO Q3H PRN (Reason: Pain, Moderate (4-6)) Qty: 60 0RF Continued gabapentin 300 mg capsule 300 mg PO TID PRN (Reason: pain) Qty: 270 3RF Rx Instructions: take 1 capsule by mouth three times a day as needed for pain pantoprazole 40 mg tablet,delayed release (DR/EC) 40 mg PO BID Qty: 180 0RF cyclobenzaprine 10 mg tablet 10 mg PO TID PRN (Reason: muscle spasm) Qty: 14 0RF oxycodone 5 mg tablet 5 mg PO Q6H PRN (Reason: pain) Qty: 10 0RF albuterol sulfate [Ventolin HFA] 90 mcg/actuation HFA aerosol inhaler 2 inh inhalation Q6H PRN (Reason: shortness of breath) Follow up/Referrals: Daniel Poole MD [Physician] - As previously scheduled (Follow up with Dr Poole on 02/05/2023 @ 2:50 pm at [facility].) Diet/Activity/Treatments Diet: Diet as Tolerated Activity: No deep bending or twisting at the waist. No lifting more than 10 pounds. Cold/Heat Therapy: Heating pad to low back as needed for pain. Skin/Wound/Dressing Care Report to your healthcare provider any signs of infection, such as:: chills, fever, night sweats, unusual drainage and unusual redness Dressing: May shower. Keep dressing as dry as possible. If dressing becomes wet or dirty, remove and replace with clean, dry gauze. No bathing or otherwise soaking incisions. Do not apply any creams, lotions, or ointments to incisions. Visit Report/Discharge Packet Instructions: DI for Constipation, How to Prevent Falls, DI for Prescription Opioid Use, DI for Transforaminal Lumbar Interbody Fusion Stand Alone Forms: Patient Portal/API, Stroke Signs & Symptoms, Surgery Discharge Quality VTE Deep Vein Thrombosis/Pulmonary Embolism Present on Admission: No
--- NOTE | 2023-01-24 10:36 | PT.IPTN ---
Current Diagnoses Supraventricular tachycardia, unspecified (01/21/23) Acute and chronic respiratory failure, unspecified whether with hypoxia or hypercapnia (01/21/23) Spinal stenosis, lumbar region with neurogenic claudication (01/21/23) Arthrodesis status (01/21/23) Surgery Performed Operation Date: 01/21/23 08:45 Actual Procedures p L2-3, L3-4 TLIF, L2-S1 PSF with posterior instrumentation-Robot - Daniel Poole MD Physical Therapy Treatment Note M2 PT-IP Current Condition Start: 01/22/23 09:24 Freq: NEEDED Status: Active Protocol: Document 01/22/23 12:00 MB (Rec: 01/22/23 12:37 MB [id number]) Physical Therapy Current Condition Current Condition Evaluation Date 01/22/23 Treatment Diagnosis L4-5 TLIF Onset Date 01/21/23 M3 PT-IP Subjective Start: 01/22/23 09:24 Freq: NEEDED Status: Active Protocol: Document 01/24/23 11:07 TS (Rec: 01/24/23 11:26 TS [id number]) Subjective Physical Therapy Visit Type Type Treatment Note Visit Start Time 10:36 Visit Stop Time 11:06 Total Visit Minutes 30 Number of YARD ASSISTANT Visits 2 Physical Therapy Visit Comments Patient Comments Pt found resting in bed, reports having cough and is mentioning having some kind of lung infection, RN was notified, pt is agreeable to PT. Therapy Pain Assessment Pain When Pain Assessed During Mobility Pain Present Pain Present Pain Reported M4 PT-IP Mobility and Gait Start: 01/22/23 09:24 Freq: NEEDED Status: Active Protocol: Document 01/24/23 11:07 TS (Rec: 01/24/23 11:26 TS [id number]) PT-Bed Mobility Assessment Rolling Type of Rolling Roll to Right Level of Assist Standby Assistance Supine to Sit Supine to Sit Standby Assistance Sit to Supine Sit to Supine Standby Assistance Scooting Scooting to Edge of Bed Standby Assistance PT-Transfer Assessment Sit to and From Stand Sit to and from Stand Standby Assistance,Use of Upper Extremities Equipment Transfer Assistive Device Gait Belt,Front Wheeled Walker Orthotic/Prosthetic Devices or Brace: No Comments Mobility Comments Pt found resting on side, supine to sit SBA with BUE support. Pt sat EOB, pt attempted to look at clock and cued herself for her spinal precautions. Sit to stand with FWW SBA, knees were soft with slight bend, required cues for quad act. She ambulated with very slow rakesh SBA ~30 ' in room with FWW, c/o L knee pain and continued coughing. Pt requested back to bed for nap, sit to supine SBA, required extra time for LEs into bed, demonstrated good awareness of her precautions. Pt was left in bed, all needs met, SW discussing home care options with pt. Gait Assessment Gait Gait Assistance Required: Standby Assistance Distance (Feet) 30 Able to Maintain Weight Bearing Status Yes During Gait Assistive Devices Assistive Device Gait Belt,Front Wheeled Walker Orthotic/Prosthetic Devices or Brace: No Gait Deviations General Gait Pattern Antalgic,Decreased Stride Length,Decreased Feet Clearance,Step-to Gait Factors Limiting Gait Function Factors Limiting Gait Function Decreased Activity Tolerance, Decreased Strength,Pain,Poor Balance,Poor Safety Awareness Comments Gait Comments See mobility comments PT-Balance Assessment Sitting Balance and Reactions Static Sitting Balance Ability Good Dynamic Sitting Balance Ability Fair Standing Balance and Reactions Static Standing Balance Ability Fair Dynamic Standing Balance Ability Fair Device Used FWW M5 PT-IP Objective Assessments Start: 01/22/23 09:24 Freq: NEEDED Status: Active Protocol: Document 01/22/23 12:00 MB (Rec: 01/22/23 12:37 MB [id number]) Orientation Orientation/Cognition Level of Alertness Alert Comments Pt refused to answer any questions to PT, stating, do you even know anything about me? Do you even know why I am here? I am hurting. I am sick. Pt becomes increasingly irritable with even simple questions, answers and assistance. Gross Range of Motion Upper Extremity ROM Impairments Defer to OT Lower Extremity ROM Impairments Pt does not tolerate and LE skin looks good both legs and she does move her legs spontaneously pretty well in the bed Strength Comments Strength Comments Pt does not tolerate MMT Sensation Assessment Comments Sensation Comments Pt does not follow commands for this. M6 PT-IP Treatment Start: 01/22/23 09:24 Freq: NEEDED Status: Active Protocol: Document 01/24/23 11:07 TS (Rec: 01/24/23 11:26 TS [id number]) Physical Therapy Treatment Education Education Provided Precautions,Post-Op Packet, Safety M7 PT-IP Assessment and Plan Start: 01/22/23 09:24 Freq: NEEDED Status: Active Protocol: Document 01/24/23 11:07 TS (Rec: 01/24/23 11:26 TS [id number]) PT Summary Assessment and Plan Potential Rehabilitation Potential Fair Summary Impairments Pain,ROM,Strength,Balance,Bed Mobility,Transfers,Gait, Activity Tolerance Progress Towards Goals Slow Progress due to Pain,Slow Progress due to Activity Tolerance Assessment Summary Josey is making some progress with her mobility but remains limited by her activity tolerance and pain. Pain appears to be much improved over the last couple of days, pt tends to c/o pain and numbness in LLE. She performed all bed mobility SBA with good awareness of her precautions and carryover of logroll. She performed sit to stand SBA with FWW, pt is slow to stand with some difficulty with knee ext, required cues for quad activation. She ambulated ~30'SBA with a very slow step to gait with use of FWW, had no buckling or LOB. PT at this time continues to recommend home w/HHPT vs SNF. Pt would benefit from a rehab stay for daily PT. Pt declines rehab and wants to go home with HHPT. Goals Bed Mobility Goal Independent Transfer Goal Independent,Front Wheeled Walker Gait Goal Independent,Front Wheel Walker Gait Distance 75 Other Goals Pt will report 3/3 back precautions. Pt will ascend and descend one step with LRAD and mod I to allow safe home entry. May update to LRAD for all mobility as needed. Days to Meet Goals 5 Frequency of Treatment Frequency Of Treatment Twice a Day Treatment Plan Physical Therapy Treatment Plan Bed Mobility Training,Transfer Training,Gait Training, Therapeutic Exercise,Balance Retraining,Post Op Education, Discharge Planning,Hot or Cold Pack,Neuromuscular Re-ed Precautions Lumbar Precautions Log Roll,No Twisting,Limit Bending,Lifting Restriction of 10 lbs,Gait Belt above Incisional Area Weight Bearing Status Weight Bearing Status Weight Bear as Tolerated Recommendations To Nursing Amount of Assist Needed Standby Assistance Discharge Recommendations PT Discharge Recommendations Home with Assistance,Home Health,Home vs SNF Transportation Needs at Discharge Private Vehicle,Wheelchair/ Cabulance
--- NOTE | 2023-01-24 11:56 | CM.DPC ---
Addendum entered by Cookie Stacy R.N. 01/24/23 15:37: Met with patient, she is concerned about her cough, worried about discharging home today. Have not yet heard back from ortho. Went ahead and went over appeal process with patient, she was able to call [employer], with this DC Nursing Instructor in the room, and initiate the appeal. She is prepared to leave for home tomorrow. Let her know that [facility] has accepted her. Went ahead and printed out patient's chart, will expect a fax from [employer] with details on the appeal, and will submit the information per their request. Addendum entered by Cookie Stacy R.N. 01/24/23 13:00: Spoke to Lauren Chaves at [facility], confirmed that they can accept patient, she had been on their services before, and had to discharge her due to non-compliance, but can accept. Let her know that it is unclear if patient will discharge today, but will keep her updated. Original Note: Patient has discharge orders. Discussed home health, presented her the agencies, would like [facility]. Patient is reluctant to discharge today, stated, I haven't even seen the doctor, and coughing up some stuff. Patient resides alone, and is still refusing intermediate. Does have a friend that can pick her up. At this time, unclear if she will appeal the discharge.Have not yet discussed as of yet. Did leave a message with Shayy Smiley, regarding cough, and patient concerns about discharge. Left a message with Lauren Chaves at [facility] about referral, and faxed over DC Summary, orders, face to face, P.T. notes. Called their answering services as well, to see if patient can be accepted. Patient does have a provider at [facility], sees different doctors there, does not have any particular provider. She does not drive, stated, it's hard for me to get there. P: DCP to follow closely, has DC orders, is coughing, will see if patient is still medically ready to discharge, can present number to appeal if needed. Cookie Stacy, RN/Drum Sander Setter
--- NOTE | 2023-01-24 12:17 | PC.NURSE ---
Pending discharge: Javid TAMEZ reports pt had a cold when he admitted her. Pt voiced concerns about going home. She feels weak. She feels sick because of coughing so much. She has a freq loose sounding cough. She has a hx of smoking. Her cough is productive of green sputum. Sputum was seen by this bond underwriter. She does have some course sounds in the lower lung field bilat. Pt feels she is not ready to discharge yet. She would like to speak with the SHAYY Lucas again and Shayy was made aware of pt's concerns and she will go in and see her.
--- NOTE | 2023-01-24 13:00 | PT.IPTN ---
Current Diagnoses Supraventricular tachycardia, unspecified (01/21/23) Acute and chronic respiratory failure, unspecified whether with hypoxia or hypercapnia (01/21/23) Spinal stenosis, lumbar region with neurogenic claudication (01/21/23) Arthrodesis status (01/21/23) Surgery Performed Operation Date: 01/21/23 08:45 Actual Procedures p L2-3, L3-4 TLIF, L2-S1 PSF with posterior instrumentation-Robot - Daniel Poole MD Physical Therapy Treatment Note M2 PT-IP Current Condition Start: 01/22/23 09:24 Freq: NEEDED Status: Active Protocol: Document 01/22/23 12:00 MB (Rec: 01/22/23 12:37 MB [id number]) Physical Therapy Current Condition Current Condition Evaluation Date 01/22/23 Treatment Diagnosis L4-5 TLIF Onset Date 01/21/23 M3 PT-IP Subjective Start: 01/22/23 09:24 Freq: NEEDED Status: Active Protocol: Document 01/24/23 13:46 TS (Rec: 01/24/23 13:56 TS [id number]) Subjective Physical Therapy Visit Type Type Treatment Note Visit Start Time 13:00 Visit Stop Time 13:45 Total Visit Minutes 45 Notes Friends of pt's present before session, had questions about her d/c plan. Number of MACHINE FELLER Visits 3 Physical Therapy Visit Comments Patient Comments Pt found resting in bed, pt worried about going home today and does not feel ready. Se would like her temp taken and would like to have something to help her having a BM, cotinues to c/o cough. She is agreeable to PT. Therapy Pain Assessment Pain When Pain Assessed During Mobility Pain Present Pain Present Pain Reported M4 PT-IP Mobility and Gait Start: 01/22/23 09:24 Freq: NEEDED Status: Active Protocol: Document 01/24/23 13:46 TS (Rec: 01/24/23 13:56 TS [id number]) PT-Bed Mobility Assessment Rolling Type of Rolling Roll to Right Level of Assist Standby Assistance Supine to Sit Supine to Sit Standby Assistance Sit to Supine Sit to Supine Standby Assistance Scooting Scooting to Edge of Bed Standby Assistance PT-Transfer Assessment Sit to and From Stand Sit to and from Stand Standby Assistance,Minimal Assistance,1 Person Assistance ,Use of Upper Extremities Equipment Transfer Assistive Device Gait Belt,Front Wheeled Walker Orthotic/Prosthetic Devices or Brace: No Comments Mobility Comments Pt performed supine to sit SBA with BUE support and good carryover. She performed sit to stand x1 from SBA with BUE support and with better quad act. She ambulated in room ~35 ' SBA with FWW, continues to have slow step to gait. Pt sat in bedside chair for rest break. Sit to stand from chair Norma with cues for pushing off arms of chair. She performed steps x2 on stool Norma with use of B handrails, pt had some difficulty with step and c/o increasing pain. Sit to supine into bed SBA, pt demonstrates good carryover of sequencing. Pt was left in bed all needs met. Gait Assessment Gait Gait Assistance Required: Standby Assistance Distance (Feet) 35 Able to Maintain Weight Bearing Status Yes During Gait Assistive Devices Assistive Device Gait Belt,Front Wheeled Walker Orthotic/Prosthetic Devices or Brace: No Gait Deviations General Gait Pattern Antalgic,Decreased Stride Length,Decreased Feet Clearance,Step-to Gait Factors Limiting Gait Function Factors Limiting Gait Function Decreased Activity Tolerance, Decreased Strength,Pain,Poor Balance,Poor Safety Awareness Comments Gait Comments See mobility comments Stair Climbing Assessment Evaluation Level of Assist On Stairs Minimal Assistance,1 Person Assistance Devices Stair Climbing Assistive Devices Left Railing,Right Railing Technique/Endurance Stair Climbing Direction Ascend and Descend Stair Climbing Technique Step to Step Number of Steps Climbed 2 Comments Stair Climbing Comments See mobility comments PT-Balance Assessment Sitting Balance and Reactions Static Sitting Balance Ability Good Dynamic Sitting Balance Ability Fair Standing Balance and Reactions Static Standing Balance Ability Fair Dynamic Standing Balance Ability Fair Device Used FWW M5 PT-IP Objective Assessments Start: 01/22/23 09:24 Freq: NEEDED Status: Active Protocol: Document 01/22/23 12:00 MB (Rec: 01/22/23 12:37 MB [id number]) Orientation Orientation/Cognition Level of Alertness Alert Comments Pt refused to answer any questions to PT, stating, do you even know anything about me? Do you even know why I am here? I am hurting. I am sick. Pt becomes increasingly irritable with even simple questions, answers and assistance. Gross Range of Motion Upper Extremity ROM Impairments Defer to OT Lower Extremity ROM Impairments Pt does not tolerate and LE skin looks good both legs and she does move her legs spontaneously pretty well in the bed Strength Comments Strength Comments Pt does not tolerate MMT Sensation Assessment Comments Sensation Comments Pt does not follow commands for this. M6 PT-IP Treatment Start: 01/22/23 09:24 Freq: NEEDED Status: Active Protocol: Document 01/24/23 13:46 TS (Rec: 01/24/23 13:56 TS [id number]) Physical Therapy Treatment Education Education Provided Precautions,Post-Op Packet, Safety M7 PT-IP Assessment and Plan Start: 01/22/23 09:24 Freq: NEEDED Status: Active Protocol: Document 01/24/23 13:46 TS (Rec: 01/24/23 13:56 TS [id number]) PT Summary Assessment and Plan Potential Rehabilitation Potential Fair Summary Impairments Pain,ROM,Strength,Balance,Bed Mobility,Transfers,Gait, Activity Tolerance Progress Towards Goals Slow Progress due to Pain,Slow Progress due to Activity Tolerance Assessment Summary Josey continues to make progress but is still limited in her mobility. She performed bed SBA with good awareness of precautions. She performed sit to stand x1 SBA from elevated bed and x1 Norma from lower surface of chair. She continues to walk short distances in room with very slow step to gait. She performed steps x2 with Norma and use of B handrails, pt c/o increasing pain and was unhappy therapist had her do steps. PT continues to recommend home w/HHPT vs SNF at this time. Pt does not want to go to SNF and would like to be home with help. Goals Bed Mobility Goal Independent Transfer Goal Independent,Front Wheeled Walker Gait Goal Independent,Front Wheel Walker Gait Distance 75 Other Goals Pt will report 3/3 back precautions. Pt will ascend and descend one step with LRAD and mod I to allow safe home entry. May update to LRAD for all mobility as needed. Days to Meet Goals 5 Frequency of Treatment Frequency Of Treatment Twice a Day Treatment Plan Physical Therapy Treatment Plan Bed Mobility Training,Transfer Training,Gait Training, Therapeutic Exercise,Balance Retraining,Post Op Education, Discharge Planning,Hot or Cold Pack,Neuromuscular Re-ed Precautions Lumbar Precautions Log Roll,No Twisting,Limit Bending,Lifting Restriction of 10 lbs,Gait Belt above Incisional Area Weight Bearing Status Weight Bearing Status Weight Bear as Tolerated Recommendations To Nursing Amount of Assist Needed Independent Discharge Recommendations PT Discharge Recommendations Home with Assistance,Home Health,Home vs SNF Transportation Needs at Discharge Private Vehicle,Wheelchair/ Cabulance
--- NOTE | 2023-01-24 17:09 | DI.RAD.S_ITS ---
PROCEDURE: XR CHEST 2V INDICATIONS: Chest congestion, cough TECHNIQUE: 2 views of the chest were acquired. COMPARISON: [facility], CR, XR CHEST 2V, 12/12/2019, 13:29. FINDINGS: Surgical changes and devices: Anterior fixation device of the cervical spine is partially visualized. Partial visualization of a lumbar fixation device. Lungs and pleura: Lungs are clear. Small right pleural effusion. Mediastinum: Mediastinal contours are normal. Heart size is normal. Bones and chest wall: No suspicious bony abnormalities. Soft tissues appear unremarkable. IMPRESSION: No acute cardiopulmonary abnormality is seen. Small right pleural effusion. Dictated by: Dawit Aldridge M.D. on 01/24/2023 at 16:56 Approved by: Dawit Aldridge M.D. on 01/24/2023 at 17:03
[2023-01-24] MEDS: LORazepam 0.5 MG TABLET PO (17:52)
[2023-01-24 18:23] LABS: Hematocrit 30.7 % (36-46); Hemoglobin 9.9 g/dL (12.0-16.0); Mean Corpuscular HGB Conc 32.3 % (30-36); Mean Corpuscular Hemoglobin 26.1 PG (26-34); Mean Corpuscular Volume 80.7 fL (80-100); Platelet Count 292 X10^3/uL (150-400); Red Blood Cell Count 3.81 X10^6/uL (4.0-5.2)
[2023-01-24 19:04] LABS: Neutrophils Absolute Manual 7920 /uL (3000-5900); Smudge Cells 1+; Total Cells Counted 100
[2023-01-24 19:06] LABS: Hypochromasia 1+
[2023-01-24] MEDS: ALBUTEROL 2.5 MG/3 ML NEB (ADULT) INH (19:27)
[2023-01-24 19:33] VITALS: O2SAT 95
[2023-01-24 19:35] VITALS: BP 122/78; PULSE 95; RESP 20; TEMP 36.3; O2SAT 95
[2023-01-24] MEDS: SENNOSIDES 8.6 MG TABLET 17.2 MG PO (21:30)
[2023-01-24] MEDS: MAGNESIUM HYDROXIDE 30 ML UDC PO (21:31)
[2023-01-25] MEDS: LORazepam 0.5 MG TABLET PO (02:38)
[2023-01-25] MEDS: OXYCODONE IR 10 MG TABLET PO ×3 (02:38→10:09)
[2023-01-25] MEDS: hydrOXYzine pamoate 25 MG CAPSULE PO (02:39)
[2023-01-25] MEDS: ACETAMINOPHEN 325 MG TABLET 650 MG PO ×2 (06:27→13:24)
[2023-01-25] MEDS: CYCLOBENZAPRINE 10 MG TABLET PO ×2 (06:28→13:24)
[2023-01-25] MEDS: GABAPENTIN 300 MG CAPSULE PO ×2 (06:28→13:24)
--- NOTE | 2023-01-25 06:37 | PC.NURSE ---
Patient is A & O x4, forgetful, anxious, and agitated at times. Patient c/o back and leg pain adequately controlled with pain meds. Up to BSC with minimal assist of 1, c/o constipation, bowel meds given last night, no BM yet. Drsg to back dry, patient picks at drsg. Patient denies any SOB.
[2023-01-25 07:00] VITALS: BP 118/59; PULSE 83; RESP 16; TEMP 36.1; O2SAT 98
--- NOTE | 2023-01-25 10:00 | PT-IP ANOTE ---
Pt refused AM PT due to pain and heightened emotional state. Will check back in PM.
[2023-01-25] MEDS: PANTOPRAZOLE DR 40 MG TABLET PO (10:09)
[2023-01-25] MEDS: DOCUSATE 100 MG CAPSULE PO (10:09)
[2023-01-25] MEDS: NICOTINE 7 MG PATCH TOP (10:09)
[2023-01-25 11:00] VITALS: PULSE 92; RESP 16; O2SAT 96
[2023-01-25] MEDS: ALBUTEROL 2.5 MG/3 ML NEB (ADULT) INH ×2 (11:00)
--- NOTE | 2023-01-25 12:25 | PM.PN.1 ---
Subjective Subjective Interval history: She notes that she has been coughing and she does not feel well. She has not had a fever while she is been here. She is coughing up some green sputum. She is not short of breath. She is been mobilizing with physical therapy. She is been afebrile. She notes some mild numbness on the left thigh Exam Vital Signs (past 8 hours): - 01/25/23 07:00 01/25/23 11:00 Temperature 97.0 F L Pulse Rate 83 92 H Respiratory Rate 16 16 Blood Pressure 118/59 L Pulse Oximetry 98 96 Oxygen Delivery Method Room Air Oxygen Flow Rate 0 Oxygen Delivery Method Room Air Oxygen Flow Rate 0 Narrative Exam Narrative: Dressing is intact and dry she is able to fire toe flexors and extensors quads and hamstrings bilaterally calves are soft bilaterally she has minimal numbness on the anterior aspect of the left thigh but normal strength of her quad hip flexors and hamstrings, cor is regular rate and rhythm lungs show occasional rhonchi but adequate breath sounds in bilateral lungs Objective Imaging Chest x-ray: Radiologist's impression: Small pleural effusion no evidence of a pneumonia Labs 01/24/23 18:15 01/21/23 12:54 Labs: Laboratory Results - last 24 hr 01/24/23 18:15 WBC 11.0 RBC 3.81 L Hgb 9.9 L Hct 30.7 L MCV 80.7 MCH 26.1 MCHC 32.3 RDW 14.0 Plt Count 292 Total Counted 100 Seg Neutrophils % 72.0 H Lymphocytes % (Manual) 20.0 L Monocytes % (Manual) 6.0 Eosinophils % (Manual) 1.0 L Basophils % (Manual) 1.0 Neutrophils # (Manual) 7920 H Smudge Cells 1+ H RBC Morphology See below Hypochromasia 1+ H PFSH Medical History History of COVID-19 (~2020) Peripheral neuropathy (2012) Skin spots-aging Chronic cough Anxiety Chronic headaches Chronic back pain (1981) Cervical spine disease (2007) Ankle pain (2016) Lumbar spinal stenosis Scoliosis Osteopenia Osteoporosis Lumbar spine pain Foot pain GERD (gastroesophageal reflux disease) Surgical History History of lumbar spinal fusion (12/13/18) Hx laparoscopic cholecystectomy (05/22/19) Status post epidural steroid injection (04/28/18) Anesthesia History of lumbar laminectomy (~1989) History of hysterectomy (1992) History of lumbar laminectomy (2013) History of cervical spinal surgery (2007) Family History Father No problems noted. Mother Colon cancer Liver cancer Heart disease Hypertension Brother Obesity Diabetes mellitus Hypertension Brother No problems noted. Brother No problems noted. Sister No problems noted. Grandfather No problems noted. Grandmother No problems noted. Grandfather No problems noted. Grandmother No problems noted. Family/Other No problems noted. Social History household members: none Smoking Status: Current every day smoker alcohol intake: current Assessment & Plan Assessment and plan (1) Acute and chronic respiratory failure ([id number]): Status: Acute (2) S/P lumbar fusion: Status: Acute (3) Depression: Status: Chronic (4) Lumbar post-laminectomy syndrome: Status: Chronic (5) Chronic lower back pain: Status: Acute Plan She had a URI when she came to the hospital. She is having some problems with a cough. Her lungs show some mild rhonchi but her white count is normal and her chest x-ray does not show evidence of a pneumonia. She is otherwise doing reasonably well after her lumbar spine fusion. I told her that it is reasonable to discharge her to home. She asked if she has COPD. I told her COPD is associated with chronic smoking and I recommended that she follow-up with her PCP practitioner. I strongly encouraged her to work on a progressive smoking cessation program. Her dressing is dry and she is doing okay from lumbar spine surgical standpoint. Quality VTE Deep Vein Thrombosis/Pulmonary Embolism Present on Admission: No
--- NOTE | 2023-01-25 12:56 | PT.IPTN ---
Current Diagnoses Major depressive disorder, single episode, unspecified (01/21/23) Other chronic pain (01/21/23) Supraventricular tachycardia, unspecified (01/21/23) Acute and chronic respiratory failure, unspecified whether with hypoxia or hypercapnia (01/21/23) Spinal stenosis, lumbar region with neurogenic claudication (01/21/23) Low back pain (01/21/23) Postlaminectomy syndrome, not elsewhere classified (01/21/23) Arthrodesis status (01/21/23) Surgery Performed Operation Date: 01/21/23 08:45 Actual Procedures p L2-3, L3-4 TLIF, L2-S1 PSF with posterior instrumentation-Robot - Daniel Poole MD Physical Therapy Treatment Note M2 PT-IP Current Condition Start: 01/22/23 09:24 Freq: NEEDED Status: Active Protocol: Document 01/22/23 12:00 MB (Rec: 01/22/23 12:37 MB [id number]) Physical Therapy Current Condition Current Condition Evaluation Date 01/22/23 Treatment Diagnosis L4-5 TLIF Onset Date 01/21/23 M3 PT-IP Subjective Start: 01/22/23 09:24 Freq: NEEDED Status: Active Protocol: Document 01/25/23 12:26 KS (Rec: 01/25/23 13:42 KS [id number]) Subjective Physical Therapy Visit Type Type Treatment Note Visit Start Time 12:26 Visit Stop Time 12:56 Total Visit Minutes 30 Notes Pt agreeable to work w/ PT. Anxious to return home. Number of TEST ENGINEERING MANAGER Visits 4 M4 PT-IP Mobility and Gait Start: 01/22/23 09:24 Freq: NEEDED Status: Active Protocol: Document 01/25/23 12:26 KS (Rec: 01/25/23 13:42 KS [id number]) PT-Bed Mobility Assessment Rolling Type of Rolling Roll to Right Level of Assist Standby Assistance Supine to Sit Supine to Sit Standby Assistance Sit to Supine Sit to Supine Standby Assistance Scooting Scooting to Edge of Bed Standby Assistance PT-Transfer Assessment Sit to and From Stand Sit to and from Stand Standby Assistance,1 Person Assistance,Use of Upper Extremities Equipment Transfer Assistive Device Gait Belt,Front Wheeled Walker Orthotic/Prosthetic Devices or Brace: No Transfers Transfer Destination Bed,Toilet Transfer Technique ambulated w/ FWW Transfer Ability Level of Assist Standby Assistance,Contact Guard Assistance,1 Person Assistance,Use of Upper Extremities Comments Mobility Comments Pt in bed and tearful upon arrival, upset about d/c plan today. Able to recall 3/3 precautions and perform logoll SBA. SBA for sit<>Stand w/ FWW. Pt ambulated to toilet w/ FWW CGA very slowly due to increased pain. After voiding, pt returned tobed. Completed stairs yesterday and does not wish to complete again. Has 4WW at home, discussed safety and stabily w/ FWW adnd pt states I hate those things and was not open to having one dispensed. States she will just use the brakes on her 4WW and verbalizes awareness of maintaining upright posture and other 4WW safety. Pt left in bed w/ all needs in reach and alarm on. Gait Assessment Gait Gait Assistance Required: Standby Assistance,Contact Guard Assist,1 Person Assist Distance (Feet) 30 Able to Maintain Weight Bearing Status Yes During Gait Assistive Devices Assistive Device Gait Belt,Front Wheeled Walker Orthotic/Prosthetic Devices or Brace: No Gait Deviations General Gait Pattern Antalgic,Decreased Stride Length,Decreased Feet Clearance,Step-to Gait Comments Gait Comments See mobility comments PT-Balance Assessment Sitting Balance and Reactions Static Sitting Balance Ability Good Dynamic Sitting Balance Ability Good Standing Balance and Reactions Static Standing Balance Ability Fair Dynamic Standing Balance Ability Fair Device Used FWW M5 PT-IP Objective Assessments Start: 01/22/23 09:24 Freq: NEEDED Status: Active Protocol: Document 01/22/23 12:00 MB (Rec: 01/22/23 12:37 MB [id number]) Orientation Orientation/Cognition Level of Alertness Alert Comments Pt refused to answer any questions to PT, stating, do you even know anything about me? Do you even know why I am here? I am hurting. I am sick. Pt becomes increasingly irritable with even simple questions, answers and assistance. Gross Range of Motion Upper Extremity ROM Impairments Defer to OT Lower Extremity ROM Impairments Pt does not tolerate and LE skin looks good both legs and she does move her legs spontaneously pretty well in the bed Strength Comments Strength Comments Pt does not tolerate MMT Sensation Assessment Comments Sensation Comments Pt does not follow commands for this. M6 PT-IP Treatment Start: 01/22/23 09:24 Freq: NEEDED Status: Active Protocol: Document 01/25/23 12:26 KS (Rec: 01/25/23 13:42 KS [id number]) Physical Therapy Treatment Education Education Provided Precautions,Post-Op Packet, Safety Other Treatments Other Treatment Performed Discussed at home safety, DME, precautions, logroll, getting into and out of car, stairs, and HHPT. M7 PT-IP Assessment and Plan Start: 01/22/23 09:24 Freq: NEEDED Status: Active Protocol: Document 01/25/23 12:26 KS (Rec: 01/25/23 13:42 KS [id number]) PT Summary Assessment and Plan Potential Rehabilitation Potential Fair Summary Impairments Pain,ROM,Strength,Balance,Bed Mobility,Transfers,Gait, Activity Tolerance Progress Towards Goals Slow Progress due to Pain,Slow Progress due to Activity Tolerance Assessment Summary Pt experience high level of anxiety about d/c home this PM and difficult to redirect towards therapy, but ultimately able to perform logroll and sit<>stand w/ FWW SBA and ambulation. State she has grandson and two friends that will helping her periodically and assisting her into house. Refused further stair training and FWW this date, stating she knows how to use 4WW and will just use that. She will benefit from HHPT. Goals Bed Mobility Goal Independent Transfer Goal Independent,Front Wheeled Walker Gait Goal Independent,Front Wheel Walker Gait Distance 75 Other Goals Pt will report 3/3 back precautions. Pt will ascend and descend one step with LRAD and mod I to allow safe home entry. May update to LRAD for all mobility as needed. Days to Meet Goals 5 Frequency of Treatment Frequency Of Treatment Twice a Day Treatment Plan Physical Therapy Treatment Plan Bed Mobility Training,Transfer Training,Gait Training, Therapeutic Exercise,Balance Retraining,Post Op Education, Discharge Planning,Hot or Cold Pack,Neuromuscular Re-ed Precautions Lumbar Precautions Log Roll,No Twisting,Limit Bending,Lifting Restriction of 10 lbs,Gait Belt above Incisional Area Weight Bearing Status Weight Bearing Status Weight Bear as Tolerated Recommendations To Nursing Amount of Assist Needed Independent Discharge Recommendations PT Discharge Recommendations Home with Assistance,Home Health,Home vs SNF Transportation Needs at Discharge Private Vehicle,Wheelchair/ Cabulance
[2023-01-25] MEDS: guaiFENesin Solution 100 MG/5 ML UDC 200 MG PO (13:24)
[2023-01-25] MEDS: BENZONATATE 100 MG CAPSULE PO (13:24)
--- NOTE | 2023-01-25 15:00 | PC.NURSE ---
Pt discharged at 1430, escorted off floor in wheelchair accompanied by friend and hospital staff. Dressings changed, discharge teaching completed including follow up appointments, new medications, wound care and worsening symptoms. Questions answered and concerns addressed. Patient left the floor with all belongings.
--- NOTE | 2023-01-25 15:07 | PC.NURSE ---
Day shift: Some belongings left behind on d/c today. Pt's Son Estefany notified at approx 1500. He states that he will let his Mom know and pick them up. Was told they are at main RN station.
--- NOTE | 2023-01-25 15:31 | CM.DPC ---
DCP Continued MANAGER BEHAVIORAL reviewed EMR. Per chart review, medically cleared for dc today home with HH. MANAGER BEHAVIORAL entered room and introduced self and role. Patient reports anxious to dc home and wants to work with PT prior to dc. Agreeable to Sig . Reports ride can be here any minute to transport home. Per PT, cleared to d/c home with HH assistance. MANAGER BEHAVIORAL spoke with intake at [facility]. Reported of pt's dc, agreed to inform scheduling/team Thursday. Faxed d/c summary, face to face, and order to main line. MANAGER BEHAVIORAL gave pt a [facility] brochure upon request. Plan: patient to d/c home today with family and Sig support. transport with family in POV. CM team will continue to follow as needed. TARYN Fontana
== END 2023-01-25 15:05 | disposition home health service (06) | DRG 453 ==
PROVIDERS: Internal Medicine; Orthopaedic Surgery; Admitting Provider Orthopaedic Surgery Orthopaedic Surgery of the Spine; Referring Provider Orthopaedic Surgery Orthopaedic Surgery of the Spine; Visit Provider Orthopaedic Surgery Orthopaedic Surgery of the Spine
PROC: 0SG10AJ Fusion of 2 or more Lumbar Vertebral Joints with Interbody Fusion Device, Posterior Approach, Anterior Column, Open Approach (ICD-10-PCS; principal; 2023-01-21 08:45)
DX: M48.062 Spinal stenosis, lumbar region with neurogenic claudication (principal); J96.22 Acute and chronic respiratory failure with hypercapnia; I47.10 Supraventricular tachycardia, unspecified; M51.26 Other intervertebral disc displacement, lumbar region; M43.16 Spondylolisthesis, lumbar region; M96.1 Postlaminectomy syndrome, not elsewhere classified; K21.9 Gastro-esophageal reflux disease without esophagitis; J43.9 Emphysema, unspecified; F41.9 Anxiety disorder, unspecified; G89.18 Other acute postprocedural pain; J06.9 Acute upper respiratory infection, unspecified; F17.210 Nicotine dependence, cigarettes, uncomplicated; Z98.1 Arthrodesis status
CPT/HCPCS: 36415; 71046; 72100; 76000; 80053; 82805; 84484; 85014; 85018; 85025; 87070; 87077; 87185; 87205; 87635; 93005; 93010; 94640; 94760; 94762; 97116; 97161; 97167; 97530; C9803; C9290; J0171; J0330; J0690; J1100; J1170; J2250; J2405; J2704; J3010; J3360; J3410; J7613

== ENCOUNTER 2023-02-21 16:25 | Emergency (ER) | payer MEDICARE, MEDICAID, SELFPAY ==
[2023-01-21 14:47] VITALS: BMI 26.4
[2023-02-21] VITALS (19 sets, daily range): BP systolic 140–168; BP diastolic 69–99; PULSE 80–108; RESP 16; TEMP 36.7; O2SAT 93–98; BMI 26.4
--- NOTE | 2023-02-21 16:59 | DI.RAD.S_ITS ---
PROCEDURE: XR LUMBAR SPINE 2-3V INDICATIONS: Increase lumbar pain after surgery TECHNIQUE: 3 views of the lumbar spine were acquired. COMPARISON: [facility], CR, XR LUMBAR SPINE 2-3V, 01/21/2023, 11:40. FINDINGS: Bones: 5 [id number] vertebrae are present. Status post posterior fixation from L2-S1 using paired vertical rods and transpedicle screws and intervertebral disc spacers. Hardware is in appropriate position. No acute fracture. No suspicious bony lesions. Soft tissues: Overlying bowel gas pattern is normal. No suspicious soft tissue calcifications. IMPRESSION: No acute osseous abnormality. Status post L2-S1 posterior fixation with intervertebral disc spacers. Dictated by: Aimee Hooker M.D. on 02/21/2023 at 17:41 Approved by: Aimee Hooker M.D. on 02/21/2023 at 17:46
--- NOTE | 2023-02-21 16:59 | ED_ITS ---
HPI - General Adult <Lele Moise DO - Last Filed: 02/22/23 07:07> General Chief complaint: Weakness Stated complaint: post back surg/pain worsening/fever Time Seen by Provider: 02/21/23 16:53 Source: patient Mode of arrival: Ambulatory Limitations: no limitations History of Present Illness HPI narrative: Patient is a 67-year-old female. She is 1 month status post lumbar surgery for chronic back pain. She states that she has been doing fairly well at home until over the past couple days when she has had worsening pain and fevers. No radiation down into her legs. No chest pain. No shortness of breath. No sore throat. No headache. She was having issues with constipation but that is because of the pain medicine so she is started to cut back on the mouth that she has been taking. Her home health nurse thought that maybe there was some swelling around the incision sites in her lower back and advised that she come to the emergency department for x-rays. Related Data Home Medications Medication Instructions Recorded Confirmed albuterol sulfate 90 mcg/actuation 2 inh inhalation Q6H PRN shortness 01/21/23 01/21/23 aerosol inhaler (Ventolin HFA) of breath Previous Rx's Medication Instructions Recorded pantoprazole 40 mg tablet,delayed 40 mg PO BID #180 tabs 11/12/18 release gabapentin 300 mg capsule 300 mg PO TID PRN pain #270 caps 01/17/19 cyclobenzaprine 10 mg tablet 10 mg PO TID PRN muscle spasm #14 11/05/19 tabs oxycodone 5 mg tablet 5 mg PO Q6H PRN pain #10 tabs 09/15/22 acetaminophen 325 mg tablet 650 mg (2 x 325 mg) PO Q6H PRN 01/24/23 Fever/Mild Pain (1-3) #240 tabs cyclobenzaprine 10 mg tablet 10 mg PO TID PRN muscle spasm #90 01/24/23 tabs docusate sodium 100 mg capsule 100 mg PO BID PRN constipation #60 01/24/23 caps hydroxyzine pamoate 25 mg capsule 25 mg PO Q4HR PRN muscle spasm #60 01/24/23 caps nicotine 7 mg/24 hr daily 7 mg topical DAILY #14 ea 01/24/23 transdermal patch oxycodone 5 mg tablet 5 mg PO Q3H PRN Pain, Moderate 01/24/23 (4-6) #60 tabs dextromethorphan polistirex 30 10 ml PO Q12H PRN cough #89 mL 01/25/23 mg/5 mL oral susp ext.release 12hr (Robitussin ER) guaifenesin 100 mg/5 mL oral liquid 200 mg (10 mL) PO Q4HR PRN Cough 01/25/23 #100 mL oxycodone 5 mg capsule 5 mg PO Q4H PRN pain #7 caps 02/21/23 Allergies Allergy/AdvReac Type Severity Reaction Status Date / Time adhesive tape [ADHESIVE TAPE] Allergy Intermediate Rash Verified 01/21/23 08:15 venlafaxine AdvReac Intermediate sweating, Verified 01/21/23 08:15 insomnia duloxetine [From Cymbalta] AdvReac Mild insomnia, Verified 01/21/23 08:15 teeth clenching hydrocodone [From VICODIN] AdvReac Unknown STOMACH Verified 01/21/23 08:15 UPSET ibuprofen AdvReac Rectal Verified 01/21/23 08:15 bleeding Review of Systems <Lele Moise DO - Last Filed: 02/22/23 07:07> Review of Systems ROS Unobtainable: All systems reviewed & are unremarkable except as noted in HPI and below Patient History <Lele Moise DO - Last Filed: 02/22/23 07:07> Medical History History of COVID-19 (~2020) Peripheral neuropathy (2012) Skin spots-aging Chronic cough Anxiety Chronic headaches Chronic back pain (1981) Cervical spine disease (2007) Ankle pain (2016) Lumbar spinal stenosis Scoliosis Osteopenia Osteoporosis Lumbar spine pain Foot pain GERD (gastroesophageal reflux disease) Surgical History History of lumbar spinal fusion (12/13/18) Hx laparoscopic cholecystectomy (05/22/19) Status post epidural steroid injection (04/28/18) Anesthesia History of lumbar laminectomy (~1989) History of hysterectomy (1992) History of lumbar laminectomy (2013) History of cervical spinal surgery (2007) Family History Father No problems noted. Mother Colon cancer Liver cancer Heart disease Hypertension Brother Obesity Diabetes mellitus Hypertension Brother No problems noted. Brother No problems noted. Sister No problems noted. Grandfather No problems noted. Grandmother No problems noted. Grandfather No problems noted. Grandmother No problems noted. Family/Other No problems noted. Social History household members: none Smoking Status: Current every day smoker alcohol intake: current Smoking Status: Current every day smoker alcohol intake frequency: holidays/special occasions only Substance Use Type: marijuana Exam <Lele Moise DO - Last Filed: 02/22/23 07:07> Initial Vital Signs Initial Vital Signs: Vital Signs Temperature 98.0 F 02/21/23 16:37 Pulse Rate 108 H 02/21/23 16:37 Respiratory Rate 16 02/21/23 16:37 Blood Pressure 168/90 H 02/21/23 16:37 Pulse Oximetry 98 02/21/23 16:37 Oxygen Delivery Method Room Air 02/21/23 16:37 Const General: cooperative, comfortable and No ill appearing HENPR Head: normal to inspection and normocephalic Resp Effort & Inspection: normal respiratory effort Auscultation: clear to auscultation bilaterally Cardio Rate: regular rate Rhythm: regular rhythm GI Inspection: normal to inspection and non-distended Back/Spine/Pelvis Other: Tenderness to palpation lumbar spine Skin Other: Surgical incisions and lower back appear well. There was no erythema. No dehiscence of the wounds. Potentially a small amount of swelling in between the incisions but no fluctuance noted. Extrem General: normal to inspection and capillary refill normal <Vince Ortega MD - Last Filed: 04/06/23 06:10> Initial Vital Signs Initial Vital Signs: Vital Signs Temperature 98.0 F 02/21/23 16:37 Pulse Rate 108 H 02/21/23 16:37 Respiratory Rate 16 02/21/23 16:37 Blood Pressure 168/90 H 02/21/23 16:37 Pulse Oximetry 98 02/21/23 16:37 Oxygen Delivery Method Room Air 02/21/23 16:37 Course <Lele Moise DO - Last Filed: 02/22/23 07:07> Orders Ordered: Discontinued Medications Sodium Chloride (Normal Saline 0.9%) 1,000 mls @ 1,000 mls/hr IV BOLUS ONE Stop: 02/21/23 17:58 Last Infusion: 02/21/23 17:39 Dose: Infused Documented By: Admin: 02/21/23 17:05 Dose: 1,000 mls/hr Documented By: PAULINE Morphine Sulfate (Morphine 2 Mg/Ml Inj) 2 mg IV NOW ONE Stop: 02/21/23 18:53 Last Admin: 02/21/23 19:00 Dose: 2 mg Documented By: JASON Oxycodone HCl (Oxycodone Ir 5 Mg Tablet) 5 mg PO NOW ONE Stop: 02/21/23 19:40 Last Admin: 02/21/23 19:45 Dose: 5 mg Documented By: CHRISTIAN Vital Signs Vital signs: Vital Signs - 8 hr 02/21/23 16:37 02/21/23 16:44 02/21/23 16:45 Temperature 98.0 F Pulse Rate 108 H 104 H Respiratory Rate 16 Blood Pressure 168/90 H Pulse Oximetry 98 96 95 Oxygen Delivery Method Room Air 02/21/23 16:45 02/21/23 17:00 02/21/23 17:02 Temperature Pulse Rate 95 H Respiratory Rate Blood Pressure 168/99 H 157/86 H Pulse Oximetry 96 Oxygen Delivery Method 02/21/23 17:02 02/21/23 17:15 02/21/23 17:18 Temperature Pulse Rate 93 H 90 86 Respiratory Rate Blood Pressure Pulse Oximetry 96 96 96 Oxygen Delivery Method 02/21/23 17:18 02/21/23 17:30 02/21/23 17:30 Temperature Pulse Rate 80 Respiratory Rate Blood Pressure 142/97 H 140/91 H Pulse Oximetry 98 Oxygen Delivery Method 02/21/23 17:46 02/21/23 17:47 02/21/23 17:47 Temperature Pulse Rate 84 84 Respiratory Rate Blood Pressure 159/89 H Pulse Oximetry 93 93 Oxygen Delivery Method 02/21/23 18:00 02/21/23 18:00 02/21/23 18:15 Temperature Pulse Rate 84 84 Respiratory Rate Blood Pressure 144/77 H Pulse Oximetry 98 95 Oxygen Delivery Method 02/21/23 18:30 02/21/23 18:31 02/21/23 18:31 Temperature Pulse Rate 82 81 Respiratory Rate Blood Pressure 153/69 H Pulse Oximetry 97 96 Oxygen Delivery Method 02/21/23 18:45 02/21/23 19:00 02/21/23 19:00 Temperature Pulse Rate 83 80 Respiratory Rate Blood Pressure 167/86 H Pulse Oximetry 97 94 Oxygen Delivery Method <Vince Ortega MD - Last Filed: 04/06/23 06:10> Orders Ordered: Discontinued Medications Sodium Chloride (Normal Saline 0.9%) 1,000 mls @ 1,000 mls/hr IV BOLUS ONE Stop: 02/21/23 17:58 Last Infusion: 02/21/23 17:39 Dose: Infused Documented By: Admin: 02/21/23 17:05 Dose: 1,000 mls/hr Documented By: PAULINE Morphine Sulfate (Morphine 2 Mg/Ml Inj) 2 mg IV NOW ONE Stop: 02/21/23 18:53 Last Admin: 02/21/23 19:00 Dose: 2 mg Documented By: JASON Oxycodone HCl (Oxycodone Ir 5 Mg Tablet) 5 mg PO NOW ONE Stop: 02/21/23 19:40 Last Admin: 02/21/23 19:45 Dose: 5 mg Documented By: CHRISTIAN Vital Signs Vital signs: Vital Signs - 8 hr 02/21/23 16:37 02/21/23 16:44 02/21/23 16:45 Temperature 98.0 F Pulse Rate 108 H 104 H Respiratory Rate 16 Blood Pressure 168/90 H Pulse Oximetry 98 96 95 Oxygen Delivery Method Room Air 02/21/23 16:45 02/21/23 17:00 02/21/23 17:02 Temperature Pulse Rate 95 H Respiratory Rate Blood Pressure 168/99 H 157/86 H Pulse Oximetry 96 Oxygen Delivery Method 02/21/23 17:02 02/21/23 17:15 02/21/23 17:18 Temperature Pulse Rate 93 H 90 86 Respiratory Rate Blood Pressure Pulse Oximetry 96 96 96 Oxygen Delivery Method 02/21/23 17:18 02/21/23 17:30 02/21/23 17:30 Temperature Pulse Rate 80 Respiratory Rate Blood Pressure 142/97 H 140/91 H Pulse Oximetry 98 Oxygen Delivery Method 02/21/23 17:46 02/21/23 17:47 02/21/23 17:47 Temperature Pulse Rate 84 84 Respiratory Rate Blood Pressure 159/89 H Pulse Oximetry 93 93 Oxygen Delivery Method 02/21/23 18:00 02/21/23 18:00 02/21/23 18:15 Temperature Pulse Rate 84 84 Respiratory Rate Blood Pressure 144/77 H Pulse Oximetry 98 95 Oxygen Delivery Method 02/21/23 18:30 02/21/23 18:31 02/21/23 18:31 Temperature Pulse Rate 82 81 Respiratory Rate Blood Pressure 153/69 H Pulse Oximetry 97 96 Oxygen Delivery Method 02/21/23 18:45 02/21/23 19:00 02/21/23 19:00 Temperature Pulse Rate 83 80 Respiratory Rate Blood Pressure 167/86 H Pulse Oximetry 97 94 Oxygen Delivery Method Medical Decision Making <Lele Moise DO - Last Filed: 02/22/23 07:07> Lab Data Lab results reviewed: Yes I reviewed the patient's lab results. 02/21/23 16:56 02/21/23 16:56 Labs: Lab Results 02/21/23 02/21/23 Range/Units 16:56 17:07 WBC 9.3 (4.5-11.0) X10^3/uL RBC 5.00 (4.0-5.2) X10^6/uL Hgb 12.9 (12.0-16.0) g/dL Hct 39.5 (36-46) % MCV 78.9 L (80-100) fL MCH 25.8 L (26-34) PG MCHC 32.6 (30-36) % RDW 14.3 (11.6-14.8) % Plt Count 409 H (150-400) X10^3/uL Neut % (Auto) 72.3 (50-75) % Lymph % (Auto) 14.0 L (25-40) % [place] % (Auto) 4.8 (3-14) % Eos % (Auto) 7.4 H (2-4) % Baso % (Auto) 1.5 (0-2) % Neut # (Auto) 6800 (3422-1294) /uL Lymph # (Auto) 1300 (0596-7452) /uL [place] # (Auto) 500 (0-900) /uL Eos # (Auto) 700 H (0-450) /uL Baso # (Auto) 100 (0-100) /uL Sodium 136 L (137-145) mmol/L Potassium 4.4 (3.4-5.1) mmol/L Chloride 102 (98-107) mmol/L Carbon Dioxide 28 (22-32) mmol/L BUN 14 (7-17) mg/dL Creatinine 0.65 (0.52-1.04) mg/dL Estimated GFR > 60 (>60) mL/min BUN/Creatinine Ratio 21.5 (6-22) Glucose 105 (80-110) mg/dL Lactate 1.3 (0.7-2.1) mmol/L Calcium 9.6 (8.4-10.2) mg/dL Total Bilirubin 0.4 (0.2-1.3) mg/dL AST 22 (14-36) IU/L ALT 15 (<35) IU/L Alkaline Phosphatase 112 (38-126) U/L Total Protein 7.5 (6.3-8.2) g/dL Albumin 4.0 (3.5-5.0) g/dL Globulin 3.5 (1.7-4.1) g/dL Albumin/Globulin Ratio 1.1 (1.0-2.8) Lipase 39 (23-300) U/L Procalcitonin 0.07 (<0.5) ng/mL Chlamy pneumoniae PCR Not detected (Not Detect) Adenovirus (PCR) Not detected (Not Detect) B.parapertussis DNA PCR Not detected (Not Detecte) Coronavirus OC43 (PCR) Not detected (Not Detect) Coronavirus HKU1 (PCR) Not detected (Not Detect) Coronavirus 229E (PCR) Not detected (Not Detect) SARS-CoV-2 (PCR) Not detected (Not Detecte) Coronavirus NL63 (PCR) Not detected (Not Detect) Human Metapneumovir PCR Not detected (Not Detect) Influenza Type A (PCR) Not detected (Not Detect) Influenza Type B (PCR) Not detected (Not Detect) M. pneumoniae (PCR) Not detected (Not Detect) Parainfluenza 1 (PCR) Not detected (Not Detect) Parainfluenza 2 (PCR) Not detected (Not Detect) Parainfluenza 3 (PCR) Not detected (Not Detect) Parainfluenza 4 (PCR) Not detected (Not Detect) RSV (PCR) Not detected (Not Detect) Entero/Rhino (PCR) Not detected (Not Detect) Urine Dip Bedside Urine Glucose Negative Bedside Urine Bilirubin - Negative Bedside Urine Ketone - Negative Urine Specific [place] 1.005 Bedside Urine Occult Blood - Negative Bedside Urine pH 7.0 Bedside Urine Protein - Negative Bedside Urine Urobilinogen - Negative Bedside Urine Nitrite - Negative Bedside Urine Leukocytes - Negative Esterase Point of care testing: Urine Dip Bedside Urine Glucose Negative Bedside Urine Bilirubin - Negative Bedside Urine Ketone - Negative Urine Specific [place] 1.005 Bedside Urine Occult Blood - Negative Bedside Urine pH 7.0 Bedside Urine Protein - Negative Bedside Urine Urobilinogen - Negative Bedside Urine Nitrite - Negative Bedside Urine Leukocytes - Negative Esterase Imaging Data Lumbar spine x-ray: Radiologist's Impression: PROCEDURE: XR LUMBAR SPINE 2-3V INDICATIONS: Increase lumbar pain after surgery TECHNIQUE: 3 views of the lumbar spine were acquired. COMPARISON: [facility], CR, XR LUMBAR SPINE 2-3V, 01/21/2023, 11:40. FINDINGS: Bones: 5 [id number] vertebrae are present. Status post posterior fixation from L2-S1 using paired vertical rods and transpedicle screws and intervertebral disc spacers. Hardware is in appropriate position. No acute fracture. No suspicious bony lesions. Soft tissues: Overlying bowel gas pattern is normal. No suspicious soft tissue calcifications. IMPRESSION: No acute osseous abnormality. Status post L2-S1 posterior fixation with intervertebral disc spacers. ECG Data Attestation: I personally reviewed and interpreted this ECG as follows: Interpretation: Sinus rhythm Ventricular rate 81 Normal axis Normal QRS Normal QTC No ST T wave changes MDM Narrative Medical decision making narrative: Patient is well-appearing. There are no indications that there is a cellulitis. X-ray shows no acute issues in the lumbar spine. Respiratory panel was ordered. Did consider spinal epidural abscess/hematoma however she does not have any neurologic symptoms into her lower extremities. She is afebrile and not tachycardic. Care turned over to Dr. Ortega at change of shift to follow-up and disposition. <Vince Ortega MD - Last Filed: 04/06/23 06:10> Lab Data Labs: Lab Results 02/21/23 02/21/23 Range/Units 16:56 17:07 WBC 9.3 (4.5-11.0) X10^3/uL RBC 5.00 (4.0-5.2) X10^6/uL Hgb 12.9 (12.0-16.0) g/dL Hct 39.5 (36-46) % MCV 78.9 L (80-100) fL MCH 25.8 L (26-34) PG MCHC 32.6 (30-36) % RDW 14.3 (11.6-14.8) % Plt Count 409 H (150-400) X10^3/uL Neut % (Auto) 72.3 (50-75) % Lymph % (Auto) 14.0 L (25-40) % [place] % (Auto) 4.8 (3-14) % Eos % (Auto) 7.4 H (2-4) % Baso % (Auto) 1.5 (0-2) % Neut # (Auto) 6800 (5969-7063) /uL Lymph # (Auto) 1300 (7613-1966) /uL [place] # (Auto) 500 (0-900) /uL Eos # (Auto) 700 H (0-450) /uL Baso # (Auto) 100 (0-100) /uL Sodium 136 L (137-145) mmol/L Potassium 4.4 (3.4-5.1) mmol/L Chloride 102 (98-107) mmol/L Carbon Dioxide 28 (22-32) mmol/L BUN 14 (7-17) mg/dL Creatinine 0.65 (0.52-1.04) mg/dL Estimated GFR > 60 (>60) mL/min BUN/Creatinine Ratio 21.5 (6-22) Glucose 105 (80-110) mg/dL Lactate 1.3 (0.7-2.1) mmol/L Calcium 9.6 (8.4-10.2) mg/dL Total Bilirubin 0.4 (0.2-1.3) mg/dL AST 22 (14-36) IU/L ALT 15 (<35) IU/L Alkaline Phosphatase 112 (38-126) U/L Total Protein 7.5 (6.3-8.2) g/dL Albumin 4.0 (3.5-5.0) g/dL Globulin 3.5 (1.7-4.1) g/dL Albumin/Globulin Ratio 1.1 (1.0-2.8) Lipase 39 (23-300) U/L Procalcitonin 0.07 (<0.5) ng/mL Chlamy pneumoniae PCR Not detected (Not Detect) Adenovirus (PCR) Not detected (Not Detect) B.parapertussis DNA PCR Not detected (Not Detecte) Coronavirus OC43 (PCR) Not detected (Not Detect) Coronavirus HKU1 (PCR) Not detected (Not Detect) Coronavirus 229E (PCR) Not detected (Not Detect) SARS-CoV-2 (PCR) Not detected (Not Detecte) Coronavirus NL63 (PCR) Not detected (Not Detect) Human Metapneumovir PCR Not detected (Not Detect) Influenza Type A (PCR) Not detected (Not Detect) Influenza Type B (PCR) Not detected (Not Detect) M. pneumoniae (PCR) Not detected (Not Detect) Parainfluenza 1 (PCR) Not detected (Not Detect) Parainfluenza 2 (PCR) Not detected (Not Detect) Parainfluenza 3 (PCR) Not detected (Not Detect) Parainfluenza 4 (PCR) Not detected (Not Detect) RSV (PCR) Not detected (Not Detect) Entero/Rhino (PCR) Not detected (Not Detect) Urine Dip Bedside Urine Glucose Negative Bedside Urine Bilirubin - Negative Bedside Urine Ketone - Negative Urine Specific [place] 1.005 Bedside Urine Occult Blood - Negative Bedside Urine pH 7.0 Bedside Urine Protein - Negative Bedside Urine Urobilinogen - Negative Bedside Urine Nitrite - Negative Bedside Urine Leukocytes - Negative Esterase Point of care testing: Urine Dip Bedside Urine Glucose Negative Bedside Urine Bilirubin - Negative Bedside Urine Ketone - Negative Urine Specific [place] 1.005 Bedside Urine Occult Blood - Negative Bedside Urine pH 7.0 Bedside Urine Protein - Negative Bedside Urine Urobilinogen - Negative Bedside Urine Nitrite - Negative Bedside Urine Leukocytes - Negative Esterase MDM Narrative Additional Information: Patient signed out from Dr. Suma may at time of discharge. Please see above for his note. Respiratory panel unremarkable. Pain control given for chronic back pain. Imaging suggestive of acute fracture dislocation. PCP follow-up recommended within 1 week. Return precautions given. Patient able to ambulate well with Discharge Plan Departure Patient Disposition: Home Clinical Impression: S/P lumbar fusion, Back pain Instructions: DI for Low Back Pain Prescriptions: New oxycodone 5 mg capsule 5 mg PO Q4H PRN (Reason: pain) Qty: 7 0RF Continued gabapentin 300 mg capsule 300 mg PO TID PRN (Reason: pain) Qty: 270 3RF Rx Instructions: take 1 capsule by mouth three times a day as needed for pain pantoprazole 40 mg tablet,delayed release (DR/EC) 40 mg PO BID Qty: 180 0RF cyclobenzaprine 10 mg tablet 10 mg PO TID PRN (Reason: muscle spasm) Qty: 14 0RF oxycodone 5 mg tablet 5 mg PO Q6H PRN (Reason: pain) Qty: 10 0RF albuterol sulfate [Ventolin HFA] 90 mcg/actuation HFA aerosol inhaler 2 inh inhalation Q6H PRN (Reason: shortness of breath) acetaminophen 325 mg Tablet 650 mg PO Q6H PRN (Reason: Fever/Mild Pain (1-3)) Qty: 240 0RF docusate sodium 100 mg Capsule 100 mg PO BID PRN (Reason: constipation) Qty: 60 1RF hydroxyzine pamoate 25 mg Capsule 25 mg PO Q4HR PRN (Reason: muscle spasm) Qty: 60 0RF nicotine 7 mg/24 hr Patch 24 Hour 7 mg topical DAILY Qty: 14 3RF cyclobenzaprine 10 mg Tablet 10 mg PO TID PRN (Reason: muscle spasm) Qty: 90 0RF oxycodone 5 mg Tablet 5 mg PO Q3H PRN (Reason: Pain, Moderate (4-6)) Qty: 60 0RF guaifenesin 100 mg/5 mL Liquid 200 mg PO Q4HR PRN (Reason: Cough) Qty: 100 0RF dextromethorphan polistirex [Robitussin ER] 30 mg/5 mL suspension,extended rel 12 hr 10 ml PO Q12H PRN (Reason: cough) Qty: 89 0RF Referrals: Alicia Bull MD [Physician] - As soon as possible Stand Alone Forms: Patient Portal/API
[2023-02-21] MEDS: SODIUM CHLORIDE 0.9% 1,000 ML 1000 ML IV (17:05)
[2023-02-21 17:09] LABS: Add Manual Diff / Slide Review NO; Basophils Absolute Auto 100 /uL (0-100); Basophils Percent Auto 1.5 % (0-2); Eosinophils Absolute Auto 700 /uL (0-450); Eosinophils Percent Auto 7.4 % (2-4); Hematocrit 39.5 % (36-46); Hemoglobin 12.9 g/dL (12.0-16.0); Lymphocytes Absolute Auto 1300 /uL (1100-4500); Mean Corpuscular HGB Conc 32.6 % (30-36); Mean Corpuscular Hemoglobin 25.8 PG (26-34); Mean Corpuscular Volume 78.9 fL (80-100); Monocytes Absolute Auto 500 /uL (0-900); Monocytes Percent Auto 4.8 % (3-14); Neutrophils Absolute Auto 6800 /uL (1500-7000); Neutrophils Percent Auto 72.3 % (50-75); Platelet Count 409 X10^3/uL (150-400); Red Cell Distribution Width 14.3 % (11.6-14.8); White Blood Cell Count 9.3 X10^3/uL (4.5-11.0)
[2023-02-21 17:17] LABS: Lactate (Lactic Acid) 1.3 mmol/L (0.7-2.1)
[2023-02-21 17:19] LABS: Alanine Aminotransferase 15 IU/L (<35); Albumin Globulin Ratio 1.1 (1.0-2.8); Alkaline Phosphatase 112 U/L (38-126); Aspartate Aminotransferase 22 IU/L (14-36); BUN Creatinine Ratio 21.5 (6-22); Bilirubin Total 0.4 mg/dL (0.2-1.3); Blood Urea Nitrogen 14 mg/dL (7-17); Calcium 9.6 mg/dL (8.4-10.2); Carbon Dioxide 28 mmol/L (22-32); Chloride 102 mmol/L (98-107); Estimated Glomerular Filt Rate > 60 mL/min (>60); Globulin 3.5 g/dL (1.7-4.1); Glucose 105 mg/dL (80-110); HEMOLYSIS < 15 (0-50); Potassium 4.4 mmol/L (3.4-5.1); Sodium 136 mmol/L (137-145); Total Protein 7.5 g/dL (6.3-8.2)
[2023-02-21 17:35] LABS: Procalcitonin 0.07 ng/mL (<0.5)
[2023-02-21 17:48] LABS: Lipase 39 U/L (23-300)
[2023-02-21 18:14] LABS: Adenovirus Not Detected (Not Detect); B. parapertussis Not Detected (Not Detecte); Bordetella pertussis Not Detected (Not Detect); Chlamydophila pneumoniae Not Detected (Not Detect); Coronavirus 229E Not Detected (Not Detect); Coronavirus HKU1 Not Detected (Not Detect); Coronavirus NL 63 Not Detected (Not Detect); Coronavirus OC43 Not Detected (Not Detect); Human Metapneumovirus Not Detected (Not Detect); Human Rhinovirus/Enterovirus Not Detected (Not Detect); Influenza A Not Detected (Not Detect); Influenza B Not Detected (Not Detect); Mycoplasma pneumoniae Not Detected (Not Detect); Parainfluenza Virus 1 Not Detected (Not Detect); Parainfluenza Virus 2 Not Detected (Not Detect); Parainfluenza Virus 3 Not Detected (Not Detect); Parainfluenza Virus 4 Not Detected (Not Detect); Respiratory Syncytial Virus Not Detected (Not Detect); SARS- CoV-2 Not Detected (Not Detecte)
[2023-02-21] MEDS: MORPHINE 2 MG/ML INJ IV (19:00)
[2023-02-21] MEDS: OXYCODONE IR 5 MG TABLET PO (19:45)
== END 2023-02-21 20:04 | disposition home or self-care (01) ==
PROVIDERS: Emergency Medicine; Emergency Provider Emergency Medicine
DX: M54.50 Low back pain, unspecified (principal); R50.9 Fever, unspecified; Z98.1 Arthrodesis status; R03.0 Elevated blood-pressure reading, without diagnosis of hypertension
CPT/HCPCS: 36415; 72100; 80053; 81003; 83605; 83690; 84145; 85025; 87040; 87086; 87633; 93005; 96374; 99284; J2270